=== PATIENT | female | born 1935 | race Caucasian/White ===

== ENCOUNTER 2019-09-02 21:24 | Emergency (ER) | payer MEDICARE, MEDICAID, SELFPAY ==
[2019-09-02] VITALS (11 sets, daily range): BP systolic 138–175; BP diastolic 64–96; PULSE 91–110; RESP 18–27; TEMP 38.9; O2SAT 92–95; BMI 25.0
--- NOTE | 2019-09-02 22:22 | ECG_ITS ---
Measurements Intervals [place] Rate: 99 P: 81 NC: 161 QRS: -45 QRSD: 103 T: 67 QT: 357 QTc: 458 SINUS RHYTHM INCOMPLETE RIGHT BUNDLE BRANCH BLOCK [90+ ms QRS DURATION, TERMINAL R IN V1/V2, 40+ ms S IN I/aVL/V4/V5/V6] LEFT ANTERIOR FASCICULAR BLOCK [QRS AXIS <= -45, QR IN I, RS IN II] ST DEVIATION AND MODERATE T-WAVE ABNORMALITY, CONSIDER ANTERIOR ISCHEMIA [-0.1+ mV T WAVE IN V3/V4] Compared to ECG 04/14/2019 09:24:33 Left anterior fascicular block now present T-wave abnormality now present Possible ischemia now present Electronically Signed On 09-03-2019 20:01:40 CDT by Suzy Brumfield M.D. [id number]
--- NOTE | 2019-09-02 22:39 | ED_ITS ---
HPI - Female Genitourinary General: Chief complaint: Urogenital-Female Stated complaint: fever Time Seen by Provider: 09/02/19 22:23 History of Present Illness: HPI Narrative: Patient complains of bladder infection x2 days urinary frequency burning fever at this evening MD elicited complaint: UTI Pertinent past history: recurrent UTIs Onset (ago): day(s) Consistency: progressively worsening Vaginal discharge: none Exacerbating factors: none Associated symptoms: Reports fevers/chills; Deny abdominal pain, headache(s) or nausea Sexual activity: No Patient : No Review of Systems Const: Denies: fever, chills or body aches Eyes: Denies: change in vision or blurry vision ENMT: Denies: throat pain or nasal congestion Card: Denies: chest pain or shortness of breath on exertion Resp: Denies: shortness of breath, productive cough or non-productive cough GI: Denies: abdominal pain, nausea or vomiting : Reports: urinary frequency and urinary urgency Musc: Denies: extremity pain Skin/Breast: Denies: rash Neuro: Denies: headache Psych: Denies: anxiety or depression Titi/Lymph: Denies: easy bruising PFSH ED PFSH: Social History Smoking and tobacco status: never smoked History of recent travel: No Physical Exam Const: COMMON NORMALS: no apparent distress, average body habitus and oriented x3 HENMT: COMMON NORMALS: normocephalic HEAD & SCALP: normal to inspection and normocephalic FACE & SINUS: normal facial exam Eye: COMMON NORMALS: conjunctivae normal GENERAL EYE: normal appearance of both eyes CONJUNCTIVA: Yes conjunctivae normal Neck/C-Spine: COMMON NORMALS: no JVD Chest: COMMONS NORMALS: inspection of chest normal Resp: COMMON NORMALS: normal respiratory effort and clear to auscultation bilaterally AUSCULTATION: clear to auscultation bilaterally Cardio: COMMON NORMALS: no JVD and regular rhythm RATE: tachycardic RHYTHM: regular rhythm GI: COMMON NORMALS: normal to inspection, nondistended, normoactive bowel sounds Extremity: COMMON NORMALS: normal to inspection and full ROM Neuro: COMMON NORMALS: oriented x3 Course Vital Signs: Vital signs: Vital Signs Temperature 102.1 F H 09/02/19 21:31 Pulse Rate 90 05/10/20 00:25 Respiratory Rate 28 H 09/03/19 00:30 Blood Pressure 141/66 09/03/19 00:35 Pulse Oximetry 95 09/03/19 00:25 MDM - Female MDM Narrative: Medical decision making narrative: Went over the labs and patient diagnosis with Dr. Andrez Díaz he agrees with care plan Lab Data: Labs: Lab Results 09/02/19 09/02/19 09/02/19 Range/Units 22:08 22:08 23:34 WBC 11.2 H (4.0-10.0) 10^3/ uL RBC 4.52 (4.1-5.3) 10^6/u L Hgb 12.7 (11.5-15.3) g/dL Hct 40.0 (37.0-47.0) % MCV 88.5 (81-99) fL MCH 28.1 (28.0-34.0) pg MCHC 31.8 (30.0-36.0) g/dL RDW 14.8 (12.1-15.1) % Plt Count 182 (130-400) 10^3/c mm MPV 12.6 H (7.4-10.4) fL Neut % (Auto) 81.1 % Lymph % (Auto) 8.8 % [place] % (Auto) 8.9 % Eos % (Auto) 0.4 % Baso % (Auto) 0.4 % Neut # (Auto) 9.1 H (1.8-7.7) 10^3/u L Lymph # (Auto) 1.0 (0.8-4.8) 10^3/u L [place] # (Auto) 1.0 H (0.2-0.9) 10^3/u L Eos # (Auto) 0.0 (0.0-0.8) 10^3/u L Baso # (Auto) 0.0 (0.0-0.1) 10^3/u L Nucleated RBC % (a uto) 0 % Nucleated RBCs # 0.0 /100WBC Sodium 135 L (136-145) mmol/L Potassium 3.0 L (3.5-5.1) mmol/L Chloride 92 L (98-107) mmol/L Carbon Dioxide 26 (22-29) mmol/L Anion Gap 20.0 H (5-19) BUN 16 (8-23) mg/dL Creatinine 0.9 (0.5-0.9) mg/dL Glucose 108 (65-115) mg/dL Calculated Osmolal ity 277 L (285-295) mOsm/k g Calcium 9.4 (8.5-10.5) mg/dL Total Bilirubin 1.1 (0.15-1.2) mg/dL AST 13 (0-32) U/L ALT 9 (0-33) U/L Alkaline Phosphata se 38 (35-105) IU/L Total Protein 6.8 (6.6-8.7) g/dL Albumin 4.3 (3.5-5.2) g/dL Globulin 2.5 (1.3-4.6) g/dL Urine Color [place] (Yellow) Urine Appearance Cloudy (CLEAR) Urine pH 5 (5-7) Ur Specific [place]it y 1.005 (1.005-1.030) Urine Protein 3+ H (Negative) Urine Glucose (UA) Norm (Normal) Urine Ketones 2+ H (Negative) Urine Blood 3+ H (Negative) Urine Nitrate Not tested A (Negative) Urine Bilirubin Not tested (NEGATIVE) Prot Sulfosalicyli c Acd Positive (Negative) Urine Urobilinogen Not tested A (Negative) mg/dL Ur Leukocyte [place] 2+ H (Negative) Urine RBC 5-10 H (0-2) /hpf Urine WBC Too numerous to c nt H (0-5) /hpf Ur Squamous Epith Cells 0-4 H (0-5) Urine Bacteria 2+ H (NONE) EKG Data: EKG 1: EKG Data: 09/02/19 EKG interpretation time: 22:40 Interpretation: Sinus rhythm ventricular rate 99 bpm incomplete right bundle branch block left anterior fascicular block GA intervals 161 ms QRS durations 103 ms Discharge Plan Discharge Patient Disposition: Home, Self-Care Clinical Impression: Hypokalemia, Acute dehydration Urinary tract infection Qualifiers: Urinary tract infection type: acute cystitis Hematuria presence: with hematuria Qualified Code(s): N30.01 - Acute cystitis with hematuria Condition: Stable Prescriptions: New Macrobid 100 mg capsule 100 mg PO BID 7 Days Qty: 14 RF: 0 potassium chloride 10 mEq tablet extended release 10 meq PO DAILY Qty: 30 RF: 0 No Action carbidopa-levodopa [Sinemet] 25-100 mg tablet 1 tab PO TID RF: 0 metoprolol succinate 25 mg tablet extended release 24 hr 25 mg PO BID RF: 0 losartan 50 mg tablet 50 mg PO BID RF: 0 lorazepam 0.5 mg tablet 0.5 mg PO QID PRN (Reason: Sleep) RF: 0 atorvastatin 20 mg tablet 20 mg PO DAILY RF: 0 hydrochlorothiazide 12.5 mg Tablet 12.5 mg PO EVERY OTHER DAY RF: 0 biotin 800 mcg Tablet 500 mcg PO DAILY RF: 0 Aspir-81 81 mg Tablet,Delayed Release (Dr/Ec) 81 mg PO DAILY RF: 0 iron 325 mg (65 mg iron) Tablet 325 mg PO DAILY RF: 0 Discharge Orders: Discharge Order (Routine); Ordered 09/03/19 Ordered By: Bakari Pardo Referrals: Adri Chaudhary NP [Primary Care Provider] - Discharge Diet: Advance as tolerated Discharge Activity: Resume usual activity Patient Instructions: Dehydration (ED), Urinary Tract Infection in Women (ED), Hypokalemia (ED) Activity Restrictions/Additional Instructions: Follow-up with medical provider as directed. Take medications as prescribed. Return to the ER or your medical provider if condition worsens. Please read and understand discharge instructions. If any questions ask please. Follow-up with your primary care this coming week repeat your urine sample and potassium blood level drink plenty of fluids if fever does not go away or worsening symptoms return here with your primary care provider Coding Level of Care Code ED Educational Therapy Teacher for Ute Fwd Exam Comprehensive
[2019-09-02] MEDS: sodium chloride 0.9% 1,000 ML 999 ML IV (23:08)
[2019-09-02 23:28] LABS: Basophils % 0.4 %; Eosinophils % 0.4 %; Hemoglobin 12.7 g/dL (11.5-15.3); Lymphocytes % 8.8 %; Mean Corpuscular HGB Conc 31.8 g/dL (30.0-36.0); Mean Corpuscular Hemoglobin 28.1 pg (28.0-34.0); Mean Corpuscular Volume 88.5 fL (81-99); Mean Platelet Volume 12.6 fL (7.4-10.4); Monocytes % 8.9 %; Neutrophils # 9.1 10^3/uL (1.8-7.7); Neutrophils % 81.1 %; Nucleated Red Blood Cells % 0 %; Platelet Count 182 10^3/cmm (130-400); Positive C 1; Red Blood Count 4.52 10^6/uL (4.1-5.3); Red Cell Distribution Width 14.8 % (12.1-15.1); White Blood Count 11.2 10^3/uL (4.0-10.0)
[2019-09-02 23:32] LABS: Alanine Aminotransferase 9 U/L (0-33); Albumin Level 4.3 g/dL (3.5-5.2); Alkaline Phosphatase 38 IU/L (35-105); Aspartate Amino Transferase 13 U/L (0-32); Blood Urea Nitrogen 16 mg/dL (8-23); Calcium 9.4 mg/dL (8.5-10.5); Carbon Dioxide 26 mmol/L (22-29); Chloride 92 mmol/L (98-107); Creatinine Clr Calc Pharmacy 46.7251; Globulin 2.5 g/dL (1.3-4.6); Glucose 108 mg/dL (65-115); Osmolality Calculated 277 mOsm/kg (285-295); Sodium 135 mmol/L (136-145); Total Bilirubin 1.1 mg/dL (0.15-1.2); Total Protein 6.8 g/dL (6.6-8.7)
[2019-09-02 23:45] LABS: Slide Review Slide Review Perform
[2019-09-02] MEDS: acetaminophen 500 mg Tablet 1000 MG PO (23:48)
[2019-09-02] MEDS: cefTRIAXone 1,000 MG in sodium chloride 0.9% (plus) 50 ML 100 MG IV (23:49)
[2019-09-03] VITALS (13 sets, daily range): BP systolic 110–149; BP diastolic 58–66; PULSE 85–96; RESP 16–28; O2SAT 93–96
[2019-09-03 00:24] LABS: Protein Urine 3+ (Negative); Specific Gravity, Urine 1.005 (1.005-1.030); Urine Appearance Cloudy (CLEAR); Urine Color Orange (Yellow); pH Urine 5 (5-7)
[2019-09-03 00:25] LABS: Bilirubin Urine Not Tested (NEGATIVE); Blood Urine 3+ (Negative); Glucose Urine UA Norm (Normal); Ketones Urine 2+ (Negative); Leukocyte Esterase Urine 2+ (Negative); Nitrate Urine Not Tested (Negative); Sulfosalicylic Acid Urine Positive (Negative); Urobilinogen Urine Not Tested mg/dL (Negative)
[2019-09-03 00:28] LABS: Add Urine Microscopic? YES; WBC Urine TOO NUMEROUS TO CNT /hpf (0-5)
[2019-09-03 00:29] LABS: Add Urine Culture? Yes; Bacteria Urine 2+; Squamous Epithelial Cell Urine 0-4 (0-5)
== END 2019-09-03 01:10 | disposition home or self-care (01) ==
PROVIDERS: Emergency Medicine; Emergency Provider Nurse Practitioner Family; PCP Nurse Practitioner Family
DX: N30.01 Acute cystitis with hematuria (principal); E87.6 Hypokalemia; E86.0 Dehydration; Z79.82 Long term (current) use of aspirin
CPT/HCPCS: 12345; 80053; 81001; 85025; 87040; 87077; 87086; 87186; 93005; 96365; 99284; J0696; J7030

== ENCOUNTER → 2019-10-30 11:20 | Outpatient (BNVA) | payer MEDICARE, MEDICAID, SELFPAY | PROVIDERS: PCP Nurse Practitioner Family; Referring Provider Nurse Practitioner Family; Visit Provider Nurse Practitioner Family | DX: N39.0 Urinary tract infection, site not specified (principal); N39.41 Urge incontinence | CPT/HCPCS: 80053; 81001 ==

== ENCOUNTER → 2019-11-01 12:07 | Outpatient (BNVA) | payer MEDICARE, MEDICAID, SELFPAY | PROVIDERS: PCP Nurse Practitioner Family; Visit Provider Specialist | DX: G20 Parkinson's disease (principal); F41.9 Anxiety disorder, unspecified | CPT/HCPCS: 99214 ==

== ENCOUNTER → 2020-02-20 10:36 | Outpatient (BNVA) | payer MEDICARE, MEDICAID, SELFPAY | PROVIDERS: PCP Nurse Practitioner Family; Visit Provider Nurse Practitioner Family | DX: N39.0 Urinary tract infection, site not specified (principal) | CPT/HCPCS: 81003 ==

== ENCOUNTER → 2020-05-20 14:13 | Outpatient (BNVA) | payer MEDICARE, MEDICAID, SELFPAY | PROVIDERS: PCP Nurse Practitioner Family; Visit Provider Specialist | DX: G20 Parkinson's disease (principal) | CPT/HCPCS: 99214 ==

== ENCOUNTER → 2020-05-22 13:49 | Outpatient (BNVA) | payer MEDICARE, MEDICAID, SELFPAY | PROVIDERS: PCP Nurse Practitioner Family; Visit Provider Urology | DX: N39.0 Urinary tract infection, site not specified (principal) | CPT/HCPCS: 81003 ==

== ENCOUNTER 2020-06-26 13:02 | Outpatient (RCR) | payer MEDICARE, MEDICAID, SELFPAY | END 2020-07-24 23:59 | disposition home or self-care (01) | LOC: SPT 13:02 | PROVIDERS: PCP Nurse Practitioner Family; Visit Provider Specialist | DX: G20 Parkinson's disease (principal) | CPT/HCPCS: 97110; 97112; 97162; 97530 ==

== ENCOUNTER 2020-07-25 06:00 | Outpatient (RCR) | payer MEDICARE, MEDICAID, SELFPAY | END 2020-08-01 23:00 | disposition home or self-care (01) | LOC: SPT 06:00 | PROVIDERS: PCP Nurse Practitioner Family; Visit Provider Specialist | DX: G20 Parkinson's disease (principal) | CPT/HCPCS: 97110; 97112; 97530 ==

== ENCOUNTER → 2020-10-25 11:22 | Outpatient (BNVA) | payer MEDICARE, MEDICAID, SELFPAY | PROVIDERS: PCP Nurse Practitioner Family; Visit Provider Urology | DX: N39.0 Urinary tract infection, site not specified (principal) | CPT/HCPCS: 81003; 87086 ==

== ENCOUNTER → 2020-11-20 11:10 | Outpatient (BNVA) | payer MEDICARE, MEDICAID, SELFPAY | PROVIDERS: PCP Nurse Practitioner Family; Visit Provider Specialist | DX: G20 Parkinson's disease (principal); F41.9 Anxiety disorder, unspecified | CPT/HCPCS: 81003; 99213; 99214 ==

== ENCOUNTER → 2021-05-05 14:59 | Outpatient (BNVA) | payer MEDICARE, MEDICAID, SELFPAY | PROVIDERS: PCP Nurse Practitioner Family; Visit Provider Specialist | DX: G20 Parkinson's disease (principal); R06.02 Shortness of breath; F41.9 Anxiety disorder, unspecified; Z71.85 Encounter for immunization safety counseling | CPT/HCPCS: 99214 ==

== ENCOUNTER 2021-06-01 15:53 | Emergency (ER) | payer MEDICARE, MEDICAID, SELFPAY ==
[2021-06-01] VITALS (9 sets, daily range): BP systolic 91–171; BP diastolic 55–108; PULSE 75–96; RESP 10–20; TEMP 36.7; O2SAT 96–98; BMI 24.1
--- NOTE | 2021-06-01 16:33 | W.ED.WEAKNES ---
HPI - Weakness General: Chief complaint: Weakness Stated complaint: weakness, shaking Time Seen by Provider: 06/01/21 16:32 History of Present Illness: Ms. Flaherty is an 85-year-old lady with history of Parkinson's disease and recurrent UTI presenting to the emergency department for generalized weakness and near syncope with increased shakiness. Symptom onset was gradual approximately 3 days ago. She does have a recent history of Covid about 2 weeks ago and feels that this may be related to that though she did have some improvement in Covid symptoms. She endorses positional lightheadedness and near syncope. Overall the course of symptoms has been worsening. Intensity is moderate. Denies any other known specific exacerbating relieving factors. Onset (ago): day(s) Duration: constant and progressively worsening Severity: moderate Exacerbating factors: other Context: recent illness Review of Systems General: Reports: 10 or more systems reviewed and unremarkable except in HPI and below PFSH ED PFSH: Medical History Anemia Back pain Central deafness GERD (gastroesophageal reflux disease) Parkinson's Disease Recurrent UTI Surgical History History of cataract surgery History of knee replacement Hx of LASIK Family History Sister COPD (chronic obstructive pulmonary disease) Mother CHF (congestive heart failure) Social History Alcohol intake: never Adopted: No Caregiver/support person: No Lives independently: Yes Marital status: / Current occupational status: retired History of recent travel: No Physical Exam Const: COMMON NORMALS: alert GENERAL APPEARANCE: cooperative, well developed and frail appearing HENMT: COMMON NORMALS: normocephalic and atraumatic HEAD & SCALP: normocephalic and atraumatic OTHER: Mildly dry mucous membranes Eye: COMMON NORMALS: conjunctivae normal CONJUNCTIVA: Yes conjunctivae normal SCLERA: sclerae normal Neck/C-Spine: COMMON NORMALS: supple GENERAL: Yes trachea midline Resp: COMMON NORMALS: normal respiratory effort and clear to auscultation bilaterally EFFORT & INSPECTION: Yes able to speak in complete sentences AUSCULTATION: clear to auscultation bilaterally Cardio: COMMON NORMALS: regular rate and regular rhythm RATE: regular rate RHYTHM: regular rhythm GI: COMMON NORMALS: Soft to palpation PALPATION: Yes Soft to palpation and No Tenderness to palpation present (GI) PERCUSSION: normal to percussion Extremity: GENERAL: Yes normal exam except as noted and No edema Neuro: COMMON NORMALS: moves all extremities SENSORIUM/ORIENTATION: Yes alert and No Orientation impaired OTHER: Generalized tremor without focal neurologic deficits Psych: COMMON NORMALS: mental status grossly normal and Normal thought process present THOUGHT PROCESS: Normal thought process present Course ED course: - Patient was seen and evaluated by me at bedside - Patient placed on cardiac monitors, IV access obtained - Initial evaluation notable for exam as above, no focal neurologic deficits -IV fluids ordered - Labs notable for no leukocytosis, mild hypokalemia with replacement ordered. Urinalysis with evidence of urinary tract infection, antibiotic ordered - Imaging notable for negative chest x-ray - Upon serial reexamination after treatment the patient was mildly improved - Based on patient history, evaluation, labs, and imaging as interpreted the most likely cause of the patient's condition is mild dehydration and UTI likely exacerbating underlying medical conditions including autonomic symptoms secondary to Parkinson's disease - The results of ED evaluation were discussed with the patient including prescriptions and/or symptomatic cares (if applicable) including appropriate and responsible use, followup plan, and return precautions. The patient verbalized understanding and felt safe for discharge. - Patient discharged in satisfactory condition. Note: Click bubbles or prepopulated handy in note writing are used for assistance with data collection and billing and are inherently more limited than narrative and other text portions of this note. Please use narrative for additional clinical history and defer to narrative/free test for any case of contradictory information. If information appears in only free text or click bubble it should be considered present or absent as reported. Please contact note database report writer for clarifications of clinical information or contradictory information. MDM is a brief summary, contradictory or erroneous seeming information should be clarified and full note should be reviewed. Vital Signs: Vital signs: Vital Signs Temperature 98.0 F 06/01/21 18:21 Pulse Rate 93 06/01/21 20:11 Respiratory Rate 20 H 06/01/21 20:11 Blood Pressure 155/97 06/01/21 20:11 Pulse Oximetry 97 06/01/21 20:11 MDM - Weakness Medical Decision Making 85 lady presenting with 3 days of worsening generalized weakness and near syncope. No focal neurologic deficits on clinical exam. Mild dehydration noted on labs and likely urinary tract infection. Patient improved with fluids and will be treated outpatient with antibiotics with close PCP follow-up and strict return precautions. Medical Records I reviewed the patient's medical records. Lab Data I reviewed the patient's lab results. : 06/01/21 16:45 06/01/21 16:45 Radiology Impressions Chest X-Ray 06/01/21 16:36 IMPRESSION: No acute findings. Laboratory Results WBC 7.3 10^3/uL (4.0-10.0) 06/01/21 16:45 RBC 4.10 10^6/uL (4.1-5.3) 06/01/21 16:45 Hgb 11.9 g/dL (11.5-15.3) 06/01/21 16:45 Hct 37.0 % (37.0-47.0) 06/01/21 16:45 MCV 90.2 fl (81-99) 06/01/21 16:45 MCH 29.0 pg (28.0-34.0) 06/01/21 16:45 MCHC 32.2 g/dL (30.0-36.0) 06/01/21 16:45 RDW 13.5 % (12.1-15.1) 06/01/21 16:45 Plt Count 245 10^3/cmm (130-400) 06/01/21 16:45 MPV 11.9 fL (7.4-10.4) H 06/01/21 16:45 Neut % (Auto) 55.1 % 06/01/21 16:45 Lymph % (Auto) 29.9 % 06/01/21 16:45 [place] % (Auto) 12.1 % 06/01/21 16:45 Eos % (Auto) 1.8 % 06/01/21 16:45 Baso % (Auto) 0.7 % 06/01/21 16:45 Neut # (Auto) 4.04 10^3/uL (1.8-7.7) 06/01/21 16:45 Lymph # (Auto) 2.2 10^3/uL (0.8-4.8) 06/01/21 16:45 [place] # (Auto) 0.9 10^3/uL (0.2-0.9) 06/01/21 16:45 Eos # (Auto) 0.1 10^3/uL (0.0-0.8) 06/01/21 16:45 Baso # (Auto) 0.1 10^3/uL (0.0-0.1) 06/01/21 16:45 Nucleated RBC % (auto) 0 % 06/01/21 16:45 Nucleated RBCs # 0.0 /100WBC 06/01/21 16:45 Sodium 139 mmol/L (136-145) 06/01/21 16:45 Potassium 3.2 mmol/L (3.5-5.1) L 06/01/21 16:45 Chloride 98 mmol/L (98-107) 06/01/21 16:45 Carbon Dioxide 28 mmol/L (22-29) 06/01/21 16:45 Anion Gap 16.2 (5-19) 06/01/21 16:45 BUN 15 mg/dL (8-23) 06/01/21 16:45 Creatinine 0.8 mg/dL (0.5-0.9) 06/01/21 16:45 GFR Calculation Not Reportable 06/01/21 16:45 Glucose 120 mg/dL (65-115) H 06/01/21 16:45 Calculated Osmolality 290 mOsm/kg (285-295) 06/01/21 16:45 Calcium 8.7 mg/dL (8.5-10.5) 06/01/21 16:45 Magnesium 2.3 mg/dL (1.7-2.3) 06/01/21 16:45 Total Bilirubin 0.4 mg/dL (0.15-1.2) 06/01/21 16:45 AST 16 U/L (0-32) 06/01/21 16:45 ALT < 5 U/L (0-33) 06/01/21 16:45 Alkaline Phosphatase 43 IU/L (35-105) 06/01/21 16:45 Troponin T Baseline 12 ng/L (0-10) H 06/01/21 16:45 Troponin T 120 Minute 11.25 ng/L (0-10) H 06/01/21 18:45 Delta Troponin T -0.75 ABS# (0-10) L 06/01/21 18:45 Total Protein 5.6 g/dL (6.6-8.7) L 06/01/21 16:45 Albumin 4.2 g/dL (3.5-5.2) 06/01/21 16:45 Globulin 1.4 g/dL (1.3-4.6) 06/01/21 16:45 TSH 1.44 uIU/mL (0.27-4.20) 06/01/21 16:45 Urine Color Yellow (Yellow) 06/01/21 16:55 Urine Appearance Hazy (CLEAR) A 06/01/21 16:55 Urine pH 7 (5-7) 06/01/21 16:55 Ur Specific [place] 1.010 (1.005-1.030) 06/01/21 16:55 Urine Protein Neg (Negative) 06/01/21 16:55 Urine Glucose (UA) Norm (Normal) 06/01/21 16:55 Urine Ketones 1+ (Negative) H 06/01/21 16:55 Urine Blood Neg (Negative) 06/01/21 16:55 Urine Nitrate Negative (Negative) 06/01/21 16:55 Urine Bilirubin Neg (Negative) 06/01/21 16:55 Urine Urobilinogen 1 mg/dL (Negative) H 06/01/21 16:55 Ur Leukocyte Esterase 2+ (Negative) H 06/01/21 16:55 Urine RBC None /hpf (0-2) 06/01/21 16:55 Urine WBC 15-25 /hpf (0-5) H 06/01/21 16:55 Ur Squamous Epith Cells 0-4 /hpf (0-5) H 06/01/21 16:55 Triple Phos Crystals 0-4 /hpf H 06/01/21 16:55 Amorphous Sediment 1+ /hpf 06/01/21 16:55 Urine Bacteria 1+ /hpf (NONE) H 06/01/21 16:55 Hyaline Casts 0-4 /lpf H 06/01/21 16:55 Coarse Granular Casts 0-4 /lpf H 06/01/21 16:55 EKG Data EKG 1: I personally reviewed and interpreted this EKG as follows: EKG interpretation date: 06/01/21 EKG interpretation time: 16:35 Interpretation: Twelve-lead EKG shows a regular rhythm at a rate of 82. FL interval 141, QRS duration 92, QTc 424. Normal axis. Interpretation: Sinus rhythm. EKG 2: I personally reviewed and interpreted this EKG as follows: EKG interpretation date: 06/01/21 EKG interpretation time: 19:00 Interpretation: Twelve-lead EKG shows a regular rhythm at a rate of 87. FL interval 175, QRS duration 112, QTc 453. Normal axis. Interpretation: Sinus rhythm. Discharge Plan Discharge Patient Disposition: Home Clinical Impression: Recurrent UTI, Weakness Condition: Stable Prescriptions: New cephalexin 500 mg capsule 500 mg PO Q6H 10 Days Qty: 40 0RF No Action carbidopa-levodopa 25-100 mg tablet See Rx Instructions .ROUTE .COMPLEX Qty: 120 5RF Rx Instructions: 1/2 TABLET IN THE MORNING, 1 & 1/2 TABLETS AT 9AM AND 1:00PM, AND 1/2 TABLET AT BEDTIME lorazepam 0.5 mg tablet 0.5 mg PO QID PRN (Reason: Sleep) 0RF Rx Instructions: 1-2 TABLETS atorvastatin 20 mg tablet 20 mg PO DAILY 0RF cholecalciferol (vitamin D3) 25 mcg (1,000 unit) capsule 25 mcg PO BID 0RF Healthy Eyes Lutein-Zeaxanthin 60 mg-13.5 mg- 15 mg-2 mg-6 mg capsule 1 cap PO DAILY 0RF methenamine hippurate 1 gram tablet 1 g PO BID Qty: 60 12RF Rx Instructions: Take 1000 mg of vitamin C with each dose of methenamine ascorbic acid (vitamin C) 500 mg tablet 1 g PO BID Qty: 120 12RF Rx Instructions: take with each dose of methenamine hydrochlorothiazide 12.5 mg Tablet See Rx Instructions .ROUTE .COMPLEX 0RF Rx Instructions: 12.5 mg orally ON MON, WEDS, FRI AND 25 MG ON , TH, SAT, SUN biotin 800 mcg Tablet 500 mcg PO DAILY 0RF aspirin [Aspir-81] 81 mg Tablet,Delayed Release (Dr/Ec) 81 mg PO DAILY 0RF potassium chloride 10 mEq tablet extended release 10 meq PO DAILY Qty: 30 0RF zinc 50 mg Tablet 50 mg PO BID 0RF ondansetron 4 mg tablet,disintegrating 4 mg PO Q8H PRN (Reason: Nausea) 0RF Discharge Orders: Discharge ED (Routine); Ordered 06/01/21 Ordered By: Deion Verdugo Discharge Diet: Usual diet Discharge Activity: Resume usual activity Patient Instructions: Urinary Tract Infection in Women (ED), Weakness (ED) Activity Restrictions/Additional Instructions: Thank you for visiting the emergency department. You were seen and evaluated for generalized symptoms. The exact cause of the symptoms is unclear however may be related to mild dehydration and urinary tract infection. Please follow-up with your primary care provider. Please return to the emergency department for worsening symptoms, fevers, shortness of breath, chest pain, or anything else that you are concerned about and feel needs emergency department evaluation. Coding Level of Care Code ED School Health Aide for Ute Shields
--- NOTE | 2021-06-01 16:36 | XRR_ITS ---
PROCEDURE INFORMATION: Exam: XR Chest Exam date and time: 06/01/2021 4:36 PM Age: 85 years old Clinical indication: Other: Weakness post covid; Patient HX: Weakness after HX covid; Additional info: Weakness, HX covid TECHNIQUE: Imaging protocol: XR of the chest. Views: 1 view. COMPARISON: CR Chest 1 [place] [id number] 04/14/2019 4:00 AM FINDINGS: Lungs: Unremarkable. No consolidation. Pleural spaces: Unremarkable. No pleural effusion. No pneumothorax. Heart/Mediastinum: Unremarkable. No cardiomegaly. Bones/joints: Unremarkable. XR/XR chest 1V portable [id number] IMPRESSION: No acute findings.
[2021-06-01] MEDS: sodium chloride 0.9% 1,000 ML 999 ML IV (17:18)
[2021-06-01 17:20] LABS: Basophils # 0.1 10^3/uL (0.0-0.1); Basophils % 0.7 %; Eosinophils # 0.1 10^3/uL (0.0-0.8); Eosinophils % 1.8 %; Hemoglobin 11.9 g/dL (11.5-15.3); Lymphocytes # 2.2 10^3/uL (0.8-4.8); Lymphocytes % 29.9 %; Mean Corpuscular HGB Conc 32.2 g/dL (30.0-36.0); Mean Corpuscular Volume 90.2 fl (81-99); Mean Platelet Volume 11.9 fL (7.4-10.4); Monocytes # 0.9 10^3/uL (0.2-0.9); Monocytes % 12.1 %; Neutrophils # 4.04 10^3/uL (1.8-7.7); Neutrophils % 55.1 %; Nucleated Red Blood Cells % 0 %; Platelet Count 245 10^3/cmm (130-400); Red Cell Distribution Width 13.5 % (12.1-15.1); White Blood Count 7.3 10^3/uL (4.0-10.0)
[2021-06-01 17:26] LABS: Add Urine Microscopic? YES; Bilirubin Urine Neg (Negative); Blood Urine Neg (Negative); Glucose Urine UA Norm (Normal); Ketones Urine 1+ (Negative); Leukocyte Esterase Urine 2+ (Negative); Nitrate Urine Negative (Negative); Protein Urine Neg (Negative); Urine Appearance Hazy (CLEAR); Urine Color Yellow (Yellow); Urobilinogen Urine 1 mg/dL (Negative); WBC Urine 15-25 /hpf (0-5); pH Urine 7 (5-7)
[2021-06-01 17:27] LABS: Add Urine Culture? Yes; Amorphous Sediment Urine 1+ /hpf; Bacteria Urine 1+ /hpf; Coarse Granular Casts Urine 0-4 /lpf; Hyaline Casts Urine 0-4 /lpf; Squamous Epithelial Cell Urine 0-4 /hpf (0-5); Triple Phosphate Crystal Urine 0-4 /hpf
[2021-06-01 17:40] LABS: Troponin(5th) Baseline 12 ng/L (0-10)
[2021-06-01 17:46] LABS: Alanine Aminotransferase < 5 U/L (0-33); Albumin Level 4.2 g/dL (3.5-5.2); Alkaline Phosphatase 43 IU/L (35-105); Aspartate Amino Transferase 16 U/L (0-32); Blood Urea Nitrogen 15 mg/dL (8-23); Calcium 8.7 mg/dL (8.5-10.5); Carbon Dioxide 28 mmol/L (22-29); Chloride 98 mmol/L (98-107); Globulin 1.4 g/dL (1.3-4.6); Glucose 120 mg/dL (65-115); Magnesium 2.3 mg/dL (1.7-2.3); Osmolality Calculated 290 mOsm/kg (285-295); Sodium 139 mmol/L (136-145); Thyroid Stimulating Hormone 1.44 uIU/mL (0.27-4.20); Total Bilirubin 0.4 mg/dL (0.15-1.2); Total Protein 5.6 g/dL (6.6-8.7)
[2021-06-01 17:48] LABS: Anion Gap 16.2 (5-19); Potassium 3.2 mmol/L (3.5-5.1)
--- NOTE | 2021-06-01 18:37 | ECG_ITS ---
[facility] Test Date: 2021-06-01 Pat Name: Latoya Flaherty Department: Room: Gender: Female Wash Crew Person: : 1935 Requested By: Deion Verdugo Order Number: [id number] Meet MD: Quyen Suresh M.D. Measurements Intervals [place] Rate: 87 P: 76 IA: 175 QRS: 65 QRSD: 112 T: 91 QT: 409 QTc: 492 Interpretive Statements SINUS RHYTHM WITH OCCASIONAL SUPRAVENTRICULAR PREMATURE COMPLEXES LOW QRS VOLTAGE IN PRECORDIAL LEADS [QRS DEFLECTION < 1.0 mV IN CHEST LEADS] INCOMPLETE RIGHT BUNDLE BRANCH BLOCK MODERATE ST DEPRESSION Compared to ECG 06/01/2021 16:11:29 Incomplete right bundle-branch block now present ST (T wave) deviation now present Myocardial infarct finding no longer present Electronically Signed On 06-02-2021 8:48:44 CHIEF OPERATIONS OFFICER by Quyen Suresh M.D. [id number]
[2021-06-01] MEDS: potassium chloride oral liq 20 mEq/15 mL UDC 40 MEQ PO (19:03)
[2021-06-01 20:27] LABS: Troponin 5 2HR 11.25 ng/L (0-10)
[2021-06-01 20:29] LABS: Troponin 5 2HR Delta -0.75 ABS# (0-10)
[2021-06-01] MEDS: cefTRIAXone 1,000 MG in sodium chloride 0.9% (plus) 50 ML 100 MG IV (20:55)
--- NOTE | 2021-06-01 22:37 | ECG_ITS ---
[facility] Test Date: 2021-06-01 Pat Name: Latoya Flaherty Department: Room: Gender: Female Photographic Specialist: : 1935 Requested By: Deion Verdugo Order Number: [id number] Meet MD: Quyen Suresh M.D. Measurements Intervals [place] Rate: 82 P: 71 [place]: 141 QRS: -6 QRSD: 92 T: 1 QT: 385 QTc: 452 Interpretive Statements SINUS RHYTHM LOW QRS VOLTAGE IN PRECORDIAL LEADS [QRS DEFLECTION < 1.0 mV IN CHEST LEADS] POSSIBLE ANTERIOR MYOCARDIAL INFARCTION , OF INDETERMINATE AGE [30 ms Q WAVE IN V3/V4, OR R < 0.2 mV IN V4] Compared to ECG 09/02/2019 22:40:13 Low QRS voltage now present Myocardial infarct finding now present Incomplete right bundle-branch block no longer present Left anterior fascicular block no longer present T-wave abnormality no longer present Possible ischemia no longer present Electronically Signed On 06-01-2021 17:02:30 WATER PURIFIER OPERATOR by Quyen Suresh M.D. [id number]
== END 2021-06-01 21:23 | disposition home or self-care (01) ==
PROVIDERS: Emergency Provider Emergency Medicine
DX: R53.1 Weakness (principal); N39.0 Urinary tract infection, site not specified; Z87.440 Personal history of urinary (tract) infections; Z79.82 Long term (current) use of aspirin; G20 Parkinson's disease
CPT/HCPCS: 36415; 71045; 80053; 81001; 83735; 84443; 84484; 85025; 87086; 93005; 96365; 99284; J0696; J7030

== ENCOUNTER → 2021-06-11 14:23 | Outpatient (BNVA) | payer MEDICARE, MEDICAID, SELFPAY | PROVIDERS: Visit Provider Nurse Practitioner Family | DX: N39.0 Urinary tract infection, site not specified (principal) | CPT/HCPCS: 81003 ==

== ENCOUNTER → 2021-07-30 14:38 | Outpatient (BNVA) | payer MEDICARE, MEDICAID, SELFPAY | PROVIDERS: Visit Provider Specialist | DX: G20 Parkinson's disease (principal) | CPT/HCPCS: 99213 ==

== ENCOUNTER → 2021-12-11 10:40 | Outpatient (BNVA) | payer MEDICARE, MEDICAID, SELFPAY | PROVIDERS: Visit Provider Urology | DX: N39.0 Urinary tract infection, site not specified (principal); R35.81 Nocturnal polyuria | CPT/HCPCS: 81003; 99213 ==

== ENCOUNTER 2022-01-29 11:03 | Emergency (ER) | payer MEDICARE, MEDICAID, SELFPAY ==
[2022-01-29 11:04] VITALS: BP 174/84; PULSE 78; RESP 16; TEMP 36.9; O2SAT 95; BMI 26.6
--- NOTE | 2022-01-29 11:46 | XRR_ITS ---
PROCEDURE INFORMATION: Exam: XR Ribs Exam date and time: 01/29/2022 12:15 PM Age: 86 years old Clinical indication: Injury or trauma; Rib area, bilateral; Blunt trauma; Injury details: History--fall Wednesday herson rib pain TECHNIQUE: Imaging protocol: Radiologic exam of the of the ribs. Views: 3 views. Bilateral ribs. COMPARISON: CR XR chest 1V portable [id number] 06/01/2021 5:48 PM FINDINGS: Bones/joints: Normal. Lungs: Small benign calcified granulomas are present in the lungs. No pneumonia. Pleural space: No pleural effusion or pneumothorax. Soft tissues: Normal. XR/XR ribs BI 3V* [id number] IMPRESSION: No acute findings.
--- NOTE | 2022-01-29 13:13 | ED_ITS ---
HPI - Extremity Problem General: Chief complaint: Extremity Injury, Upper Stated complaint: Fall, Ribs, Head and knee pains Time Seen by Provider: 01/29/22 12:00 History of Present Illness: Patient is in today for left-sided rib pain. She reports that last Wednesday she had a fall when she got up from bed to go take another medication. She reports that she just tripped and fell. She reports that she fell onto the hard floor and hurt the left side of her ribs. She reports that she has had some swelling in both knees her right knee is a little bit sore but she is walking okay on it. She reports that initially she had some pain in her right elbow but that seems to be improving. She just states that she has hurting all over. She reports that her pain has not gotten any worse but it is just not improving a lot in her rib. She denies any shortness of breath, but states that it is painful to take a big deep breath. Associated symptoms: Deny chest pain or fever(s) Review of Systems Const: Denies: fever(s) or chills Card: Denies: chest pain or palpitations Resp: Denies: dyspnea, productive cough or non-productive cough Musc: Reports: other (Left side rib pain, right side knee pain, right side elbow pain) [facility] ED PFSH: Medical History Anemia Back pain Central deafness GERD (gastroesophageal reflux disease) Parkinson's Disease Recurrent UTI Surgical History History of cataract surgery History of knee replacement Hx of LASJESSICA Family History Sister COPD (chronic obstructive pulmonary disease) Mother CHF (congestive heart failure) Social History Smoking and tobacco status: never smoked Alcohol intake: never Adopted: No Caregiver/support person: No Lives independently: Yes Marital status: / Current occupational status: retired History of recent travel: No Physical Exam Const: COMMON NORMALS: no acute distress, patient oriented x3 and alert Chest: OTHER: Tenderness to palpation left side lower ribs under breast. No obvious bony deformity or step-off appreciated. No soft tissue bruising or deformity appreciated. Resp: COMMON NORMALS: normal respiratory effort, No use of accessory muscles and clear to auscultation bilaterally AUSCULTATION: clear to auscultation bilaterally Cardio: COMMON NORMALS: regular rate, regular rhythm, S1 normal heart sound present and S2 normal heart sound present RATE: regular rate RHYTHM: regular rhythm HEART SOUNDS: S1 normal heart sound present and S2 normal heart sound present Extremity: NARRATIVE EXTREMITY EXAM: Patient has bruising to the right elbow. She has full range of motion of the elbow. No obvious bony deformity appreciated. OTHER: Patient has bruising to bilateral knees over the patella. She has surgical scars from previous bilateral knee replacements. Patient is ambulating well. Mild swelling to the right knee. Tender to palpation over the bruising however there is no obvious bony deformity appreciated. Neuro: COMMON NORMALS: patient oriented x3 SENSORIUM/ORIENTATION: Yes alert Course Vital Signs: Vital signs: Vital Signs Temperature 98.5 F 01/29/22 11:04 Pulse Rate 73 01/29/22 13:58 Respiratory Rate 18 01/29/22 13:58 Blood Pressure 197/80 01/29/22 14:44 Pulse Oximetry 97 01/29/22 13:58 Oxygen Delivery Me thod 01/29/22 13:58 MDM - Extremity (Nontraumatic) Medical Decision Making This is an 86-year-old female who cares for herself and drives herself. She had a fall last Wednesday when she tripped as she was getting out of bed. She has had persisting pain in her left side rib cage since that time. She reports that the knee and elbow have improved. She denies shortness of breath but has pain with deep inspiration. Sickle exam did not reveal any obvious bony or soft tissue deformity in the area of tenderness on the left side chest wall underneath the left breast. There is tenderness to palpation over the lower rib. X-ray shows no acute findings. We will treat patient for rib contusion, elbow contusion, knee contusion, fall. Conservative treatments at home. Blood pressure is slightly elevated and here but patient has not had anything for pain. Treat patient with Tylenol at this time. We will make sure that blood pressure is improving with pain control. Blood pressure actually went a bit higher to 201/81. Patient offers that she takes a half a tab of metoprolol up to twice a day if her blood pressure gets really high. She has not had any of her medicines today. She has this with her and took half of a 12.5 mg tablet of metoprolol. Blood pressure came down slightly after metoprolol. Patient definitely wants to go home stating that she will rest better and her house and she has blood pressure medication and a blood pressure monitor if needed. She has no associated chest pain, shortness of breath. Patient will be discharged to home with baclofen low-dose to help with muscle spasming. Discussed with the patient, at length, the risk of muscle relaxant medication especially as we age. Discussed with her the need to pay close attention when she is getting up and down if she is taking this medication. Do not drive after taking the medication. Advised her to follow-up with her primary care provider next week. Return to the ER for new or worsening symptoms. Discussed, at length, the importance of splinting and coughing and deep breathing to prevent pneumonia development. Patient verbalized understanding of all instructions. All questions answered to satisfaction. Lab Data Radiology Impressions Ribs X-Ray 01/29/22 11:46 IMPRESSION: No acute findings. Discharge Plan Discharge Patient Disposition: Home Clinical Impression: Contusion of rib on left side, Fall Contusion, knee Qualifiers: Encounter type: initial encounter Contusion of elbow Qualifiers: Encounter type: initial encounter Laterality: right Qualified Code(s): S50.01XA - Contusion of right elbow, initial encounter Condition: Stable Prescriptions: New baclofen 5 mg tablet 5 mg PO Q8H PRN (Reason: muscle spasm) Qty: 6 0RF No Action lorazepam 0.5 mg tablet 0.5 mg PO QID PRN (Reason: Sleep) Rx Instructions: 1-2 TABLETS atorvastatin 20 mg tablet 20 mg PO DAILY cholecalciferol (vitamin D3) 25 mcg (1,000 unit) capsule 25 mcg PO BID Healthy Eyes Lutein-Zeaxanthin 60 mg-13.5 mg- 15 mg-2 mg-6 mg capsule 1 cap PO DAILY cephalexin 500 mg capsule 500 mg PO QID ascorbic acid (vitamin C) 500 mg tablet 1 g PO BID Qty: 120 12RF Rx Instructions: take with each dose of methenamine methenamine hippurate 1 gram tablet See Rx Instructions .ROUTE .COMPLEX Qty: 60 6RF Dose Instruction: TAKE 1 TABLET BY MOUTH TWO TIMES A DAY . TAKE WITH 100MG VITAMIN C. WITH EACH DOSE Rx Instructions: TAKE 1 TABLET BY MOUTH TWO TIMES A DAY . TAKE WITH 100MG VITAMIN C. WITH EACH DOSE carbidopa-levodopa 25-100 mg tablet See Rx Instructions .ROUTE .COMPLEX Qty: 120 5RF Rx Instructions: 1/2 TABLET IN THE MORNING, 1 & 1/2 TABLETS AT 9AM AND 1:00PM, AND 1/2 TABLET AT BEDTIME hydrochlorothiazide 12.5 mg Tablet See Rx Instructions .ROUTE .COMPLEX Rx Instructions: 12.5 mg orally ON MON, WEDS, FRI AND 25 MG ON , , SAT, SUN biotin 800 mcg Tablet 500 mcg PO DAILY aspirin [Aspir-81] 81 mg Tablet,Delayed Release (Dr/Ec) 81 mg PO DAILY potassium chloride 10 mEq tablet extended release 10 meq PO DAILY Qty: 30 0RF zinc 50 mg Tablet 50 mg PO BID ondansetron 4 mg tablet,disintegrating 4 mg PO Q8H PRN (Reason: Nausea) Discharge Orders: Discharge ED (Routine); Ordered 01/29/22 Ordered By: Jocelyn Garcia Referrals: Viviana Torres FNP [Primary Care Provider] - Discharge Diet: Usual diet Discharge Activity: Increase activity as tolerated Patient Instructions: Baclofen (By mouth), Rib Contusion (ED) Activity Restrictions/Additional Instructions: Your x-rays did not show any evidence of fracture today. I recommend Tylenol arthritis as needed for pain. You received 1 dose in ER today. Take baclofen as needed to help with muscle spasming. This medication will make you sleepy. You should not drive after taking this medication. It can increase your risk of fall so be careful getting up and down after taking this medication. Do not take this medication with any other medications that make you sleepy. Call tomorrow to make a follow-up appointment with your primary care provider for next week for reevaluation. Return to the ER for any new or worsening symptoms. Coding Level of Care Code ED It Systems Manager for Ute Shields Exam Expanded Problem Focused
[2022-01-29 13:58] VITALS: BP 187/78; PULSE 73; RESP 18; O2SAT 97
[2022-01-29] MEDS: acetaminophen 325 mg Tablet 650 MG PO (14:05)
[2022-01-29 14:20] VITALS: BP 201/81
[2022-01-29 14:44] VITALS: BP 197/80
[2022-01-29 15:10] VITALS: BP 198/80; O2SAT 97
== END 2022-01-29 15:13 | disposition home or self-care (01) ==
PROVIDERS: Emergency Provider Nurse Practitioner Family; PCP Nurse Practitioner Family
DX: S50.01XA Contusion of right elbow, initial encounter (principal); S20.212A Contusion of left front wall of thorax, initial encounter; S80.02XA Contusion of left knee, initial encounter; S80.01XA Contusion of right knee, initial encounter; G20 Parkinson's disease; W01.0XXA Fall on same level from slipping, tripping and stumbling without subsequent striking against object, initial encounter; Z79.82 Long term (current) use of aspirin
CPT/HCPCS: 71110; 99283

== ENCOUNTER 2022-04-06 06:00 | Outpatient (RCR) | payer MEDICARE, MEDICAID, SELFPAY | END 2022-04-25 23:59 | disposition home or self-care (01) | LOC: SPT 06:00 | PROVIDERS: PCP Nurse Practitioner Family; Visit Provider Family Medicine | DX: R26.89 Other abnormalities of gait and mobility (principal); G20 Parkinson's disease | CPT/HCPCS: 97110; 97162; 97530 ==

== ENCOUNTER 2022-04-26 06:00 | Outpatient (RCR) | payer MEDICARE, MEDICAID, SELFPAY | END 2022-05-14 23:59 | disposition home or self-care (01) | LOC: SPT 06:00 | PROVIDERS: PCP Family Medicine; Visit Provider Family Medicine | DX: G20 Parkinson's disease (principal); R26.89 Other abnormalities of gait and mobility | CPT/HCPCS: 97110; 97530 ==

== ENCOUNTER → 2022-05-04 12:14 | Outpatient (BNVA) | payer MEDICARE, MEDICAID, SELFPAY | PROVIDERS: PCP Family Medicine; Visit Provider Specialist | DX: G20 Parkinson's disease (principal); R41.89 Other symptoms and signs involving cognitive functions and awareness; R26.9 Unspecified abnormalities of gait and mobility; F41.9 Anxiety disorder, unspecified | CPT/HCPCS: 96116; 99214 ==

== ENCOUNTER → 2022-09-02 14:41 | Outpatient (BNVA) | payer MEDICARE, MEDICAID, SELFPAY | PROVIDERS: PCP Family Medicine; Referring Provider Specialist; Visit Provider Specialist | DX: G20 Parkinson's disease (principal); M79.7 Fibromyalgia; M54.50 Low back pain, unspecified; F41.9 Anxiety disorder, unspecified | CPT/HCPCS: 20550; 20552; 99214 ==

== ENCOUNTER 2022-10-08 12:28 | Inpatient (IN) | payer MEDICARE, MEDICAID, SELFPAY ==
[2022-10-08] VITALS (8 sets, daily range): BP systolic 114–209; BP diastolic 64–103; PULSE 95–116; RESP 16–29; TEMP 36.8–37.5; O2SAT 90–99
--- NOTE | 2022-10-08 12:59 | XRR_ITS ---
PROCEDURE INFORMATION: Exam: XR Right Hip Exam date and time: 10/08/2022 1:15 PM Age: 87 years old Clinical indication: Injury or trauma; Other: Trauma / fall TECHNIQUE: Imaging protocol: Radiologic exam of the right hip. Views: 1 view hip with pelvis when performed. COMPARISON: CT kidney stone [id number] 04/14/2019 7:03 AM FINDINGS: Bones/joints: Subcapital fracture of the left femoral neck of the left hip is seen, with superolateral position of the femoral shaft in relation to the femoral head indicating superolateral angulation at the fracture site. Femoral head remains in good position with the acetabulum. No fracture or diastasis is seen about the pelvis and no fracture or dislocation is seen about the visualized left hip. Mild degenerative changes. Soft tissues: No focal soft tissue abnormality. XR/XR hip RT 2-3V wo/w pel* [id number] IMPRESSION: Subcapital femoral neck fracture of the right hip, as noted above.
[2022-10-08 13:03] LABS: Basophils % 0.6 %; Eosinophils # 0.2 10^3/uL (0.0-0.8); Eosinophils % 2.7 %; Lymphocytes # 2.3 10^3/uL (0.8-4.8); Lymphocytes % 34.9 %; Mean Corpuscular Hemoglobin 28.8 pg (28.0-34.0); Mean Corpuscular Volume 93.1 fl (81-99); Mean Platelet Volume 11.8 fL (7.4-10.4); Monocytes # 0.5 10^3/uL (0.2-0.9); Monocytes % 7.2 %; Neutrophils # 3.56 10^3/uL (1.8-7.7); Neutrophils % 54.3 %; Nucleated Red Blood Cells % 0 %; Platelet Count 194 10^3/cmm (130-400); Red Blood Count 4.51 10^6/uL (4.1-5.3); Red Cell Distribution Width 14.8 % (12.1-15.1); White Blood Count 6.6 10^3/uL (4.0-10.0)
--- NOTE | 2022-10-08 13:11 | ED_ITS ---
HPI - Fall General: Chief Complaint: Fall Stated Complaint: POSSIBLE HIP FRACTURE Time Seen by Provider: 10/08/22 12:35 Source: patient Mode of arrival: EMS History of Present Illness: 87-year-old female presents emergency room with complaint of right hip pain. She has a history of Parkinson's and she stumbled at home fell on her right hip was unable to bear weight or stand she has external rotation and shortening. She denies striking her head denies loss of consciousness. She was given pain medications in route and is now requiring a little bit of supplemental oxygen although is difficult to track her oxygen saturations because of her tremor. She is also found to be hypertensive. She is not on any anticoagulants. No previous fractures. MD complaint: fall Onset (ago): minute(s) Fall from: standing Place fall occurred: home Loss of consciousness: None Prolonged down time: no Context: tripped/slipped Associated symptoms-after fall: Denies abdominal pain or chest pain Review of Systems Const: Denies: fever(s), chills, body aches, change in appetite, fatigue or malaise ENMT: Denies: throat pain, ear or mastoid pain, nasal discharge or nasal congestion Card: Denies: chest pain, edema, dyspnea on exertion or orthopnea Resp: Denies: dyspnea, productive cough or non-productive cough GI: Denies: abdominal pain, nausea, vomiting, hematemesis, coffee ground emesis, diarrhea, constipation, bloating, hematochezia or melena : Denies: flank pain, difficulty voiding, dysuria, urinary frequency or urinary urgency Skin/Breast: Denies: rash or pruritus PFSH ED PFSH: Medical History Anemia Back pain Central deafness GERD (gastroesophageal reflux disease) Parkinson's Disease Recurrent UTI Surgical History History of cataract surgery History of knee replacement Hx of SHABANA Family History Sister COPD (chronic obstructive pulmonary disease) Mother CHF (congestive heart failure) Social History Smoking and tobacco status: never smoked Alcohol intake: never Substance/Drug Use: never Adopted: No Caregiver/support person: No Lives independently: Yes Marital status: / Current occupational status: retired Physical Exam Const: GENERAL APPEARANCE: cooperative and comfortable ORIENTATION/CONSCIOUSNESS: Yes awake, Yes oriented to person, Yes oriented to place and Yes oriented to time HENMT: COMMON NORMALS: normocephalic, atraumatic and hearing grossly normal bilaterally HEAD & SCALP: normocephalic and atraumatic Resp: COMMON NORMALS: normal respiratory effort, No retractions, No use of accessory muscles and clear to auscultation bilaterally AUSCULTATION: clear to auscultation bilaterally Cardio: COMMON NORMALS: regular rate, regular rhythm and No murmurs present (Cardio) RATE: regular rate RHYTHM: regular rhythm GI: COMMON NORMALS: Soft to palpation and No hepatosplenomegaly present AUSCULTATION: Yes normoactive bowel sounds PALPATION: Yes Soft to palpation, No Tenderness to palpation present (GI), No Guarding due to palpation present (GI) and Yes No hepatosplenomegaly present Extremity: COMMON NORMALS: normal to inspection, capillary refill normal, no clubbing, cyanosis or edema, no calf tenderness and no pedal edema Neuro: SENSORIUM/ORIENTATION: Yes oriented to person, Yes oriented to place and Yes oriented to time Skin: COMMON NORMALS: no rashes or lesions noted GENERAL SKIN EXAM: no rashes or lesions noted Course Vital Signs: Vital signs: Vital Signs Temperature 98.6 F 10/08/22 12:41 Pulse Rate 109 H 10/08/22 14:44 Respiratory Rate 24 H 10/08/22 14:44 Blood Pressure 161/71 10/08/22 14:44 Pulse Oximetry 93 10/08/22 14:44 Oxygen Delivery Me thod Nasal Cannula 10/08/22 12:41 MDM - Fall Medical Decision Making Right subcapital hip fracture with moderate displacement. Discussed with Dr. Vazquez and Dr. Fletcher will admit start conservative prior to consult plan plan for proceeding with surgery in the morning discussed with. Preoperative labs are done. Medical Records I reviewed the patient's medical records. Lab Data I reviewed the patient's lab results. 10/08/22 12:10 10/08/22 12:10 Radiology Impressions Hip/Pelvis X-Ray 10/08/22 12:59 IMPRESSION: Subcapital femoral neck fracture of the right hip, as noted above. Chest X-Ray 10/08/22 13:16 IMPRESSION: AP portable supine chest demonstrates mild prominence of the cardiac silhouette and without acute findings. Femur X-Ray 10/08/22 13:16 IMPRESSION: 1. Subcapital femoral neck fracture of the right hip, as noted on exam of the right hip. 2. Right knee prosthesis. 3. No other fracture seen about the right femur. Knee X-Ray 10/08/22 13:16 IMPRESSION: Right knee prosthesis without fracture or acute osseous abnormality. Laboratory Results WBC 6.6 10^3/uL (4.0-10.0) 10/08/22 12:10 RBC 4.51 10^6/uL (4.1-5.3) 10/08/22 12:10 Hgb 13.0 g/dL (11.5-15.3) 10/08/22 12:10 Hct 42.0 % (37.0-47.0) 10/08/22 12:10 MCV 93.1 fl (81-99) 10/08/22 12:10 MCH 28.8 pg (28.0-34.0) 10/08/22 12:10 MCHC 31.0 g/dL (30.0-36.0) 10/08/22 12:10 RDW 14.8 % (12.1-15.1) 10/08/22 12:10 Plt Count 194 10^3/cmm (130-400) 10/08/22 12:10 MPV 11.8 fL (7.4-10.4) H 10/08/22 12:10 Neut % (Auto) 54.3 % 10/08/22 12:10 Lymph % (Auto) 34.9 % 10/08/22 12:10 [place]mer % (Auto) 7.2 % 10/08/22 12:10 Eos % (Auto) 2.7 % 10/08/22 12:10 Baso % (Auto) 0.6 % 10/08/22 12:10 Neut # (Auto) 3.56 10^3/uL (1.8-7.7) 10/08/22 12:10 Lymph # (Auto) 2.3 10^3/uL (0.8-4.8) 10/08/22 12:10 [place]mer # (Auto) 0.5 10^3/uL (0.2-0.9) 10/08/22 12:10 Eos # (Auto) 0.2 10^3/uL (0.0-0.8) 10/08/22 12:10 Baso # (Auto) 0.0 10^3/uL (0.0-0.1) 10/08/22 12:10 Nucleated RBC % (auto) 0 % 10/08/22 12:10 Nucleated RBCs # 0.0 /100WBC 10/08/22 12:10 PT 13.70 SECONDS (12.1-14.9) 10/08/22 12:50 INR 1.02 (0.8-1.2) 10/08/22 12:50 APTT 29.7 SECONDS (23.9-36.7) 10/08/22 12:50 Sodium 138 mmol/L (136-145) 10/08/22 12:10 Potassium 4.1 mmol/L (3.5-5.1) 10/08/22 12:10 Chloride 102 mmol/L (98-107) 10/08/22 12:10 Carbon Dioxide 27 mmol/L (22-29) 10/08/22 12:10 Anion Gap 13.1 (5-19) 10/08/22 12:10 BUN 12 mg/dL (8-23) 10/08/22 12:10 Creatinine 0.6 mg/dL (0.5-0.9) 10/08/22 12:10 GFR Calculation Not Reportable 10/08/22 12:10 Glucose 95 mg/dL (65-115) 10/08/22 12:10 Calculated Osmolality 286 mOsm/kg (285-295) 10/08/22 12:10 Calcium 9.1 mg/dL (8.5-10.5) 10/08/22 12:10 Total Bilirubin 0.5 mg/dL (0.15-1.2) 10/08/22 12:10 AST 19 U/L (0-32) 10/08/22 12:10 ALT 9 U/L (0-33) 10/08/22 12:10 Alkaline Phosphatase 62 U/L (35-105) 10/08/22 12:10 Total Protein 6.4 g/dL (6.6-8.7) L 10/08/22 12:10 Albumin 4.2 g/dL (3.5-5.2) 10/08/22 12:10 Globulin 2.2 g/dL (1.3-4.6) 10/08/22 12:10 Urine Color Yellow (Yellow) 10/08/22 13:46 Urine Appearance Hazy (CLEAR) A 10/08/22 13:46 Urine pH 8 (5-7) H 10/08/22 13:46 Ur Specific [place] 1.015 (1.005-1.030) 10/08/22 13:46 Urine Protein Neg (Negative) 10/08/22 13:46 Urine Glucose (UA) Norm (Normal) 10/08/22 13:46 Urine Ketones Negative (Negative) 10/08/22 13:46 Urine Blood Neg (Negative) 10/08/22 13:46 Urine Nitrate Negative (Negative) 10/08/22 13:46 Urine Bilirubin Neg (Negative) 10/08/22 13:46 Prot Sulfosalicylic Acd Negative (Negative) 10/08/22 13:46 Urine Urobilinogen Norm mg/dL (Negative) 10/08/22 13:46 Ur Leukocyte Esterase 1+ (Negative) H 10/08/22 13:46 Urine RBC 0-4 /hpf (0-2) H 10/08/22 13:46 Urine WBC 15-25 /hpf (0-5) H 10/08/22 13:46 Ur Squamous Epith Cells 10-15 /hpf (0-5) H 10/08/22 13:46 Ur Renal Epithelial Cell 0-4 /hpf 10/08/22 13:46 Amorphous Sediment Not Reportable 10/08/22 13:46 Urine Bacteria 1+ /hpf (NONE) H 10/08/22 13:46 Urine Mucus 1+ /hpf 10/08/22 13:46 Discharge Plan Discharge Patient Disposition: Admitted As Inpatient Clinical Impression: Subcapital fracture of right hip, Parkinson's Disease Condition: Stable Prescriptions: No Action lorazepam 0.5 mg tablet 0.5 mg PO QID PRN (Reason: Sleep) Rx Instructions: 1-2 TABLETS atorvastatin 20 mg tablet 20 mg PO DAILY cholecalciferol (vitamin D3) 25 mcg (1,000 unit) capsule 25 mcg PO BID Healthy Eyes Lutein-Zeaxanthin 60 mg-13.5 mg- 15 mg-2 mg-6 mg capsule 1 cap PO DAILY cephalexin 500 mg capsule 500 mg PO QID galantamine 4 mg tablet 4 mg PO BID 90 Days Qty: 180 3RF Rx Instructions: administer with AM and PM meals triamcinolone acetonide [Kenalog] 40 mg/mL suspension 80 mg intrasynovial ONCE Qty: 2 0RF bupivacaine (PF) 0.5 % (5 mg/mL) solution 4 ml peripheral nerve block ONCE Qty: 1 0RF carbidopa-levodopa 25-100 mg tablet See Rx Instructions .ROUTE .COMPLEX Qty: 120 5RF Dose Instruction: TAKE 1/2 TABLET BY MOUTH ON WAKING, 1 & 1/2 TABLETS AT 9AM AND 1:00PM, AND 1/2 TABLET AT BEDTIME Rx Instructions: TAKE 1/2 TABLET BY MOUTH ON WAKING, 1 & 1/2 TABLETS AT 9AM AND 1:00PM, AND 1/2 TABLET AT BEDTIME ropinirole 0.5 mg tablet 0.5 mg PO TID Qty: 90 3RF benzonatate 200 mg capsule 200 mg PO BID PRN (Reason: cough) Qty: 20 0RF ascorbic acid (vitamin C) 500 mg tablet 1 g PO BID Qty: 120 12RF Rx Instructions: take with each dose of methenamine methenamine hippurate 1 gram tablet See Rx Instructions .ROUTE .COMPLEX Qty: 60 6RF Dose Instruction: TAKE 1 TABLET BY MOUTH TWO TIMES A DAY . TAKE WITH 100MG VITAMIN C. WITH EACH DOSE Rx Instructions: TAKE 1 TABLET BY MOUTH TWO TIMES A DAY . TAKE WITH 100MG VITAMIN C. WITH EACH DOSE potassium chloride 10 mEq tablet,ER particles/crystals See Rx Instructions .ROUTE .COMPLEX Qty: 90 3RF Dose Instruction: TAKE 1 TABLET BY MOUTH DAILY FOR LOW POTASSIUM LEVELS. TAKE WITH FOOD Rx Instructions: TAKE 1 TABLET BY MOUTH DAILY FOR LOW POTASSIUM LEVELS. TAKE WITH FOOD hydrochlorothiazide 12.5 mg Tablet See Rx Instructions .ROUTE .COMPLEX Rx Instructions: 12.5 mg orally ON MON, WEDS, FRI AND 25 MG ON , , SAT, SUN biotin 800 mcg Tablet 500 mcg PO DAILY aspirin [Aspir-81] 81 mg Tablet,Delayed Release (Dr/Ec) 81 mg PO DAILY zinc 50 mg Tablet 50 mg PO BID ondansetron 4 mg tablet,disintegrating 4 mg PO Q8H PRN (Reason: Nausea) baclofen 5 mg tablet 5 mg PO Q8H PRN (Reason: muscle spasm) Qty: 6 0RF Referrals: Terv Severino MD [Primary Care Provider] - Coding Level of Care Code ED Correctional Manager for [employer]te Shields
--- NOTE | 2022-10-08 13:16 | XRR_ITS ---
PROCEDURE INFORMATION: Exam: XR Right Femur Exam date and time: 10/08/2022 1:19 PM Age: 87 years old Clinical indication: Injury or trauma; Other: Trauma, fall TECHNIQUE: Imaging protocol: Radiologic exam of the right femur. Views: 2 views. COMPARISON: CR XR hip RT 2-3V wo/w pel* [id number] 10/08/2022 1:15 PM FINDINGS: Bones/joints: Subcapital femoral neck fracture of the right hip with superolateral displacement of the femoral neck and shaft in relation of the femoral head at the fracture site, as seen on exam of the right hip. No other fracture seen about the right femur. Right knee prosthesis is seen, as noted on exam of the right knee. Soft tissues: No significant focal soft tissue abnormality. Vascular calcification. XR/XR femur RT min 2V* [id number] IMPRESSION: 1. Subcapital femoral neck fracture of the right hip, as noted on exam of the right hip. 2. Right knee prosthesis. 3. No other fracture seen about the right femur.
--- NOTE | 2022-10-08 13:16 | XRR_ITS ---
PROCEDURE INFORMATION: Exam: XR Right Knee Exam date and time: 10/08/2022 1:19 PM Age: 87 years old Clinical indication: Injury or trauma; Other: Trauma, fall TECHNIQUE: Imaging protocol: Radiologic exam of the right knee. Views: 3 views. COMPARISON: CR XR knee RT 3V* [id number] 07/08/2022 4:12 PM FINDINGS: Bones/joints: Right knee prosthesis is seen, with satisfactory or anatomic alignment and position. No fracture is seen around the prosthesis. No indication of hardware failure. No significant osseous abnormality. No significant effusion. Soft tissues: No significant focal soft tissue abnormality with suggestion of some component of soft tissue swelling. XR/XR knee RT 3V* [id number] IMPRESSION: Right knee prosthesis without fracture or acute osseous abnormality.
--- NOTE | 2022-10-08 13:16 | XRR_ITS ---
PROCEDURE INFORMATION: Exam: XR Chest Exam date and time: 10/08/2022 1:25 PM Age: 87 years old Clinical indication: Injury or trauma; Additional info: Dyspnea/cough TECHNIQUE: Imaging protocol: Radiologic exam of the chest. Views: 1 view. COMPARISON: CR XR chest 1V portable [id number] 06/01/2021 5:48 PM FINDINGS: Tubes, catheters and devices: Overlying monitor leads. Lungs: Minimal benign healed granulomatous disease. No focal infiltrate or consolidation. Pleural spaces: Unremarkable. No pleural effusion. No pneumothorax. Heart/Mediastinum: Cardiac silhouette is mildly prominent. Vasculature: Mild arteriosclerosis of the thoracic aorta. Bones/joints: Mild degenerative change and no acute osseous abnormality. XR/XR chest 1V portable [id number] IMPRESSION: AP portable supine chest demonstrates mild prominence of the cardiac silhouette and without acute findings.
[2022-10-08 13:20] LABS: Alanine Aminotransferase 9 U/L (0-33); Albumin Level 4.2 g/dL (3.5-5.2); Alkaline Phosphatase 62 U/L (35-105); Anion Gap 13.1 (5-19); Aspartate Amino Transferase 19 U/L (0-32); Blood Urea Nitrogen 12 mg/dL (8-23); Calcium 9.1 mg/dL (8.5-10.5); Carbon Dioxide 27 mmol/L (22-29); Chloride 102 mmol/L (98-107); Globulin 2.2 g/dL (1.3-4.6); Glucose 95 mg/dL (65-115); Osmolality Calculated 286 mOsm/kg (285-295); Potassium 4.1 mmol/L (3.5-5.1); Sodium 138 mmol/L (136-145); Total Bilirubin 0.5 mg/dL (0.15-1.2); Total Protein 6.4 g/dL (6.6-8.7)
[2022-10-08] MEDS: hyDRALAzine 20 mg/mL INJ 1 mL IVP (13:33)
[2022-10-08 13:49] LABS: INR 1.02 (0.8-1.2)
[2022-10-08 13:50] LABS: Partial Thromboplastin Time 29.7 SECONDS (23.9-36.7)
[2022-10-08 14:09] LABS: Add Urine Microscopic? YES; Bilirubin Urine Neg (Negative); Blood Urine Neg (Negative); Glucose Urine UA Norm (Normal); Ketones Urine Negative (Negative); Leukocyte Esterase Urine 1+ (Negative); Nitrate Urine Negative (Negative); Protein Urine Neg (Negative); Specific Gravity, Urine 1.015 (1.005-1.030); Sulfosalicylic Acid Urine Negative (Negative); Urine Appearance Hazy (CLEAR); Urine Color Yellow (Yellow); Urobilinogen Urine Norm (Negative); pH Urine 8 (5-7)
[2022-10-08 14:26] LABS: RBC Urine 0-4 /hpf (0-2); WBC Urine 15-25 /hpf (0-5)
[2022-10-08 14:27] LABS: Add Urine Culture? No; Bacteria Urine 1+ /hpf; Mucus Urine 1+ /hpf; Renal Epithelial Cells Urine 0-4 /hpf
--- NOTE | 2022-10-08 14:46 | PM.CONSULT ---
Providers/Reason For Consult Consulting Physician/Specialty*: Jamie Vazquez DO/orthopedic surgery Reason for Consult*: Right displaced femoral neck fracture Requesting Physician: Dr. Fortune Attending Physician: Dr. Fletcher Primary Care Provider: Trev Severino MD History of Present Illness History of Present Illness Does Monica Flaherty is a 87 year old female presents emergency room with complaint of right hip pain.? She has a history of Parkinson's and she stumbled at home fell on her right hip was unable to bear weight or stand she has external rotation and shortening.? She denies striking her head denies loss of consciousness.? She is not on any anticoagulants.? No previous fractures. Patient at baseline is a community ambulator shuffled Parkinson's gait per family and she will use a walker at times if she is going long distances otherwise at baseline community ambulator. Denies hip pain prior. Patient denies any cardiac or pulmonary issues at this time. Denies any chest pain shortness of breath nausea vomiting fevers chills. Review of Systems General: Reports: 10 or more systems reviewed and unremarkable except in HPI and below Medications/Allergies Home Medications Medication Instructions Recorded Confirmed Last Taken Type atorvastatin 20 mg tablet 20 mg PO QPM 07/17/19 10/08/22 10/07/22 History lorazepam 0.5 mg tablet 0.5 mg PO QID PRN Sleep 07/17/19 10/08/22 10/08/22 History biotin 800 mcg tablet 500 mcg PO DAILY 09/02/19 10/08/22 10/08/22 History cholecalciferol (vitamin D3) 25 25 mcg PO BID 10/30/19 10/08/22 10/08/22 History mcg (1,000 unit) capsule vit C,L-Ya-aohgyh-lutein-zeaxan 60 1 cap PO DAILY 10/30/19 10/08/22 10/08/22 History mg-13.5 mg-15 mg-2 mg-6 mg capsule (Healthy Eyes Lutein-Zeaxanthin) ondansetron 4 mg disintegrating 4 mg PO Q8H PRN Nausea 06/01/21 10/08/22 Unknown History tablet galantamine 4 mg tablet 4 mg PO BID 90 days #180 tabs 05/04/22 10/08/22 10/08/22 Rx carbidopa 25 mg-levodopa 100 mg See Rx Instructions .Route 05/10/23 06/15/23 06/15/23 Rx tablet .COMPLEX #120 tabs ropinirole 0.5 mg tablet 0.5 mg PO TID #90 tabs 09/02/22 10/08/22 10/08/22 Rx potassium chloride 10 mEq See Rx Instructions .Route 09/08/22 10/08/22 10/08/22 Rx tablet,extended release(part/cryst) .COMPLEX #90 tabs aspirin 81 mg tablet,delayed 81 mg PO DAILY 10/08/22 10/08/22 10/08/22 History release escitalopram oxalate 10 mg tablet 10 mg PO DAILY 10/08/22 10/08/22 10/08/22 History lisinopril 2.5 mg tablet 1.25 mg PO DAILY PRN Hypertension 10/08/22 10/08/22 Unknown History omega 1-wfx-nbx-fish oil 900 1 cap PO BID 10/08/22 10/08/22 10/08/22 History mg-1,400 mg capsule,delayed release pantoprazole 20 mg tablet,delayed 20 mg PO DAILY 10/08/22 10/08/22 10/08/22 History release zinc acetate 50 mg (zinc) capsule 50 mg PO DAILY 10/08/22 10/08/22 10/08/22 History Allergies Allergy/AdvReac Type Severity Reaction Status Date / Time No Known Allergies Allergy Verified 10/08/22 16:23 PFSH Acute PFSH: Medical History Anemia Back pain Central deafness GERD (gastroesophageal reflux disease) Parkinson's Disease Recurrent UTI Surgical History History of cataract surgery History of knee replacement Hx of LASIK Family History Sister COPD (chronic obstructive pulmonary disease) Mother CHF (congestive heart failure) Social History Smoking and tobacco status: never smoked Alcohol intake: never Substance/Drug Use: never Adopted: No Caregiver/support person: No Lives independently: Yes Marital status: / Current occupational status: retired Vitals/I&O/Wt Last Vital Signs Temp 98.6 F 10/08/22 12:41 Pulse 109 H 10/08/22 14:44 Resp 24 H 10/08/22 14:44 BP 161/71 10/08/22 14:44 Pulse Ox 93 10/08/22 14:44 O2 Del Method Nasal Cannula 10/08/22 12:41 Weight last 48 hrs Weight 174 lb Physical Exam Narrative: Examination right lower extremity: Examination the right lower extremity is shortened and externally rotated patient has pain with logroll examination unable to perform Stinchfield secondary to pain. Tenderness palpation fracture site of the right hip. No tenderness to palpation of the right knee foot or ankle she has a previous incision to the right knee is well-healed no signs of infection no palpable joint effusion noted. Gross motor and sensory intact of the right lower extremity she is able to wiggle her toes plantarflex and dorsiflex ankle distal pulses palpable. Secondary survey examination: Examination of the bilateral upper extremity joints demonstrate normal range of motion with no pain as well as no tenderness to palpation gross motor and sensory is intact, denies lumbar tenderness to palpation negative pelvic compression test. No pain to the left hip left knee left foot and ankle. Gross motor and sensory intact of the left lower extremity. Const: COMMON NORMALS: no acute distress and average body habitus HENMT: COMMON NORMALS: normocephalic and atraumatic HEAD & SCALP: normocephalic and atraumatic Resp: COMMON NORMALS: normal respiratory effort and No retractions Cardio: COMMON NORMALS: Peripheral pulses 2+ throughout PERIPHERAL PULSES: Peripheral pulses 2+ throughout Urinary Catheter Management: Su: Cath Placed During This Visit: yes Urinary Catheter Date of Insertion: 10/08/22 Urinary Catheter Time of Insertion: 13:48 Data 10/08/22 12:10 10/08/22 12:10 Xray Ortho: My impression: X-rays multiple views of the right hip femur knee and pelvis were reviewed and personally interpreted by myself demonstrating a right displaced femoral neck fracture. No other apparent fracture dislocations noted. No significant arthritic changes noted. A&P Assessment and plan (1) Subcapital fracture of right hip: (2) Parkinson's Disease: Plan Nonweightbearing right lower extremity N.p.o. at midnight may have a diet today Pain control DVT prophylaxis?hold a.m. anticoagulation Ice as needed for pain and swelling PT/OT Plan for OR tomorrow for right hip hemiarthroplasty MDM: Patient is a pleasant 87-year-old female with Parkinson's that he is sustained a fall to the right hip and has a right displaced femoral neck fracture. We talked about treatment options with her as well as her family. We talked treatment options of nonoperative and operative intervention. Ultimately had what I recommend surgical intervention for right hip hemiarthroplasty for pain control as well as earlier mobilization. We talked about the risk benefits complication alternatives with surgical nonsurgical treatment options. Through shared decision making patient as well as family would like to proceed with surgical intervention of her right hip hemiarthroplasty. We talked about the risk of surgery which include not limited to make it better make worse blood clot, heart attack, stroke, on the table, infection, hip dislocation/instability, leg length discrepancies. Understanding his risk for surgery she agrees to proceed all questions have been answered at this time we will proceed with a right hip hemiarthroplasty tomorrow. Coding Level of Care Code Acute Code for [facility] Fwd Diagnoses Subcapital fracture of right hip S72.011A Parkinson's Disease G20 Time Spent (min) 45
[2022-10-08] MEDS: morphine 4 mg/mL SDV 1 mL IVP (14:56)
[2022-10-08] MEDS: D5-NS 0.45% + KCL 20 mEq 20 MEQ/1,000 ML BAG 100 MEQ IV (17:07)
[2022-10-08] MEDS: ketorolac 30 mg/mL INJ IVP (17:07)
--- NOTE | 2022-10-08 17:45 | P.HP_ITS ---
Providers/Chief Complaint Admitting Physician: Jennifer Fletcher MD Primary Care Provider: Trev Severino MD Chief Complaint: POSSIBLE HIP FRACTURE History of Present Illness Latoya Flaherty is a 87 year old female with PMH Parkinson's, recurrent UTIs presented to the ER today with mechanical fall and has been found to have hip fracture. Denies any chest pain, dyspnea, palpitations, syncope prior to the fall. ROS negative for any recent illnesses Review of Systems General: Reports: 10 or more systems reviewed and unremarkable except in HPI and below Const: Denies: fever(s), chills or body aches Eyes: Denies: change in vision, blurry vision or photophobia ENMT: Reports: hoarseness; Denies: throat pain, enlarged tonsils, odynophagia or nasal congestion Card: Denies: chest pain, palpitations, irregular heart rhythm, edema, swelling of feet/ankles, lightheadedness, pre-syncope, dyspnea on exertion or orthopnea Resp: Denies: dyspnea, productive cough, non-productive cough, wheezing, stridor, pain on inspiration, change in phlegm color, hemoptysis or chest congestion GI: Denies: abdominal pain, nausea, vomiting, hematemesis, coffee ground emesis, dysphagia, heartburn, diarrhea, constipation, GI cramping, change in stool character, hematochezia or melena : Denies: flank pain, difficulty voiding, dysuria, urinary frequency, urinary urgency, urinary hesitancy or hematuria Musc: Denies: neck pain, back pain, extremity pain, joint swelling, joint warmth or deformity Neuro: Denies: headache(s), numbness in extremities, weakness in extremities, sensory changes, difficulty walking, frequent falls, dizziness, vertigo, behavioral changes, Slurred speech present or seizure-like activity Psych: Denies: anxiety, depression, suicidal ideation or homicidal ideation Endo: Denies: polyuria, polydipsia, tired all the time, cold intolerance or hot flashes Titi/Lymph: Denies: easy bruising or easy bleeding Medications/Allergies Home Medications Medication Instructions Recorded Confirmed Last Taken Type atorvastatin 20 mg tablet 20 mg PO QPM 07/17/19 10/08/22 10/07/22 History lorazepam 0.5 mg tablet 0.5 mg PO QID PRN Sleep 03/10/08/22 10/08/22 Hist ory biotin 800 mcg tablet 500 mcg PO DAILY 09/02/19 10/08/22 10/08/22 History cholecalciferol (vitamin D3) 25 25 mcg PO BID 10/30/19 10/08/22 10/08/22 History mcg (1,000 unit) capsule vit C,X-Zz-rkrrfz-lutein-zeaxan 60 1 cap PO DAILY 10/30/19 10/08/22 10/08/22 History mg-13.5 mg-15 mg-2 mg-6 mg capsule (Healthy Eyes Lutein-Zeaxanthin) ondansetron 4 mg disintegrating 4 mg PO Q8H PRN Nausea 06/01/21 10/08/22 Unknown History tablet galantamine 4 mg tablet 4 mg PO BID 90 days #180 tabs 05/04/22 10/08/22 10/08/22 Rx carbidopa 25 mg-levodopa 100 mg See Rx Instructions .Route 09/02/22 10/08/22 10/08/22 Rx tablet .COMPLEX #120 tabs ropinirole 0.5 mg tablet 0.5 mg PO TID #90 tabs 09/02/22 10/08/22 10/08/22 Rx potassium chloride 10 mEq See Rx Instructions .Route 09/08/22 10/08/22 10/08/22 Rx tablet,extended release(part/cryst) .COMPLEX #90 tabs aspirin 81 mg tablet,delayed 81 mg PO DAILY 10/08/22 10/08/22 10/08/22 History release escitalopram oxalate 10 mg tablet 10 mg PO DAILY 10/08/22 10/08/22 10/08/22 History lisinopril 2.5 mg tablet 1.25 mg PO DAILY PRN Hypertension 10/08/22 10/08/22 Unknown History omega 9-jzv-krw-fish oil 900 1 cap PO BID 10/08/22 10/08/22 10/08/22 History mg-1,400 mg capsule,delayed release pantoprazole 20 mg tablet,delayed 20 mg PO DAILY 10/08/22 10/08/22 10/08/22 History release zinc acetate 50 mg (zinc) capsule 50 mg PO DAILY 10/08/22 10/08/22 10/08/22 History Allergies Allergy/AdvReac Type Severity Reaction Status Date / Time No Known Allergies Allergy Verified 10/08/22 16:23 PFSH Acute PFSH: Medical History Anemia Back pain Central deafness GERD (gastroesophageal reflux disease) Parkinson's Disease Recurrent UTI Surgical History History of cataract surgery History of knee replacement Hx of LASIK Family History Sister COPD (chronic obstructive pulmonary disease) Mother CHF (congestive heart failure) Social History Smoking and tobacco status: never smoked Alcohol intake: never Substance/Drug Use: never Adopted: No Caregiver/support person: No Lives independently: Yes Marital status: / Current occupational status: retired Vitals/I&O/Wt Last Vital Signs Temp 98.3 F 10/08/22 16:44 Pulse 116 H 10/08/22 16:44 Resp 19 H 10/08/22 16:44 BP 137/66 10/08/22 16:44 Pulse Ox 92 10/08/22 16:44 O2 Del Method Room Air 10/08/22 16:43 Weight last 48 hrs Weight 78.925 kg Physical Exam Narrative: General: No acute distress, AO x3 HEENT: PERRLA, pupils bilaterally equal and reactive, pallors not present Chest: Normal vesicular breath sounds, no added sounds, equal good air entry bilaterally CVS: S1-S2 regular, no murmurs, no tachycardia, no gallops, no rubs Abdomen: Soft, nontender, no organomegaly, bowel sounds present Neuro: No focal deficits, no facial deformity, AO x3, power 5/5 in all limbs Urinary Catheter Management: Su: Cath Placed During This Visit: yes Reason for Continuing Indwelling Catheter: Required Immobilization for Trauma or Surgery or Anesthesia Urinary Catheter Date of Insertion: 10/08/22 Urinary Catheter Time of Insertion: 13:48 Data 10/08/22 12:10 10/08/22 12:10 A&P Assessment and plan (1) Subcapital fracture of right hip: Ortho consult prn tramadol , opiates for pain management bed rest npo after midnight for anticipated surgery in am (2) Parkinson's Disease: continue home medications Attestations Medical Necessity Statement*: > 2 midnight admission is anticipated for hip fracture, surgery, pot op rehab Coding Level of Care Code Acute Code for [facility] Fw Diagnoses Subcapital fracture of right hip S72.011A Parkinson's Disease G20
[2022-10-08] MEDS: HYDROmorphone 1 mg/mL INJ 1 mL 0.5 MG IVP ×2 (17:59→22:34)
[2022-10-08] MEDS: carbidopa-levodopa 25-100mg Tablet PO (22:32)
[2022-10-08] MEDS: atorvastatin 40 mg Tablet 20 MG PO (23:28)
[2022-10-08] MEDS: LORazepam 0.5 mg Tablet PO (23:29)
[2022-10-09] VITALS (26 sets, daily range): BP systolic 103–185; BP diastolic 57–94; PULSE 80–100; RESP 14–85; TEMP 36.2–37; O2SAT 90–100
[2022-10-09] MEDS: acetaminophen 325 mg Tablet 650 MG PO ×2 (05:41→20:27)
[2022-10-09] MEDS: carbidopa-levodopa 25-100mg Tablet PO ×2 (05:41→20:27)
[2022-10-09] MEDS: HYDROmorphone 1 mg/mL INJ 1 mL 0.5 MG IVP ×2 (09:57→15:33)
--- NOTE | 2022-10-09 13:37 | P.ANESASSM_ITS ---
Pre-Anesthetic Assessment Height/Weight: Height 1.65 m Weight 78.925 kg Temp Pulse Resp BP Pulse Ox O2 Del Method O2 Flow Rate 98.6 F 83 16 185/94 96 Nasal Cannula 2 10/09/22 13:29 10/09/22 13:29 10/09/22 13:29 10/09/22 13:29 10/09/22 13:29 10/09/22 13:29 10/09/22 13:29 Preop Diagnosis: Right femoral neck fracture Operation Date: 10/09/22 14:55 Proposed Procedures p Hemiarthroplasty Hip(Right) - Jamie Huron, DO Was Beta Raymond taken within 24 hours: N/A Was Clonidine taken within 24 hours: N/A Last intake: Intake Last Liquid Date 10/09/22 Last Liquid Time 01:30 Last Solid Date 10/08/22 Last Solid Time 23:45 Social No alcohol and No tobacco Airway Submandibular: within normal limits Cervical ROM: within normal limits Mallampati: Class II CV/HEM Hypertension GI Gastroesophageal Reflux Disease Musc/skel Osteoarthritis/DJD Neuropsych Parkinson's Anesthetic Plan ASA status: 3 Anesthesia: Regional (specify below) (SAB) Risk of > 500 ml blood loss (7ml/kg in children): Yes, adequate IV access and fluids planned Medications/Allergies Home Medications Medication Instructions Recorded Confirmed Last Taken Type atorvastatin 20 mg tablet 20 mg PO QPM 07/17/19 10/08/22 10/07/22 History lorazepam 0.5 mg tablet 0.5 mg PO QID PRN Sleep 07/17/19 10/08/22 10/08/22 History biotin 800 mcg tablet 500 mcg PO DAILY 09/02/19 10/08/22 10/08/22 History cholecalciferol (vitamin D3) 25 25 mcg PO BID 10/30/19 10/08/22 10/08/22 History mcg (1,000 unit) capsule vit C,G-Iz-mwwxzk-lutein-zeaxan 60 1 cap PO DAILY 10/30/19 10/08/22 10/08/22 Hi story mg-13.5 mg-15 mg-2 mg-6 mg capsule (Healthy Eyes Lutein-Zeaxanthin) ondansetron 4 mg disintegrating 4 mg PO Q8H PRN Nausea 06/01/21 10/08/22 Unknown History tablet galantamine 4 mg tablet 4 mg PO BID 90 days #180 tabs 05/04/22 10/08/22 10/08/22 Rx carbidopa 25 mg-levodopa 100 mg See Rx Instructions .Route 09/02/22 10/08/22 10/08/22 Rx tablet .COMPLEX #120 tabs ropinirole 0.5 mg tablet 0.5 mg PO TID #90 tabs 09/02/22 10/08/22 10/08/22 Rx potassium chloride 10 mEq See Rx Instructions .Route 09/08/22 10/08/22 10/08/22 Rx tablet,extended release(part/cryst) .COMPLEX #90 tabs aspirin 81 mg tablet,delayed 81 mg PO DAILY 10/08/22 10/08/22 10/08/22 History release escitalopram oxalate 10 mg tablet 10 mg PO DAILY 10/08/22 10/08/22 10/08/22 History lisinopril 2.5 mg tablet 1.25 mg PO DAILY PRN Hypertension 10/08/22 10/08/22 Unknown History omega 0-uyr-erw-fish oil 900 1 cap PO BID 10/08/22 10/08/22 10/08/22 History mg-1,400 mg capsule,delayed release pantoprazole 20 mg tablet,delayed 20 mg PO DAILY 10/08/22 10/08/22 10/08/22 His tory release zinc acetate 50 mg (zinc) capsule 50 mg PO DAILY 10/08/22 10/08/22 10/08/22 His tory Allergies Allergy/AdvReac Type Severity Reaction Status Date / Time No Known Allergies Allergy Verified 10/08/22 16:23 Current Medications Generic Name Dose Route Start Last Admin Trade Name Meggan PRN Reason Stop Dose Admin Acetaminophen 650 mg 10/08/22 21:00 10/09/22 12:14 Acetaminophen 325 Mg Tablet PO Not Given Q8H CHRIS Aspirin 81 mg 10/09/22 09:00 10/09/22 08:23 Aspirin 81 Mg Ec Tablet PO Not Given DAILY CHRIS Atorvastatin Calcium 20 mg 10/08/22 18:00 10/08/22 23:28 Atorvastatin 40 Mg Tablet PO 20 mg QPM CHRIS Administration Carbidopa/Levodopa 0 each 10/08/22 21:00 10/09/22 12:15 Carbidopa-Levodopa 25-100mg Tablet PO Not Given 0600,0900,1300,2100 CHRIS Escitalopram Oxalate 10 mg 10/09/22 09:00 10/09/22 08:23 Escitalopram 10 Mg Tablet PO Not Given DAILY [facility] Hydromorphone HCl 0.5 mg 10/08/22 17:33 10/09/22 09:57 Hydromorphone 1 Mg/Ml Inj 1 Ml IVP 0.5 mg Q3H PRN Administration BREAKTHROUGH PAIN Lorazepam 0.5 mg 10/08/22 17:43 10/08/22 23:29 Lorazepam 0.5 Mg Tablet PO 0.5 mg QID PRN Administration Sleep Pantoprazole Sodium 40 mg 10/09/22 09:00 10/09/22 08:[address] 40 Mg Tablet PO Not Given DAILY [facility] Ropinirole HCl 0.5 mg 10/08/22 21:00 10/09/22 08:23 Ropinirole 0.25 Mg Tablet PO Not Given TID [facility] PFSH Anesthesia Medical History Anemia Back pain Central deafness GERD (gastroesophageal reflux disease) Parkinson's Disease Recurrent UTI Surgical History History of cataract surgery History of knee replacement Hx of LASIK Family History Sister COPD (chronic obstructive pulmonary disease) Mother CHF (congestive heart failure) Social History Smoking and tobacco status: never smoked Alcohol intake: never Substance/Drug Use: never Adopted: No Caregiver/support person: No Lives independently: Yes Marital status: / Current occupational status: retired Data Anesthesia 10/08/22 12:10 10/08/22 12:10 Short CBC 10/08/22 Range/Units 12:10 WBC 6.6 (4.0-10.0) 10^3/uL Hgb 13.0 (11.5-15.3) g/dL Hct 42.0 (37.0-47.0) % MCV 93.1 (81-99) fl Plt Count 194 (130-400) 10^3/cmm Neut % (Auto) 54.3 % Neut # (Auto) 3.56 (1.8-7.7) 10^3/uL BMP 10/08/22 12:10 Sodium 138 Potassium 4.1 Chloride 102 Carbon Dioxide 27 BUN 12 Creatinine 0.6 Glucose 95 Calcium 9.1 Liver Function 10/08/22 Range/Units 12:10 Total Bilirubin 0.5 (0.15-1.2) mg/dL AST 19 (0-32) U/L ALT 9 (0-33) U/L Alkaline Phosphatase 62 (35-105) U/L Albumin 4.2 (3.5-5.2) g/dL Urine 10/08/22 Range/Units 13:46 Urine Color Yellow (Yellow) Urine Appearance Hazy A (CLEAR) Urine pH 8 H (5-7) Ur Specific Velarde 1.015 (1.005-1.030) Urine Protein Neg (Negative) Urine Glucose (UA) Norm (Normal) Urine Ketones Negative (Negative) Urine Nitrate Negative (Negative) Urine Bilirubin Neg (Negative) Ur Leukocyte Esterase 1+ H (Negative) Urine RBC 0-4 H (0-2) /hpf Urine WBC 15-25 H (0-5) /hpf Ur Renal Epithelial Cell 0-4 /hpf Blood Bank 10/08/22 18:32 Blood Type O Positive Rho(D) Type Positive Antibody Screen Negative Coags 10/08/22 12:50 PT 13.70 INR 1.02 APTT 29.7 Cardiac Studies: No Data to Display
[2022-10-09] MEDS: sodium chloride 0.9% 1,000 ML 30 ML IV (13:40)
--- NOTE | 2022-10-09 13:55 | PC.NURSE ---
Boyer- patient has a boyer caath [address] but is leaking urine. blue pad was soaked. Attempted to assess boyer but patient very uncomfortable. Nurse Toni and myself cleaned her up prior to going to OPS. - Plan to ask Dr. Vazquez and OR nurse to change while patient asleep.
[2022-10-09] MEDS: ondansetron 2 mg/ML SDV 2 mL 4 MG IVP (15:05)
[2022-10-09] MEDS: acetaminophen 1,000 MG/100 ML PIGGYBACK 400 MG IV (15:09)
--- NOTE | 2022-10-09 15:24 | W.PM.OPSUD ---
Surgery/Procedure H&P Update DATE OF PROCEDURE: October 09, 2022 DATE H&P PERFORMED: 10/08/22 CHANGES TO PREVIOUS DOCUMENTATION: None. No changes in HPI since initial consult visit on 10/08/2022. Patient's been medically optimized and cleared to proceed with surgery per the primary team. She has a right displaced femoral neck fracture she has history of Parkinson's we talked about her treatment options at this point time through shared decision making agreed to proceed with a right hip hemiarthroplasty. Patient understands and agrees with current plan. All questions answered. She understands the risk benefits complication alternatives with surgery and elects to proceed. PREOP DIAGNOSIS: Right femoral neck fracture PRIMARY INDICATION FOR PROCEDURE: Right displaced femoral neck fracture PLANNED PROCEDURE: Operation Date: 10/09/22 14:55 Proposed Procedures p Hemiarthroplasty Hip(Right) - Jamie Vazquez DO
[2022-10-09] MEDS: ceFAZolin 2,000 MG in sodium chloride 0.9% (plus) 50 ML 100 MG IV (15:36)
[2022-10-09] MEDS: tranexamic acid 1,000 mg/10mL SDV 1000 MG IV (16:47)
[2022-10-09] MEDS: lidocaine-epi 1% 20 mL INJ INJECTION (16:47)
[2022-10-09] MEDS: vancomycin 1,000 MG SDV 1000 MG XX (17:37)
--- NOTE | 2022-10-09 18:24 | XRR_ITS ---
PROCEDURE INFORMATION: Exam: XR Right Hip Exam date and time: 10/09/2022 5:35 PM Age: 87 years old Clinical indication: Condition or disease; Other: Post op; Additional info: Post op left neil, do in pacu TECHNIQUE: Imaging protocol: Radiologic exam of the right hip. Views: 2 or 3 views hip with pelvis when performed. COMPARISON: CT kidney stone [id number] 04/14/2019 7:03 AM FINDINGS: Bones/joints: The right femoral head and neck have been resected. A right hip bipolar prosthesis has been placed. The bones and hardware are intact and in anatomic alignment. Operative gas in the soft tissues about the right hip. Soft tissues: Right lateral skin toña. Other findings: Three views. XR/XR hip RT 2-3V wo/w pel* [id number] IMPRESSION: Right hip arthroplasty.
--- NOTE | 2022-10-09 18:27 | PM.OP2 ---
Brief Operative Note Date of procedure: 10/09/22 Pre-op diagnosis: Right displaced femoral neck fracture Post-op diagnosis: same Procedure Done: Right hip hemiarthroplasty, cemented Surgeon: Jamie Vazquez Estimated blood loss (mL): 175 Complications: None Post-op Plan: Patient taken to PACU in stable condition recovering well spinal anesthesia wearing off. She will return to the floor postoperatively. Posterior hip precautions. Weightbearing as tolerated to the right lower extremity. Pain control. PT/OT. DVT prophylaxis. Postoperative antibiotics, postoperative TXA. Internal medicine on board as primary. Orthopedics will continue to follow on the floor postoperatively. Condition: stable Disposition: floor Coding Level of Care Code Acute Code for g Fwd
--- NOTE | 2022-10-09 18:28 | PM.PACU ---
PACU note Narrative: Patient seen evaluated in PACU. Patient is recovering well. Spinal anesthesia wearing off she is able to wiggle her toes as well as plantarflex and dorsiflex her ankle she is having returning of sensation however unable to have full sensory examination secondary to spinal. Distal pulses are palpable toes are warm well-perfused brisk cap refill less than 2 seconds dressings on in place clean dry and intact abduction pillow on in place Exam: awake Disposition: back to floor
--- NOTE | 2022-10-09 18:29 | P.OP_ITS ---
Operative Report Date of procedure: October 09, 2022 Pre-op diagnosis: Preop Diagnosis Right femoral neck fracture Procedure: Post-op diagnosis: Same Procedure done: Right hip hemiarthroplasty, cemented Implants: Kula Accolade C 132 degree femoral stem size 4 Bipolar head 45 mm Femoral head +4 mm offset 8mm distal cement spacer Surgeon: Jamie Vazquez DO Estimated blood loss: 175 mL IV fluids: 900 mL Urine output: See anesthesia record Complications: None Findings: See operative report Condition: stable Disposition: floor Brief History: Patient was seen in the emergency department and subsequently admitted after ground-level fall.? Patient sustained a right displaced femoral neck fracture.? Patient was subsequently admitted by the hospitalist team for medical management and preoperative clearance and optimization and the orthopedic surgery team was consulted for evaluation and treatment recommendations.? At that point time discussed with patient? treatment options.? We talked about nonoperative versus operative intervention talked about the risk benefits complication alternatives to surgical nonsurgical treatment options.? Risks of surgery were discussed and she understands and agrees to proceed with procedure.? At this point time would recommend a right hip hemiarthroplasty.? This will offer patient pain control as well as early weightbearing.? Patient was medically optimized and cleared by the primary team she was then taken to the OR.? Patient understands risk benefits complication alternatives with surgical nonsurgical treatment options. At this point time elects to proceed with right hip hemiarthroplasty. All questions answered. Patient understands agrees with current plan.? All questions answered. Procedure: Patient seen evaluated the preoperative holding area.? Consent was reviewed and signed with patient.? Pt was seen evaluated by the anesthesia department.? Once cleared for surgery patient patient was taken back to the operative suite.? Patient was then transported onto the OR table.? pt underwent anesthesia per the anesthesia department.? Once appropriately anesthetized patient was then positioned in lateral decubitus position with the right hip up.? Patient was placed on a pegboard appropriately secured to the bed all bony prominences well- padded.? Next the right lower extremity was then prepped and draped in sterile orthopedic fashion.? Final timeout performed.? Patient received appropriate preoperative antibiotics. A standard posterior incision was then made over the lateral aspect of the hip.? Sharp scalpel incision was made through skin and subcutaneous tissue I then utilized a Rodas elevator to mobilize over the fascia.? The fascia was then split longitudinally with electrocautery.? Next a bursectomy was then performed.? I then placed Hohmann underneath the abductors.? The hip was placed under tension with internal rotation.? I then utilizing electrocautery performed a full- thickness release of the short external rotators and capsule in 1 full thick sleeve for lateral repair.? This was then taken down to the lesser trochanter.? Immediately on capsulotomy hematoma was noticed and displaced femoral neck fracture appreciated.? I then placed a Hohmann above and below the neck.? I then utilized an oscillating saw to freshen the cut this was roughly half of a fingerbreadth above the lesser as patient did fracture slightly lower on the neck.? Once this was performed this access was removed with rongeur.? I then utilized a corkscrew to remove the head.? This was then subsequently sized and measured to be a 45 mm head size.? I then thoroughly irrigated the acetabulum.? A Hohmann was placed anteriorly and thorough inspection of the acetabulum no significant arthritic changes were noted.? I then utilized a rongeur and Bovie to remove the pulmonary.? Once this was performed I irrigated the socket and then turned my attention towards the femoral preparation.? I utilized Bovie and rongeur to remove the soft tissue off of the saddle.? Once this was done a box osteotome followed by a canal finder and a lateralizing rattail rasp was used to appropriately lateralized in the canal.? Next I then subsequently broached to a size 4 Accolade C. Kula femoral stem which had appropriate fixation.? I was able to trial with this and this appeared to be appropriate length with ability to add slight offset if needed once cemented.? Once this was done I then removed the size 4 femoral stem and then subsequently proceeded with standard cementation technique.? Cement was mixed on the back table the final implant was opened and appropriately measurement on mice distal cement plug to accommodate the cement mantle and femoral stem.? This was set and impacted in place to appropriate depth.? Next I utilized the cement brush thoroughly irrigated the canal and then dry the canal tampon.? Once cement was appropriately mixed and ready for cementation informed anesthesia and they optimize patient's oxygenation cement was then impacted using cement gun and then was subsequently pressurized.? The femoral stem size 4 was then impacted in place with appropriate anteversion and held into place and all excess cement was removed and allowed to cure once cured I then trialed a standard size head which at that point there was still a little bit of shuck slightly short leg length.? As a result I then trialed a +4 mm which had excellent leg lengths as well as appropriate shuck, and excellent stability in all planes of motion with no maverick dence of instability.? At this point this was determined to being my final femoral head size.? This was subsequently dislocated the trial head was then removed the final implant of bipolar head 45 mm with a +4 mm offset was then opened.? The trunnion was then cleaned and this was impacted in place with excellent fixation.? I then reduced the hip this had excellent stability and appropriate leg lengths.? The wound bed was then thoroughly irrigated.? I then utilizing #5 Ethibond suture performed my repair of the capsule and short external rotators through bone tunnels. ? Wound bed was then thoroughly irrigated,1 gram vanco powder placed in wound bed. once again the IT band was closed with strata fix suture and the deep subcutaneous and subcutaneous layers were closed with oh strata fix and 2 oh strata fix.? Skin was then closed reapproximated with toña.? Silverlon dressing applied.? Patient placed in abduction pillow posterior hip precautions.? pt was awakened from anesthesia and taken to PACU in stable condition Disposition: Patient taken to PACU in stable condition will receive appropriate discharge directions as well as pain medication DVT prophylaxis postoperatively.? Patient patient will return to the floor postoperatively.? Patient will be weightbearing as tolerated to the right lower extremity.? Posterior hip precautions.? DVT prophylaxis, pain medication, postoperative antibiotics and TXA.? Patient will work with PT/OT and discharge services for discharge planning.? Patient understands agrees with current plan.? All questions answered.?? patient will? see me in the office in 2 weeks.
[2022-10-09] MEDS: oxyCODONE 5 mg IR Tab/Cap PO (20:29)
[2022-10-09] MEDS: chlorhexidine gluconate 0.12% UDC 15 mL 30 ML MUCOUS MEM (20:32)
[2022-10-09] MEDS: ropinirole 0.25 mg Tablet 0.5 MG PO (20:32)
--- NOTE | 2022-10-09 23:07 | P.PN_ITS ---
Subjective Subjective: seen post operatively in PACU today. tolerated surgery. c/o post op pain. EBL 175 cc. Medications: Reviewed: Yes Vitals/I&O/Wt Last Vital Signs Temp 97.1 F L 10/09/22 19:00 Pulse 82 10/09/22 20:10 Resp 18 10/09/22 20:29 BP 109/67 10/09/22 20:10 Pulse Ox 96 10/09/22 20:29 O2 Del Method Nasal Cannula 10/09/22 20:10 O2 Flow Rate 3 10/09/22 20:10 10/09/22 10/09/22 10/10/22 14:59 22:59 06:59 Intake Total 1950 / 1950 Output Total 425 / 425 Balance 1525 / 1525 Weight last 48 hrs Weight 78.925 kg Physical Exam Narrative: General: No acute distress, AO x3 HEENT: PERRLA, pupils bilaterally equal and reactive, pallors not present Chest: Normal vesicular breath sounds, no added sounds, equal good air entry bi laterally CVS: S1-S2 regular, no murmurs, no tachycardia, no gallops, no rubs Abdomen: Soft, nontender, no organomegaly, bowel sounds present Neuro: No focal deficits, no facial deformity, AO x3, power 5/5 in all limbs Urinary Catheter Management: Su: Cath Placed During This Visit: yes, but has since been removed by the nurse Reason for Continuing Indwelling Catheter: Acute Urinary Retention or Obstr uction Urinary Catheter Date of Insertion: 10/09/22 Urinary Catheter Time of Insertion: 16:55 Date Urinary Catheter Removed: 10/09/22 Time Urinary Catheter Discontinued: 16:50 Data 10/08/22 12:10 10/08/22 12:10 A&P Assessment and plan (1) Subcapital fracture of right hip: s/p surgical fixation. POD 0 prn tramadol , opiates for pain management PT/OT assessment (2) Parkinson's Disease: continue home medications Plan +UA, pending urine cx. currently empirically covered with sean op cefazolin Attestations Medical Necessity Statement*: post op care, therapy assessment Coding Level of Care Code Acute Code for Chg Fwd Diagnoses Subcapital fracture of right hip S72.011A Parkinson's Disease G20
[2022-10-10] VITALS (9 sets, daily range): BP systolic 96–132; BP diastolic 60–70; PULSE 74–88; RESP 17–18; TEMP 36.6–37.2; O2SAT 93–98
[2022-10-10] MEDS: ceFAZolin 2,000 MG in sodium chloride 0.9% (plus) 50 ML 100 MG IV ×3 (00:21→16:40)
[2022-10-10] MEDS: HYDROmorphone 1 mg/mL INJ 1 mL 0.5 MG IVP ×2 (00:32→16:41)
[2022-10-10 05:45] LABS: Basophils % 0.4 %; Eosinophils # 0.3 10^3/uL (0.0-0.8); Eosinophils % 2.6 %; Hematocrit 35.2 % (37.0-47.0); Hemoglobin 10.9 g/dL (11.5-15.3); Lymphocytes # 1.2 10^3/uL (0.8-4.8); Lymphocytes % 11.6 %; Mean Corpuscular Hemoglobin 29.3 pg (28.0-34.0); Mean Corpuscular Volume 94.6 fl (81-99); Mean Platelet Volume 11.4 fL (7.4-10.4); Monocytes # 0.8 10^3/uL (0.2-0.9); Monocytes % 7.7 %; Neutrophils # 7.72 10^3/uL (1.8-7.7); Neutrophils % 77.1 %; Nucleated Red Blood Cells % 0 %; Platelet Count 175 10^3/cmm (130-400); Red Blood Count 3.72 10^6/uL (4.1-5.3); Red Cell Distribution Width 15.4 % (12.1-15.1)
[2022-10-10] MEDS: enoxaparin 30 mg/0.3 mL Syringe SUBCUT (05:48)
[2022-10-10] MEDS: carbidopa-levodopa 25-100mg Tablet PO ×4 (05:48→20:25)
[2022-10-10] MEDS: acetaminophen 325 mg Tablet 650 MG PO ×3 (05:48→20:25)
[2022-10-10] MEDS: LORazepam 0.5 mg Tablet PO ×2 (05:54→20:25)
[2022-10-10 06:13] LABS: Alanine Aminotransferase 16 U/L (0-33); Albumin Level 3.3 g/dL (3.5-5.2); Alkaline Phosphatase 44 U/L (35-105); Anion Gap 13.4 (5-19); Aspartate Amino Transferase 24 U/L (0-32); Blood Urea Nitrogen 21 mg/dL (8-23); Calcium 8.5 mg/dL (8.5-10.5); Carbon Dioxide 28 mmol/L (22-29); Chloride 101 mmol/L (98-107); Glucose 109 mg/dL (65-115); Osmolality Calculated 290 mOsm/kg (285-295); Potassium 4.4 mmol/L (3.5-5.1); Sodium 138 mmol/L (136-145); Total Bilirubin 0.7 mg/dL (0.15-1.2); Total Protein 5.3 g/dL (6.6-8.7)
--- NOTE | 2022-10-10 06:29 | PC.NURSE ---
MUÑIZ CATHETER REMOVED AT [address] BEGUM ORDERS. PT TOLERATED WELL.
--- NOTE | 2022-10-10 09:00 | PM.PN ---
Subjective Subjective: POD 1 from right hip hemiarthroplasty c/o post operative pain and poor appetite. She is concerned she is getting low dose lisinopril. States that at home her BP fluctuates widely between systolic 70-200 and she only takes medication if systolic BP > 200. Medications: Reviewed: Yes Vitals/I&O/Wt Last Vital Signs Temp 97.8 F 10/10/22 20:00 Pulse 85 10/10/22 20:00 Resp 17 10/10/22 20:00 BP 96/62 10/10/22 20:00 Pulse Ox 93 10/10/22 20:00 O2 Del Method Nasal Cannula 10/10/22 07:19 O2 Flow Rate 3 10/10/22 08:00 10/10/22 10/10/22 10/10/22 06:59 14:59 22:59 Intake Total 400 / 2350 450 / 450 580 / 1030 Balance 400 / 1925 450 / 450 580 / 1030 Physical Exam Narrative: General: No acute distress, AO x3 HEENT: PERRLA, pupils bilaterally equal and reactive, pallors not present Chest: Normal vesicular breath sounds, no added sounds, equal good air entry bilaterally CVS: S1-S2 regular, no murmurs, no tachycardia, no gallops, no rubs Abdomen: Soft, nontender, no organomegaly, bowel sounds present Neuro: No focal deficits, no facial deformity, AO x3, power 5/5 in all limbs Urinary Catheter Management: Su: Cath Placed During This Visit: yes, but has since been removed by the nurse Reason for Continuing Indwelling Catheter: Acute Urinary Retention or Obstruction Urinary Catheter Date of Insertion: 10/09/22 Urinary Catheter Time of Insertion: 16:55 Date Urinary Catheter Removed: 10/09/22 Time Urinary Catheter Discontinued: 16:50 Data 10/10/22 04:43 10/10/22 04:43 A&P Assessment and plan (1) Subcapital fracture of right hip: s/p rught hip hemiarthroplasty POD #1 prn tramadol , opiates for pain management PT/OT assessment encourage ambulation (2) Parkinson's Disease: continue home medications Plan +UA, pending urine cx. currently empirically covered with ceftriaxone 1 g iv daily Attestations Medical Necessity Statement*: Therapy assessments, pain control, disposition planning Coding Level of Care Code Acute Code for Chg Fwd Diagnoses Subcapital fracture of right hip S72.011A Parkinson's Disease G20
--- NOTE | 2022-10-10 09:12 | PM.PN ---
Subjective Subjective: Patient seen evaluated this morning. She is recovering well and pain is controlled postoperatively. Hemoglobin 10.9. Postop day 1 right hip Sanjay. Posterior hip precautions. We will work with therapy today. Vitals/I&O/Wt Last Vital Signs Temp 98 F 10/10/22 07:48 Pulse 85 10/10/22 07:48 Resp 17 10/10/22 07:48 BP 99/62 10/10/22 07:48 Pulse Ox 95 10/10/22 07:48 O2 Del Method Nasal Cannula 10/10/22 07:19 O2 Flow Rate 3 10/10/22 08:00 10/09/22 10/10/22 10/10/22 22:59 06:59 14:59 Intake Total 1950 / 1950 400 / 2350 50 / 50 Output Total 425 / 425 Balance 1525 / 1525 400 / 1925 50 / 50 Weight last 48 hrs Weight 174 lb Physical Exam Narrative: Dressings of the right hip are clean dry and intact compartments are soft and compressible. No signs of saturation of dressings. Normal postoperative swelling and tenderness to palpation of the right hip she is able to tolerate a logroll examination hip abduction pillow is on in place she is able to wiggle toes plantarflex and dorsiflex ankle distal pulses are palpable toes are warm well perfused patient endorses sensations intact to light touch distally. Urinary Catheter Management: Su: Cath Placed During This Visit: yes, but has since been removed by the nurse Reason for Continuing Indwelling Catheter: Acute Urinary Retention or Obstruction Urinary Catheter Date of Insertion: 10/09/22 Urinary Catheter Time of Insertion: 16:55 Date Urinary Catheter Removed: 10/09/22 Time Urinary Catheter Discontinued: 16:50 Data 10/10/22 04:43 10/10/22 04:43 Xray Ortho: My impression: PACU x-rays of the right hip demonstrate a stable right hip hemiarthroplasty with appropriate cement mantle in good length and alignment A&P Assessment and plan (1) Subcapital fracture of right hip: Plan Pain control Weight-bear as tolerated right lower extremity Posterior hip precautions DVT prophylaxis (Lovenox) Complete postoperative antibiotics Internal medicine on board as primary A.m. labs as well as postoperative x-rays reviewed Ortho will continue to monitor Dressings clean dry and intact change as needed We will follow-up in the orthopedic office in 2 weeks Ortho will continue to follow and likely sign off tomorrow if patient continues to progress postoperatively. Attestations Medical Necessity Statement*: Ongoing care right hip hemiarthroplasty Coding Level of Care Code Acute Code for Chg Fwd Diagnoses Subcapital fracture of right hip S72.011A Time Spent (min) 20
[2022-10-10] MEDS: multivitamin therapeutic Tablet 1 TAB PO (09:44)
[2022-10-10] MEDS: chlorhexidine gluconate 0.12% UDC 15 mL 30 ML MUCOUS MEM ×4 (09:44→20:22)
[2022-10-10] MEDS: escitalopram 10 mg Tablet PO (09:44)
[2022-10-10] MEDS: iron polysaccharide complex 150 mg Capsule PO ×2 (09:44→18:10)
[2022-10-10] MEDS: ropinirole 0.25 mg Tablet 0.5 MG PO ×2 (09:44→16:40)
[2022-10-10] MEDS: sennosides-docusate Tablet 2 TAB PO ×2 (09:44→18:10)
[2022-10-10] MEDS: pantoprazole DR 40 mg Tablet PO (09:45)
[2022-10-10] MEDS: aspirin 81 mg EC Tablet PO (09:45)
[2022-10-10] MEDS: calcium carb-vit d 600mg/400unit 1 Tablet 1 EACH PO ×2 (09:45→18:10)
[2022-10-10] MEDS: ketorolac 30 mg/mL INJ 15 MG IVP ×2 (10:32→19:55)
[2022-10-10] MEDS: atorvastatin 40 mg Tablet 20 MG PO (18:10)
[2022-10-10] MEDS: cefTRIAXone 1,000 MG in sodium chloride 0.9% (plus) 50 ML 100 MG IV (20:19)
[2022-10-11] VITALS (12 sets, daily range): BP systolic 94–118; BP diastolic 57–71; PULSE 68–86; RESP 16–17; TEMP 36.4–37.1; O2SAT 91–98
[2022-10-11 04:30] LABS: Basophils % 0.4 %; Eosinophils # 0.4 10^3/uL (0.0-0.8); Eosinophils % 4.7 %; Hematocrit 30.4 % (37.0-47.0); Hemoglobin 9.4 g/dL (11.5-15.3); Lymphocytes # 1.8 10^3/uL (0.8-4.8); Lymphocytes % 19.2 %; Mean Corpuscular HGB Conc 30.9 g/dL (30.0-36.0); Mean Corpuscular Hemoglobin 28.7 pg (28.0-34.0); Mean Platelet Volume 11.4 fL (7.4-10.4); Monocytes % 10.6 %; Neutrophils # 5.99 10^3/uL (1.8-7.7); Neutrophils % 64.6 %; Nucleated Red Blood Cells % 0 %; Platelet Count 163 10^3/cmm (130-400); Red Blood Count 3.27 10^6/uL (4.1-5.3); Red Cell Distribution Width 15.2 % (12.1-15.1); White Blood Count 9.3 10^3/uL (4.0-10.0)
[2022-10-11 04:55] LABS: Anion Gap 13.3 (5-19); Blood Urea Nitrogen 30 mg/dL (8-23); Calcium 8.2 mg/dL (8.5-10.5); Carbon Dioxide 26 mmol/L (22-29); Chloride 99 mmol/L (98-107); Glucose 107 mg/dL (65-115); Osmolality Calculated 285 mOsm/kg (285-295); Potassium 4.3 mmol/L (3.5-5.1); Sodium 134 mmol/L (136-145)
[2022-10-11] MEDS: ketorolac 30 mg/mL INJ 15 MG IVP ×2 (05:48→19:52)
[2022-10-11] MEDS: oxyCODONE 5 mg IR Tab/Cap PO ×3 (05:58→19:33)
[2022-10-11] MEDS: carbidopa-levodopa 25-100mg Tablet PO ×4 (05:58→20:19)
[2022-10-11] MEDS: enoxaparin 30 mg/0.3 mL Syringe SUBCUT (05:58)
[2022-10-11] MEDS: acetaminophen 325 mg Tablet 650 MG PO ×3 (05:58→20:19)
[2022-10-11] MEDS: LORazepam 0.5 mg Tablet PO ×2 (06:01→19:35)
[2022-10-11] MEDS: escitalopram 10 mg Tablet PO (08:16)
[2022-10-11] MEDS: multivitamin therapeutic Tablet 1 TAB PO (08:16)
[2022-10-11] MEDS: sennosides-docusate Tablet 2 TAB PO ×2 (08:16→17:40)
[2022-10-11] MEDS: iron polysaccharide complex 150 mg Capsule PO ×2 (08:16→17:41)
[2022-10-11] MEDS: pantoprazole DR 40 mg Tablet PO (08:17)
[2022-10-11] MEDS: aspirin 81 mg EC Tablet PO (08:17)
[2022-10-11] MEDS: ropinirole 0.25 mg Tablet 0.5 MG PO ×2 (08:17→14:47)
[2022-10-11] MEDS: calcium carb-vit d 600mg/400unit 1 Tablet 1 EACH PO ×2 (08:17→17:40)
[2022-10-11] MEDS: chlorhexidine gluconate 0.12% UDC 15 mL 30 ML MUCOUS MEM ×4 (08:18→20:20)
--- NOTE | 2022-10-11 11:43 | P.PN_ITS ---
Subjective Subjective: Patient seen and examined this morning she is recovering well pain is controlled she is eating. She has been up and worked with therapy. Case management on board for discharge planning. Patient states she has some pain to her left foot over the dorsal aspect. States has been hurting with some therapy. Vitals/I&O/Wt Last Vital Signs Temp 98.4 F 10/11/22 07:35 Pulse 80 10/11/22 08:00 Resp 16 10/11/22 10:15 BP 94/60 10/11/22 07:35 Pulse Ox 94 10/11/22 08:00 O2 Del Method Nasal Cannula 10/11/22 08:00 O2 Flow Rate 2 10/11/22 08:00 10/10/22 10/11/22 10/11/22 22:59 06:59 14:59 Intake Total 700 / 1150 120 / 1270 120 / 120 Balance 700 / 1150 120 / 1270 120 / 120 Physical Exam Narrative: Dressings of the right hip are clean dry and intact compartments are soft and compressible. No signs of saturation of dressings. Normal postoperative swe lling and tenderness to palpation of the right hip she is able to tolerate a logroll examination hip abduction pillow is on in place she is able to wiggle toes plantarflex and dorsiflex ankle distal pulses are palpable toes are warm well perfused patient endorses sensations intact to light touch distally. Patient has some tenderness to palpation over the dorsal aspect of the left foot. She is able to wiggle toes plantarflex dorsiflex ankle sensations intact light touch distally Urinary Catheter Management: Su: Cath Placed During This Visit: yes, but has since been removed by the nurse Reason for Continuing Indwelling Catheter: Acute Urinary Retention or Obstruction Urinary Catheter Date of Insertion: 10/09/22 Urinary Catheter Time of Insertion: 16:55 Date Urinary Catheter Removed: 10/09/22 Time Urinary Catheter Discontinued: 16:50 Data 10/12/22 04:05 10/12/22 04:05 Other Labs: 10/11/2022 AM labs hemoglobin 9.4 Micro: Microbiology 10/10/22 02:00 Urine Culture - Preliminary Urine Catheterized A&P Assessment and plan (1) Subcapital fracture of right hip: Plan Pain control Weight-bear as tolerated right lower extremity Posterior hip precautions DVT prophylaxis (Lovenox) Internal medicine on board as primary A.m. labs as well as postoperative x-rays reviewed Ortho will continue to monitor Dressings clean dry and intact change as needed Obtain left foot x-rays We will follow-up in the orthopedic office in 2 weeks We will obtain left foot x-rays today and review if these are negative patient is stable for discharge from orthopedic standpoint no further intervention required at this time. Patient will follow-up in the orthopedic office in 2 weeks There is any questions pertaining to patient's care feel free to contact myself. Patient understands and agrees with current plan. All questions answered. Orthopedic discharge instructions as well as prescriptions are in chart. Attestations Medical Necessity Statement*: Ongoing care postoperative right hip fracture Coding Level of Care Code Acute Code for [facility] Fwd Diagnoses Subcapital fracture of right hip S72.011A Time Spent (min) 35
--- NOTE | 2022-10-11 12:38 | PC.SOCIAL ---
Pg 2 IMM Explained to pt Pg 2 IMM. No questions voiced. Provided pt a copy. Initialed, dated, & timed a copy & placed in chart.
[2022-10-11] MEDS: atorvastatin 40 mg Tablet 20 MG PO (17:40)
[2022-10-11] MEDS: cefTRIAXone 1,000 MG in sodium chloride 0.9% (plus) 50 ML 100 MG IV (19:37)
--- NOTE | 2022-10-11 20:48 | PM.PN ---
Subjective Subjective: Patient reports pain is well controlled. Denies fevers, chills, nausea or emesis. Medications: Reviewed: Yes Vitals/I&O/Wt Last Vital Signs Temp 98.7 F 10/11/22 19:45 Pulse 78 10/11/22 19:45 Resp 17 10/11/22 19:45 BP 118/71 10/11/22 19:45 Pulse Ox 97 10/11/22 19:45 O2 Del Method Room Air 10/11/22 19:45 O2 Flow Rate 2 10/11/22 08:00 10/11/22 10/11/22 10/11/22 06:59 14:59 22:59 Intake Total 120 / 1270 540 / 540 118 / 658 Balance 120 / 1270 540 / 540 118 / 658 Physical Exam Narrative: General: Patient is awake and alert. Head: Normocephalic. Atraumatic. EOM intact. Neck: No JVD. Cardiovascular: No gallops. No murmurs. Lungs: Clear to auscultation, no use of accessory muscles, no crackles or wheezes. Skin: No jaundice. No rashes. Abdomen: Soft. Not distended. Normal bowel sounds. Extremities: No cyanosis or clubbing. Musculoskeletal: Normal muscular development. Neurological: No myoclonus. Moves all 4 extremities. Urinary Catheter Management: Su: Cath Placed During This Visit: yes, but has since been removed by the nurse Reason for Continuing Indwelling Catheter: Acute Urinary Retention or Obstruction Urinary Catheter Date of Insertion: 10/09/22 Urinary Catheter Time of Insertion: 16:55 Date Urinary Catheter Removed: 10/09/22 Time Urinary Catheter Discontinued: 16:50 Data 10/11/22 04:00 10/11/22 04:00 Micro: Microbiology 10/10/22 02:00 Urine Culture - Preliminary Urine Catheterized A&P Assessment and plan (1) Subcapital fracture of right hip: s/p rught hip hemiarthroplasty POD #2 prn tramadol , opiates for pain management PT/OT assessment encourage ambulation (2) Parkinson's Disease: Continue Sinemet (3) Recurrent UTI: Follow up urine culture Continue Rocephin Plan DVT ppx: Lovenox Code: Full Attestations Medical Necessity Statement*: Patient requires ongoing hospitalized care for IV abx, therapy and supportive care. Coding Level of Care Code Acute Code for Chg Fwd Diagnoses Subcapital fracture of right hip S72.011A Parkinson's Disease G20 Recurrent UTI N39.0
[2022-10-12] VITALS (10 sets, daily range): BP systolic 104–134; BP diastolic 59–76; PULSE 70–85; RESP 16–18; TEMP 36.6–37.2; O2SAT 94–98
[2022-10-12] MEDS: TRAMadol 50 mg Tablet PO (03:02)
[2022-10-12 05:01] LABS: Basophils % 0.4 %; Eosinophils # 0.5 10^3/uL (0.0-0.8); Eosinophils % 6.6 %; Hematocrit 28.3 % (37.0-47.0); Hemoglobin 8.7 g/dL (11.5-15.3); Lymphocytes % 26.3 %; Mean Corpuscular HGB Conc 30.7 g/dL (30.0-36.0); Mean Corpuscular Hemoglobin 28.6 pg (28.0-34.0); Mean Corpuscular Volume 93.1 fl (81-99); Mean Platelet Volume 11.8 fL (7.4-10.4); Monocytes # 0.9 10^3/uL (0.2-0.9); Monocytes % 12.3 %; Neutrophils # 4.12 10^3/uL (1.8-7.7); Neutrophils % 53.7 %; Nucleated Red Blood Cells % 0 %; Platelet Count 175 10^3/cmm (130-400); Red Blood Count 3.04 10^6/uL (4.1-5.3); Red Cell Distribution Width 15.1 % (12.1-15.1); White Blood Count 7.7 10^3/uL (4.0-10.0)
[2022-10-12] MEDS: acetaminophen 325 mg Tablet 650 MG PO ×3 (05:15→20:55)
[2022-10-12] MEDS: carbidopa-levodopa 25-100mg Tablet PO ×4 (05:16→20:56)
[2022-10-12] MEDS: LORazepam 0.5 mg Tablet PO (05:16)
[2022-10-12] MEDS: oxyCODONE 5 mg IR Tab/Cap PO (05:16)
[2022-10-12] MEDS: ketorolac 30 mg/mL INJ 15 MG IVP (05:17)
[2022-10-12 05:23] LABS: Anion Gap 10.3 (5-19); Blood Urea Nitrogen 23 mg/dL (8-23); Calcium 8.4 mg/dL (8.5-10.5); Carbon Dioxide 28 mmol/L (22-29); Chloride 99 mmol/L (98-107); Glucose 87 mg/dL (65-115); Osmolality Calculated 279 mOsm/kg (285-295); Potassium 4.3 mmol/L (3.5-5.1); Sodium 133 mmol/L (136-145)
[2022-10-12] MEDS: enoxaparin 30 mg/0.3 mL Syringe SUBCUT (05:55)
--- NOTE | 2022-10-12 07:12 | XR_ITS ---
WS: [id number] EXAMINATION: XR foot LT min 3V* [id number] REASON FOR EXAM: doral left foot pain COMPARISON: None available. ORDER DATE: 10/12/2022 7:12 AM TECHNIQUE: 3 views of the left foot were obtained. X-RAY FINDINGS: There are no fractures or dislocations. No focal abnormal soft tissue swelling. Generalized osteoarth ritic changes consistent with the patient's age with minor inner phalangeal lung metatarsal phalangea l joint space narrowing as well as some tarsal degenerative changes. Changes are expected for the pre sence of osteoarthritis and consistent with the patient's age. Minor calcaneal spurring. XR/XR foot LT min 3V* [id number] IMPRESSION: No fractures or dislocations of the left foot.
[2022-10-12] MEDS: ropinirole 0.25 mg Tablet 0.5 MG PO ×3 (08:42→20:56)
[2022-10-12] MEDS: chlorhexidine gluconate 0.12% UDC 15 mL 30 ML MUCOUS MEM ×4 (08:42→20:58)
[2022-10-12] MEDS: escitalopram 10 mg Tablet PO (08:43)
[2022-10-12] MEDS: pantoprazole DR 40 mg Tablet PO (08:43)
[2022-10-12] MEDS: aspirin 81 mg EC Tablet PO (08:43)
[2022-10-12] MEDS: calcium carb-vit d 600mg/400unit 1 Tablet 1 EACH PO ×2 (08:43→17:08)
[2022-10-12] MEDS: iron polysaccharide complex 150 mg Capsule PO ×2 (08:43→17:08)
[2022-10-12] MEDS: sennosides-docusate Tablet 2 TAB PO ×2 (08:43→17:08)
[2022-10-12] MEDS: multivitamin therapeutic Tablet 1 TAB PO (08:43)
[2022-10-12] MEDS: atorvastatin 40 mg Tablet 20 MG PO (17:08)
[2022-10-12] MEDS: cefTRIAXone 1,000 MG in sodium chloride 0.9% (plus) 50 ML 100 MG IV (18:49)
--- NOTE | 2022-10-12 18:50 | P.PN_ITS ---
Subjective Subjective: Patient was seen and examined this morning currently doing better. Medications: Reviewed: Yes Medication Review Details: Generic Name Dose Route Start Last Admin Trade Name Freq PRN Reason Stop Dose Admin Acetaminophen 650 mg 10/08/22 21:00 10/12/22 13:14 Acetaminophen 32 5 Mg Tablet PO 650 mg Q8H CHRIS Administration Aspirin 81 mg 10/09/22 09:00 10/12/22 08:43 Aspirin 81 Mg Ec Tablet PO 81 mg DAILY CHRIS Administration Atorvastatin Calci um 20 mg 10/08/22 18:00 10/12/22 17:08 Atorvastatin 40 Mg Tablet PO 20 mg QPM CHRIS Administration Calcium Carbonate 1 each 10/10/22 09:00 10/12/22 17:08 Calcium Carb-Vit D 600mg/400unit 1 Tablet PO 1 each BID CHRIS Administration Carbidopa/Levodopa 0 each 10/08/22 21:00 10/12/22 13:13 Carbidopa-Levodo pa 25-100mg Tablet PO 1.5 each 0600,0900,1300,21 00 CHRIS Administration Chlorhexidine Gluc melody 30 ml 10/09/22 21:00 10/12/22 17:08 Chlorhexidine Gl uconate 0.12% Udc 15 Ml MUCOUS MEM 30 ml QID CHRIS Administration Enoxaparin Sodium 30 mg 10/10/22 06:30 10/12/22 05:55 Enoxaparin 30 Mg /0.3 Ml Syringe SUBCUT 30 mg Q24H CHRIS Administration Escitalopram Oxala te 10 mg 10/09/22 09:00 10/12/22 08:43 Escitalopram 10 Mg Tablet PO 10 mg DAILY CHRIS Administration Ceftriaxone Sodium 1,000 mg/ 50 mls @ 100 mls/ hr 10/10/22 19:15 10/11/22 21:16 Sodium Chloride IV Infused Q24H CHRIS Infusion Protocol Ketorolac Trometha mine 15 mg 10/09/22 19:39 10/12/22 05:17 Ketorolac 30 Mg/ Ml Inj IVP 15 mg Q6H PRN Administration MODERATE TO SEVER E PAIN Lorazepam 0.5 mg 10/08/22 17:43 10/12/22 05:16 Lorazepam 0.5 Mg Tablet PO 0.5 mg QID PRN Administration Sleep Multivitamins Ther apeutic 1 tab 10/10/22 09:00 10/12/22 08:43 Multivitamin The rapeutic Tablet PO 1 tab DAILY [facility] Administration Mupirocin 1 applic 10/10/22 09:00 10/12/22 17:11 Mupirocin Oint 2 2 Gm NASAL 10/15/22 08:59 Not Given BID [facility] Non-Formulary Medi cation 4 mg 10/08/22 18:00 10/12/22 17:11 Galantamine PO Not Given BID [facility] Ondansetron HCl 4 mg 10/08/22 17:33 10/09/22 15:05 Ondansetron 2 Mg /Ml Sdv 2 Ml IVP 4 mg Q6H PRN Administration NAUSEA AND VOMITI NG Pantoprazole Sodiu m 40 mg 10/09/22 09:00 10/12/22 08:[address] 40 Mg Tablet PO 40 mg DAILY [facility] Administration Polysaccharide Iro n Complex 150 mg 10/10/22 08:00 10/12/22 17:08 Iron Polysacchar johny Complex 150 Mg Capsule PO 150 mg BIDWM [facility] Administration Ropinirole HCl 0.5 mg 10/08/22 21:00 10/12/22 15:26 Ropinirole 0.25 Mg Tablet PO 0.5 mg TID [facility] Administration Senna/Docusate Sod ium 2 tab 10/10/22 09:00 10/12/22 17:08 Sennosides-Docus ate Tablet PO 2 tab BID [facility] Administration Tramadol HCl 50 mg 10/10/22 19:07 10/12/22 03:02 Tramadol 50 Mg T ablet PO 50 mg Q8H PRN Administration MODERATE PAIN Vitals/I&O/Wt Last Vital Signs Temp 98.3 F 10/12/22 15:12 Pulse 78 10/12/22 15:12 Resp 16 10/12/22 15:12 BP 106/59 10/12/22 15:12 Pulse Ox 96 10/12/22 15:12 O2 Del Method Nasal Cannula 10/12/22 10:44 O2 Flow Rate 2 10/12/22 10:44 10/12/22 10/12/22 10/12/22 06:59 14:59 22:59 Intake Total 720 / 720 240 / 960 Balance 720 / 720 240 / 960 Physical Exam Resp: COMMON NORMALS: clear to auscultation bilaterally AUSCULTATION: clear to auscultation bilaterally Cardio: COMMON NORMALS: regular rate, regular rhythm, S1 normal heart sound present, S2 normal heart sound present, No gallops present (Cardio), No murmurs present (Cardio), No rub (Cardio) and Peripheral pulses 2+ throughout RATE: regular rate RHYTHM: regular rhythm HEART SOUNDS: S1 normal heart sound present and S2 normal heart sound present PERIPHERAL PULSES: Peripheral pulses 2+ throughout GI: COMMON NORMALS: Normal to inspection, nondistended, normoactive bowel sounds present, Soft to palpation, non-tender, No hepatosplenomegaly present and no masses AUSCULTATION: Yes normoactive bowel sounds PALPATION: Yes Soft to palpation and Yes No hepatosplenomegaly present RECTAL EXAM: deferred Extremity: COMMON NORMALS: no clubbing, cyanosis or edema and no pedal edema Urinary Catheter Management: Su: Cath Placed During This Visit: yes, but has since been removed by the nurse Reason for Continuing Indwelling Catheter: Acute Urinary Retention or Obstruction Urinary Catheter Date of Insertion: 10/09/22 Urinary Catheter Time of Insertion: 16:55 Date Urinary Catheter Removed: 10/09/22 Time Urinary Catheter Discontinued: 16:50 Data 10/12/22 04:05 10/12/22 04:05 Micro: Microbiology 10/10/22 02:00 Urine Culture - Final Urine Catheterized A&P Assessment and plan (1) Subcapital fracture of right hip: s/p rught hip hemiarthroplasty POD #1 prn tramadol , opiates for pain management PT/OT assessment encourage ambulation (2) Parkinson's Disease: continue home medications Plan +UA, pending urine cx. currently empirically covered with ceftriaxone 1 g iv daily Attestations Medical Necessity Statement*: Currently awaiting placement Coding Level of Care Code Acute Code for Chg Fwd Diagnoses Subcapital fracture of right hip S72.011A Parkinson's Disease G20
[2022-10-13] MEDS: TRAMadol 50 mg Tablet PO (02:28)
[2022-10-13 03:32] VITALS: BP 153/74; PULSE 78; RESP 17; TEMP 36.9; O2SAT 97
[2022-10-13] MEDS: carbidopa-levodopa 25-100mg Tablet PO ×3 (05:22→14:03)
[2022-10-13] MEDS: enoxaparin 30 mg/0.3 mL Syringe SUBCUT (05:29)
[2022-10-13] MEDS: acetaminophen 325 mg Tablet 650 MG PO ×2 (05:30→14:04)
[2022-10-13 07:48] VITALS: BP 151/83; PULSE 71; RESP 17; TEMP 36.6; O2SAT 96
[2022-10-13 08:00] VITALS: PULSE 78; O2SAT 98
[2022-10-13] MEDS: calcium carb-vit d 600mg/400unit 1 Tablet 1 EACH PO (08:31)
[2022-10-13] MEDS: sennosides-docusate Tablet 2 TAB PO (08:31)
[2022-10-13] MEDS: chlorhexidine gluconate 0.12% UDC 15 mL 30 ML MUCOUS MEM (08:31)
[2022-10-13] MEDS: aspirin 81 mg EC Tablet PO (08:31)
[2022-10-13] MEDS: pantoprazole DR 40 mg Tablet PO (08:32)
[2022-10-13] MEDS: ropinirole 0.25 mg Tablet 0.5 MG PO (08:32)
[2022-10-13] MEDS: multivitamin therapeutic Tablet 1 TAB PO (08:32)
[2022-10-13] MEDS: iron polysaccharide complex 150 mg Capsule PO (08:33)
[2022-10-13] MEDS: escitalopram 10 mg Tablet PO (08:34)
--- NOTE | 2022-10-13 11:00 | PC.SOCIAL ---
IMM Updated Updated pt on IMM. No questions voiced. Provided pt a copy. Initialed, dated, & timed copy in chart.
[2022-10-13 11:49] LABS: SARS Covid-2 Antigen negative (Negative)
[2022-10-13 12:00] VITALS: BP 136/70; PULSE 72; RESP 16; TEMP 36.6; O2SAT 98
--- NOTE | 2022-10-13 14:04 | P.DS_ITS ---
Discharge Providers Date of Admission: 10/08/22 14:26 Date of Discharge: October 13, 2022 Attending Provider at Admission: Jennifer Fletcher MD Attending Provider at Discharge: Jus Jorge MD Primary Care Provider: Trev Severino MD Diagnoses at Discharge Discharge Diagnosis (1) Subcapital fracture of right hip: Status: Acute (2) Parkinson's Disease: Status: Acute Reason for Visit Reason for Visit: POSSIBLE HIP FRACTURE Hospital Course Hospital Course 87 year old female with PMH Parkinson's, recurrent UTIs presented to the ER with mechanical fall and has been found to have hip fracture s/p right hip hemiarthroplasty, orthopedic was on board, during the hospital stay she was also managed for UTI she was empirically kept on ceftriaxone. She responded well to above medical and surgical management, was discharged in stable condition to halfway. Physical Exam Resp: COMMON NORMALS: clear to auscultation bilaterally AUSCULTATION: clear to auscultation bilaterally Cardio: COMMON NORMALS: regular rate, regular rhythm, S1 normal heart sound present, S2 normal heart sound present, No gallops present (Cardio), No murmurs present (Cardio), No rub (Cardio) and Peripheral pulses 2+ throughout RATE: regular rate RHYTHM: regular rhythm HEART SOUNDS: S1 normal heart sound present and S2 normal heart sound present PERIPHERAL PULSES: Peripheral pulses 2+ throughout GI: COMMON NORMALS: Normal to inspection, nondistended, normoactive bowel soun ds present, Soft to palpation, non-tender, No hepatosplenomegaly present and no masses AUSCULTATION: Yes normoactive bowel sounds PALPATION: Yes Soft to palpation and Yes No hepatosplenomegaly present RECTAL EXAM: deferred Extremity: COMMON NORMALS: no clubbing, cyanosis or edema and no pedal edema Urinary Catheter Management: Su: Cath Placed During This Visit: yes, but has since been removed by the nurse Reason for Continuing Indwelling Catheter: Acute Urinary Retention or Obstruction Urinary Catheter Date of Insertion: 10/09/22 Urinary Catheter Time of Insertion: 16:55 Date Urinary Catheter Removed: 10/09/22 Time Urinary Catheter Discontinued: 16:50 Discharge Data Studies Completed and Pending Completed Studies During Hospitalization Category Date Time Status XR chest 1V portable [id number] Stat Exams 10/08/22 13:16 Completed XR femur RT min 2V* [id number] Stat Exams 10/08/22 13:16 Completed XR foot LT min 3V* [id number] Routine Exams 10/12/22 07:12 Completed XR hip LT 2-3V wo/w pel* [id number] Routine Exams 10/09/22 18:24 Completed XR hip RT 2-3V wo/w pel* [id number] Stat Exams 10/08/22 12:59 Completed XR knee RT 3V* [id number] Stat Exams 10/08/22 13:16 Completed Radiology Impressions Chest X-Ray 10/08/22 13:16 IMPRESSION: AP portable supine chest demonstrates mild prominence of the cardiac silhouette and without acute findings. Femur X-Ray 10/08/22 13:16 IMPRESSION: 1. Subcapital femoral neck fracture of the right hip, as noted on exam of the right hip. 2. Right knee prosthesis. 3. No other fracture seen about the right femur. Knee X-Ray 10/08/22 13:16 IMPRESSION: Right knee prosthesis without fracture or acute osseous abnormality. Hip/Pelvis X-Ray 10/09/22 18:24 IMPRESSION: Right hip arthroplasty. Foot X-Ray 10/12/22 07:12 IMPRESSION: No fractures or dislocations of the left foot. Laboratory Results WBC 7.7 10^3/uL (4.0-10.0) 10/12/22 04:05 RBC 3.04 10^6/uL (4.1-5.3) L 10/12/22 04:05 Hgb 8.7 g/dL (11.5-15.3) L 10/12/22 04:05 Hct 28.3 % (37.0-47.0) L 10/12/22 04:05 MCV 93.1 fl (81-99) 10/12/22 04:05 MCH 28.6 pg (28.0-34.0) 10/12/22 04:05 MCHC 30.7 g/dL (30.0-36.0) 10/12/22 04:05 RDW 15.1 % (12.1-15.1) 10/12/22 04:05 Plt Count 175 10^3/cmm (130-400) 10/12/22 04:05 MPV 11.8 fL (7.4-10.4) H 10/12/22 04:05 Neut % (Auto) 53.7 % 10/12/22 04:05 Lymph % (Auto) 26.3 % 10/12/22 04:05 Curry % (Auto) 12.3 % 10/12/22 04:05 Eos % (Auto) 6.6 % 10/12/22 04:05 Baso % (Auto) 0.4 % 10/12/22 04:05 Neut # (Auto) 4.12 10^3/uL (1.8-7.7) 10/12/22 04:05 Lymph # (Auto) 2.0 10^3/uL (0.8-4.8) 10/12/22 04:05 Curry # (Auto) 0.9 10^3/uL (0.2-0.9) 10/12/22 04:05 Eos # (Auto) 0.5 10^3/uL (0.0-0.8) 10/12/22 04:05 Baso # (Auto) 0.0 10^3/uL (0.0-0.1) 10/12/22 04:05 Nucleated RBC % (auto) 0 % 10/12/22 04:05 Nucleated RBCs # 0.0 /100WBC 10/12/22 04:05 PT 13.70 SECONDS (12.1-14.9) 10/08/22 12:50 INR 1.02 (0.8-1.2) 10/08/22 12:50 APTT 29.7 SECONDS (23.9-36.7) 10/08/22 12:50 Sodium 133 mmol/L (136-145) L 10/12/22 04:05 Potassium 4.3 mmol/L (3.5-5.1) 10/12/22 04:05 Chloride 99 mmol/L (98-107) 10/12/22 04:05 Carbon Dioxide 28 mmol/L (22-29) 10/12/22 04:05 Anion Gap 10.3 (5-19) 10/12/22 04:05 BUN 23 mg/dL (8-23) 10/12/22 04:05 Creatinine 0.7 mg/dL (0.5-0.9) 10/12/22 04:05 GFR Calculation Not Reportable 10/12/22 04:05 Glucose 87 mg/dL (65-115) 10/12/22 04:05 Calculated Osmolality 279 mOsm/kg (285-295) L 10/12/22 04:05 Calcium 8.4 mg/dL (8.5-10.5) L 10/12/22 04:05 Total Bilirubin 0.7 mg/dL (0.15-1.2) 10/10/22 04:43 AST 24 U/L (0-32) 10/10/22 04:43 ALT 16 U/L (0-33) 10/10/22 04:43 Alkaline Phosphatase 44 U/L (35-105) 10/10/22 04:43 Total Protein 5.3 g/dL (6.6-8.7) L 10/10/22 04:43 Albumin 3.3 g/dL (3.5-5.2) L 10/10/22 04:43 Globulin 2.0 g/dL (1.3-4.6) 10/10/22 04:43 Urine Color Yellow (Yellow) 10/08/22 13:46 Urine Appearance Hazy (CLEAR) A 10/08/22 13:46 Urine pH 8 (5-7) H 10/08/22 13:46 Ur Specific [place] 1.015 (1.005-1.030) 10/08/22 13:46 Urine Protein Neg (Negative) 10/08/22 13:46 Urine Glucose (UA) Norm (Normal) 10/08/22 13:46 Urine Ketones Negative (Negative) 10/08/22 13:46 Urine Blood Neg (Negative) 10/08/22 13:46 Urine Nitrate Negative (Negative) 10/08/22 13:46 Urine Bilirubin Neg (Negative) 10/08/22 13:46 Prot Sulfosalicylic Acd Negative (Negative) 10/08/22 13:46 Urine Urobilinogen Norm mg/dL (Negative) 10/08/22 13:46 Ur Leukocyte Esterase 1+ (Negative) H 10/08/22 13:46 Urine RBC 0-4 /hpf (0-2) H 10/08/22 13:46 Urine WBC 15-25 /hpf (0-5) H 10/08/22 13:46 Ur Squamous Epith Cells 10-15 /hpf (0-5) H 10/08/22 13:46 Ur Renal Epithelial Cell 0-4 /hpf 10/08/22 13:46 Amorphous Sediment Not Reportable 10/08/22 13:46 Urine Bacteria 1+ /hpf (NONE) H 10/08/22 13:46 Urine Mucus 1+ /hpf 10/08/22 13:46 SARS-CoV-2 Ag (Rapid) negative (Negative) 10/13/22 10:55 Blood Type O Positive 10/08/22 18:32 Rho(D) Type Positive 10/08/22 18:32 Antibody Screen Negative 10/08/22 18:32 Vitals Last Vital Signs Temp 97.8 F 10/13/22 12:00 Pulse 72 10/13/22 12:00 Resp 16 10/13/22 12:00 BP 136/70 10/13/22 12:00 Pulse Ox 98 10/13/22 12:00 O2 Del Method Nasal Cannula 10/13/22 12:00 O2 Flow Rate 2 10/13/22 08:00 Discharge Plan Discharge Patient Disposition: Xfer SNF Condition: Stable Prescriptions: New Lovenox 30 mg/0.3 mL syringe 30 mg SUBCUT DAILY 35 Days Qty: 10.5 0RF calcium carbonate-vitamin D3 600 mg-10 mcg (400 unit) Tablet 1 tab PO BID 30 Days Qty: 60 0RF ondansetron 4 mg tablet,disintegrating 4 mg PO DAILY 5 Days Qty: 5 0RF oxycodone 5 mg tablet 5 mg PO Q6H PRN (Reason: pain) 7 Days Qty: 28 0RF Continued lorazepam 0.5 mg tablet 0.5 mg PO QID PRN (Reason: Sleep) Rx Instructions: 1-2 TABLETS atorvastatin 20 mg tablet 20 mg PO QPM cholecalciferol (vitamin D3) 25 mcg (1,000 unit) capsule 25 mcg PO BID Healthy [facility] Lutein-Zeaxanthin 60 mg-13.5 mg- 15 mg-2 mg-6 mg capsule 1 cap PO DAILY galantamine 4 mg tablet 4 mg PO BID 90 Days Qty: 180 3RF Rx Instructions: administer with AM and PM meals carbidopa-levodopa 25-100 mg tablet See Rx Instructions .ROUTE .COMPLEX Qty: 120 5RF Dose Instruction: TAKE 1/2 TABLET BY MOUTH ON WAKING, 1 & 1/2 TABLETS AT 9AM AND 1:00PM, AND 1/2 TABLET AT BEDTIME Rx Instructions: TAKE 1/2 TABLET BY MOUTH ON WAKING, 1 & 1/2 TABLETS AT 9AM AND 1:00PM, AND 1/2 TABLET AT BEDTIME ropinirole 0.5 mg tablet 0.5 mg PO TID Qty: 90 3RF potassium chloride 10 mEq tablet,ER particles/crystals See Rx Instructions .ROUTE .COMPLEX Qty: 90 3RF Dose Instruction: TAKE 1 TABLET BY MOUTH DAILY FOR LOW POTASSIUM LEVELS. TAKE WITH FOOD Rx Instructions: TAKE 1 TABLET BY MOUTH DAILY FOR LOW POTASSIUM LEVELS. TAKE WITH FOOD biotin 800 mcg Tablet 500 mcg PO DAILY ondansetron 4 mg tablet,disintegrating 4 mg PO Q8H PRN (Reason: Nausea) zinc acetate 50 mg (zinc) Capsule 50 mg PO DAILY aspirin 81 mg Tablet,Delayed Release (Dr/Ec) 81 mg PO DAILY pantoprazole 20 mg tablet,delayed release (DR/EC) 20 mg PO DAILY lisinopril 2.5 mg tablet 1.25 mg PO DAILY PRN (Reason: Hypertension) escitalopram oxalate 10 mg tablet 10 mg PO DAILY omega [id number]-hlc-fish oil 900-1,400 mg Capsule,Delayed Release(Dr/Ec) 1 cap PO BID Discharge Orders: Discharge Order (Routine); Ordered 10/13/22 Ordered By: Jus Jorge Referrals: [facility] [Outside] Trev Severino MD [Primary Care Provider] - Jamie Vazquez DO [Physician] - 10/23/22 10:45 am Discharge Diet: Advance as tolerated Discharge Activity: Increase activity as tolerated, Use walker/crutches as instructed and As per PT/OT instructions Patient Instructions: Opioid Safety Activity Restrictions/Additional Instructions: Orthopedic discharge instructions: Patient may weight-bear as tolerated right lower extremity\ Posterior hip precautions (avoid hip flexion past 90 degrees as well as internal rotation, avoid crossing legs past midline) Utilize walker as needed for safety Keep incisions clean dry and intact May leave Silverlon bandage dressing on in place for 7 days postoperatively at that time may remove rinse incision with warm soapy water pat dry and redress with a new dry dressing. He may change the Silverlon bandage sooner if more than 50% of bandage is saturated Ice as needed for pain and swelling Take pain medication as prescribed Take antinausea medication as needed Supplement with Citracal vitamin D for bone health and healing Take Lovenox (blood thinner) as prescribed for 35 days postoperatively to prevent blood clots Follow-up in the orthopedic office in 2 weeks Contact the office for any questions or concerns Discharge Attestations Time Spent in Discharge Care*: less than 30 min Quality Metrics Clinical Quality Measures [ No reported AMI, CVA or VTE this stay] Coding Level of Care Code Acute Code for Chg Fwd Diagnoses Subcapital fracture of right hip S72.011A Parkinson's Disease G20
== END 2022-10-13 14:29 | disposition skilled nursing facility (03) | DRG 522 ==
LOC: ER 14:58 → MEDSURG 15:07
PROVIDERS: Student in an Organized Health Care Education/Training Program; Admitting Provider Student in an Organized Health Care Education/Training Program; Emergency Provider Family Medicine; PCP Family Medicine; Visit Provider Internal Medicine
PROC: 0SRR0J9 Replacement of Right Hip Joint, Femoral Surface with Synthetic Substitute, Cemented, Open Approach (ICD-10-PCS; CPT 27125; principal; 2022-10-09 14:55)
DX: S72.011A Unspecified intracapsular fracture of right femur, initial encounter for closed fracture (principal); N39.0 Urinary tract infection, site not specified; W01.0XXA Fall on same level from slipping, tripping and stumbling without subsequent striking against object, initial encounter; Q66.72 Congenital pes cavus, left foot; M19.072 Primary osteoarthritis, left ankle and foot; G20 Parkinson's disease; Z87.440 Personal history of urinary (tract) infections; Z96.651 Presence of right artificial knee joint; Z79.82 Long term (current) use of aspirin; H90.5 Unspecified sensorineural hearing loss; K21.9 Gastro-esophageal reflux disease without esophagitis
CPT/HCPCS: 36415; 51702; 71045; 73502; 73552; 73562; 73630; 80048; 80053; 81001; 85025; 85610; 85730; 86850; 86900; 87086; 87426; 96372; 96374; 97110; 97116; 97161; 97167; 97530; 97535; 99285; C1713; C1776; J0131; J0360; J0690; J0696; J1170; J1650; J1885; J2270; J2405; J2704; J3370; J7030

== ENCOUNTER → 2022-10-23 10:39 | Outpatient (BNVA) | payer MEDICARE, MEDICAID, SELFPAY | PROVIDERS: PCP Family Medicine; Visit Provider Student in an Organized Health Care Education/Training Program | DX: Z96.641 Presence of right artificial hip joint (principal); Z48.89 Encounter for other specified surgical aftercare | CPT/HCPCS: 73502; 99024 ==

== ENCOUNTER → 2022-11-25 14:03 | Outpatient (BNVA) | payer MEDICARE, MEDICAID, SELFPAY | PROVIDERS: PCP Family Medicine; Visit Provider Nurse Practitioner Family | DX: Z48.89 Encounter for other specified surgical aftercare (principal); R60.9 Edema, unspecified; Z96.641 Presence of right artificial hip joint; R60.0 Localized edema; R50.9 Fever, unspecified | CPT/HCPCS: 36415; 73502; 80053; 83605; 85651; 86141; 99214 ==

== ENCOUNTER → 2022-11-25 14:14 | Outpatient (BNVA) | payer MEDICARE, MEDICAID, SELFPAY | PROVIDERS: PCP Family Medicine; Visit Provider Nurse Practitioner Family | DX: Z96.641 Presence of right artificial hip joint; R60.0 Localized edema; R50.9 Fever, unspecified | CPT/HCPCS: 73502 ==

== ENCOUNTER 2022-11-27 10:26 | Outpatient (CLI) | payer MEDICARE, MEDICAID, SELFPAY ==
--- NOTE | 2022-11-27 10:30 | USCV_ITS ---
Latoya Flaherty Age: 87 Gender: F : 1935 Exam Date: 11/27/2022 10:43 Ordering Phys: Hossein Alexis APN Technologist: CT Exam [place] [facility] [place] Indication: swelling pain, hip sx 7 weeks ago PROCEDURES: Venous duplex imaging was performed in only the right lower extremity. On the right side, the common femoral, superficial femoral, profunda femoral, popliteal, posterior tibial, greater saphenous veins and the peroneal trunk were identified and interrogated in the standard fashion. FINDINGS: Normal 2-D Doppler and augmentation and compressibility throughout the lower extremity venous structures. Additional imaging through the proximal calf veins also reveals no thrombus. Limited evaluation of the greater saphenous vein is patent with no thrombus. CONCLUSIONS No DVT right lower extremity. Dr. Meagan Hu DO (Electronically Signed) Final Date: 27 November 2022 13:31 S
== END 2022-11-27 10:27 | disposition home or self-care (01) ==
PROVIDERS: PCP Family Medicine; Visit Provider Nurse Practitioner Family
DX: R60.0 Localized edema (principal); Z96.641 Presence of right artificial hip joint
CPT/HCPCS: 93971

== ENCOUNTER → 2022-12-10 14:17 | Outpatient (BNVA) | payer MEDICARE, MEDICAID, SELFPAY | PROVIDERS: PCP Family Medicine; Visit Provider Student in an Organized Health Care Education/Training Program | DX: Z96.641 Presence of right artificial hip joint (principal) | CPT/HCPCS: 73502; 99024 ==

== ENCOUNTER 2023-01-07 14:01 | Observation (INO) | payer MEDICARE, MEDICAID, SELFPAY ==
[2023-01-07 14:03] VITALS: BP 119/70; PULSE 60; RESP 15; O2SAT 95
--- NOTE | 2023-01-07 14:11 | CT_ITS ---
WS: [id number] CT THORACIC SPINE HISTORY: fall TECHNIQUE: Contiguous 2.0 mm axial images are reviewed to thoracic spine. Images are reformatted in s agittal and coronal planes. All CT scans at [facility] use at least one of these dose optimiz ation techniques: automated exposure control; mA and/or kV adjustment per patient size (includes targ eted exams where dose is matched to clinical indication); or iterative reconstruction. DLP: 1690.84 mGy.cm COMPARISON: None available. Mild increase in thoracic kyphosis and scoliosis. There is diffuse osteopenia. Disc spaces are diffus mike narrowed. No loss of vertebral height. No fractures. Transverse processes are intact. The visuali zed ribs are normal. No central or foraminal stenosis. Extensive calcification throughout the thoracic aorta. Marked enlargement of the heart. IMPRESSION: 1. No thoracic spine fracture. 2. Osteopenia. 3. Mild scoliosis and degenerative disc disease. 4. Marked cardiomegaly.
--- NOTE | 2023-01-07 14:11 | CT_ITS ---
WS: [id number] CT LUMBAR SPINE, noncontrast. HISTORY: fall TECHNIQUE: Contiguous 2.0 mm axial imaging are performed. Sagittal and coronal reformats are submitte d and reviewed. All CT scans at [facility] use at least one of these dose optimization techni ques: automated exposure control; mA and/or kV adjustment per patient size (includes targeted exams w here dose is matched to clinical indication); or iterative reconstruction. IV contrast: None DLP: 1690.84 mGy.cm COMPARISON: None available. Mild LEFT curvature lumbar spine with asymmetric disc space narrowing. No acute lumbar spine fracture . L4 and L5 anterolisthesis by 4.5 mm. Disc spaces are narrowed. Vacuum disc phenomenon at most level s in the lumbar spine. L1-2: Diffuse annular disc bulging. L2-3: Mild diffuse annular disc bulging. Shallow RIGHT foraminal disc protrusion. No high-grade steno sis. L3-4: Mild asymmetric disc bulging with a broad-based RIGHT foraminal disc protrusion. Mild encroachm ent upon the ventral thecal sac. Mild central, bilateral subarticular recess and bilateral foraminal stenosis. L4-5: Marked asymmetric disc bulging greatest to the RIGHT. Disc encroaches upon the ventral thecal s ac. Severe bilateral facet joint arthritis. Moderate central, bilateral subarticular recess and moder ate bilateral foraminal stenosis. L5-S1: Diffuse annular disc bulging encroaching upon the ventral thecal sac. Severe bilateral facet j oint arthritis. Osteophytes encroach into the subarticular recesses. Moderate to severe LEFT and mode rate RIGHT foraminal stenosis. Mild bilateral subarticular recess stenosis. Heavy calcification within the abdominal aorta. Fecal retention in the rectum and sigmoid. IMPRESSION: 1. No acute lumbar spine fracture. 2. Degenerative LEFT curvature lumbar spine with asymmetric disc space narrowing. 3. Grade 1 anterolisthesis of L4 and L5. 4. L3-4: Mild central, bilateral subarticular recess and foraminal stenosis. 5. L4-5: Moderate central, bilateral subarticular recess and foraminal stenosis. Severe bilateral fac et joint arthritis. 6. L5-S1: Moderate to severe LEFT and moderate RIGHT foraminal stenosis.
--- NOTE | 2023-01-07 14:14 | CT_ITS ---
WS: [id number] CT RIGHT HIP, NONCONTRAST HISTORY: fall Technique: All CT scans at [facility] use at least one of these dose optimization techniques: automated exposure control; mA and/or kV adjustment per patient size (includes targeted exams where dose is matched to clinical indication); or iterative reconstruction. DLP: 1690.84 mGy COMPARISON: Radiograph 12/10/2022. Patient is status post RIGHT hip arthroplasty. The arthroplasty appears appropriate in position. No a cute fracture is identified involving the RIGHT hip. There is no dislocation of the prosthesis. Mickie l symphysis pubis. No soft tissue mass or hematoma. Atherosclerotic calcification in the femoral artery. Marked fecal impaction at the rectum. IMPRESSION: 1. Status post RIGHT hip arthroplasty. 2. No acute hip fracture.
[2023-01-07 14:25] VITALS: BP 169/83; PULSE 76; RESP 18; O2SAT 98
--- NOTE | 2023-01-07 14:27 | ED_ITS ---
HPI - Fall General: Chief Complaint: Fall Stated Complaint: FALL Time Seen by Provider: 01/07/23 14:03 Source: patient and EMS Mode of arrival: EMS Limitations: no limitations History of Present Illness: 87-year-old female who had a hip replacement 2 months ago she states that 2 days ago she had tripped and fall in her home. She states that she fell onto hardwood landed on right side hit her right hip and lower back she been having right hip pain and low back pain since then. States she has been able to ambulate has had increasing pain with ambulation a hard time ambulating at today she denies hitting her head denies neck pain. Associated symptoms-after fall: Denies abdominal pain, chest pain, headache(s) or neck pain Review of Systems Const: Denies: fever(s), chills or body aches ENMT: Denies: throat pain or dental pain Card: Denies: chest pain Resp: Denies: dyspnea GI: Denies: abdominal pain, nausea, vomiting or diarrhea Musc: Reports: back pain and extremity pain; Denies: neck pain Skin/Breast: Denies: rash Neuro: Denies: headache(s) PFSH ED PFSH: Medical History Anemia Back pain Central deafness GERD (gastroesophageal reflux disease) Parkinson's Disease Recurrent UTI Subcapital fracture of right hip Surgical History History of cataract surgery History of knee replacement Hx of LASIK Family History Sister COPD (chronic obstructive pulmonary disease) Mother CHF (congestive heart failure) Social History Smoking and tobacco status: never smoked Alcohol intake: never Substance/Drug Use: never Adopted: No Caregiver/support person: No Lives independently: Yes Marital status: / Current occupational status: retired Physical Exam Const: COMMON NORMALS: patient oriented x3 HENMT: COMMON NORMALS: normocephalic and atraumatic HEAD & SCALP: normocephalic and atraumatic Eye: COMMON NORMALS: Equal, round and reactive pupils present and EOMs intact bilaterally PUPIL: Yes Equal, round and reactive pupils present Neck/C-Spine: COMMON NORMALS: full ROM and supple Chest: COMMONS NORMALS: normal inspection of the chest and normal palpation of entire chest wall Resp: COMMON NORMALS: normal respiratory effort, No retractions, No use of accessory muscles and clear to auscultation bilaterally AUSCULTATION: clear to auscultation bilaterally Cardio: COMMON NORMALS: regular rate, regular rhythm and No murmurs present (Cardio) RATE: regular rate RHYTHM: regular rhythm GI: COMMON NORMALS: Normal to inspection, nondistended, normoactive bowel sounds present, Soft to palpation, non-tender and no masses PALPATION: Yes Soft to palpation Back/Pelvis: OTHER: Tenderness to lumbar spine along with thoracic spine Extremity: COMMON NORMALS: normal to inspection and full ROM NARRATIVE EXTREMITY EXAM: Slight tenderness right hip with some pain on range of motion distal pulses intact no shortening of her leg Neuro: COMMON NORMALS: patient oriented x3, moves all extremities and no focal motor deficits Psych: COMMON NORMALS: mental status grossly normal, Normal thought process present and cooperative THOUGHT PROCESS: Normal thought process present Skin: COMMON NORMALS: no rashes or lesions noted and no wounds GENERAL SKIN EXAM: no rashes or lesions noted Course Vital Signs: Vital signs: Vital Signs Pulse Rate 66 01/07/23 15:10 Respiratory Rate 18 01/07/23 15:10 Blood Pressure 169/83 01/07/23 15:10 Pulse Oximetry 96 01/07/23 15:10 Oxygen Delivery Me thod Room Air 01/07/23 15:10 MDM - Fall Medical Decision Making Patient presents here with right hip pain from a fall she states she has had increasing falls since her hip replacement 6 weeks ago her son is here who is her primary caregiver and states that she is not able ambulate he is not able to take care of her she states she cannot stand she cannot get up and around her house. After speaking to family decision was made that patient needs admission due to her frequent falls not able to ambulate and they are not able to take care of her spoke to hospitalist who will admit. Medical Records I reviewed the patient's medical records. Discharge Plan Discharge Patient Disposition: Admitted As Inpatient Clinical Impression: Contusion of hip, right, Frequent falls, Weakness Condition: Stable Prescriptions: New hydrocodone-acetaminophen 5-325 mg tablet 1 tab PO Q6H PRN (Reason: pain) Qty: 14 0RF No Action atorvastatin 20 mg tablet 20 mg PO QPM cholecalciferol (vitamin D3) 25 mcg (1,000 unit) capsule 25 mcg PO BID Healthy Eyes Lutein-Zeaxanthin 60 mg-13.5 mg- 15 mg-2 mg-6 mg capsule 1 cap PO DAILY galantamine 4 mg tablet 4 mg PO BID 90 Days Qty: 180 3RF Rx Instructions: administer with AM and PM meals carbidopa-levodopa 25-100 mg tablet See Rx Instructions .ROUTE .COMPLEX Qty: 120 5RF Dose Instruction: TAKE 1/2 TABLET BY MOUTH ON WAKING, 1 & 1/2 TABLETS AT 9AM AND 1:00PM, AND 1/2 TABLET AT BEDTIME Rx Instructions: TAKE 1/2 TABLET BY MOUTH ON WAKING, 1 & 1/2 TABLETS AT 9AM AND 1:00PM, AND 1/2 TABLET AT BEDTIME ropinirole 0.5 mg tablet 0.5 mg PO TID Qty: 90 3RF potassium chloride 10 mEq tablet,ER particles/crystals See Rx Instructions .ROUTE .COMPLEX Qty: 90 3RF Dose Instruction: TAKE 1 TABLET BY MOUTH DAILY FOR LOW POTASSIUM LEVELS. TAKE WITH FOOD Rx Instructions: TAKE 1 TABLET BY MOUTH DAILY FOR LOW POTASSIUM LEVELS. TAKE WITH FOOD biotin 800 mcg Tablet 800 mcg PO DAILY ondansetron 4 mg tablet,disintegrating 4 mg PO Q8H PRN (Reason: Nausea) aspirin 81 mg Tablet,Delayed Release (Dr/Ec) 81 mg PO DAILY lisinopril 2.5 mg tablet 1.25 mg PO DAILY PRN (Reason: Hypertension) omega 5-tnj-waj-fish oil 900-1,400 mg Capsule,Delayed Release(Dr/Ec) 1 cap PO BID lorazepam 1 mg tablet 1 mg PO QID Referrals: Trev Severino MD [Primary Care Provider] - Discharge Diet: Advance as tolerated Discharge Activity: Resume usual activity Patient Instructions: Contusion in Adults (ED), Fall Prevention (ED) Coding Level of Care Code ED 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
[2023-01-07 15:10] VITALS: BP 169/83; PULSE 66; RESP 18; O2SAT 96
--- NOTE | 2023-01-07 15:15 | XR_ITS ---
WS: [id number] Exam: XR elbow LT min 3V* [id number] Date/Time of Exam: 01/07/2023 3:17 PM Reason For Exam: fall No fracture or dislocation noted. Mild to moderate degenerative joint changes. No joint effusion. Unr emarkable soft tissues. IMPRESSION: 1. Degenerative changes. No acute fracture.
--- NOTE | 2023-01-07 15:15 | XR_ITS ---
WS: [id number] Exam: XR shoulder LT min 2V* [id number] Date/Time of Exam: 01/07/2023 3:17 PM Reason For Exam: fall No acute fracture or dislocation. Degenerative change at the glenohumeral joint and AC joint. Soft ti ssue calcification along the humeral head that might indicate calcific tendinitis or bursitis. IMPRESSION: 1. No acute fracture. Additional nonurgent findings as above.
--- NOTE | 2023-01-07 16:45 | PC.NURSE ---
New chucks placed under patient at this time. Soaked nightgown was removed and placed in a patient belonging bag. We were going to place the patient's necklace in a plastic container, but her son took the necklace and placed it in his shirt pocket. Pericare was performed. During change 2 quarter size bruises were noted on the left buttock area. Patient stated that she had fell previously. No further needs voiced. Prior to leaving the room, the son asked to speak with the physician. Charge nurse was notified and she told Dr. Moody.
[2023-01-07 17:02] VITALS: BP 169/83; PULSE 59; RESP 18; O2SAT 95
--- NOTE | 2023-01-07 17:10 | P.HP_ITS ---
Providers/Chief Complaint Primary Care Provider: Trev Severino MD Chief Complaint: FALL History of Present Illness Latoya Flaherty is a 87 year old female who recently had hip fracture status post fall spent 5 days at rehab and then she was discharged home, patient stating that she has fallen 3 times in the last 4 days, she does not attribute her falls to her Parkinson's gait instability stating that she just has no strength in her legs and she keeps falling. She lives upstairs and has multiple stairs, son lives downstairs. In the ER patient was not able to walk on her own She is denying chest pain, syncope, fever, UTI related symptoms, loco scan did not show new fracture Review of Systems Const: Denies: fever(s) Eyes: Denies: change in vision ENMT: Denies: throat pain Card: Denies: chest pain Resp: Denies: dyspnea GI: Denies: abdominal pain : Denies: dribbling Musc: Denies: neck pain Skin/Breast: Denies: skin pain Psych: Reports: anxiety; Denies: sleeping less Endo: Denies: polyuria Medications/Allergies Home Medications Medication Instructions Recorded Confirmed Last Taken Type atorvastatin 20 mg tablet 20 mg PO QPM 07/17/19 01/07/23 01/06/23 History biotin 800 mcg tablet 800 mcg PO DAILY 09/02/19 01/07/23 01/07/23 History cholecalciferol (vitamin D3) 25 25 mcg PO BID 10/30/19 01/07/23 01/07/23 History mcg (1,000 unit) capsule vit C,A-Gq-cqvrys-lutein-zeaxan 60 1 cap PO DAILY 10/30/19 01/07/23 01/07/23 History mg-13.5 mg-15 mg-2 mg-6 mg capsule (Healthy Eyes Lutein-Zeaxanthin) ondansetron 4 mg disintegrating 4 mg PO Q8H PRN Nausea 06/01/21 01/07/23 Unknown History tablet galantamine 4 mg tablet 4 mg PO BID 90 days #180 tabs 05/04/22 01/07/23 01/07/23 Rx carbidopa 25 mg-levodopa 100 mg See Rx Instructions .Route 09/02/22 01/07/23 01/07/23 Rx tablet .COMPLEX #120 tabs ropinirole 0.5 mg tablet 0.5 mg PO TID #90 tabs 09/02/22 01/07/23 01/07/23 Rx potassium chloride 10 mEq See Rx Instructions .Route 09/08/22 01/07/23 01/07/23 Rx tablet,extended release(part/cryst) .COMPLEX #90 tabs aspirin 81 mg tablet,delayed 81 mg PO DAILY 10/08/22 01/07/23 01/07/23 History release lisinopril 2.5 mg tablet 1.25 mg PO DAILY PRN Hypertension 10/08/22 01/07/23 Unknown History omega 4-kur-opb-fish oil 900 1 cap PO BID 10/08/22 01/07/23 01/07/23 History mg-1,400 mg capsule,delayed release hydrocodone 5 mg-acetaminophen 325 1 tab PO Q6H PRN pain #14 tabs 01/07/23 Unknown Rx mg tablet lorazepam 1 mg tablet 1 mg PO QID 01/07/23 01/07/23 01/07/23 History Allergies Allergy/AdvReac Type Severity Reaction Status Date / Time No Known Allergies Allergy Verified 12/10/22 14:18 PFSH Acute PFSH: Medical History Anemia Back pain Central deafness GERD (gastroesophageal reflux disease) Parkinson's Disease Recurrent UTI Subcapital fracture of right hip Surgical History History of cataract surgery History of knee replacement Hx of LASIK Family History Sister COPD (chronic obstructive pulmonary disease) Mother CHF (congestive heart failure) Social History Smoking and tobacco status: never smoked Alcohol intake: never Substance/Drug Use: never Adopted: No Caregiver/support person: No Lives independently: Yes Marital status: / Current occupational status: retired Vitals/I&O/Wt Last Vital Signs Pulse 59 L 01/07/23 17:02 Resp 18 01/07/23 17:02 BP 169/83 01/07/23 17:02 Pulse Ox 95 01/07/23 17:02 O2 Del Method Room Air 01/07/23 17:02 Weight last 48 hrs Weight 78.925 kg Physical Exam Narrative: Patient is awake and alert Clinically dehydrated Patient is awake and alert Clinically dehydrated Hemodynamically stable Abdomen soft S1, S2 Lower extremity edema Pleasant cooperative No new focal deficit GCS 15 S1, S2 Currently on room air Appropriate mood and affect Pain comfortable in her bed Data 01/07/23 17:08 01/07/23 17:08 A&P Assessment and plan (1) Contusion of hip, right: (2) Frequent falls: (3) Weakness: (4) Leg edema: (5) Status post right hip replacement: (6) Fibromyositis: Plan Recurrent falls Recent hip surgery History of Parkinson's We will request PT evaluation and request rn case management to see if patient would qualify for inpatient rehab At this point she is not endorsing any discomfort or pain Loco scan did not show any new fracture She does have nonpitting edema of legs She is not able to use a walker to go home, Full code UA is pending I will start her on cardiac diet Request D-dimer Check B12 and TSH PT evaluation in the morning Social dynamics: She lives with her son, son lives downstairs she has to take couple stairs to go up in the room which has been difficult since recent hip surgery Attestations Medical Necessity Statement*: Anticipating less than 2 midnights Diagnoses Contusion of hip, right S70.01XA Frequent falls R29.6 Weakness R53.1 Leg edema R60.0 Status post right hip replacement Z96.641 Fibromyositis M79.7
[2023-01-07 17:35] LABS: Basophils # 0.1 10^3/uL (0.0-0.1); Basophils % 0.8 %; Eosinophils # 0.2 10^3/uL (0.0-0.8); Eosinophils % 3.3 %; Hematocrit 39.1 % (36-47); Lymphocytes # 1.9 10^3/uL (0.8-4.8); Mean Corpuscular HGB Conc 31.2 g/dL (30-55); Mean Corpuscular Hemoglobin 27.5 pg (27-33); Mean Corpuscular Volume 88.1 fl (85-98); Mean Platelet Volume 10.5 fL (7.4-10.4); Monocytes # 0.5 10^3/uL (0.2-0.9); Monocytes % 7.7 %; Neutrophils # 3.71 10^3/uL (1.8-7.7); Neutrophils % 57.9 %; Nucleated Red Blood Cells % 0 %; Platelet Count 218 10^3/cmm (157-399); Red Blood Count 4.44 10^6/uL (3.85-5.65); Red Cell Distribution Width 13.9 % (12.1-15.1)
[2023-01-07 18:01] LABS: Alanine Aminotransferase < 5 U/L (0-33); Albumin Level 4.1 g/dL (3.5-5.2); Alkaline Phosphatase 62 U/L (35-105); Aspartate Amino Transferase 8 U/L (0-32); Blood Urea Nitrogen 15 mg/dL (8-23); Calcium 9.2 mg/dL (8.5-10.5); Carbon Dioxide 31 mmol/L (22-29); Chloride 99 mmol/L (98-107); Globulin 2.5 g/dL (1.3-4.6); Glucose 100 mg/dL (65-115); Osmolality Calculated 287 mOsm/kg (285-295); Sodium 138 mmol/L (136-145); Total Bilirubin 0.5 mg/dL (0.15-1.2); Total Protein 6.6 g/dL (6.6-8.7)
[2023-01-07 19:44] LABS: D Dimer 1.39 ug/mLFEU (0-0.59)
[2023-01-07 19:59] LABS: Estmated Average Glucose 108; Hemoglobin A1C 5.4 % (4.0-6.0)
[2023-01-07 20:31] VITALS: BP 170/82; PULSE 69; RESP 17; TEMP 36.4; O2SAT 96
[2023-01-07] MEDS: ropinirole 0.25 mg Tablet 0.5 MG PO (21:01)
[2023-01-07] MEDS: carbidopa-levodopa 25-100mg Tablet 0.5 EACH PO (21:02)
[2023-01-07] MEDS: heparin 5,000 unit/mL INJ 1 mL 5000 UNIT SUBCUT (21:02)
[2023-01-07] MEDS: sennosides-docusate Tablet 2 TAB PO (21:02)
[2023-01-07 21:27] LABS: Thyroid Stimulating Hormone 2.97 uIU/mL (0.27-4.20)
[2023-01-08] VITALS (11 sets, daily range): BP systolic 109–183; BP diastolic 61–83; PULSE 58–69; RESP 13–18; TEMP 36.4–37; O2SAT 91–95
[2023-01-08 00:46] LABS: Vitamin B12 1282 pg/mL (232-1245)
[2023-01-08] MEDS: lisinopril 5 mg Tablet PO (05:05)
[2023-01-08] MEDS: morphine IR 15 mg Tablet PO ×2 (05:05→19:21)
[2023-01-08] MEDS: carbidopa-levodopa 25-100mg Tablet 0.5 EACH PO ×2 (05:06→20:36)
[2023-01-08 05:38] LABS: Basophils # 0.1 10^3/uL (0.0-0.1); Basophils % 0.8 %; Eosinophils # 0.3 10^3/uL (0.0-0.8); Eosinophils % 4.2 %; Lymphocytes # 1.9 10^3/uL (0.8-4.8); Lymphocytes % 29.8 %; Mean Corpuscular Hemoglobin 27.4 pg (27-33); Mean Corpuscular Volume 88.2 fl (85-98); Mean Platelet Volume 10.6 fL (7.4-10.4); Monocytes # 0.5 10^3/uL (0.2-0.9); Monocytes % 8.2 %; Neutrophils # 3.55 10^3/uL (1.8-7.7); Neutrophils % 56.8 %; Nucleated Red Blood Cells % 0 %; Platelet Count 201 10^3/cmm (157-399); Red Blood Count 4.42 10^6/uL (3.85-5.65); Red Cell Distribution Width 13.9 % (12.1-15.1); White Blood Count 6.24 10^3/uL (3.29-11.43)
[2023-01-08 05:55] LABS: Anion Gap 10.8 (5-19); Blood Urea Nitrogen 16 mg/dL (8-23); Calcium 9.3 mg/dL (8.5-10.5); Carbon Dioxide 30 mmol/L (22-29); Chloride 101 mmol/L (98-107); Glucose 96 mg/dL (65-115); Osmolality Calculated 287 mOsm/kg (285-295); Potassium 3.8 mmol/L (3.5-5.1); Sodium 138 mmol/L (136-145)
--- NOTE | 2023-01-08 08:12 | CT_ITS ---
WS: [id number] CT CHEST ANGIOGRAPHY WITH REFORMATS HISTORY: falls TECHNIQUE: Contiguous axial images are obtained through the chest during arterial injection of intrav enous contrast. Images are reconstructed to evaluate the pulmonary arteries. MIP imaging also reviewe d. All CT scans at [facility] use at least one of these dose optimization techniques: automat ed exposure control; mA and/or kV adjustment per patient size (includes targeted exams where dose is matched to clinical indication); or iterative reconstruction. CONTRAST: Omnipaque 350; 100 mL IV. DLP: 410.83 mGy.cm COMPARISON: None available. Adequate opacification of the pulmonary arteries. Pulmonary artery is mildly dilated. No filling defe cts are noted through the segmental branches. There is mild RIGHT heart strain. Interventricular sept um is mildly flattened. Moderate cardiomegaly. No significant effusion. Moderate atherosclerosis aort a. No aneurysm. Motion artifact obscuring detail of the upper lung handy. There is no dense consolidation and no mas s. Bronchiectasis medial RIGHT upper lobe. There are a few scattered granulomata. Suspect mild inters titial fluid. Mild dependent changes at the LEFT lung base. No adenopathy. Suprarenal aortic calcification. Nonenhancing 1.2 cm cyst upper pole RIGHT kidney. Visualized gallbla dder is negative. No adrenal mass. Stomach is distended with food products. Transverse colon mildly d istended with fecal material. Mild increase in thoracic kyphosis. IMPRESSION: 1. No pulmonary embolism. 2. Mild pulmonary hypertension. There is very slight RIGHT heart strain but no pulmonary emboli. 3. Moderate cardiomegaly. 4. Moderate atherosclerosis aorta. 5. RIGHT renal cyst. 6. No pneumonia.
--- NOTE | 2023-01-08 08:12 | USCV_ITS ---
Latoya Flaherty Age: 87 Gender: F : 1935 Exam Date: 01/08/2023 10:26 Ordering Phys: Stacie Finney MD Technologist: Gomez Smith Exam Location: [facility] [place]_ Indication: falls PROCEDURES: Venous duplex imaging was performed in bilateral lower extremities. The following venous structures were evaluated: common femoral vein, profunda vein, proximal portion of the greater saphenous vein, superficial femoral vein, and the popliteal vein. In addition, the posterior tibial and peroneal trunk were evaluated. Serial compression, augmentation maneuvers, and spectral Doppler flow evaluation were performed. FINDINGS: Normal 2-D Doppler and augmentation and compressibility throughout the lower extremity venous structures. Additional imaging through the proximal calf veins also reveals no thrombus. Limited evaluation of the greater saphenous vein is patent with no thrombus. CONCLUSIONS No DVT bilateral lower extremities. Dr. Meagan Hu DO (Electronically Signed) Final Date: 08 January 2023 13:03 S
[2023-01-08] MEDS: aspirin 81 mg EC Tablet PO (08:47)
[2023-01-08] MEDS: carbidopa-levodopa 25-100mg Tablet 1.5 EACH PO ×2 (08:47→13:37)
[2023-01-08] MEDS: heparin 5,000 unit/mL INJ 1 mL 5000 UNIT SUBCUT ×2 (08:48→20:36)
[2023-01-08] MEDS: ropinirole 0.25 mg Tablet 0.5 MG PO ×3 (08:48→20:36)
--- NOTE | 2023-01-08 10:28 | PC.CHAP ---
Pastoral Care Encounter/Spiritual Assessment Type of Contact [] Declined stone polisher hand visit [] Patient/Family/Request visit [] Outpatient visit [] Follow-up visit [] Physician referral [] Code/Alert [] Routine visit [] Staff referral [] Actively dying [] Patient sleeping [] Family support [] [] Out of room [] Palliative care [] [x Pastoral Care Encounter/Spiritual Assessment Type of Contact [] Declined stone polisher hand visit [] Patient/Family/Request visit [] Outpatient visit [] Follow-up visit [] Physician referral [] Code/Alert [] Routine visit [] Staff referral [] Actively dying [] Patient sleeping [] Family support [] [] Out of room [] Palliative care [] [] Receiving care in room [] Pre-surgical visit [] Trauma [] Long length of stay [] ICU visit [] Other: Relational/Emotional Strength [] Patient feels connected with others/family/visitors/staff [] Distress [] Loneliness/isolation [] Abandonment Spirituality of Patient [] Person of Mabel [] Attends Synagogue of their Mabel [] Believes in Prayer [] Reads Bible or Roman Catholic materials [] There are Spiritual issues to be addressed [place] Interventions [] Prayer [] Active listening [] Non-anxious presence [] Spiritual/emotional support [] Crisis/trauma care [] Spiritual counseling [] Bereavement support [] Provided bereavement packet [] Provided Bible/devotional materials [] Provided toy/stuffed animal, coloring book to patient or family member [] Provided Communion [] Anointing/[place] [] Salvation [] Completed spiritual assessment [] Other: Impact on Illness or Injury [] Angry [] Fearful [] Anxious [] Often cries [] Exhaustion [] Unable to work [] Unable to attend pentecostalism [] Unable to walk/stand [] Unable to read [] Unable to drive [] Unable to eat/drink [] Unable to sleep [] Unable to be with family [] Patient intubated [] Other: Summary Time spent with patient ] Receiving care in room [] Pre-surgical visit [] Trauma [] Long length of stay [] ICU visit [] Other: Relational/Emotional Strength [] Patient feels connected with others/family/visitors/staff [] Distress [] Loneliness/isolation [] Abandonment Spirituality of Patient [] Person of Mabel [] Attends Synagogue of their Mabel [] Believes in Prayer [] Reads Bible or Roman Catholic materials [] There are Spiritual issues to be addressed [place] Interventions [] Prayer [] Active listening [] Non-anxious presence [] Spiritual/emotional support [] Crisis/trauma care [] Spiritual counseling [] Bereavement support [] Provided bereavement packet [] Provided Bible/devotional materials [] Provided toy/stuffed animal, coloring book to patient or family member [] Provided Communion [] Anointing/[place] [] Salvation [] Completed spiritual assessment [] Other: Impact on Illness or Injury [] Angry [] Fearful [] Anxious [] Often cries [] Exhaustion [] Unable to work [] Unable to attend pentecostalism [] Unable to walk/stand [] Unable to read [] Unable to drive [] Unable to eat/drink [] Unable to sleep [] Unable to be with family [] Patient intubated [] Other: Summary Time spent with patient
--- NOTE | 2023-01-08 11:02 | P.PN_ITS ---
Subjective Subjective: Requested CTA chest rule out PE and venous Doppler for high D-dimer Overnight events Patient pleasant and cooperative Lower extremity swelling intact Vitamin B12 high TSH normal Vitals/I&O/Wt Last Vital Signs Temp 97.6 F 01/08/23 08:09 Pulse 68 01/08/23 09:44 Resp 16 01/08/23 09:44 BP 136/76 01/08/23 08:09 Pulse Ox 94 01/08/23 09:44 O2 Del Method Room Air 01/08/23 09:44 01/07/23 01/08/23 01/08/23 22:59 06:59 14:59 Intake Total 720 / 720 Balance 720 / 720 Weight last 48 hrs Weight 78.925 kg Physical Exam Narrative: General cooperative Low extremity swelling present Awake and alert GCS 15 Nonfocal neuro exam No active tremors S1, S2 Heart rate in 60s Doing well on room Data 01/08/23 05:30 01/08/23 05:30 A&P Assessment and plan (1) Contusion of hip, right: (2) Frequent falls: (3) Weakness: (4) D-dimer, elevated: Plan Generalized weakness and fatigue Normal TSH and B12 is high No focal neuro exam PT evaluation is pending Touch base with keycase assembler Requested CTA chest and venous Doppler to rule out DVT/PE for high D-dimer No active chest pain Doing well on room air Hemodynamically stable Full code Recent hip surgery, status post right hip arthroplasty Hypokalemia: Give 1 dose of KCl 40 mEq p.o. Attestations Medical Necessity Statement*: Continue medical management Diagnoses Contusion of hip, right S70.01XA Frequent falls R29.6 Weakness R53.1 D-dimer, elevated R79.89
[2023-01-08] MEDS: iohexol 350 mg/mL 500 mL Btl (per mL) IV (13:30)
[2023-01-09] VITALS (10 sets, daily range): BP systolic 102–134; BP diastolic 61–72; PULSE 61–78; RESP 14–18; TEMP 36.5–37.1; O2SAT 90–94
[2023-01-09] MEDS: carbidopa-levodopa 25-100mg Tablet 0.5 EACH PO ×2 (06:24→20:15)
[2023-01-09] MEDS: ropinirole 0.25 mg Tablet 0.5 MG PO ×3 (08:55→20:16)
[2023-01-09] MEDS: carbidopa-levodopa 25-100mg Tablet 1.5 EACH PO ×2 (08:56→13:54)
[2023-01-09] MEDS: morphine IR 15 mg Tablet PO ×2 (08:57→15:32)
[2023-01-09] MEDS: aspirin 81 mg EC Tablet PO (08:57)
[2023-01-09] MEDS: heparin 5,000 unit/mL INJ 1 mL 5000 UNIT SUBCUT ×2 (08:57→20:17)
--- NOTE | 2023-01-09 12:34 | P.PN_ITS ---
Subjective Subjective: Awaiting placement No signs of PE or DVT PT notes reviewed Vitals/I&O/Wt Last Vital Signs Temp 98.3 F 01/09/23 11:30 Pulse 66 01/09/23 11:30 Resp 17 01/09/23 11:30 BP 109/65 01/09/23 11:30 Pulse Ox 90 01/09/23 11:30 O2 Del Method Room Air 01/09/23 11:30 01/08/23 01/09/23 01/09/23 22:59 06:59 14:59 Intake Total 480 / 1680 480 / 480 Balance 480 / 1680 480 / 480 Weight last 48 hrs Weight 78.925 kg Physical Exam Narrative: She is awake and alert Watching television GCS 15 Lower extremity nonpitting edema, ankle swelling noted General cooperative S1, S2 Currently on room No active resting tremors Data 01/08/23 05:30 01/08/23 05:30 A&P Assessment and plan (1) D-dimer, elevated: (2) Contusion of hip, right: (3) Frequent falls: (4) Weakness: Plan Generalized weakness, fatigue With underlying Parkinson disease and frequent falls Recent right hip arthroplasty As per PT recommendations patient will need rehab Referrals have been sent For elevated D-dimer we did not find any signs of thromboembolic phenomenon Not sure if this is related to fat embolism 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
[2023-01-09] MEDS: FUROsemide 20 mg Tablet PO (13:43)
[2023-01-09] MEDS: potassium chloride ER 20 mEq Tablet 40 MEQ PO (13:44)
[2023-01-10] VITALS (8 sets, daily range): BP systolic 114–149; BP diastolic 63–80; PULSE 69–79; RESP 16–18; TEMP 36.3–37.4; O2SAT 90–95
[2023-01-10] MEDS: carbidopa-levodopa 25-100mg Tablet 0.5 EACH PO ×2 (05:15→20:45)
[2023-01-10] MEDS: aspirin 81 mg EC Tablet PO (09:30)
[2023-01-10] MEDS: sennosides-docusate Tablet 2 TAB PO ×2 (09:30→17:51)
[2023-01-10] MEDS: ropinirole 0.25 mg Tablet 0.5 MG PO ×3 (09:31→20:45)
[2023-01-10] MEDS: carbidopa-levodopa 25-100mg Tablet 1.5 EACH PO ×2 (09:31→14:33)
[2023-01-10] MEDS: heparin 5,000 unit/mL INJ 1 mL 5000 UNIT SUBCUT ×2 (09:31→20:44)
--- NOTE | 2023-01-10 16:12 | PM.PN ---
Subjective Subjective: Still having some hip pain and right flank pain. Has been able to eat and drink well. States no problems with stooling or voiding. Vitals/I&O/Wt Last Vital Signs Temp 98.2 F 01/10/23 11:08 Pulse 73 01/10/23 11:08 Resp 18 01/10/23 11:08 BP 134/74 01/10/23 11:08 Pulse Ox 92 01/10/23 11:08 O2 Del Method Room Air 01/10/23 11:08 01/10/23 01/10/23 01/10/23 06:59 14:59 22:59 Intake Total 960 / 960 Balance 960 / 960 Physical Exam Narrative: General: Cooperative patient in no apparent distress. Well developed. HEENT: Normocephalic, Atraumatic. External ears normal. Nasal passages patent without drainage. MMM. Heart: RRR. Resp: LCTA. No respiratory distress, no use of accessory muscles. Abd: Soft, Non-distended. Mild right abd pain over the lower ribs. Extremities: No edema. Skin: No rash or lesions on exposed areas. Data 01/08/23 05:30 01/08/23 05:30 A&P Assessment and plan (1) D-dimer, elevated: (2) Contusion of hip, right: (3) Frequent falls: (4) Weakness: Plan 87-year-old female admitted for recurrent falls, hip pain and generalized weakness. Continue close inpatient monitoring. Continue physical therapy for strengthening, gait, transfer training. For elevated D-dimer we did not find any signs of thromboembolic phenomenon Currently awaiting placement for SNF to continue rehab. Referral has been sent to [facility]. Will recheck am labs. Code Status: Full IVF: None DVT PPx: Heparin GI PPx: None ABx: None Diet: Cardiac Discharge plan: SNF when able. Attestations Medical Necessity Statement*: Continue inpatient monitoring for physical therapy and placement to [facility]. Coding Level of Care Code Acute Code for Chg Fwd Straight Forward/Low MDM includes number and complexity of problems actively addressed during encounter, amount and/or complexity of data reviewed/ordered and described risk of complication, morbidity or mortality of management as documented Diagnoses D-dimer, elevated R79.89 Contusion of hip, right S70.01XA Frequent falls R29.6 Weakness R53.1
[2023-01-10] MEDS: morphine IR 15 mg Tablet PO (17:51)
[2023-01-11] VITALS (9 sets, daily range): BP systolic 110–173; BP diastolic 66–83; PULSE 55–84; RESP 14–18; TEMP 36.5–36.9; O2SAT 91–99
[2023-01-11] MEDS: carbidopa-levodopa 25-100mg Tablet 0.5 EACH PO ×2 (06:35→20:27)
[2023-01-11] MEDS: morphine IR 15 mg Tablet PO (06:35)
--- NOTE | 2023-01-11 07:36 | PC.SOCIAL ---
IMM Update pg 2 of IMM not indicated @ this time as patient is currently in observation status.
[2023-01-11] MEDS: sennosides-docusate Tablet 2 TAB PO ×2 (09:45→17:59)
[2023-01-11] MEDS: heparin 5,000 unit/mL INJ 1 mL 5000 UNIT SUBCUT ×2 (09:45→20:28)
[2023-01-11] MEDS: carbidopa-levodopa 25-100mg Tablet 1.5 EACH PO ×2 (09:45→12:42)
[2023-01-11] MEDS: aspirin 81 mg EC Tablet PO (09:45)
[2023-01-11] MEDS: ropinirole 0.25 mg Tablet 0.5 MG PO ×3 (09:45→20:27)
--- NOTE | 2023-01-11 10:41 | P.PN_ITS ---
Subjective Subjective: No signs of PE or DVT Awaiting prior authorization approval Complaining of restless legs and discomfort in her legs No active signs of gout Vitals/I&O/Wt Last Vital Signs Temp 98.4 F 01/11/23 07:25 Pulse 69 01/11/23 08:17 Resp 16 01/11/23 08:17 BP 173/78 01/11/23 07:25 Pulse Ox 95 01/11/23 08:17 O2 Del Method Room Air 01/11/23 08:17 01/10/23 01/11/23 01/11/23 22:59 06:59 14:59 Intake Total 480 / 1440 120 / 1560 240 / 240 Balance 480 / 1440 120 / 1560 240 / 240 Physical Exam Narrative: Patient was on her phone when I entered the room Awake and alert Pleasant and cooperative Resting tremors present GCS 15 Euvolemic No signs of gout on her feet Swelling slightly better left ankle No new focal deficit S1, S2 currently on room air Data 01/08/23 05:30 01/08/23 05:30 A&P Assessment and plan (1) D-dimer, elevated: (2) Contusion of hip, right: (3) Frequent falls: (4) Weakness: (5) Restless leg: (6) Fibromyositis: (7) Low back pain: Plan Patient is awaiting prior authorization to go to rehab I will continue her carbidopa levodopa for Parkinson's I do believe she has restless legs as well continue Requip she gets 3 times a day For DVT prophylaxis she is on heparin Hypertension: Increase the dose of lisinopril Frequent falls Recent right hip arthroplasty Full Attestations Medical Necessity Statement*: Continue medical management Coding Level of Care Code 90888 Straight Forward/Low MDM includes number and complexity of problems actively addressed during encounter, amount and/or complexity of data reviewed/ordered and described risk of complication, morbidity or mortality of management as d ocumented Diagnoses D-dimer, elevated R79.89 Contusion of hip, right S70.01XA Frequent falls R29.6 Weakness R53.1 Restless leg G25.81 Fibromyositis M79.7 Low back pain M54.50
[2023-01-11] MEDS: lisinopril 5 mg Tablet PO (12:42)
[2023-01-12] VITALS (7 sets, daily range): BP systolic 121–194; BP diastolic 64–86; PULSE 70–79; RESP 14–17; TEMP 36.7–37.2; O2SAT 94–96
[2023-01-12] MEDS: carbidopa-levodopa 25-100mg Tablet 1.5 EACH PO ×2 (08:04→12:47)
[2023-01-12] MEDS: ropinirole 0.25 mg Tablet 0.5 MG PO ×2 (08:04→14:17)
[2023-01-12] MEDS: sennosides-docusate Tablet 2 TAB PO ×2 (08:05→17:37)
[2023-01-12] MEDS: heparin 5,000 unit/mL INJ 1 mL 5000 UNIT SUBCUT (08:08)
[2023-01-12] MEDS: lisinopril 5 mg Tablet PO (08:08)
[2023-01-12] MEDS: aspirin 81 mg EC Tablet PO (08:08)
--- NOTE | 2023-01-12 11:21 | P.PN_ITS ---
Subjective Subjective: No overnight events Patient is still concerned about her ankle swelling We will give 1 dose of Lasix Awaiting prior authorization approval Vitals/I&O/Wt Last Vital Signs Temp 98.1 F 01/12/23 08:00 Pulse 75 01/12/23 08:00 Resp 17 01/12/23 08:00 BP 194/81 01/12/23 08:00 Pulse Ox 94 01/12/23 08:00 O2 Del Method Room Air 01/12/23 08:00 01/11/23 01/12/23 01/12/23 22:59 06:59 14:59 Intake Total 720 / 1440 150 / 1590 120 / 120 Balance 720 / 1440 150 / 1590 120 / 120 Physical Exam Narrative: GCS 15 Resting tremors without significant aggravation Pleasant and cooperative S1, S2 variable Abdomen soft Nonfocal neuro exam Data 01/08/23 05:30 01/08/23 05:30 A&P Assessment and plan (1) Restless leg: (2) D-dimer, elevated: (3) Contusion of hip, right: (4) Frequent falls: (5) Weakness: Plan Continue Parkinson's meds with ropinirole We will give 1 dose of Lasix for ankle swelling No sign of DVT or PE Awaiting preauthorization for rehab Resting tremors without significant worsening Patient doing well on room air Regular diet Patient has had recurrent falls despite getting her hip intervention, she will be considered high risk for another fracture would recommend rehab for now, PT notes appreciated Attestations 2 Medical Necessity Statement*: Discharge once gets approval Diagnoses Restless leg G25.81 D-dimer, elevated R79.89 Contusion of hip, right S70.01XA Frequent falls R29.6 Weakness R53.1
[2023-01-12] MEDS: FUROsemide 20 mg Tablet PO (11:40)
--- NOTE | 2023-01-12 18:57 | PC.NURSE ---
Patients son brought in Galantamine but patient refuses to take. Patient has been confused this evening. Refusing to get up on bed. Insist on sitting at foot of bed and trying to get up. Patient keeps hollaring for son Ramy who is not here. Insist she is going home. Patient is upset she has a room mate.
[2023-01-12] MEDS: carbidopa-levodopa 25-100mg Tablet 0.5 EACH PO (20:29)
[2023-01-13] VITALS: BP 158/77; PULSE 72; RESP 16; TEMP 37.1; O2SAT 93
[2023-01-13 04:00] VITALS: BP 146/61; PULSE 64; RESP 14; TEMP 36.9; O2SAT 94
[2023-01-13] MEDS: carbidopa-levodopa 25-100mg Tablet 0.5 EACH PO (06:36)
[2023-01-13 08:19] VITALS: BP 113/70; PULSE 83; RESP 17; TEMP 36.9; O2SAT 95
[2023-01-13] MEDS: lisinopril 5 mg Tablet PO (08:33)
[2023-01-13] MEDS: NON-FORMULARY MEDICATION (Galantamine 4 mg tablet) 4 EACH PO (08:33)
[2023-01-13] MEDS: ropinirole 0.25 mg Tablet 0.5 MG PO (08:34)
[2023-01-13] MEDS: aspirin 81 mg EC Tablet PO (08:34)
[2023-01-13] MEDS: sennosides-docusate Tablet 2 TAB PO (08:34)
[2023-01-13] MEDS: heparin 5,000 unit/mL INJ 1 mL 5000 UNIT SUBCUT (08:35)
[2023-01-13] MEDS: carbidopa-levodopa 25-100mg Tablet 1.5 EACH PO (08:36)
[2023-01-13 09:25] LABS: SARS Covid-2 Antigen negative (Negative)
--- NOTE | 2023-01-13 09:58 | PM.DCS ---
Discharge Providers Date of Admission: 01/07/23 16:54 Date of Discharge: January 13, 2023 Attending Provider at Admission: Stacie Finney MD Attending Provider at Discharge: Stacie Finney MD Primary Care Provider: Trev Severino MD Diagnoses at Discharge Discharge Diagnosis (1) Restless leg: Status: Acute (2) D-dimer, elevated: Status: Acute (3) Contusion of hip, right: Status: Acute (4) Frequent falls: Status: Acute (5) Weakness: Status: Acute Reason for Visit Reason for Visit: FALL Hospital Course Hospital Course 87-year-old female who was admitted for management evaluation recurrent falls, she did not do well at home despite her rehab sessions at the facility, patient lives upstairs, she has multiple stairs at home, and she carries history of Parkinson's and risk of recurrent falls especially with recent hip fracture with intervention, she is being discharged with stable hemodynamics to [facility], during hospitalization we ruled out PE and DVT, she remained hemodynamically stable, she does have ankle swelling for which she gets as needed Lasix. Physical Exam Narrative: Awake and alert Mild resting tremors GCS 15 Ankle swelling improving Abdomen soft Lower extremity nonpitting edema Discharge Data Studies Completed and Pending Completed Studies During Hospitalization Category Date Time Status CT hip RT wo con* [id number] Stat Cat Scan 01/07/23 14:[address] lumbar spine wo con* [id number] Stat Cat Scan 01/07/23 14:[address] thoracic spin wo con* [id number] Stat Cat Scan 01/07/23 14:11 Completed CTA PE [CT angio chest PE protcl [id number]] Routine Cat Scan 01/08/23 08:12 Completed XR elbow LT min 3V* [id number] Stat Exams 01/07/23 15:15 Completed XR shoulder LT min 2V* [id number] Stat Exams 01/07/23 15:15 [place] [id number] Routine Ultrasound 01/08/23 08:12 Completed Pending at discharge Category Date Time Status Urinalysis Stat Lab 01/07/23 16:50 Uncollected Laboratory Results WBC 6.24 10^3/uL (3.29-11.43) 01/08/23 05:30 RBC 4.42 10^6/uL (3.85-5.65) 01/08/23 05:30 Hgb 12.10 g/dL (11.27-16.99) 01/08/23 05:30 Hct 39.0 % (36-47) 01/08/23 05:30 MCV 88.2 fl (85-98) 01/08/23 05:30 MCH 27.4 pg (27-33) 01/08/23 05:30 MCHC 31.0 g/dL (30-55) 01/08/23 05:30 RDW 13.9 % (12.1-15.1) 01/08/23 05:30 Plt Count 201 10^3/cmm (157-399) 01/08/23 05:30 MPV 10.6 fL (7.4-10.4) H 01/08/23 05:30 Neut % (Auto) 56.8 % 01/08/23 05:30 Lymph % (Auto) 29.8 % 01/08/23 05:30 [place] % (Auto) 8.2 % 01/08/23 05:30 Eos % (Auto) 4.2 % 01/08/23 05:30 Baso % (Auto) 0.8 % 01/08/23 05:30 Neut # (Auto) 3.55 10^3/uL (1.8-7.7) 01/08/23 05:30 Lymph # (Auto) 1.9 10^3/uL (0.8-4.8) 01/08/23 05:30 [place] # (Auto) 0.5 10^3/uL (0.2-0.9) 01/08/23 05:30 Eos # (Auto) 0.3 10^3/uL (0.0-0.8) 01/08/23 05:30 Baso # (Auto) 0.1 10^3/uL (0.0-0.1) 01/08/23 05:30 Nucleated RBC % (auto) 0 % 01/08/23 05:30 Nucleated RBCs # 0.0 /100WBC 01/08/23 05:30 D-Dimer 1.39 ug/mLFEU (0-0.59) H 01/07/23 17:08 Sodium 138 mmol/L (136-145) 01/08/23 05:30 Potassium 3.8 mmol/L (3.5-5.1) 01/08/23 05:30 Chloride 101 mmol/L (98-107) 01/08/23 05:30 Carbon Dioxide 30 mmol/L (22-29) H 01/08/23 05:30 Anion Gap 10.8 (5-19) 01/08/23 05:30 BUN 16 mg/dL (8-23) 01/08/23 05:30 Creatinine 0.8 mg/dL (0.5-0.9) 01/08/23 05:30 GFR Calculation Not Reportable 01/08/23 05:30 Glucose 96 mg/dL (65-115) 01/08/23 05:30 Estimat Average Glucose 108 01/07/23 17:08 Hemoglobin A1c 5.4 % (4.0-6.0) 01/07/23 17:08 Calculated Osmolality 287 mOsm/kg (285-295) 01/08/23 05:30 Calcium 9.3 mg/dL (8.5-10.5) 01/08/23 05:30 Magnesium 2.0 mg/dL (1.7-2.3) 01/08/23 05:30 Total Bilirubin 0.5 mg/dL (0.15-1.2) 01/07/23 17:08 AST 8 U/L (0-32) 01/07/23 17:08 ALT < 5 U/L (0-33) 01/07/23 17:08 Alkaline Phosphatase 62 U/L (35-105) 01/07/23 17:08 Total Protein 6.6 g/dL (6.6-8.7) 01/07/23 17:08 Albumin 4.1 g/dL (3.5-5.2) 01/07/23 17:08 Globulin 2.5 g/dL (1.3-4.6) 01/07/23 17:08 Vitamin B12 1282 pg/mL (232-1245) H 01/07/23 17:08 TSH 2.97 uIU/mL (0.27-4.20) 01/07/23 17:08 SARS-CoV-2 Ag (Rapid) negative (Negative) 01/13/23 08:52 Vitals Last Vital Signs Temp 98.4 F 01/13/23 08:19 Pulse 83 01/13/23 08:19 Resp 17 01/13/23 08:19 BP 113/70 01/13/23 08:19 Pulse Ox 95 01/13/23 08:19 O2 Del Method Room Air 01/13/23 08:19 Discharge Plan Discharge Patient Disposition: Xfer SNF Condition: Stable Prescriptions: New lactulose 10 gram/15 mL (15 mL) solution 10 g PO DAILY PRN (Reason: constipation) Qty: 600 0RF Lasix 20 mg tablet 20 mg PO DAILY PRN (Reason: ankle oedema) Qty: 10 0RF Continued atorvastatin 20 mg tablet 20 mg PO QPM cholecalciferol (vitamin D3) 25 mcg (1,000 unit) capsule 25 mcg PO BID Healthy Eyes Lutein-Zeaxanthin 60 mg-13.5 mg- 15 mg-2 mg-6 mg capsule 1 cap PO DAILY galantamine 4 mg tablet 4 mg PO BID 90 Days Qty: 180 3RF Rx Instructions: administer with AM and PM meals carbidopa-levodopa 25-100 mg tablet See Rx Instructions .ROUTE .COMPLEX Qty: 120 5RF Dose Instruction: TAKE 1/2 TABLET BY MOUTH ON WAKING, 1 & 1/2 TABLETS AT 9AM AND 1:00PM, AND 1/2 TABLET AT BEDTIME Rx Instructions: TAKE 1/2 TABLET BY MOUTH ON WAKING, 1 & 1/2 TABLETS AT 9AM AND 1:00PM, AND 1/2 TABLET AT BEDTIME ropinirole 0.5 mg tablet 0.5 mg PO TID Qty: 90 3RF biotin 800 mcg Tablet 800 mcg PO DAILY ondansetron 4 mg tablet,disintegrating 4 mg PO Q8H PRN (Reason: Nausea) aspirin 81 mg Tablet,Delayed Release (Dr/Ec) 81 mg PO DAILY omega 7-eva-taa-fish oil 900-1,400 mg Capsule,Delayed Release(Dr/Ec) 1 cap PO BID Changed potassium chloride 10 mEq tablet,ER particles/crystals See Rx Instructions .ROUTE .COMPLEX PRN (Reason: with lasix only) Qty: 90 3RF Dose Instruction: TAKE 1 TABLET BY MOUTH DAILY FOR LOW POTASSIUM LEVELS. TAKE WITH FOOD Rx Instructions: TAKE 1 TABLET BY MOUTH DAILY FOR LOW POTASSIUM LEVELS. TAKE WITH FOOD PRN; lisinopril 2.5 mg tablet 2.5 mg PO DAILY PRN (Reason: Hypertension) Qty: 30 0RF Discontinued lorazepam 1 mg tablet 1 mg PO QID Discharge Orders: Discharge Order (Routine); Ordered 01/13/23 Ordered By: Stacie Finney Referrals: [facility] [Outside] Trev Severino MD [Primary Care Provider] - Discharge Diet: Advance as tolerated Discharge Activity: Resume usual activity Patient Instructions: Contusion in Adults (ED), Fall Prevention (ED), Opioid Safety Discharge Attestations Time Spent in Discharge Care*: greater than 30 min Quality Metrics Clinical Quality Measures [ No reported AMI, CVA or VTE this stay] Coding Level of Care Code Acute Code for Chg Fwd Diagnoses Restless leg G25.81 D-dimer, elevated R79.89 Contusion of hip, right S70.01XA Frequent falls R29.6 Weakness R53.1
[2023-01-13] MEDS: lactulose oral liq 20 gm/30 mL UDC PO (10:09)
[2023-01-13 11:26] VITALS: BP 106/56; PULSE 87; RESP 17; TEMP 36.9; O2SAT 93
[2023-01-13] MEDS: ondansetron 2 mg/ML SDV 2 mL 4 MG IVP (11:26)
--- NOTE | 2023-01-13 12:24 | PC.NURSE ---
Report called to Asia LIMA at [facility]
--- NOTE | 2023-01-13 12:33 | PC.NURSE ---
attempted to reach bobby to let him know that patient is being transported to [facility] shortly. NO answer and unable to leave voicemail at this time.
[2023-01-13 13:00] VITALS: BP 106/56; PULSE 87; RESP 17; TEMP 36.9; O2SAT 93
--- NOTE | 2023-01-13 13:41 | PC.NURSE ---
[facility] transport arrives at 1300 to waste picker patient for transport to [facility]. All belongings with patient incuding home med Galamantine. Attempted to reach son to let him know that patient was being transported. No answer.
== END 2023-01-13 13:00 | disposition skilled nursing facility (03) ==
LOC: ER 17:04 → MEDSURG 01-08 03:57
PROVIDERS: Admitting Provider Internal Medicine; Emergency Provider Emergency Medicine; PCP Family Medicine; Visit Provider Internal Medicine
DX: G25.81 Restless legs syndrome (principal); R79.89 Other specified abnormal findings of blood chemistry; S70.01XA Contusion of right hip, initial encounter; W19.XXXA Unspecified fall, initial encounter; R29.6 Repeated falls; R53.1 Weakness; Z91.81 History of falling; M79.7 Fibromyalgia; M54.50 Low back pain, unspecified; I27.20 Pulmonary hypertension, unspecified; I51.7 Cardiomegaly; N28.1 Cyst of kidney, acquired; G20 Parkinson's disease; M25.472 Effusion, left ankle; I70.0 Atherosclerosis of aorta
CPT/HCPCS: 36415; 71275; 72128; 72131; 73030; 73080; 73700; 80048; 80053; 82607; 83036; 83735; 84443; 85025; 85378; 87426; 93970; 94664; 96372; 97110; 97116; 97161; 97530; 99285; G0378; J1644; J2405; Q9967

== ENCOUNTER 2023-02-07 02:33 | Emergency (ER) | payer MEDICARE, MEDICAID, SELFPAY ==
[2023-02-07 02:33] VITALS: BP 157/84; PULSE 76; RESP 18; TEMP 36.8; O2SAT 95
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
--- NOTE | 2023-02-07 02:46 | ED_ITS ---
HPI - Neck Pain/Injury General: Chief Complaint: Neck Pain/Injury Stated Complaint: Neck/ Shoulder pain Time Seen by Provider: 02/07/23 02:38 Source: patient and EMS Mode of arrival: EMS Limitations: no limitations History of Present Illness: Patient is an 87-year-old female states that she has had left-sided neck and shoulder pain for the last 3 days. States pain is sharp in nature much worse when she tries to turn her head to the left. States she had a fall 3 months ago had imaging at that time but states that her pain had improved until last 3 days. She denies any new injuries she does have pain with range of motion of her left arm as well. Associated symptoms: Denies headache(s) or nausea Review of Systems Const: Denies: fever(s) or chills ENMT: Denies: throat pain or dental pain Card: Denies: chest pain Resp: Denies: dyspnea GI: Denies: abdominal pain, nausea, vomiting or diarrhea Musc: Reports: extremity pain; Denies: neck pain or back pain Skin/Breast: Denies: rash Neuro: Denies: headache(s) PFSH ED PFSH: Medical History Anemia Back pain Central deafness Contusion of hip, right D-dimer, elevated Fibromyositis Frequent falls GERD (gastroesophageal reflux disease) Leg edema Low back pain Parkinson's Disease Recurrent UTI Restless leg Subcapital fracture of right hip Weakness Surgical History History of cataract surgery History of knee replacement Hx of LASIK Status post right hip replacement Family History Sister COPD (chronic obstructive pulmonary disease) Mother CHF (congestive heart failure) Social History Smoking and tobacco/nicotine status: never used tobacco/nicotine Alcohol intake: never Substance/Drug Use: never Adopted: No Caregiver/support person: No Lives independently: Yes Marital status: / Current occupational status: retired Physical Exam Const: COMMON NORMALS: no acute distress, patient oriented x3 and healthy appearing HENMT: COMMON NORMALS: normocephalic and atraumatic HEAD & SCALP: normocephalic and atraumatic Neck/C-Spine: OTHER: Tenderness over left trapezius muscle no midline neck tenderness she does have pain with range of motion of her left arm distal pulses sensation intact. Chest: COMMONS NORMALS: normal inspection of the chest Resp: COMMON NORMALS: normal respiratory effort Cardio: COMMON NORMALS: regular rate, regular rhythm and No murmurs present (Cardio) RATE: regular rate RHYTHM: regular rhythm GI: COMMON NORMALS: Normal to inspection, nondistended, normoactive bowel sounds present, Soft to palpation, non-tender and no masses PALPATION: Yes Soft to palpation Extremity: COMMON NORMALS: normal to inspection and full ROM Neuro: COMMON NORMALS: patient oriented x3, moves all extremities and no focal motor deficits Psych: COMMON NORMALS: mental status grossly normal Skin: COMMON NORMALS: no rashes or lesions noted and no wounds GENERAL SKIN EXAM: no rashes or lesions noted Course Vital Signs: Vital signs: Vital Signs Temperature 98.2 F 02/07/23 02:33 Pulse Rate 76 02/07/23 02:33 Respiratory Rate 18 02/07/23 02:33 Blood Pressure 157/84 02/07/23 02:33 Pulse Oximetry 95 02/07/23 02:33 Oxygen Delivery Me thod Room Air 02/07/23 02:33 MDM - Neck Pain/Injury Medical Decision Making Patient presents here with left neck pain is likely muscular in nature she is tender over trapezius no midline tenderness x-ray of her shoulder is negative she is stable for discharge Medical Records I reviewed the patient's medical records. XR interpretation done by ED provider, pending radiology final review ED provider radiology interpretation(s): No acute abnormality Discharge Plan Discharge Patient Disposition: Home Clinical Impression: Strain of neck muscle Condition: Stable Prescriptions: New methocarbamol 750 mg tablet 750 mg PO Q6H PRN (Reason: spasms) Qty: 20 0RF Naprosyn 500 mg tablet 500 mg PO BID PRN (Reason: pain) Qty: 20 0RF No Action atorvastatin 20 mg tablet 20 mg PO QPM cholecalciferol (vitamin D3) 25 mcg (1,000 unit) capsule 25 mcg PO BID Healthy Eyes Lutein-Zeaxanthin 60 mg-13.5 mg- 15 mg-2 mg-6 mg capsule 1 cap PO DAILY galantamine 4 mg tablet 4 mg PO BID 90 Days Qty: 180 3RF Rx Instructions: administer with AM and PM meals carbidopa-levodopa 25-100 mg tablet See Rx Instructions .ROUTE .COMPLEX Qty: 120 5RF Dose Instruction: TAKE 1/2 TABLET BY MOUTH ON WAKING, 1 & 1/2 TABLETS AT 9AM AND 1:00PM, AND 1/2 TABLET AT BEDTIME Rx Instructions: TAKE 1/2 TABLET BY MOUTH ON WAKING, 1 & 1/2 TABLETS AT 9AM AND 1:00PM, AND 1/2 TABLET AT BEDTIME ropinirole 0.5 mg tablet 0.5 mg PO TID Qty: 90 3RF biotin 800 mcg Tablet 800 mcg PO DAILY ondansetron 4 mg tablet,disintegrating 4 mg PO Q8H PRN (Reason: Nausea) aspirin 81 mg Tablet,Delayed Release (Dr/Ec) 81 mg PO DAILY omega 7-hir-kof-fish oil 900-1,400 mg Capsule,Delayed Release(Dr/Ec) 1 cap PO BID lactulose 10 gram/15 mL (15 mL) solution 10 g PO DAILY PRN (Reason: constipation) Qty: 600 0RF Lasix 20 mg tablet 20 mg PO DAILY PRN (Reason: ankle oedema) Qty: 10 0RF potassium chloride 10 mEq tablet,ER particles/crystals See Rx Instructions .ROUTE .COMPLEX PRN (Reason: with lasix only) Qty: 90 3RF Dose Instruction: TAKE 1 TABLET BY MOUTH DAILY FOR LOW POTASSIUM LEVELS. TAKE WITH FOOD Rx Instructions: TAKE 1 TABLET BY MOUTH DAILY FOR LOW POTASSIUM LEVELS. 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
[2023-02-07] MEDS: HYDROcodone-acetaminophen 5-325 mg Tablet 1 TAB PO (02:53)
== END 2023-02-07 06:01 | disposition home or self-care (01) ==
PROVIDERS: Emergency Provider Emergency Medicine; PCP Family Medicine
DX: S16.1XXA Strain of muscle, fascia and tendon at neck level, initial encounter (principal); Z79.82 Long term (current) use of aspirin; G20.A1 Parkinson's disease without dyskinesia, without mention of fluctuations; X58.XXXA Exposure to other specified factors, initial encounter
CPT/HCPCS: 73030; 99283

== ENCOUNTER 2023-03-04 13:16 | Emergency (ER) | payer MEDICARE, MEDICAID, SELFPAY ==
[2023-03-04 13:23] VITALS: BP 135/77; PULSE 64; RESP 16; TEMP 36.5; O2SAT 96; BMI 34.1
--- NOTE | 2023-03-04 13:28 | W.ED.EXTPRO ---
HPI - Extremity Problem General: Chief complaint: Extremity Problem,Nontraumatic Stated complaint: shoulders/arm pain Time Seen by Provider: 03/04/23 13:28 History of Present Illness: 87-year-old female comes in today for complaints of neck pain radiating down both arms and upper extremity weakness that has been persistent for longer than 3 months. Patient also complaints of hip discomfort on the right side in the area of her recent hip replacement due to fracture, and tenderness to the posterior thigh of her right lower extremity with clot sensation on palpation. Patient appears nontoxic. Patient reports no new complaints from her last visit in the middle of January. Family, male son, is concerned about patient's progressive weakness and difficulty with ADLs. Patient does have Parkinson's disease. Patient appears nontoxic. Patient appears in mild to moderate pain. Associated symptoms: Deny chest pain or fever(s) Review of Systems General: Reports: 10 or more systems reviewed and unremarkable except in HPI and below Const: Denies: fever(s) Card: Denies: chest pain Resp: Denies: dyspnea GI: Denies: nausea, vomiting, diarrhea or constipation : Denies: difficulty voiding Musc: Reports: neck pain, extremity pain (right hip and thigh) and extremity swelling (reports right leg) Neuro: Reports: weakness in extremities [facility] PFSH: Medical History Anemia Back pain Central deafness Contusion of hip, right D-dimer, elevated Fibromyositis Frequent falls GERD (gastroesophageal reflux disease) Leg edema Low back pain Parkinson's Disease Recurrent UTI Restless leg Subcapital fracture of right hip Weakness Surgical History History of cataract surgery History of knee replacement Hx of LASIK Status post right hip replacement Family History Sister COPD (chronic obstructive pulmonary disease) Mother CHF (congestive heart failure) Social History Smoking and tobacco/nicotine status: never used tobacco/nicotine Alcohol intake: never Substance/Drug Use: never Adopted: No Caregiver/support person: No Lives independently: Yes Marital status: / Current occupational status: retired Physical Exam Const: COMMON NORMALS: alert HENMT: COMMON NORMALS: normocephalic HEAD & SCALP: normocephalic MOUTH: Normal oral and palatal mucosa present Neck/C-Spine: COMMON NORMALS: full ROM CERVICAL SPINE: Yes Cervical spine tenderness and Yes Paracervical muscle tenderness Resp: COMMON NORMALS: normal respiratory effort and clear to auscultation bilaterally AUSCULTATION: clear to auscultation bilaterally Cardio: COMMON NORMALS: regular rate and regular rhythm RATE: regular rate RHYTHM: regular rhythm GI: COMMON NORMALS: non-tender Back/Pelvis: COMMON NORMALS: thoracic and lumbar spine normal to inspection Extremity: NARRATIVE EXTREMITY EXAM: Multiple varicose veins in bilateral lower extremities. No significant redness or swelling. Neuro: SENSORIUM/ORIENTATION: Yes alert Skin: COMMON NORMALS: turgor normal GENERAL SKIN EXAM: turgor normal Course Vital Signs: Vital signs: Vital Signs Temperature 97.7 F 03/04/23 13:23 Pulse Rate 64 03/04/23 13:23 Respiratory Rate 16 03/04/23 13:23 Blood Pressure 135/77 03/04/23 13:23 Pulse Oximetry 96 03/04/23 13:23 Oxygen Delivery Me thod Room Air 03/04/23 13:23 MDM - Extremity (Nontraumatic) Medical Decision Making 87-year-old female comes in today with complaints of progressive weakness, neck discomfort with numbness in bilateral hands, right hip discomfort, and palpable clot in the right thigh. On exam patient has no significant swelling to the lower extremities. Patient does have bilateral severe varicose veins. Pulses are intact. Patient has a very shuffling gait. Patient has generalized weakness and balance issues. Patient does have Parkinson's disease. Neck has some muscle tension with some cervical spine tenderness. Patient is weightbearing to the right hip. Differential diagnosis includes not limited to pelvis fracture, DVT right lower extremity, cervical radiculopathy, progression of Parkinson's disease, osteoarthritis. Ultrasound lower extremity noted no DVT. CT of the cervical spine noted significant cervical degeneration of the disc with some foraminal encroachment through multiple levels. X-ray of the hip and pelvis noted no bony abnormality. Patient needs to continue with physical therapy. Case management was requested to have patient follow-up with orthopedics for further evaluation and treatment. Recommended a trial of celecoxib and tramadol to help with pain along with the use of hfow-fjo-uwakstd acetaminophen. Patient and family reported understanding and agreed to plan. All radiology interpretation(s) finalized by discharge Discharge Plan Discharge Patient Disposition: Home Clinical Impression: Varicose veins of bilateral lower extremities with pain, DDD (degenerative disc disease), cervical Shoulder pain, left Qualifiers: Chronicity: unspecified Qualified Code(s): M25.512 - Pain in left shoulder Parkinson disease Qualifiers: Dyskinesia presence: unspecified whether dyskinesia Fluctuating manifestations: unspecified whether manifestations fluctuate Qualified Code(s): G20.A1 - Parkinson's disease without dyskinesia, without mention of fluctuations Constipation Qualifiers: Constipation type: unspecified constipation type Qualified Code(s): K59.00 - Constipation, unspecified Condition: Stable Prescriptions: New celecoxib 200 mg capsule 200 mg PO BID Qty: 30 0RF Rx Instructions: do not take with ibuprofen or naproxen tramadol 50 mg tablet 50 mg PO Q8H PRN (Reason: pain) Qty: 20 0RF Discontinued methocarbamol 750 mg tablet 750 mg PO Q6H PRN (Reason: spasms) Qty: 20 0RF naproxen [Naprosyn] 500 mg tablet 500 mg PO BID PRN (Reason: pain) Qty: 20 0RF hydrocodone-acetaminophen 5-325 mg tablet 1 tab PO Q6H PRN (Reason: pain) Qty: 14 0RF No Action atorvastatin 20 mg tablet 20 mg PO QPM cholecalciferol (vitamin D3) 25 mcg (1,000 unit) capsule 25 mcg PO BID Healthy Eyes Lutein-Zeaxanthin 60 mg-13.5 mg- 15 mg-2 mg-6 mg capsule 1 cap PO DAILY galantamine 4 mg tablet 4 mg PO BID 90 Days Qty: 180 3RF Rx Instructions: administer with AM and PM meals carbidopa-levodopa 25-100 mg tablet See Rx Instructions .ROUTE .COMPLEX Qty: 120 5RF Dose Instruction: TAKE 1/2 TABLET BY MOUTH ON WAKING, 1 & 1/2 TABLETS AT 9AM AND 1:00PM, AND 1/2 TABLET AT BEDTIME Rx Instructions: TAKE 1/2 TABLET BY MOUTH ON WAKING, 1 & 1/2 TABLETS AT 9AM AND 1:00PM, AND 1/2 TABLET AT BEDTIME ropinirole 0.5 mg tablet 0.5 mg PO TID Qty: 90 3RF biotin 800 mcg Tablet 800 mcg PO DAILY ondansetron 4 mg tablet,disintegrating 4 mg PO Q8H PRN (Reason: Nausea) aspirin 81 mg Tablet,Delayed Release (Dr/Ec) 81 mg PO DAILY omega 1-fsj-krx-fish oil 900-1,400 mg Capsule,Delayed Release(Dr/Ec) 1 cap PO BID lactulose 10 gram/15 mL (15 mL) solution 10 g PO DAILY PRN (Reason: constipation) Qty: 600 0RF potassium chloride 10 mEq tablet,ER particles/crystals See Rx Instructions .ROUTE .COMPLEX PRN (Reason: with lasix only) Qty: 90 3RF Dose Instruction: TAKE 1 TABLET BY MOUTH DAILY FOR LOW POTASSIUM LEVELS. TAKE WITH FOOD Rx Instructions: TAKE 1 TABLET BY MOUTH DAILY FOR LOW POTASSIUM LEVELS. TAKE WITH FOOD PRN; lisinopril 2.5 mg tablet 2.5 mg PO DAILY PRN (Reason: Hypertension) Qty: 30 0RF nitrofurantoin monohyd/m-cryst 100 mg capsule 100 mg PO BID Eliquis 2.5 mg tablet 2.5 mg PO BID furosemide [Lasix] 20 mg tablet 20 mg PO DAILY PRN (Reason: ankle edema) Discharge Orders: Discharge ED (Routine); Ordered 03/04/23 Ordered By: Abram Mobley Referrals: Trev Severino MD [Primary Care Provider] - Patient Instructions: Opioid Safety, Pain Management Activity Restrictions/Additional Instructions: Activity as tolerated. Use a walker when up. Continue with physical therapy. Case management will contact you regarding follow-up with human resources benefits specialist for further evaluation of shoulder. Do not take methocarbamol, or naproxen with the prescriptions you have been prescribed. Use tramadol as needed for severe pain. Take celecoxib 200 mg twice a day for pain and inflammation. Use jfdr-egq-[id number] acetaminophen for further pain control. Use ice or heat for further pain control. Take lactulose as directed daily to help with constipation. Make sure you are drinking plenty of water to help with constipation. Follow-up with primary care for further instructions and evaluation. Discussed with primary care other options available to help with increasing activity and managing your activities of daily living. Coding Level of Care Code ED Sales Enablement Consultant for Ute Shields
--- NOTE | 2023-03-04 13:38 | CT_ITS ---
WS: [id number] CT CERVICAL SPINE HISTORY: radiculopathy bilateral TECHNIQUE: Contiguous 2.0 mm axial imaging performed through the entire cervical spine. Sagittal and coronal reformats also performed. [facility] use at least one of these dose o ptimization techniques: automated exposure control; mA and/or kV adjustment per patient size (include s targeted exams where dose is matched to clinical indication); or iterative reconstruction. DLP: 213.22 mGy.cm COMPARISON: None available. Patient head is tilted to the RIGHT. Curvature and straightening of the normal cervical lordosis. Sev ere disc space narrowing with osteophytosis at C4, C5, C6 and C7. No fractures. Fusion across the LEF T C3-4 facet joint. Remaining facet joints are narrowed. The lateral masses of C1 and C2 are aligned. C2-C3: Normal. C3-C4: Bilateral facet joint arthritis, LEFT greater than RIGHT. C4-C5: Moderate osteophytic ridging encroaching upon the ventral thecal sac and the foramina. C5-C6: Diffuse osteophytic ridging encroaching upon the thecal sac and foramina. Mild central with mo derate bilateral foraminal stenosis, RIGHT greater than LEFT. Moderate facet arthritis. C6-C7: Osteophytic ridging with facet joint arthritis. Mild central and RIGHT foraminal stenosis. C7-T1: No stenosis. Calcification in the carotid arteries. IMPRESSION: 1. Advanced degenerative scoliosis and curvature cervical spine. 2. No cervical spine fracture. 3. Facet joint arthritis with central and foraminal narrowing from C3-4 through C6-7 most significant at C5-6.
--- NOTE | 2023-03-04 13:38 | XR_ITS ---
WS: [id number] Right hip, 2 views, AP pelvis, 03/04/2023 Clinical Data: hx of fracture Comparison: Pelvis and right hip, 12/10/2022 Findings: The right hip arthroplasty remains in the same position. No periprosthetic fractures or loosening is seen. The left hip shows no change. The SI joints and pubic symphysis are not remarkable. There is a large amount of fecal material throughout the colon. There is a levoscoliosis of the lumbar spine. Impression: 1. Stable right hip arthroplasty. 2. Negative for acute fracture.
--- NOTE | 2023-03-04 13:38 | USCV_ITS ---
Latoya Flaherty Age: 87 Gender: F : 1935 Exam Date: 03/04/2023 13:59 Ordering Phys: Abram Mobley Technologist: MILANA Exam Location: [facility] – [place] Indication: Leg Pain. H/o superficial thrombus HISTORY: Lower extremity pain. PROCEDURES: Venous duplex imaging was performed in only the right lower extremity. The following venous structures were evaluated: common femoral vein, profunda vein, proximal portion of the greater saphenous vein, superficial femoral vein, and the popliteal vein. In addition, the posterior tibial and peroneal trunk were evaluated. Serial compression, augmentation maneuvers, and spectral Doppler flow evaluation were performed. FINDINGS: Normal 2-D Doppler and augmentation and compressibility throughout the lower extremity venous structures. Additional imaging through the proximal calf veins also reveals no thrombus. Limited evaluation of the greater saphenous vein is patent with no thrombus. CONCLUSIONS No DVT right lower extremity. Dr. Meagan Hu DO (Electronically Signed) Final Date: 04 March 2023 14:49 S
[2023-03-04] MEDS: HYDROcodone-acetaminophen 5-325 mg Tablet 1 TAB PO (13:49)
--- NOTE | 2023-03-04 14:43 | PC.PHAR ---
PT USES [facility] [place] [phone]. NEW PREFERRED PHARMACY IS [facility]. 03/04/23
--- NOTE | 2023-03-04 14:47 | PC.PHAR ---
Addendum entered by Rachana Rojo 03/04/23 15:08: NO RESPONSE FROM ERIN CADENA (NURSE) PT STATES ALL HER MEDS ARE CORRECT IN OUR SYSTEM. MED LIST UPDATED AND WILL CONTINUE TO REACH OUT. Original Note: [facility] SENDING LIST SOON POSSIBLE
[2023-03-04] MEDS: dexamethasone 10 mg/mL INJ IM (15:32)
[2023-03-04] MEDS: ketorolac 30 mg/mL INJ 15 MG IM (15:32)
--- NOTE | 2023-03-04 15:55 | PC.NURSE ---
Nurse assumed care at 1500.
--- NOTE | 2023-03-04 16:08 | DCPLANNER ---
Message was sent to ortho on 03/04/23 at 1608. Clinic to contact patient
== END 2023-03-04 16:29 | disposition home or self-care (01) ==
PROVIDERS: Emergency Provider Nurse Practitioner Family; PCP Family Medicine
DX: M25.512 Pain in left shoulder (principal); M50.30 Other cervical disc degeneration, unspecified cervical region; I83.813 Varicose veins of bilateral lower extremities with pain; G20.A1 Parkinson's disease without dyskinesia, without mention of fluctuations; K59.00 Constipation, unspecified; Z79.01 Long term (current) use of anticoagulants; Z79.82 Long term (current) use of aspirin
CPT/HCPCS: 72125; 73502; 93971; 96372; 99284; J1100; J1885

== ENCOUNTER 2023-03-13 16:33 | Inpatient (IN) | payer MEDICARE, MEDICAID, SELFPAY ==
[2023-03-13] VITALS (10 sets, daily range): BP systolic 83–133; BP diastolic 36–72; PULSE 76–90; RESP 16–17; TEMP 36.7–37; O2SAT 92–97; BMI 30.7
--- NOTE | 2023-03-13 16:38 | ECG_ITS ---
[facility] Test Date: 2023-03-13 Pat Name: Latoya Flaherty Department: Room: Gender: Female Head Machine Feeder: : 1935 Requested By: Rodger Bunn Order Number: [id number] Meet MD: uSzy Brumfield M.D. Measurements Intervals [place] Rate: 91 P: 65 [place]: 132 QRS: -28 QRSD: 96 T: 33 QT: 385 QTc: 474 Interpretive Statements SINUS RHYTHM BORDERLINE LEFT AXIS DEVIATION [QRS AXIS < -20] LOW QRS VOLTAGE IN PRECORDIAL LEADS [QRS DEFLECTION < 1.0 mV IN CHEST LEADS] INCOMPLETE RIGHT BUNDLE BRANCH BLOCK [90+ ms QRS DURATION, TERMINAL R IN V1/V2, 40+ ms S IN I/aVL/V4/V5/V6] Compared to ECG 06/01/2021 18:52:58 ST (T wave) deviation no longer present Electronically Signed On 03-14-2023 21:53:56 SOUND ENGINEER AUDIO CONTROL by Suzy Brumfield M.D. [id number]
--- NOTE | 2023-03-13 16:38 | XRR_ITS ---
PROCEDURE INFORMATION: Exam: XR Chest Exam date and time: 03/13/2023 5:23 PM Age: 87 years old Clinical indication: Patient HX: AMS; Cough; Dyspnea; Additional info: Dyspnea/cough TECHNIQUE: Imaging protocol: Radiologic exam of the chest. Views: 1 view. COMPARISON: CT angio chest PE protcl [id number] 01/08/2023 1:20 PM FINDINGS: Lungs: Peribronchial cuffing. No focal consolidation. Pleural spaces: No pleural effusion. No pneumothorax. Heart/Mediastinum: No cardiomegaly. Bones/joints: No acute findings. XR/XR chest 1V portable [id number] IMPRESSION: Peribronchial cuffing which can be seen with small airways disease/bronchitis. No focal consolidation.
--- NOTE | 2023-03-13 16:38 | CTR_ITS ---
PROCEDURE INFORMATION: Exam: CT Head Without Contrast Exam date and time: 03/13/2023 5:40 PM Age: 87 years old Clinical indication: Altered mental status/memory loss; Additional info: AMS TECHNIQUE: Imaging protocol: Computed tomography of the head without contrast. Radiation optimization: All CT scans at this facility use at least one of these dose optimization techniques: automated exposure control; mA and/or kV adjustment per patient size (includes targeted exams where dose is matched to clinical indication); or iterative reconstruction. REPORTING DATA: Count of CT and Cardiac NM exams in prior 12 months: This patient has received 5 known CTs and 0 known cardiac nuclear medicine studies in the 12 months prior to the current study. COMPARISON: CT cervical spin wo con* [id number] 03/04/2023 2:49 PM RADIATION DOSE METRICS: Total DLP (mGy-cm): 1080.38 FINDINGS: Brain: No hemorrhage. Chronic white matter and senescent changes. Cerebral ventricles: No ventriculomegaly. Paranasal sinuses: Visualized sinuses are grossly clear. Mastoid air cells: No mastoid effusion. Bones/joints: No acute findings. Soft tissues: No acute findings. CT/CT head wo con* [id number] IMPRESSION: No acute intracranial abnormality. Chronic white matter and senescent changes.
[2023-03-13 16:53] LABS: Basophils # 0.1 10^3/uL (0.0-0.1); Basophils % 0.4 %; Eosinophils % 0.1 %; Hematocrit 44.8 % (36-47); Lymphocytes # 1.4 10^3/uL (0.8-4.8); Lymphocytes % 7.3 %; Mean Corpuscular HGB Conc 30.8 g/dL (30-55); Mean Corpuscular Hemoglobin 26.9 pg (27-33); Mean Corpuscular Volume 87.3 fl (85-98); Mean Platelet Volume 12.2 fL (7.4-10.4); Monocytes # 0.2 10^3/uL (0.2-0.9); Monocytes % 1.1 %; Neutrophils # 17.66 10^3/uL (1.8-7.7); Neutrophils % 90.7 %; Nucleated Red Blood Cells % 0 %; Platelet Count 297 10^3/cmm (157-399); Red Blood Count 5.13 10^6/uL (3.85-5.65); Red Cell Distribution Width 16.8 % (12.1-15.1); White Blood Count 19.47 10^3/uL (3.29-11.43)
[2023-03-13 17:05] LABS: Troponin(5th) Baseline 23 ng/L (0-10)
--- NOTE | 2023-03-13 17:06 | ED_ITS ---
Documented by User: Rodger Fortune DO 03/22/23 11:14 HPI - Syncope General: Chief Complaint: Syncope Stated Complaint: SYNCOPE Time Seen by Provider: 03/13/23 16:37 Source: patient Mode of arrival: ambulatory Limitations: physical limitation History of Present Illness: 87-year-old female who presents emergency room with complaint of near syncopal episode. She been constipated recently took some laxatives and had a large bowel movement after which she felt like she was going to pass out. She denies hematochezia or melena. After this episode she continues to feel faint on arrival here she is moderately hypotensive. MD complaint: felt faint and almost passed out Onset (ago): minute(s) Associated symptoms: Reports abdominal pain; Deny chest pain, fever(s), headache(s), lightheadedness, nausea, short of breath, vertigo or weakness Treatments prior to arrival: none Review of Systems Const: Reports: fatigue and malaise; Denies: fever(s) or chills Card: Denies: chest pain or lightheadedness Resp: Denies: dyspnea GI: Reports: abdominal pain and constipation; Denies: nausea, vomiting or diarrhea : Denies: flank pain, dysuria, urinary frequency or urinary urgency Musc: Denies: neck pain or back pain Skin/Breast: Denies: rash Neuro: Denies: headache(s) or vertigo PFSH ED PFSH: Medical History (Updated 03/18/23 @ 00:00 by IRIS Ching) Anemia Central deafness Fibromyositis GERD (gastroesophageal reflux disease) Parkinson's Disease Restless leg Subcapital fracture of right hip Surgical History History of cataract surgery History of knee replacement Hx of LASIK Status post right hip replacement Family History Sister COPD (chronic obstructive pulmonary disease) Mother CHF (congestive heart failure) Social History Smoking and tobacco/nicotine status: never used tobacco/nicotine Alcohol intake: never Substance/Drug Use: never Adopted: No Caregiver/support person: No Lives independently: Yes Marital status: / Current occupational status: retired Physical Exam 2 Const: COMMON NORMALS: no acute distress GENERAL APPEARANCE: cooperative and comfortable ORIENTATION/CONSCIOUSNESS: Yes awake, Yes oriented to person, Yes oriented to place and Yes oriented to time HENMT: COMMON NORMALS: normocephalic, atraumatic and hearing grossly normal bilaterally HEAD & SCALP: normocephalic and atraumatic Resp: COMMON NORMALS: normal respiratory effort, No retractions, No use of accessory muscles and clear to auscultation bilaterally AUSCULTATION: clear to auscultation bilaterally Cardio: COMMON NORMALS: regular rate, regular rhythm and No murmurs present (Cardio) RATE: regular rate RHYTHM: regular rhythm GI: COMMON NORMALS: Soft to palpation and No hepatosplenomegaly present AUSCULTATION: Yes normoactive bowel sounds PALPATION: Yes Soft to palpation, No Tenderness to palpation present (GI), No Guarding due to palpation present (GI) and Yes No hepatosplenomegaly present Extremity: COMMON NORMALS: normal to inspection, capillary refill normal, no clubbing, cyanosis or edema, no calf tenderness and no pedal edema Neuro: SENSORIUM/ORIENTATION: Yes oriented to person, Yes oriented to place and Yes oriented to time Skin: COMMON NORMALS: no rashes or lesions noted GENERAL SKIN EXAM: no rashes or lesions noted Course Vital Signs: Vital signs: Vital Signs Temperature 97.6 F 03/17/23 14:12 Pulse Rate 82 03/17/23 14:12 Respiratory Rate 16 03/17/23 14:12 Blood Pressure 157/83 03/17/23 08:00 Pulse Oximetry 94 03/17/23 14:12 Oxygen Delivery Me thod Room Air 03/17/23 12:00 Oxygen Flow Rate 3 03/14/23 13:30 MDM - Syncope Medical Decision Making Care signed out to Dr. Díaz at change of shift. See final notes for diagnosis and disposition. 87-year-old female originally seen by Dr. Chisholm. I took over at shift change. This lady had a syncopal episode at home. She came in hypotensive. Blood pressure somewhat improved after fluid bolus here, but she is still quite weak, mildly confused, family is concerned about her. CT shows colitis and distal colorectal fecal retention. She is placed on IV antibiotics. Continued IV fluid maintenance. Her white blood cell count is 19. Lactic acid is pending. Consulted with hospitalist. He will see the patient for admission. Lab Data 03/17/23 05:55 03/17/23 05:55 Radiology Impressions Chest X-Ray 03/13/23 16:38 IMPRESSION: Peribronchial cuffing which can be seen with small airways disease/bronchitis. No focal consolidation. Head CT 03/13/23 16:38 IMPRESSION: No acute intracranial abnormality. Chronic white matter and senescent changes. Abdomen/Pelvis CT 03/13/23 17:38 IMPRESSION: Findings of colitis and distal colorectal fecal retention. Venous Duplex 03/14/23 06:00 IMPRESSION: No evidence of deep vein thrombosis. Laboratory Results WBC 19.47 10^3/uL (3.29-11.43) H 03/13/23 16: RBC 5.13 10^6/uL (3.85-5.65) 03/13/23 16: Hgb 13.80 g/dL (11.27-16.99) 03/13/23 16: Hct 44.8 % (36-47) 03/13/23 16: MCV 87.3 fl (85-98) 03/13/23 16: MCH 26.9 pg (27-33) L 03/13/23 16: MCHC 30.8 g/dL (30-55) 03/13/23 16: RDW 16.8 % (12.1-15.1) H 03/13/23 16:23 Plt Count 297 10^3/cmm (157-399) 03/13/23 16: MPV 12.2 fL (7.4-10.4) H 03/13/23 16:23 Neut % (Auto) 90.7 % 03/13/23 16:23 Lymph % (Auto) 7.3 % 03/13/23 16:23 Sterling % (Auto) 1.1 % 03/13/23 16: Eos % (Auto) 0.1 % 03/13/23 16: Baso % (Auto) 0.4 % 03/13/23 16: Neut # (Auto) 17.66 10^3/uL (1.8-7.7) H 03/13/23 16: Lymph # (Auto) 1.4 10^3/uL (0.8-4.8) 03/13/23 16:23 Sterling # (Auto) 0.2 10^3/uL (0.2-0.9) 03/13/23 16:23 Eos # (Auto) 0.0 10^3/uL (0.0-0.8) 03/13/23 16:23 Baso # (Auto) 0.1 10^3/uL (0.0-0.1) 03/13/23 16:23 Nucleated RBC % (auto) 0 % 03/13/23 16: Nucleated RBCs # 0.0 /100WBC 03/13/23 16:23 PT 15.30 SECONDS (12.1-14.9) H 03/13/23 16: INR 1.17 (0.8-1.2) 03/13/23 16:23 Sodium 141 mmol/L (136-145) 03/13/23 16:23 Potassium 4.0 mmol/L (3.5-5.1) 03/13/23 16: Chloride 97 mmol/L (98-107) L 03/13/23 16:23 Carbon Dioxide 27 mmol/L (22-29) 03/13/23 16:23 Anion Gap 21.0 (5-19) H 03/13/23 16:23 BUN 31 mg/dL (8-23) H 03/13/23 16:23 Creatinine 1.3 mg/dL (0.5-0.9) H 03/13/23 16:23 GFR Calculation Not Reportable 03/13/23 16: Glucose 176 mg/dL (65-115) H 03/13/23 16:23 Calculated Osmolality 303 mOsm/kg (285-295) H 03/13/23 16:23 Calcium 10.1 mg/dL (8.5-10.5) 03/13/23 16:23 Iron 31 ug/dL (37-145) L 03/13/23 19:13 TIBC 227 mcg/dl 03/13/23 19:13 % Saturation 13.6 % (20-50) L 03/13/23 19:13 Unsat Iron Binding 196 ug/dL (112-347) 03/13/23 19:13 Total Bilirubin 0.8 mg/dL (0.15-1.2) 03/13/23 16:23 AST 28 U/L (0-32) 03/13/23 16:23 ALT 6 U/L (0-33) 03/13/23 16:23 Alkaline Phosphatase 73 U/L (35-105) 03/13/23 16:23 Troponin T Baseline 23 ng/L (0-10) H 03/13/23 16:23 Troponin T 120 Minute 25.39 ng/L (0-10) H 03/13/23 18:13 Delta Troponin T 2.39 ABS# (0-10) 03/13/23 18:13 Total Protein 6.7 g/dL (6.6-8.7) 03/13/23 16:23 Albumin 4.2 g/dL (3.5-5.2) 03/13/23 16:23 Globulin 2.5 g/dL (1.3-4.6) 03/13/23 16:23 Vitamin B12 > 2000 pg/mL (232-1245) H 03/13/23 19:13 Procalcitonin 1.47 ng/mL (0-0.5) H 03/13/23 18:13 TSH 5.75 uIU/mL (0.27-4.20) H 03/13/23 19:13 Discharge Plan Discharge Patient Disposition: Admitted As Inpatient Admit Provider: Porfirio Fuentes Clinical Impression: Colitis Condition: Stable Discharge Diet: As Directed Discharge Activity: Increase activity as tolerated Coding Level of Care Code ED Branch Associate Teller for Chg Fwd Documented by User: Andrez Díaz DO 03/14/23 20:51 HPI - Syncope General: Chief Complaint: Syncope Stated Complaint: SYNCOPE Time Seen by Provider: 03/13/23 16:37 PFSH ED PFSH: Medical History (Updated 03/18/23 @ 00:00 by IRIS Ching) Anemia Central deafness Fibromyositis GERD (gastroesophageal reflux disease) Parkinson's Disease Restless leg Subcapital fracture of right hip Surgical History History of cataract surgery History of knee replacement Hx of LASIK Status post right hip replacement Family History Sister COPD (chronic obstructive pulmonary disease) Mother CHF (congestive heart failure) Social History Smoking and tobacco/nicotine status: never used tobacco/nicotine Alcohol intake: never Substance/Drug Use: never Adopted: No Caregiver/support person: No Lives independently: Yes Marital status: / Current occupational status: retired Course Vital Signs: Vital signs: Vital Signs Temperature 97.6 F 03/17/23 14:12 Pulse Rate 82 03/17/23 14:12 Respiratory Rate 16 03/17/23 14:12 Blood Pressure 157/83 03/17/23 08:00 Pulse Oximetry 94 03/17/23 14:12 Oxygen Delivery Me thod Room Air 03/17/23 12:00 Oxygen Flow Rate 3 03/14/23 13:30 MDM - Syncope Medical Decision Making 87-year-old female originally seen by Dr. Chisholm. I took over at shift change. This lady had a syncopal episode at home. She came in hypotensive. Blood pressure somewhat improved after fluid bolus here, but she is still quite weak, mildly confused, family is concerned about her. CT shows colitis and distal colorectal fecal retention. She is placed on IV antibiotics. Continued IV fluid maintenance. Her white blood cell count is 19. Lactic acid is pending. Consulted with hospitalist. He will see the patient for admission. Lab Data 03/17/23 05:55 03/17/23 05:55 Radiology Impressions Chest X-Ray 03/13/23 16:38 IMPRESSION: Peribronchial cuffing which can be seen with small airways disease/bronchitis. No focal consolidation. Head CT 03/13/23 16:38 IMPRESSION: No acute intracranial abnormality. Chronic white matter and senescent changes. Abdomen/Pelvis CT 03/13/23 17:38 IMPRESSION: Findings of colitis and distal colorectal fecal retention. Venous Duplex 03/14/23 06:00 IMPRESSION: No evidence of deep vein thrombosis. Laboratory Results WBC 19.47 10^3/uL (3.29-11.43) H 03/13/23 16:23 RBC 5.13 10^6/uL (3.85-5.65) 03/13/23 16: Hgb 13.80 g/dL (11.27-16.99) 03/13/23 16: Hct 44.8 % (36-47) 03/13/23 16: MCV 87.3 fl (85-98) 03/13/23 16: MCH 26.9 pg (27-33) L 03/13/23 16: MCHC 30.8 g/dL (30-55) 03/13/23 16: RDW 16.8 % (12.1-15.1) H 03/13/23 16: Plt Count 297 10^3/cmm (157-399) 03/13/23 16: MPV 12.2 fL (7.4-10.4) H 03/13/23 16:23 Neut % (Auto) 90.7 % 03/13/23 16: Lymph % (Auto) 7.3 % 03/13/23 16: Sterling % (Auto) 1.1 % 03/13/23 16: Eos % (Auto) 0.1 % 03/13/23 16: Baso % (Auto) 0.4 % 03/13/23 16: Neut # (Auto) 17.66 10^3/uL (1.8-7.7) H 03/13/23 16: Lymph # (Auto) 1.4 10^3/uL (0.8-4.8) 03/13/23 16: Sterling # (Auto) 0.2 10^3/uL (0.2-0.9) 03/13/23 16: Eos # (Auto) 0.0 10^3/uL (0.0-0.8) 03/13/23 16: Baso # (Auto) 0.1 10^3/uL (0.0-0.1) 03/13/23 16: Nucleated RBC % (auto) 0 % 03/13/23 16: Nucleated RBCs # 0.0 /100WBC 03/13/23 16: PT 15.30 SECONDS (12.1-14.9) H 03/13/23 16: INR 1.17 (0.8-1.2) 03/13/23 16:23 Sodium 141 mmol/L (136-145) 03/13/23 16:23 Potassium 4.0 mmol/L (3.5-5.1) 03/13/23 16:23 Chloride 97 mmol/L (98-107) L 03/13/23 16:23 Carbon Dioxide 27 mmol/L (22-29) 03/13/23 16:23 Anion Gap 21.0 (5-19) H 03/13/23 16:23 BUN 31 mg/dL (8-23) H 03/13/23 16:23 Creatinine 1.3 mg/dL (0.5-0.9) H 03/13/23 16:23 GFR Calculation Not Reportable 03/13/23 16: Glucose 176 mg/dL (65-115) H 03/13/23 16: Calculated Osmolality 303 mOsm/kg (285-295) H 03/13/23 16: Calcium 10.1 mg/dL (8.5-10.5) 03/13/23 16: Iron 31 ug/dL (37-145) L 03/13/23 19:13 TIBC 227 mcg/dl 03/13/23 19:13 % Saturation 13.6 % (20-50) L 03/13/23 19:13 Unsat Iron Binding 196 ug/dL (112-347) 03/13/23 19:13 Total Bilirubin 0.8 mg/dL (0.15-1.2) 03/13/23 16:23 AST 28 U/L (0-32) 03/13/23 16:23 ALT 6 U/L (0-33) 03/13/23 16:23 Alkaline Phosphatase 73 U/L (35-105) 03/13/23 16:23 Troponin T Baseline 23 ng/L (0-10) H 03/13/23 16:23 Troponin T 120 Minute 25.39 ng/L (0-10) H 03/13/23 18:13 Delta Troponin T 2.39 ABS# (0-10) 03/13/23 18:13 Total Protein 6.7 g/dL (6.6-8.7) 03/13/23 16:23 Albumin 4.2 g/dL (3.5-5.2) 11/18/23 16:23 Globulin 2.5 g/dL (1.3-4.6) 03/13/23 16:23 Vitamin B12 > 2000 pg/mL (232-1245) H 03/13/23 19:13 Procalcitonin 1.47 ng/mL (0-0.5) H 03/13/23 18:13 TSH 5.75 uIU/mL (0.27-4.20) H 03/13/23 19:13 All radiology interpretation(s) finalized by discharge Discharge Plan Discharge Patient Disposition: Admitted As Inpatient Admit Provider: Porfirio Fuentes Clinical Impression: Colitis Condition: Stable Discharge Diet: As Directed Discharge Activity: Increase activity as tolerated Coding Level of Care Code ED Branch Associate Teller for Ute Shields
[2023-03-13 17:10] LABS: Alanine Aminotransferase 6 U/L (0-33); Albumin Level 4.2 g/dL (3.5-5.2); Alkaline Phosphatase 73 U/L (35-105); Blood Urea Nitrogen 31 mg/dL (8-23); Calcium 10.1 mg/dL (8.5-10.5); Carbon Dioxide 27 mmol/L (22-29); Chloride 97 mmol/L (98-107); Globulin 2.5 g/dL (1.3-4.6); Glucose 176 mg/dL (65-115); Osmolality Calculated 303 mOsm/kg (285-295); Sodium 141 mmol/L (136-145); Total Bilirubin 0.8 mg/dL (0.15-1.2); Total Protein 6.7 g/dL (6.6-8.7)
[2023-03-13 17:11] LABS: Aspartate Amino Transferase 28 U/L (0-32)
[2023-03-13] MEDS: sodium chloride 0.9% 500 ML IV (17:21)
--- NOTE | 2023-03-13 17:38 | CTR_ITS ---
PROCEDURE INFORMATION: Exam: CT Abdomen And Pelvis Without Contrast Exam date and time: 03/13/2023 5:43 PM Age: 87 years old Clinical indication: Abdominal pain; Generalized; Prior surgery; Surgery date: 6+ months; Surgery type: Senthil; Patient HX: Diffuse abd pain TECHNIQUE: Imaging protocol: Computed tomography of the abdomen and pelvis without contrast. Radiation optimization: All CT scans at this facility use at least one of these dose optimization techniques: automated exposure control; mA and/or kV adjustment per patient size (includes targeted exams where dose is matched to clinical indication); or iterative reconstruction. REPORTING DATA: Count of CT and Cardiac NM exams in prior 12 months: This patient has received 5 known CTs and 0 known cardiac nuclear medicine studies in the 12 months prior to the current study. COMPARISON: CT kidney stone [id number] 04/14/2019 7:03 AM RADIATION DOSE METRICS: Total DLP (mGy-cm): 702.53 FINDINGS: Liver: No acute findings. Gallbladder and bile ducts: No calcified stones. No ductal dilation. Pancreas: No ductal dilation. Spleen: No splenomegaly. Adrenal glands: No mass. Kidneys and ureters: No hydronephrosis. Stomach and bowel: Wall thickening and pericolonic stranding around the sigmoid colon with fecal retention distally. Appendix: No evidence of appendicitis. Intraperitoneal space: No free air. No significant fluid collection. Vasculature: Extensive calcifications without aneurysm. Lymph nodes: No enlarged lymph nodes. Urinary bladder: No acute findings. Reproductive: Unremarkable as visualized. Bones/joints: Degenerative and postsurgical changes without acute findings. Soft tissues: Unremarkable. CT/CT abdomen pelvis wo con [id number] IMPRESSION: Findings of colitis and distal colorectal fecal retention.
[2023-03-13] MEDS: sodium chloride 0.9% 500 ML 999 ML IV (18:03)
[2023-03-13 18:37] LABS: Troponin 5 2HR 25.39 ng/L (0-10)
[2023-03-13 18:46] LABS: Troponin 5 2HR Delta 2.39 ABS# (0-10)
--- NOTE | 2023-03-13 18:48 | ECG_ITS ---
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 Measurements Intervals [place] Rate: 80 P: 72 CA: 176 QRS: -34 QRSD: 97 T: 58 QT: 396 QTc: 459 Interpretive Statements SINUS RHYTHM LEFT AXIS DEVIATION [QRS AXIS < -30] LOW QRS VOLTAGE IN PRECORDIAL LEADS [QRS DEFLECTION < 1.0 mV IN CHEST LEADS] PATTERN CONSISTENT WITH PULMONARY DISEASE Compared to ECG 03/13/2023 16:38:48 Incomplete right bundle-branch block no longer present Electronically Signed On 03-14-2023 22:15:52 SUMMER ASSOCIATE by Suzy Brumfield M.D. [id number]
[2023-03-13 19:46] LABS: INR 1.17 (0.8-1.2)
[2023-03-13] MEDS: piperacillin-tazobactam 3.375 GM in sodium chloride 0.9% (plus) 50 ML IV (19:50)
[2023-03-13] MEDS: sodium chloride 0.9% 1,000 ML 999 ML IV (19:50)
[2023-03-13 20:01] LABS: Procalcitonin 1.47 ng/mL (0-0.5)
[2023-03-13 20:11] LABS: Lactic Sepsis W/Reflex 2.4 mmol/L (0.5-2.2)
[2023-03-13 20:22] LABS: Add Urine Microscopic? YES; Bilirubin Urine Neg (Negative); Blood Urine 2+ (Negative); Glucose Urine UA Norm (Normal); Ketones Urine 1+ (Negative); Leukocyte Esterase Urine Negative (Negative); Nitrate Urine Negative (Negative); Protein Urine 1+ (Negative); RBC Urine 0-4 /hpf (0-2); Specific Gravity, Urine 1.005 (1.005-1.030); Squamous Epithelial Cell Urine 0-4 /hpf (0-5); Sulfosalicylic Acid Urine Negative (Negative); Urine Appearance Clear (CLEAR); Urine Color Amber (Yellow); Urobilinogen Urine 1 mg/dL (Negative); WBC Urine RARE /hpf (0-5); pH Urine 8 (5-7)
[2023-03-13 20:23] LABS: Add Urine Culture? No; Amorphous Sediment Urine 2+ /hpf; Bacteria Urine TRACE /hpf
[2023-03-13 20:50] LABS: Iron 31 ug/dL (37-145); Percent Saturation 13.6 % (20-50); Thyroid Stimulating Hormone 5.75 uIU/mL (0.27-4.20); Total Iron Binding Capacity 227 mcg/dl; Unsaturated Iron Binding 196 ug/dL (112-347)
[2023-03-13 20:52] LABS: Vitamin B12 > 2000 pg/mL (232-1245)
--- NOTE | 2023-03-13 21:05 | P.HP_ITS ---
Providers/Chief Complaint Admitting Physician: Porfirio Fuentes MD Primary Care Provider: Trev Severino MD Chief Complaint: SYNCOPE History of Present Illness Latoya Flaherty is a 87 year old female with past medical history of parkinsonism, anemia, recent hip fracture post-ORIF when she was transferred to SNF. As per the patient she was recently discharged from SNF and was at her baseline health till today morning. She lives currently at home with her son. She has been experiencing constipation for last few days for which she took laxative today morning after which she had multiple bowel movement and she felt weak and she passed out while trying to have a bowel movement. Symptoms when she was constipated were also associated with nausea and 2 episodes of vomiting. Denies any abdominal pain. Denies any nausea right now. Passing out was not associated with any aura, bowel or bladder accidents, seizure-like activity. Denies any further changes in her medications recently. Review of Systems General: Reports: 10 or more systems reviewed and unremarkable except in HPI and below Const: Denies: fever(s), chills, body aches, change in appetite, change in weight, malaise, night sweats, diaphoresis, change in sleep pattern, daytime sleepiness or snoring Eyes: Denies: change in vision, blurry vision, photophobia, eye discomfort or eye discharge ENMT: Denies: throat pain, enlarged tonsils, hoarseness, mouth pain, oral sores, dry mouth, tinnitus, nasal congestion or post nasal drip Card: Denies: chest pain, palpitations, irregular heart rhythm, edema, s welling of feet/ankles, lightheadedness, syncope, pre-syncope, dyspnea on exertion, orthopnea, leg pain with exertion or acrocyanosis Resp: Denies: dyspnea, productive cough, non-productive cough, wheezing, stridor, pain on inspiration, change in phlegm color, hemoptysis or chest congestion GI: Denies: abdominal pain, nausea, vomiting, hematemesis, coffee ground emesis, dysphagia, heartburn, diarrhea, constipation, bloating, GI cramping, change in bowel habits, pain on defecation, hematochezia or melena : Denies: flank pain, dysuria, urinary frequency, urinary urgency, urinary hesitancy, nocturia or hematuria Musc: Denies: neck pain, back pain, extremity pain, joint pain, joint swelling, joint redness, joint stiffness or limited range of motion Neuro: Denies: headache(s), numbness in extremities, weakness in extremities, sensory changes, lack of coordination, difficulty walking, frequent falls, dizziness, vertigo, confusion, Slurred speech present, difficulty communicating thoughts or seizure-like activity Psych: Denies: anxiety, depression, mood swings, panic attacks, hopelessness or irritability Endo: Denies: polyuria, polydipsia, tired all the time, cold intolerance, excessive sweating, flushing or heat intolerance Titi/Lymph: Denies: easy bruising or easy bleeding All/Imm: Denies: tongue swelling, facial swelling or acute wheezing Medications/Allergies Home Medications Medication Instructions Recorded Confirmed Last Taken Type atorvastatin 20 mg tablet 20 mg PO QPM 07/17/19 03/04/23 03/03/23 History biotin 800 mcg tablet 800 mcg PO DAILY 09/02/19 03/04/23 03/04/23 History cholecalciferol (vitamin D3) 25 25 mcg PO BID 10/30/19 03/04/23 03/04/23 History mcg (1,000 unit) capsule vit C,F-Wd-wbrodg-lutein-zeaxan 60 1 cap PO DAILY 10/30/19 03/04/23 03/04/23 History mg-13.5 mg-15 mg-2 mg-6 mg capsule (Healthy Eyes Lutein-Zeaxanthin) ondansetron 4 mg disintegrating 4 mg PO Q8H PRN Nausea 06/01/21 03/04/23 Unknown History tablet galantamine 4 mg tablet 4 mg PO BID 90 days #180 tabs 05/04/22 03/04/23 03/04/23 Rx carbidopa 25 mg-levodopa 100 mg See Rx Instructions .Route 09/02/22 03/04/23 03/04/23 Rx tablet .COMPLEX #120 tabs ropinirole 0.5 mg tablet 0.5 mg PO TID #90 tabs 09/02/22 03/04/23 03/04/23 Rx aspirin 81 mg tablet,delayed 81 mg PO DAILY 10/08/22 03/04/23 03/04/23 History release omega 0-enx-zki-fish oil 900 1 cap PO BID 10/08/22 03/04/23 03/04/23 History mg-1,400 mg capsule,delayed release lactulose 10 gram/15 mL (15 mL) 10 g (15 mL) PO DAILY PRN 01/13/23 03/04/23 Unknown Rx oral solution constipation #600 mL lisinopril 2.5 mg tablet 2.5 mg PO DAILY PRN Hypertension 01/13/23 03/04/23 Unknown Rx #30 tabs potassium chloride 10 mEq See Rx Instructions .Route 01/13/23 03/04/23 01/07/23 Rx tablet,extended release(part/cryst) .COMPLEX PRN with lasix only #90 tabs apixaban 2.5 mg tablet (Eliquis) 2.5 mg PO BID 03/04/23 03/04/23 03/04/23 History celecoxib 200 mg capsule 200 mg PO BID #30 caps 03/04/23 Unknown Rx furosemide 20 mg tablet (Lasix) 20 mg PO DAILY PRN ankle edema 03/04/23 03/04/23 Unknown History nitrofurantoin 100 mg PO BID 03/04/23 03/04/23 03/04/23 History monohydrate/macrocrystals 100 mg capsule tramadol 50 mg tablet 50 mg PO Q8H PRN pain #20 tabs 03/04/23 Unknown Rx Allergies Allergy/AdvReac Type Severity Reaction Status Date / Time naproxen Allergy Unknown Verified 03/13/23 21:32 PFSH Acute PFSH: Medical History (Updated 03/13/23 @ 21:48 by Porfirio Fuentes MD) Anemia Central deafness Fibromyositis GERD (gastroesophageal reflux disease) Parkinson's Disease Restless leg Subcapital fracture of right hip Surgical History History of cataract surgery History of knee replacement Hx of LASIK Status post right hip replacement Family History Sister COPD (chronic obstructive pulmonary disease) Mother CHF (congestive heart failure) Social History Smoking and tobacco/nicotine status: never used tobacco/nicotine Alcohol intake: never Substance/Drug Use: never Adopted: No Caregiver/support person: No Lives independently: Yes Marital status: / Current occupational status: retired [employer] Last Vital Signs Temp 98.0 F 03/13/23 20:26 Pulse 84 03/13/23 20:26 Resp 16 03/13/23 20:26 BP 100/50 03/13/23 20:26 Pulse Ox 96 03/13/23 20:26 O2 Del Method Room Air 03/13/23 19:56 03/13/23 03/13/23 03/13/23 06:59 14:59 22:59 Intake Total 1050 / 1050 Balance 1050 / 1050 Weight last 48 hrs Weight 83.915 kg Physical Exam Narrative: General: No acute distress, AO x3, pleasant, dehydrated, chapped lips HEENT: PERRLA, pupils bilaterally equal and reactive Chest: Normal vesicular breath sounds, no added sounds, equal good air entry bilaterally CVS: S1-S2 regular, no murmurs, no tachycardia, no gallops, no rubs Abdomen: Soft, mild generalized tenderness in lower abdomen, no organomegaly, bowel sounds present Neuro: No focal deficits, no facial deformity, AO x3, power 5/5 in all limbs Data 03/13/23 16:23 03/13/23 16:23 A&P Assessment and plan (1) Colitis: As seen on CT abdomen pelvis. Cannot rule out in setting of constipation l eading to stercoral colitis. Patient does have leukocytosis. Cannot rule out C. difficile as patient was recently discharged from SNF. Check lactate. Start on IV fluids with normal saline at 75 cc/h. Start on Zosyn, check stool studies to rule out C. difficile, blood cultures. Given concerns for retained stool with constipation for now we will start on aggressive bowel regimen with senna/Colace and milk of magnesia. (2) Constipation: As above. Qualifiers: Constipation type: unspecified constipation type Qualified Code(s): K59.00 - Constipation, unspecified (3) Acute kidney injury: Most likely in setting of dehydration along with home use of Lasix and lisinopril. Medical reconciliation done for nephrotoxic drugs. Hold off on lisinopril. IV fluids as above. Strict input output charting, daily weights. Monitor BMP daily for now. Plan Continue other chronic medications. It seems patient is also on Eliquis 2.5 mg twice daily. Does not have any history of PE, DVT or A-fib. EKG shows normal sinus rhythm. High likelihood that Eliquis is started postoperatively for DVT prevention post-ORIF. For now we will continue with Eliquis while we rule out DVT with lower limb Dopplers and check D-dimer. If both negative most likely can stop Eliquis. Clear liquid diet Eliquis for now will suffice as DVT prophylaxis Protonix for PUD prophylaxis. Attestations Medical Necessity Statement*: Admission for more than 2 midnights for management of colitis and acute kidney injury Diagnoses Colitis K52.9 Constipation K59.00 Constipation type: unspecified constipation type Acute kidney injury N17.9
[2023-03-13] MEDS: sodium chloride 0.9% 1,000 ML 75 ML IV (21:12)
[2023-03-13] MEDS: pantoprazole 40 mg SDV IVP (21:16)
[2023-03-13] MEDS: acetaminophen 325 mg Tablet 650 MG PO (21:18)
[2023-03-13] MEDS: ropinirole 0.25 mg Tablet 0.5 MG PO (21:19)
--- NOTE | 2023-03-13 21:32 | PC.NURSE ---
Patient's pharmacy will need to be contacted in AM to update/verify home medications/med rec.
--- NOTE | 2023-03-13 21:37 | PC.NURSE ---
ADMIT NOTE Pt was received to floor from ED at 2029. Incont hazel large formed mixed with loose BM on arrival and was cleaned up. Tells me she took a laxative today and that she does not always know when she needs to go. Is cooperative and answering questions well. c/o pain in her shoulders. IV patent with NS infusing at 75ml/hr rate. RN completed admission assessment
[2023-03-13 21:40] LABS: Reflex Lactate Order REFLEX LACTIC ORDERD
[2023-03-13] MEDS: magnesium hydroxide 30 mL UDC PO (21:46)
[2023-03-13] MEDS: sennosides-docusate Tablet 1 TAB PO (21:46)
[2023-03-13 23:20] LABS: Lactic Acid level (Lactate) 2.3 mmol/L (0.5-2.2)
[2023-03-13 23:21] LABS: D Dimer 14.05 ug/mLFEU (0-0.59)
[2023-03-13 23:23] LABS: Troponin 5 6HR 29.24 ng/L (0-10); Troponin 5 6HR Delta 6.24 ng/L (0-12)
[2023-03-13 23:26] LABS: T3 Free 1.6 PG/ML (2.0-4.4)
[2023-03-14] VITALS (12 sets, daily range): BP systolic 90–134; BP diastolic 50–81; PULSE 60–95; RESP 12–18; TEMP 36.4–37.2; O2SAT 91–100; BMI 30.8; BMI 30.7
[2023-03-14 04:14] LABS: Basophils # 0.1 10^3/uL (0.0-0.1); Basophils % 0.5 %; Hematocrit 32.8 % (36-47); Lymphocytes # 1.4 10^3/uL (0.8-4.8); Lymphocytes % 6.6 %; Mean Corpuscular HGB Conc 30.5 g/dL (30-55); Mean Corpuscular Volume 88.6 fl (85-98); Mean Platelet Volume 12.4 fL (7.4-10.4); Monocytes # 1.3 10^3/uL (0.2-0.9); Monocytes % 6.1 %; Neutrophils # 17.82 10^3/uL (1.8-7.7); Neutrophils % 86.2 %; Nucleated Red Blood Cells % 0 %; Platelet Count 229 10^3/cmm (157-399); Red Cell Distribution Width 17.2 % (12.1-15.1); White Blood Count 20.68 10^3/uL (3.29-11.43)
[2023-03-14 04:24] LABS: Estmated Average Glucose 117; Hemoglobin A1C 5.7 % (4.0-6.0)
[2023-03-14 04:25] LABS: Alanine Aminotransferase 6 U/L (0-33); Albumin Level 2.6 g/dL (3.5-5.2); Alkaline Phosphatase 39 U/L (35-105); Anion Gap 16.9 (5-19); Aspartate Amino Transferase 17 U/L (0-32); Blood Urea Nitrogen 35 mg/dL (8-23); Calcium 8.1 mg/dL (8.5-10.5); Carbon Dioxide 24 mmol/L (22-29); Chloride 103 mmol/L (98-107); Globulin 2.2 g/dL (1.3-4.6); Glucose 127 mg/dL (65-115); Magnesium 2.4 mg/dL (1.7-2.3); Osmolality Calculated 300 mOsm/kg (285-295); Phosphorus 4.1 mg/dL (2.5-4.5); Potassium 3.9 mmol/L (3.5-5.1); Sodium 140 mmol/L (136-145); Total Protein 4.8 g/dL (6.6-8.7)
[2023-03-14 04:35] LABS: Chol HDL Ratio 1.91 mg/dL (0.0-4.40); Cholesterol 86 mg/dL (0-200); HDL Cholesterol 45 mg/dL (60-100); LDL Cholesterol Calculated 35 mg/dL (50-129); LDL HDL Ratio 0.78 RATIO (0.00-3.22); Triglycerides 32 mg/dL (0-150)
[2023-03-14 04:50] LABS: Folate Level 11.6 ng/mL (4.8-37.3)
[2023-03-14] MEDS: piperacillin-tazobactam 3.375 GM in sodium chloride 0.9% (plus) 50 ML IV ×3 (04:59→20:32)
--- NOTE | 2023-03-14 06:00 | USR_ITS ---
PROCEDURE INFORMATION: Exam: US Duplex Lower Extremity Veins, Bilateral Exam date and time: 03/14/2023 12:17 PM Age: 87 years old Clinical indication: Swelling (edema) of limb; Lower extremity, bilateral; Additional info: Possible dvt TECHNIQUE: Imaging protocol: Real-time duplex ultrasound of the bilateral extremities with 2-D [place] scale, color Doppler flow and spectral waveform analysis including responses to compression and other maneuvers (when performed) with image documentation. Complete exam focused on the lower extremity veins. COMPARISON: CT abdomen pelvis wo con [id number] 03/13/2023 5:43 PM FINDINGS: Veins: Patent without thrombus. Normal Doppler waveforms. Normal compressibility and/or augmentation response. US/CV venous duplex [facility] [id number] IMPRESSION: No evidence of deep vein thrombosis.
[2023-03-14] MEDS: carbidopa-levodopa 25-100mg Tablet 0.5 EACH PO ×2 (06:34→20:32)
[2023-03-14 07:23] LABS: Alanine Aminotransferase 6 U/L (0-33); Albumin Level 2.6 g/dL (3.5-5.2); Alkaline Phosphatase 38 U/L (35-105); Aspartate Amino Transferase 15 U/L (0-32); Blood Urea Nitrogen 39 mg/dL (8-23); Calcium 8.2 mg/dL (8.5-10.5); Carbon Dioxide 27 mmol/L (22-29); Chloride 103 mmol/L (98-107); Globulin 2.2 g/dL (1.3-4.6); Glucose 120 mg/dL (65-115); Osmolality Calculated 299 mOsm/kg (285-295); Sodium 139 mmol/L (136-145); Total Bilirubin 0.8 mg/dL (0.15-1.2); Total Protein 4.8 g/dL (6.6-8.7)
[2023-03-14] MEDS: carbidopa-levodopa 25-100mg Tablet 1.5 EACH PO ×2 (08:48→12:44)
[2023-03-14] MEDS: ropinirole 0.25 mg Tablet 0.5 MG PO ×3 (08:48→20:33)
[2023-03-14] MEDS: aspirin 81 mg EC Tablet PO (08:49)
[2023-03-14] MEDS: apixaban 5 mg Tablet 2.5 MG PO ×2 (08:49→17:41)
[2023-03-14] MEDS: sennosides-docusate Tablet 1 TAB PO ×2 (08:49→17:42)
[2023-03-14] MEDS: sodium chloride 0.9% 1,000 ML 75 ML IV (11:17)
--- NOTE | 2023-03-14 13:21 | PC.PHAR ---
pt states she has home health-pt states she doesnt know her medications pt states [facility]-medications entered are meds from what ext shows has been filled recently and what was on previously entered med list
[2023-03-14] MEDS: sodium chloride 0.9% 500 ML IV (13:59)
--- NOTE | 2023-03-14 15:38 | PM.PN ---
Subjective Subjective: patient states she feels slightly better. She still having multiple bowel movements, however thinks that the bowel movements now have some bulk. Leukocytosis up to 20. Creatinine up to 1.7. Afebrile Medications: Reviewed: Yes Vitals/I&O/Wt Last Vital Signs Temp 98.2 F 03/14/23 13:49 Pulse 74 03/14/23 13:49 Resp 18 03/14/23 13:49 BP 121/64 03/14/23 13:49 Pulse Ox 95 03/14/23 13:49 O2 Del Method Room Air 03/14/23 13:49 O2 Flow Rate 3 03/14/23 13:30 03/14/23 03/14/23 03/14/23 06:59 14:59 22:59 Intake Total 120 / 1170 1890 / 1890 1500 / 3390 Output Total Balance 119 / 1169 1890 / 1890 1500 / 3390 Weight last 48 hrs Weight 83.915 kg Weight 84.085 kg Weight 83.915 kg Weight 83.915 kg Physical Exam Narrative: General: No acute distress, AO x3 HEENT: PERRLA, pupils bilaterally equal and reactive, pallors not present Chest: Normal vesicular breath sounds, no added sounds, equal good air entry bilaterally CVS: S1-S2 regular, no murmurs, no tachycardia, no gallops, no rubs Abdomen: Soft, nontender, no organomegaly, bowel sounds present Neuro: No focal deficits, no facial deformity, AO x3, power 5/5 in all limbs Data 03/14/23 03:13 03/14/23 06:46 Micro: Microbiology 03/13/23 22:20 Stool Lactoferrin - Final Stool Occult Blood (FIT) - Final 03/13/23 22:31 Blood Culture - Preliminary Blood SPECIMEN COLLECTED 03/13/23 22:38 Blood Culture - Preliminary Blood SPECIMEN COLLECTED A&P Assessment and plan (1) Colitis: As seen on CT abdomen pelvis. Cannot rule out in setting of constipation leading to stercoral colitis. Patient does have leukocytosis. Cannot rule out C. difficile as patient was recently discharged from SNF. continue on IV fluids with normal saline at 75 cc/h. continue on Zosyn, check stool studies to rule out C. difficile, blood cultures. add po vancomycin presumptively while awaiting results due to high suspicion Given concerns for retained stool with constipation for now we will start on aggressive bowel regimen with senna/Colace and milk of magnesia. advance diet (2) Constipation: As above. Qualifiers: Constipation type: unspecified constipation type Qualified Code(s): K59.00 - Constipation, unspecified (3) Acute kidney injury: Most likely in setting of dehydration along with home use of Lasix and lisinopril. Medical reconciliation done for nephrotoxic drugs. Hold off on lisinopril. IV fluids as above. Strict input output charting, daily weights. Monitor BMP daily for now. Plan Continue other chronic medications. It seems patient is also on Eliquis 2.5 mg twice daily. Does not have any history of PE, DVT or A-fib. EKG shows normal sinus rhythm. High likelihood that Eliquis is started postoperatively for DVT prevention post-ORIF. For now we will continue with Eliquis while we rule out DVT with lower limb Dopplers and check D-dimer. If both negative most likely can stop Eliquis. Clear liquid diet Eliquis for now will suffice as DVT prophylaxis Protonix for PUD prophylaxis. Attestations Medical Necessity Statement*: continuing need for iv hydration and iv abx Coding Level of Care Code Acute Code for Chg Fwd Moderate MDM includes number and complexity of problems actively addressed during encounter, amount and/or complexity of data reviewed/ordered and described risk of complication, morbidity or mortality of management as documented Diagnoses Colitis K52.9 Constipation K59.00 Constipation type: unspecified constipation type Acute kidney injury N17.9
[2023-03-14] MEDS: vancomycin 125 mg Capsule PO ×2 (16:51→21:19)
[2023-03-14] MEDS: atorvastatin 40 mg Tablet 20 MG PO (17:41)
[2023-03-14] MEDS: pantoprazole 40 mg SDV IVP (20:15)
[2023-03-15] VITALS (9 sets, daily range): BP systolic 129–156; BP diastolic 65–82; PULSE 70–81; RESP 14–20; TEMP 36.5–36.8; O2SAT 93–97
[2023-03-15] MEDS: sodium chloride 0.9% 1,000 ML 75 ML IV ×2 (00:23→13:42)
[2023-03-15] MEDS: vancomycin 125 mg Capsule PO ×4 (03:10→21:10)
[2023-03-15] MEDS: piperacillin-tazobactam 3.375 GM in sodium chloride 0.9% (plus) 50 ML IV ×3 (04:27→20:54)
[2023-03-15] MEDS: carbidopa-levodopa 25-100mg Tablet 0.5 EACH PO ×2 (05:22→20:53)
[2023-03-15] MEDS: ropinirole 0.25 mg Tablet 0.5 MG PO ×3 (10:14→20:53)
[2023-03-15] MEDS: sennosides-docusate Tablet 1 TAB PO (10:15)
[2023-03-15] MEDS: carbidopa-levodopa 25-100mg Tablet 1.5 EACH PO ×2 (10:16→13:43)
--- NOTE | 2023-03-15 12:24 | PC.SOCIAL ---
Pg 2 IMM Explained to pt Pg 2 IMM. No questions voiced. Provided pt a copy. Initialed, dated, & timed a copy & placed in chart.
[2023-03-15 13:49] LABS: Clostridium Difficile PCR NOT DETECTED (NOT DETECTED)
--- NOTE | 2023-03-15 14:38 | P.PN_ITS ---
Subjective Subjective: Additional bloody appearing liquid BM this morning. Feels intermittent gassy discomfort around epigastrium, cramping. Vitals/I&O/Wt Last Vital Signs Temp 98.0 F 03/15/23 12:00 Pulse 74 03/15/23 12:00 Resp 20 H 03/15/23 12:00 BP 149/65 03/15/23 12:00 Pulse Ox 94 03/15/23 12:00 O2 Del Method Room Air 03/15/23 12:00 O2 Flow Rate 3 03/14/23 13:30 03/14/23 03/15/23 03/15/23 22:59 06:59 14:59 Intake Total 2030 / 3920 1152.5 / 5072.5 1625 / 1625 Output Total 500 / 500 Balance 1530 / 3420 1152.5 / 4572.5 1625 / 1625 Weight last 48 hrs Weight 83.915 kg Weight 84.085 kg Weight 83.915 kg Weight 83.915 kg Physical Exam Narrative: Sitting up in bed with PT. Const: COMMON NORMALS: patient oriented x3 and alert GENERAL APPEARANCE: cooperative ORIENTATION/CONSCIOUSNESS: Yes awake HENMT: COMMON NORMALS: oropharynx normal Neck/C-Spine: COMMON NORMALS: no JVD Resp: COMMON NORMALS: normal respiratory effort and clear to auscultation bilaterally AUSCULTATION: clear to auscultation bilaterally Cardio: COMMON NORMALS: no JVD, regular rhythm, S1 normal heart sound present, S2 normal heart sound present and No murmurs present (Cardio) RHYTHM: regular rhythm HEART SOUNDS: S1 normal heart sound present and S2 normal heart sound present GI: COMMON NORMALS: Normal to inspection, nondistended, normoactive bowel sounds present and Soft to palpation PALPATION: Yes Soft to palpation Extremity: COMMON NORMALS: no joint enlargement and no pedal edema Neuro: COMMON NORMALS: patient oriented x3 and moves all extremities SENSORIUM/ORIENTATION: Yes alert Skin: COMMON NORMALS: no rashes or lesions noted GENERAL SKIN EXAM: no rashes or lesions noted Data 03/14/23 03:13 03/14/23 06:46 Micro: Microbiology 03/13/23 22:38 Blood Culture - Preliminary Blood NEGATIVE TO DATE 03/13/23 22:31 Blood Culture - Preliminary Blood NEGATIVE TO DATE A&P Assessment and plan (1) Colitis: Additional bloody BM today. Some cramping, gassy discomfort in upper abdomen. No perforation noted on review of CT. No suspected perforation. May try some simethicone, Tylenol for symptoms. Reviewed stool studies, noted sent for ova and parasite, C. difficile. Noted positive lactoferrin and Hemoccult. For now continues on empiric oral vancomycin. Continue empiric coverage with Zosyn. Continue IV hydration. Discussed with her as she is still symptomatic, still bloody bowel movements, discharge for now is deferred. She is agreeable to continue. We will reassess on a daily basis. Discussed with case aide. Follow-up hemoglobin this afternoon and morning CBC requested due to risk of anemia. Possible stercoral colitis. With recurrent hematochezia Eliquis held. (2) Constipation: Constipation with possible stercoral colitis. Increase Senokot to 2 tablets. As above bowel regimen, empiric antibiotic. Qualifiers: Constipation type: unspecified constipation type Qualified Code(s): K59.00 - Constipation, unspecified (3) Acute kidney injury: Follow-up chemistry requested. Hold Lasix and lisinopril. IV fluids as above. Strict input output charting, daily weights. Plan Continue other chronic medications. It seems patient is also on Eliquis 2.5 mg twice daily. Does not have any history of PE, DVT or A-fib. EKG shows normal sinus rhythm. High likelihood that Eliquis is started postoperatively for DVT prevention post-ORIF. With regard hematochezia Eliquis held, lower extremity duplex negative for DVT, although on review D-dimer noted normal at 14.05. Suspect related to colitis. SCD for DVT prophylaxis. Clear liquid diet Attestations Medical Necessity Statement*: Continue admission for assessment management of colitis, hematochezia. Diagnoses Colitis K52.9 Constipation K59.00 Constipation type: unspecified constipation type Acute kidney injury N17.9
[2023-03-15 15:33] LABS: Hematocrit 29.7 % (36-47)
[2023-03-15] MEDS: sennosides-docusate Tablet 2 TAB PO (17:57)
[2023-03-15] MEDS: ondansetron 2 mg/ML SDV 2 mL 4 MG IVP (17:57)
[2023-03-15] MEDS: simethicone 40 mg/0.6 mL Bottle 30mL PO (17:57)
[2023-03-15] MEDS: atorvastatin 40 mg Tablet 20 MG PO (17:57)
[2023-03-15] MEDS: acetaminophen 325 mg Tablet 650 MG PO (17:58)
[2023-03-15] MEDS: pantoprazole 40 mg SDV IVP (20:53)
[2023-03-16] VITALS (7 sets, daily range): BP systolic 146–186; BP diastolic 70–80; PULSE 65–82; RESP 16–20; TEMP 36.7–37.4; O2SAT 94–97
[2023-03-16] MEDS: sodium chloride 0.9% 1,000 ML 75 ML IV (02:31)
[2023-03-16] MEDS: vancomycin 125 mg Capsule PO (04:23)
[2023-03-16] MEDS: piperacillin-tazobactam 3.375 GM in sodium chloride 0.9% (plus) 50 ML IV ×3 (04:23→20:26)
[2023-03-16 05:34] LABS: Basophils % 0.5 %; Eosinophils # 0.3 10^3/uL (0.0-0.8); Eosinophils % 3.5 %; Hematocrit 28.1 % (36-47); Lymphocytes # 1.3 10^3/uL (0.8-4.8); Mean Corpuscular Hemoglobin 26.8 pg (27-33); Mean Corpuscular Volume 86.5 fl (85-98); Mean Platelet Volume 11.9 fL (7.4-10.4); Monocytes # 0.4 10^3/uL (0.2-0.9); Monocytes % 4.7 %; Neutrophils # 6.36 10^3/uL (1.8-7.7); Neutrophils % 75.9 %; Nucleated Red Blood Cells % 0 %; Platelet Count 178 10^3/cmm (157-399); Red Blood Count 3.25 10^6/uL (3.85-5.65); Red Cell Distribution Width 17.1 % (12.1-15.1); White Blood Count 8.36 10^3/uL (3.29-11.43)
[2023-03-16] MEDS: carbidopa-levodopa 25-100mg Tablet 0.5 EACH PO ×2 (05:49→20:25)
[2023-03-16 06:27] LABS: Anion Gap 13.1 (5-19); Blood Urea Nitrogen 14 mg/dL (8-23); Calcium 8.2 mg/dL (8.5-10.5); Carbon Dioxide 24 mmol/L (22-29); Chloride 108 mmol/L (98-107); Creatinine Clr Calc Pharmacy 55.0011; Glucose 104 mg/dL (65-115); Osmolality Calculated 295 mOsm/kg (285-295); Potassium 3.1 mmol/L (3.5-5.1); Sodium 142 mmol/L (136-145)
[2023-03-16] MEDS: ropinirole 0.25 mg Tablet 0.5 MG PO ×3 (08:45→20:25)
[2023-03-16] MEDS: carbidopa-levodopa 25-100mg Tablet 1.5 EACH PO ×2 (08:45→14:08)
[2023-03-16] MEDS: sennosides-docusate Tablet 2 TAB PO ×2 (08:45→18:34)
[2023-03-16] MEDS: simethicone 40 mg/0.6 mL Bottle 30mL PO ×2 (08:46→14:07)
[2023-03-16] MEDS: ondansetron 2 mg/ML SDV 2 mL 4 MG IVP ×2 (08:46→18:34)
--- NOTE | 2023-03-16 09:41 | PC.CHAP ---
Pastoral Care Encounter/Spiritual Assessment Type of Contact [] Declined adjunct latin professor visit [] Patient/Family/Request visit [] Outpatient visit [] Follow-up visit [] Physician referral [] Code/Alert [] Routine visit [] Staff referral [] Actively dying [] Patient sleeping [] Family support [] [] Out of room [] Palliative care [] [x] Receiving care in room [] Pre-surgical visit [] Trauma [] Long length of stay [] ICU visit [] Other: Relational/Emotional Strength [] Patient feels connected with others/family/visitors/staff [] Distress [] Loneliness/isolation [] Abandonment Spirituality of Patient [] Person of Mabel [] Attends Moravian of their Mabel [] Believes in Prayer [] Reads Bible or Voodoo materials [] There are Spiritual issues to be addressed Sieve Maker Interventions [] Prayer [] Active listening [] Non-anxious presence [] Spiritual/emotional support [] Crisis/trauma care [] Spiritual counseling [] Bereavement support [] Provided bereavement packet [] Provided Bible/devotional materials [] Provided toy/stuffed animal, coloring book to patient or family member [] Provided Communion [] Anointing/Antonito [] Salvation [] Completed spiritual assessment [] Other: Impact on Illness or Injury [] Angry [] Fearful [] Anxious [] Often cries [] Exhaustion [] Unable to work [] Unable to attend sabianist [] Unable to walk/stand [] Unable to read [] Unable to drive [] Unable to eat/drink [] Unable to sleep [] Unable to be with family [] Patient intubated [] Other: Summary Time spent with patient
--- NOTE | 2023-03-16 14:54 | P.PN_ITS ---
Subjective Subjective: Additional bowel movement with blood this morning. Denies other change in symptoms. Vitals/I&O/Wt Last Vital Signs Temp 98.5 F 03/16/23 12:00 Pulse 65 03/16/23 12:00 Resp 20 H 03/16/23 12:00 BP 172/70 03/16/23 12:00 Pulse Ox 94 03/16/23 12:00 O2 Del Method Room Air 03/16/23 12:00 O2 Flow Rate 3 03/14/23 13:30 03/15/23 03/16/23 03/16/23 22:59 06:59 14:59 Intake Total 290 / 5 1411.25 / 3326.25 290 / 290 Balance 290 / 1915 1411.25 / 3326.25 290 / 290 Weight last 48 hrs Weight 83.915 kg Weight 83.915 kg Weight 83.915 kg Physical Exam Narrative: Sitting up in bed with PT. Const: COMMON NORMALS: patient oriented x3 and alert GENERAL APPEARANCE: cooperative ORIENTATION/CONSCIOUSNESS: Yes awake HENMT: COMMON NORMALS: oropharynx normal Neck/C-Spine: COMMON NORMALS: no JVD Resp: COMMON NORMALS: normal respiratory effort and clear to auscultation bilaterally AUSCULTATION: clear to auscultation bilaterally Cardio: COMMON NORMALS: no JVD, regular rhythm, S1 normal heart sound present, S2 normal heart sound present and No murmurs present (Cardio) RHYTHM: regular rhythm HEART SOUNDS: S1 normal heart sound present and S2 normal heart sound present GI: COMMON NORMALS: Normal to inspection, nondistended, normoactive bowel sounds present and Soft to palpation PALPATION: Yes Soft to palpation Extremity: COMMON NORMALS: no joint enlargement and no pedal edema Neuro: COMMON NORMALS: patient oriented x3 and moves all extremities SENSORIUM/ORIENTATION: Yes alert Skin: COMMON NORMALS: no rashes or lesions noted GENERAL SKIN EXAM: no rashes or lesions noted Data 03/16/23 04:46 03/16/23 04:46 A&P Assessment and plan (1) Colitis: Additional BM with blood and then this morning. They appear to be possibly becoming less frequent but still persistent. Discussed with her stool studies still pending. Reassessment hemoglobin reviewed. Recent platelets reviewed. Repeat CBC requested. C. difficile reviewed, noted negative. Stop vancomycin. She seems to be getting some relief from simethicone, continue. No perforation noted on review of CT. Stop IVF. Discussed with her as she is still symptomatic, still bloody bowel movements, discharge for now is deferred. She is agreeable to continue. We will reassess on a daily basis. Possible stercoral colitis. With recurrent hematochezia Eliquis held. Discussed with case management and rounds. (2) Constipation: Constipation with possible stercoral colitis. Continue Senokot. As above bowel regimen, empiric antibiotic. Qualifiers: Constipation type: unspecified constipation type Qualified Code(s): K59.00 - Constipation, unspecified (3) Acute kidney injury: Follow-up chemistry reviewed, DENA resolved. Hold Lasix and lisinopril. IV fluids as above. Strict input output charting, daily weights. Plan Hypokalemia: Mild hypokalemia, 3.1. Give potassium replacement. Recheck chemistry. Continue other chronic medications. It seems patient is also on Eliquis 2.5 mg twice daily. Does not have any history of PE, DVT or A-fib. EKG shows normal sinus rhythm. High likelihood that Eliquis is started postoperatively for DVT prevention post-ORIF. With regard hematochezia Eliquis held, lower extremity duplex negative for DVT, although on review D-dimer noted normal at 14.05. Suspect related to colitis. SCD for DVT prophylaxis. Mechanical soft diet Attestations Medical Necessity Statement*: Continue admission for assessment management of persistent colitis, hematoch ezia. Diagnoses Colitis K52.9 Constipation K59.00 Constipation type: unspecified constipation type Acute kidney injury N17.9
[2023-03-16] MEDS: potassium chloride oral liq 20 mEq/15 mL UDC 40 MEQ PO (18:34)
[2023-03-16] MEDS: atorvastatin 40 mg Tablet 20 MG PO (18:35)
[2023-03-16] MEDS: pantoprazole 40 mg SDV IVP (20:34)
[2023-03-17] VITALS: BP 177/83; PULSE 82; RESP 18; TEMP 37.1; O2SAT 96
[2023-03-17 03:11] VITALS: BP 182/95; PULSE 85; RESP 16; TEMP 36.8; O2SAT 95
[2023-03-17] MEDS: piperacillin-tazobactam 3.375 GM in sodium chloride 0.9% (plus) 50 ML IV (05:40)
[2023-03-17] MEDS: carbidopa-levodopa 25-100mg Tablet 0.5 EACH PO (05:41)
[2023-03-17 06:23] LABS: Basophils # 0.1 10^3/uL (0.0-0.1); Basophils % 0.6 %; Eosinophils # 0.3 10^3/uL (0.0-0.8); Eosinophils % 3.3 %; Hematocrit 32.6 % (36-47); Lymphocytes # 1.5 10^3/uL (0.8-4.8); Lymphocytes % 18.7 %; Mean Corpuscular HGB Conc 30.7 g/dL (30-55); Mean Corpuscular Hemoglobin 26.7 pg (27-33); Mean Corpuscular Volume 86.9 fl (85-98); Monocytes # 0.4 10^3/uL (0.2-0.9); Monocytes % 4.9 %; Neutrophils # 5.63 10^3/uL (1.8-7.7); Nucleated Red Blood Cells % 0 %; Platelet Count 210 10^3/cmm (157-399); Red Blood Count 3.75 10^6/uL (3.85-5.65); White Blood Count 7.82 10^3/uL (3.29-11.43)
[2023-03-17 06:43] LABS: Anion Gap 13.5 (5-19); Blood Urea Nitrogen 9 mg/dL (8-23); Calcium 8.9 mg/dL (8.5-10.5); Carbon Dioxide 26 mmol/L (22-29); Chloride 105 mmol/L (98-107); Creatinine Clr Calc Pharmacy 55.0011; Glucose 102 mg/dL (65-115); Osmolality Calculated 291 mOsm/kg (285-295); Potassium 3.5 mmol/L (3.5-5.1); Sodium 141 mmol/L (136-145)
[2023-03-17 08:00] VITALS: BP 157/83; PULSE 78; RESP 14; TEMP 36.7; O2SAT 98
[2023-03-17] MEDS: ropinirole 0.25 mg Tablet 0.5 MG PO (10:08)
[2023-03-17] MEDS: aspirin 81 mg EC Tablet PO (10:08)
[2023-03-17] MEDS: carbidopa-levodopa 25-100mg Tablet 1.5 EACH PO ×2 (10:09→13:36)
--- NOTE | 2023-03-17 11:14 | PC.CHAP ---
Pastoral Care Encounter/Spiritual Assessment Type of Contact [] Declined concrete foreman visit [] Patient/Family/Request visit [] Outpatient visit [] Follow-up visit [] Physician referral [] Code/Alert [] Routine visit [x] Staff referral [] Actively dying [] Patient sleeping [] Family support [] [] Out of room [] Palliative care [] [] Receiving care in room [] Pre-surgical visit [] Trauma [] Long length of stay [] ICU visit [] Other: Relational/Emotional Strength [x] Patient feels connected with others/family/visitors/staff [] Distress [] Loneliness/isolation [] Abandonment Spirituality of Patient [] Person of Mabel [] Attends Restorationist of their Mabel [x] Believes in Prayer [] Reads Bible or Baptism materials [] There are Spiritual issues to be addressed Roads Superintendent Interventions [x] Prayer [x] Active listening [] Non-anxious presence [] Spiritual/emotional support [] Crisis/trauma care [] Spiritual counseling [] Bereavement support [] Provided bereavement packet [] Provided Bible/devotional materials [] Provided toy/stuffed animal, coloring book to patient or family member [] Provided Communion [] Anointing/Ava [] Salvation [] Completed spiritual assessment [] Other: Impact on Illness or Injury [] Angry [] Fearful [] Anxious [] Often cries [] Exhaustion [] Unable to work [] Unable to attend episcopalian [] Unable to walk/stand [] Unable to read [] Unable to drive [] Unable to eat/drink [] Unable to sleep [] Unable to be with family [] Patient intubated [] Other: Summary Time spent with patient 15 min
[2023-03-17 12:00] VITALS: PULSE 82; RESP 16; TEMP 36.4; O2SAT 94
--- NOTE | 2023-03-17 12:05 | PC.SOCIAL ---
IMM Update Updated pt on IMM. No questions voiced. Provided pt a copy. Initialed, dated, & timed copy in chart.
--- NOTE | 2023-03-17 13:32 | PM.DCS ---
Discharge Providers Date of Admission: 03/13/23 19:31 Date of Discharge: March 17, 2023 Attending Provider at Admission: Porfirio Fuentes MD Attending Provider at Discharge: Stewart Lopez Primary Care Provider: Trev Severino MD Diagnoses at Discharge Discharge Diagnosis (1) Colitis: Status: Acute (2) Constipation: Status: Acute Qualifiers: Constipation type: unspecified constipation type Qualified Code(s): K59.00 - Constipation, unspecified (3) Acute kidney injury: Status: Acute Reason for Visit Reason for Visit: SYNCOPE Hospital Course Hospital Course Pleasant 87-year-old lady with recent history of hip fracture status post ORIF, was on anticoagulation with Eliquis recently discharged from SNF has been experiencing constipation, was admitted after having multiple bowel movements after taking a laxative, felt weak, as well as with episodes of nausea and vomiting. During hospitalization with hematochezia, loose stools, CT abdomen pelvis with findings of colitis and distal colorectal fecal retention. She was started on empiric antibiotic coverage with concern for possibility of infectious colitis with Zosyn, although with consideration of possible stercoral colitis bowel regimen was escalated as well. Stool studies were sent out, but have not been available, still pending. Eliquis was discontinued due to multiple bowel movements with hematochezia. These have gradually improved, with only minimal/intermittent small amount of hematochezia mixed in the stool. She is overall feeling better, and requested discharge home. Discussed with her that studies are not yet available and there is still possibility of infectious colitis, or other type of colitis including possible stercoral colitis. Constipation has resolved. Discussed with her to avoid constipation, continue bowel regimen. She will complete antibiotic course. Please follow-up with her for resolution of colitis. Follow-up blood count to reassess for anemia. On presentation also with acute kidney injury, she is asked to discontinue NSAID, Lasix were held in the hospital, are stopped for now as she does not appear fluid overloaded, please reassess volume status. Lisinopril was held in the hospital, as renal function has so far stabilized, lisinopril was restarted. Avoid NSAIDs. Given multiple episodes of hematochezia in the hospital Eliquis has been discontinued, please reassess whether she needs to be restarted anymore as it seems to have been only for DVT prophylaxis following hip fracture repair. Physical Exam Narrative: Sitting up in chair, having lunch. Const: COMMON NORMALS: patient oriented x3 and alert GENERAL APPEARANCE: cooperative ORIENTATION/CONSCIOUSNESS: Yes awake HENMT: COMMON NORMALS: oropharynx normal Neck/C-Spine: COMMON NORMALS: no JVD Resp: COMMON NORMALS: normal respiratory effort and clear to auscultation bilaterally AUSCULTATION: clear to auscultation bilaterally Cardio: COMMON NORMALS: no JVD, regular rhythm, S1 normal heart sound present, S2 normal heart sound present and No murmurs present (Cardio) RHYTHM: regular rhythm HEART SOUNDS: S1 normal heart sound present and S2 normal heart sound present GI: COMMON NORMALS: Normal to inspection, nondistended, normoactive bowel sounds present and Soft to palpation PALPATION: Yes Soft to palpation Extremity: COMMON NORMALS: no joint enlargement and no pedal edema Neuro: COMMON NORMALS: patient oriented x3 and moves all extremities SENSORIUM/ORIENTATION: Yes alert Skin: COMMON NORMALS: no rashes or lesions noted GENERAL SKIN EXAM: no rashes or lesions noted Discharge Data Studies Completed and Pending Completed Studies During Hospitalization Category Date Time Status CT abdomen pelvis wo con [id number] Stat Cat Scan 03/13/23 17:[address] head wo con* [id number] Stat Cat Scan 03/13/23 16:38 Completed XR chest 1V portable [id number] Stat Exams 03/13/23 16:38 [place] [id number] Routine Ultrasound 03/14/23 06:00 Completed Pending at discharge Category Date Time Status Basic Metabolic Panel AM LABS Lab 03/18/23 04:00 Ordered Blood Culture Stat Lab 03/13/23 22:31 Results Complete Blood Count w/Auto AM LABS Lab 03/18/23 04:00 Ordered OVA and Parasites, Conc and PE Routine Lab 03/13/23 22:20 Received Salmonella / Shigella / Campy Routine Lab 03/13/23 22:20 Received Urine Creatinine Routine Lab 03/14/23 04:53 Ordered Urine Eosinophils Routine Lab 03/14/23 04:53 Ordered Urine Lytes [Urine Random Lytes] Stat Lab 03/14/23 04:53 Ordered Radiology Impressions Chest X-Ray 03/13/23 16:38 IMPRESSION: Peribronchial cuffing which can be seen with small airways disease/bronchitis. No focal consolidation. Head CT 03/13/23 16:38 IMPRESSION: No acute intracranial abnormality. Chronic white matter and senescent changes. Abdomen/Pelvis CT 03/13/23 17:38 IMPRESSION: Findings of colitis and distal colorectal fecal retention. Venous Duplex 03/14/23 06:00 IMPRESSION: No evidence of deep vein thrombosis. Laboratory Results WBC 7.82 10^3/uL (3.29-11.43) 03/17/23 05:55 RBC 3.75 10^6/uL (3.85-5.65) L 03/17/23 05:55 Hgb 10.00 g/dL (11.27-16.99) L 03/17/23 05:55 Hct 32.6 % (36-47) L 03/17/23 05:55 MCV 86.9 fl (85-98) 03/17/23 05:55 MCH 26.7 pg (27-33) L 03/17/23 05:55 MCHC 30.7 g/dL (30-55) 03/17/23 05:55 RDW 17.0 % (12.1-15.1) H 03/17/23 05:55 Plt Count 210 10^3/cmm (157-399) 03/17/23 05:55 MPV 11.0 fL (7.4-10.4) H 03/17/23 05:55 Neut % (Auto) 72.0 % 03/17/23 05:55 Lymph % (Auto) 18.7 % 03/17/23 05:55 [place] % (Auto) 4.9 % 03/17/23 05:55 Eos % (Auto) 3.3 % 03/17/23 05:55 Baso % (Auto) 0.6 % 03/17/23 05:55 Neut # (Auto) 5.63 10^3/uL (1.8-7.7) 03/17/23 05:55 Lymph # (Auto) 1.5 10^3/uL (0.8-4.8) 03/17/23 05:55 [place] # (Auto) 0.4 10^3/uL (0.2-0.9) 03/17/23 05:55 Eos # (Auto) 0.3 10^3/uL (0.0-0.8) 03/17/23 05:55 Baso # (Auto) 0.1 10^3/uL (0.0-0.1) 03/17/23 05:55 Nucleated RBC % (auto) 0 % 03/17/23 05:55 Nucleated RBCs # 0.0 /100WBC 03/17/23 05:55 PT 15.30 SECONDS (12.1-14.9) H 03/13/23 16:23 INR 1.17 (0.8-1.2) 03/13/23 16:23 D-Dimer 14.05 ug/mLFEU (0-0.59) H 03/13/23 22:38 Sodium 141 mmol/L (136-145) 03/17/23 05:55 Potassium 3.5 mmol/L (3.5-5.1) 03/17/23 05:55 Chloride 105 mmol/L (98-107) 03/17/23 05:55 Carbon Dioxide 26 mmol/L (22-29) 03/17/23 05:55 Anion Gap 13.5 (5-19) 03/17/23 05:55 BUN 9 mg/dL (8-23) 03/17/23 05:55 Creatinine 0.7 mg/dL (0.5-0.9) 03/17/23 05:55 GFR Calculation Not Reportable 03/17/23 05:55 Glucose 102 mg/dL (65-115) 03/17/23 05:55 Estimat Average Glucose 117 03/14/23 03:13 Hemoglobin A1c 5.7 % (4.0-6.0) 03/14/23 03:13 Calculated Osmolality 291 mOsm/kg (285-295) 03/17/23 05:55 Lactic Acid 2.4 mmol/L (0.5-2.2) H 03/13/23 19:49 Lactic Acid (Sepsis) 2.3 mmol/L (0.5-2.2) H 03/13/23 22:38 Calcium 8.9 mg/dL (8.5-10.5) 03/17/23 05:55 Phosphorus 4.1 mg/dL (2.5-4.5) 03/14/23 03:13 Magnesium 2.4 mg/dL (1.7-2.3) H 03/14/23 03:13 Iron 31 ug/dL (37-145) L 03/13/23 19:13 TIBC 227 mcg/dl 03/13/23 19:13 % Saturation 13.6 % (20-50) L 03/13/23 19:13 Unsat Iron Binding 196 ug/dL (112-347) 03/13/23 19:13 Total Bilirubin 0.8 mg/dL (0.15-1.2) 03/14/23 06:46 AST 15 U/L (0-32) 03/14/23 06:46 ALT 6 U/L (0-33) 03/14/23 06:46 Alkaline Phosphatase 38 U/L (35-105) 03/14/23 06:46 Troponin T Baseline 23 ng/L (0-10) H 03/13/23 16:23 Troponin T 120 Minute 25.39 ng/L (0-10) H 03/13/23 18:13 Delta Troponin T 2.39 ABS# (0-10) 03/13/23 18:13 Troponin T Hi Sens 6Hr 29.24 ng/L (0-10) H 03/13/23 22:38 Troponin T Hi Sens 6Hr Delta 6.24 ng/L (0-12) 03/13/23 22:38 Total Protein 4.8 g/dL (6.6-8.7) L 03/14/23 06:46 Albumin 2.6 g/dL (3.5-5.2) L 03/14/23 06:46 Globulin 2.2 g/dL (1.3-4.6) 03/14/23 06:46 Triglycerides 32 mg/dL (0-150) 03/14/23 03:13 Cholesterol 86 mg/dL (0-200) 03/14/23 03:13 LDL Cholesterol, Calc 35 mg/dL (50-129) L 03/14/23 03:13 HDL Cholesterol 45 mg/dL (60-100) L 03/14/23 03:13 LDL/HDL Ratio 0.78 RATIO (0.00-3.22) 03/14/23 03:13 Cholesterol/HDL Ratio 1.91 mg/dL (0.0-4.40) 03/14/23 03:13 Vitamin B12 > 2000 pg/mL (232-1245) H 03/13/23 19:13 Folate 11.6 ng/mL (4.8-37.3) 03/14/23 03:13 Procalcitonin 1.47 ng/mL (0-0.5) H 03/13/23 18:13 TSH 5.75 uIU/mL (0.27-4.20) H 03/13/23 19:13 Free T4 1.40 ng/dL (0.82-1.77) 03/13/23 22:38 Free T3 1.6 PG/ML (2.0-4.4) L 03/13/23 22:38 Urine Color [place] (Yellow) 03/13/23 19:31 Urine Appearance Clear (CLEAR) 03/13/23 19:31 Urine pH 8 (5-7) H 03/13/23 19:31 Ur Specific [place] 1.005 (1.005-1.030) 03/13/23 19:31 Urine Protein 1+ (Negative) H 03/13/23 19:31 Urine Glucose (UA) Norm (Normal) 03/13/23 19:31 Urine Ketones 1+ (Negative) H 03/13/23 19:31 Urine Blood 2+ (Negative) H 03/13/23 19:31 Urine Nitrate Negative (Negative) 03/13/23 19:31 Urine Bilirubin Neg (Negative) 03/13/23 19:31 Prot Sulfosalicylic Acd Negative (Negative) 03/13/23 19:31 Urine Urobilinogen 1 mg/dL (Negative) H 03/13/23 19:31 Ur Leukocyte Esterase Negative (Negative) 03/13/23 19:31 Urine RBC 0-4 /hpf (0-2) H 03/13/23 19:31 Urine WBC Rare /hpf (0-5) 03/13/23 19:31 Ur Squamous Epith Cells 0-4 /hpf (0-5) H 03/13/23 19:31 Amorphous Sediment 2+ /hpf 03/13/23 19:31 Urine Bacteria Trace /hpf (NONE) 03/13/23 19:31 C. difficile Tox (PCR) Not detected (NOT DETECTED) 03/13/23 22:20 Vitals Last Vital Signs Temp 97.6 F 03/17/23 12:00 Pulse 82 03/17/23 12:00 Resp 16 03/17/23 12:00 BP 157/83 03/17/23 08:00 Pulse Ox 94 03/17/23 12:00 O2 Del Method Room Air 03/17/23 12:00 O2 Flow Rate 3 03/14/23 13:30 Discharge Plan Discharge Patient Disposition: Home Condition: Stable Prescriptions: New Stool Softener-Laxative 8.6-50 mg Tablet 2 tab PO BID Qty: 180 0RF Infants Simethicone 40 mg/0.6 mL Drops,Suspension 40 mg PO QID PRN (Reason: Flatulence) Qty: 30 0RF bisacodyl 5 mg Tablet,Delayed Release (Dr/Ec) 10 mg PO DAILY PRN (Reason: Constipation (see protocol)) Qty: 30 3RF Cipro 500 mg tablet 500 mg PO BID Qty: 10 0RF metronidazole 500 mg tablet 500 mg PO Q8H 5 Days Qty: 15 0RF Continued atorvastatin 20 mg tablet 20 mg PO QPM cholecalciferol (vitamin D3) 25 mcg (1,000 unit) capsule 25 mcg PO BID Healthy Eyes Lutein-Zeaxanthin 60 mg-13.5 mg- 15 mg-2 mg-6 mg capsule 1 cap PO DAILY galantamine 4 mg tablet 4 mg PO BID 90 Days Qty: 180 3RF Rx Instructions: administer with AM and PM meals carbidopa-levodopa 25-100 mg tablet See Rx Instructions .ROUTE .COMPLEX Qty: 120 5RF Dose Instruction: TAKE 1/2 TABLET BY MOUTH ON WAKING, 1 & 1/2 TABLETS AT 9AM AND 1:00PM, AND 1/2 TABLET AT BEDTIME Rx Instructions: TAKE 1/2 TABLET BY MOUTH ON WAKING, 1 & 1/2 TABLETS AT 9AM AND 1:00PM, AND 1/2 TABLET AT BEDTIME ropinirole 0.5 mg tablet 0.5 mg PO TID Qty: 90 3RF biotin 800 mcg Tablet 800 mcg PO DAILY ondansetron 4 mg tablet,disintegrating 4 mg PO Q8H PRN (Reason: Nausea) aspirin 81 mg Tablet,Delayed Release (Dr/Ec) 81 mg PO DAILY omega 3-lib-zfr-fish oil 900-1,400 mg Capsule,Delayed Release(Dr/Ec) 1 cap PO BID lactulose 10 gram/15 mL (15 mL) solution 10 g PO DAILY PRN (Reason: constipation) Qty: 600 0RF tramadol 50 mg tablet 50 mg PO Q8H PRN (Reason: pain) Qty: 20 0RF lisinopril 5 mg tablet 5 mg PO DAILY potassium chloride 10 mEq tablet,ER particles/crystals 10 meq PO DAILY Discontinued nitrofurantoin monohyd/m-cryst 100 mg capsule 100 mg PO BID Rx Instructions: for 7 days (ext shows last filled 02/26/23) Eliquis 2.5 mg tablet 2.5 mg PO BID furosemide [Lasix] 20 mg tablet 20 mg PO DAILY celecoxib 200 mg capsule 200 mg PO BID Qty: 30 0RF Rx Instructions: do not take with ibuprofen or naproxen Discharge Orders: Discharge Order (Routine); Ordered 03/17/23 Ordered By: Stewart Lopez Other Ambulatory Orders: DME: Walker (Order) Location: None Selected Ordered By: Stewart Lopez Physical Therapy Eval and Treat Outpatient (Order) Timeframe: 3 Days Facility: [facility] - Location: Physical Therapy Ordered By: Stewart Lopez Referrals: Trev Severino MD [Primary Care Provider] - 03/23/23 2:25 pm Discharge Diet: As Directed Discharge Activity: Increase activity as tolerated Patient Instructions: Ciprofloxacin (By mouth), Simethicone (By mouth), Metronidazole (By mouth), Senna (By mouth), Acute Kidney Injury (GEN), How to Choose and Use a Walker (GEN), Colitis (ED), Opioid Safety Activity Restrictions/Additional Instructions: Follow-up with your primary doctor for reassessment of colitis, follow-up regarding pending stool studies, discussed possible stercoral colitis. Continue bowel regimen. Complete antibiotic course. Return to the hospital as discussed in case of any worsening or new concerning symptoms. Avoid constipation. Discontinue celecoxib and please avoid any NSAIDs. Please follow-up with your primary doctor for reassessment of kidney function after acute kidney injury was seen on presentation to the hospital and so far resolved. Hold Eliquis for now due to blood in stool, discussed with your primary doctor if it is necessary to restart the blood thinner and when to do so. Discharge Attestations Time Spent in Discharge Care*: greater than 30 min Quality Metrics Clinical Quality Measures [ No reported AMI, CVA or VTE this stay] Coding Level of Care Code 57522 Total time (in minutes) for Discharge: 40 Diagnoses Colitis K52.9 Constipation K59.00 Constipation type: unspecified constipation type Acute kidney injury N17.9
--- NOTE | 2023-03-17 13:43 | PC.NURSE ---
pt has consumed 8 full cups of coffee. educ pt on the effects of drinking that much coffee.
[2023-03-17 14:12] VITALS: PULSE 82; RESP 16; TEMP 36.4; O2SAT 94
== END 2023-03-17 14:12 | disposition home or self-care (01) | DRG 392 ==
LOC: ER 18:52 → MEDSURG 20:48
PROVIDERS: Family Medicine; Admitting Provider Student in an Organized Health Care Education/Training Program; Emergency Provider Emergency Medicine; PCP Family Medicine; Visit Provider Internal Medicine
DX: K52.89 Other specified noninfective gastroenteritis and colitis (principal); N17.9 Acute kidney failure, unspecified; K59.00 Constipation, unspecified; E86.0 Dehydration; E87.6 Hypokalemia; K21.9 Gastro-esophageal reflux disease without esophagitis; G20.A1 Parkinson's disease without dyskinesia, without mention of fluctuations; G25.81 Restless legs syndrome; D64.9 Anemia, unspecified; H90.5 Unspecified sensorineural hearing loss; Z79.01 Long term (current) use of anticoagulants
CPT/HCPCS: 36415; 70450; 71045; 74176; 80048; 80053; 80061; 81001; 82274; 82607; 82746; 83036; 83540; 83550; 83605; 83630; 83735; 84100; 84145; 84439; 84443; 84481; 84484; 85014; 85018; 85025; 85378; 85610; 87040; 87045; 87177; 87209; 87427; 87449; 87493; 92610; 93005; 93970; 94664; 96365; 97110; 97116; 97161; 97530; 99285; C9113; J2405; J2543; J7030; J7040

== ENCOUNTER → 2023-03-23 13:35 | Outpatient (BNVA) | payer MEDICARE, MEDICAID, SELFPAY | PROVIDERS: PCP Family Medicine; Visit Provider Physician Assistant | DX: Z96.641 Presence of right artificial hip joint (principal); M75.42 Impingement syndrome of left shoulder | CPT/HCPCS: 73030; 73502; 99213 ==

== ENCOUNTER 2023-07-02 18:34 | Emergency (ER) | payer MEDICARE, MEDICAID, SELFPAY ==
[2023-07-02 18:35] VITALS: BP 185/95; PULSE 69; RESP 18; TEMP 36.8; O2SAT 98; BMI 29.7
--- NOTE | 2023-07-02 18:45 | XRR_ITS ---
PROCEDURE INFORMATION: Exam: XR Left Wrist Exam date and time: 07/02/2023 6:52 PM Age: 87 years old Clinical indication: Left; Patient HX: Lt wrist pain/swelling post foosh TECHNIQUE: Imaging protocol: Radiologic exam of the left wrist. Views: 3 or more views. COMPARISON: No relevant prior studies available. FINDINGS: Bones/joints: Angulated, dorsally displaced and impacted fracture of the distal left radial metaphysis. Severe degenerative changes at the 1st carpometacarpal joint. Bones are osteopenic. Soft tissues: Normal. XR/XR wrist LT min 3V* [id number] IMPRESSION: 1. Angulated, dorsally displaced and impacted fracture of the distal left radial metaphysis. Avulsion fracture of the left ulnar styloid. 2. Severe degenerative changes at the 1st carpometacarpal joint.
--- NOTE | 2023-07-02 18:48 | ED_ITS ---
HPI - Extremity Problem General: Chief complaint: Extremity Injury, Upper Stated complaint: left wrist pain Time Seen by Provider: 07/02/23 18:35 Source: patient Mode of arrival: ambulatory Limitations: no limitations History of Present Illness: 87-year-old female states that she fell yesterday she states she has frequent falls because she has Parkinson's states she landed on her left wrist she alena maet initially was okay but it has been bruising and having increased pain in that wrist. She denies any other injuries from her fall denies hitting her head denies any loss conscious. Associated symptoms: Deny chest pain, fever(s) or rash Review of Systems Const: Denies: fever(s), chills, body aches or change in appetite ENMT: Denies: throat pain or dental pain Card: Denies: chest pain Resp: Denies: dyspnea GI: Denies: abdominal pain, nausea, vomiting or diarrhea Musc: Reports: extremity pain; Denies: neck pain or back pain Skin/Breast: Denies: rash Neuro: Denies: headache(s) PFSH ED PFSH: Medical History Restless leg Subcapital fracture of right hip Fibromyositis Central deafness Anemia GERD (gastroesophageal reflux disease) Parkinson's Disease Surgical History Status post right hip replacement History of cataract surgery History of knee replacement Hx of LASIK Family History Sister COPD (chronic obstructive pulmonary disease) Mother Congestive heart failure (CHF) Social History Smoking and tobacco/nicotine status: never used tobacco/nicotine Alcohol intake: never Substance/Drug Use: never Adopted: No Caregiver/support person: No Lives independently: Yes Marital status: / Current occupational status: retired Physical Exam Const: COMMON NORMALS: no acute distress, patient oriented x3 and healthy appearing HENMT: COMMON NORMALS: normocephalic and atraumatic HEAD & SCALP: normocephalic and atraumatic Eye: COMMON NORMALS: conjunctivae normal CONJUNCTIVA: Yes conjunctivae normal Neck/C-Spine: COMMON NORMALS: full ROM and supple Chest: COMMONS NORMALS: normal inspection of the chest Resp: COMMON NORMALS: normal respiratory effort Extremity: NARRATIVE EXTREMITY EXAM: Tenderness and bruising to left wrist distal pulses sensation intact Neuro: COMMON NORMALS: patient oriented x3, moves all extremities and no focal motor deficits Psych: COMMON NORMALS: mental status grossly normal, Normal thought process present and cooperative THOUGHT PROCESS: Normal thought process present Skin: COMMON NORMALS: no rashes or lesions noted and no wounds GENERAL SKIN EXAM: no rashes or lesions noted Course Vital Signs: Vital signs: Vital Signs Temperature 98.3 F 07/02/23 18:35 Pulse Rate 69 07/02/23 18:35 Respiratory Rate 18 07/02/23 18:35 Blood Pressure 185/95 07/02/23 18:35 Pulse Oximetry 98 07/02/23 18:35 Oxygen Delivery Me thod Room Air 07/02/23 18:35 MDM - Extremity (Nontraumatic) Medical Decision Making Patient presents here with a left wrist fracture from a fall we will place her in a splint we will get her follow-up with orthopedics she is stable for discharge return if worsening. Medical Records I reviewed the patient's medical records. XR interpretation done by ED provider, pending radiology final review ED provider radiology interpretation(s): xr wrist L/ distal radius fx Discharge Plan Discharge Patient Disposition: Home Clinical Impression: Fracture of wrist Qualifiers: Encounter type: initial encounter Fracture type: closed Laterality: left Qualified Code(s): S62.102A - Fracture of unspecified carpal bone, left wrist, initial encounter for closed fracture Condition: Stable Prescriptions: New hydrocodone-acetaminophen 5-325 mg tablet 1 tab PO Q6H PRN (Reason: pain) Qty: 14 0RF No Action atorvastatin 20 mg tablet 20 mg PO QPM cholecalciferol (vitamin D3) 25 mcg (1,000 unit) capsule 25 mcg PO BID Healthy Eyes Lutein-Zeaxanthin 60 mg-13.5 mg- 15 mg-2 mg-6 mg capsule 1 cap PO DAILY galantamine 4 mg tablet 4 mg PO BID 90 Days Qty: 180 3RF Rx Instructions: administer with AM and PM meals ropinirole 0.5 mg tablet 0.5 mg PO TID Qty: 90 3RF hydrocodone-acetaminophen 5-325 mg tablet 1 tab PO Q6H PRN (Reason: pain) 5 Days Qty: 20 0RF carbidopa-levodopa 25-100 mg tablet See Rx Instructions .ROUTE .COMPLEX Qty: 120 5RF Dose Instruction: TAKE 1/2 TABLET BY MOUTH ON WAKING, 1 & 1/2 TABLETS AT 9AM AND 1:00PM, AND 1/2 TABLET AT BEDTIME Rx Instructions: TAKE 1/2 TABLET BY MOUTH ON WAKING, 1 & 1/2 TABLETS AT 9AM AND 1:00PM, AND 1/2 TABLET AT BEDTIME biotin 800 mcg Tablet 800 mcg PO DAILY ondansetron 4 mg tablet,disintegrating 4 mg PO Q8H PRN (Reason: Nausea) omega 3-msz-cmf-fish oil 900-1,400 mg Capsule,Delayed Release(Dr/Ec) 1 cap PO BID lactulose 10 gram/15 mL (15 mL) solution 10 g PO DAILY PRN (Reason: constipation) Qty: 600 0RF tramadol 50 mg tablet 50 mg PO Q8H PRN (Reason: pain) Qty: 20 0RF lisinopril 5 mg tablet 5 mg PO DAILY potassium chloride 10 mEq tablet,ER particles/crystals 10 meq PO DAILY Stool Softener-Laxative 8.6-50 mg Tablet 2 tab PO BID Qty: 180 0RF Infants Simethicone 40 mg/0.6 mL Drops,Suspension 40 mg PO QID PRN (Reason: Flatulence) Qty: 30 0RF bisacodyl 5 mg Tablet,Delayed Release (Dr/Ec) 10 mg PO DAILY PRN (Reason: Constipation (see protocol)) Qty: 30 3RF Cipro 500 mg tablet 500 mg PO BID Qty: 10 0RF Discharge Orders: Discharge ED (Routine); Ordered 07/02/23 Ordered By: Amarjit Moody Referrals: Donavan Qureshi DO [Physician] - 1-3 days Discharge Diet: Advance as tolerated Discharge Activity: Resume usual activity Patient Instructions: Wrist Fracture in Adults (ED), Opioid Safety Coding Level of Care Code ED Manager Of Digital for [employer] Shields
[2023-07-02 19:16] VITALS: RESP 18; O2SAT 97
[2023-07-02] MEDS: morphine 4 mg/mL SDV 1 mL IVP (19:16)
[2023-07-02] MEDS: ondansetron 2 mg/ML SDV 2 mL 4 MG IVP (19:17)
[2023-07-02] MEDS: HYDROcodone-acetaminophen 5-325 mg Tablet 2 TAB PO (20:05)
[2023-07-02 20:07] VITALS: PULSE 61; RESP 18; O2SAT 100
--- NOTE | 2023-07-02 20:11 | PC.NURSE ---
2 hydrocodone sent home with patient per verbal instruction of Dr Moody, signed off by Lisa TELLO.
[2023-07-02] MEDS: FUROsemide 10 mg/mL SDV 10mL 60 MG XX (20:13)
--- NOTE | 2023-07-02 20:34 | PC.NURSE ---
When son Ramy arrived to pickup patient who was ready for discharge, son asked that patient be given Lasix, a Su catheter, and be admitted for swollen bilateral legs. Dr Moody informed of the situation and went to speak with son. Patient was given IM lasix, legs were wrapped, and patient dc home with son, paperwork, and meds.
--- NOTE | 2023-07-05 06:58 | DCPLANNER ---
Message sent to ortho pn 07/05/23 at 0658. Clinic to contact to contact patient
== END 2023-07-02 20:35 | disposition home or self-care (01) ==
PROVIDERS: Emergency Provider Emergency Medicine; PCP Family Medicine
DX: S52.592A Other fractures of lower end of left radius, initial encounter for closed fracture (principal); G20.A1 Parkinson's disease without dyskinesia, without mention of fluctuations; W19.XXXA Unspecified fall, initial encounter
CPT/HCPCS: 73110; 96374; 96375; 99284; J1940; J2270; J2405

== ENCOUNTER 2023-07-08 15:57 | Outpatient (CLI) | payer MEDICARE, MEDICAID, SELFPAY | END 2023-07-08 15:58 | disposition home or self-care (01) | LOC: SPT 15:58 | PROVIDERS: PCP Family Medicine; Visit Provider Orthopaedic Surgery | DX: Z46.89 Encounter for fitting and adjustment of other specified devices (principal); S62.102D Fracture of unspecified carpal bone, left wrist, subsequent encounter for fracture with routine healing; S52.592D Other fractures of lower end of left radius, subsequent encounter for closed fracture with routine healing; X58.XXXD Exposure to other specified factors, subsequent encounter | CPT/HCPCS: 97760; 99203; L3982 ==

== ENCOUNTER → 2023-07-20 13:37 | Outpatient (BNVA) | payer MEDICARE, MEDICAID, SELFPAY | PROVIDERS: PCP Family Medicine; Visit Provider Orthopaedic Surgery | DX: S52.532D Colles' fracture of left radius, subsequent encounter for closed fracture with routine healing (principal); W01.0XXD Fall on same level from slipping, tripping and stumbling without subsequent striking against object, subsequent encounter | CPT/HCPCS: 73110; 99213 ==

== ENCOUNTER → 2023-08-04 13:45 | Outpatient (BNVA) | payer MEDICARE, MEDICAID, SELFPAY | PROVIDERS: PCP Family Medicine; Visit Provider Podiatrist Foot & Ankle Surgery | DX: M79.671 Pain in right foot (principal); M79.672 Pain in left foot; R60.0 Localized edema | CPT/HCPCS: 73630; 99203 ==

== ENCOUNTER 2023-08-05 06:30 | Emergency (ER) | payer MEDICARE, MEDICAID, SELFPAY ==
[2023-08-05] VITALS (8 sets, daily range): BP systolic 139–179; BP diastolic 68–76; PULSE 70–81; RESP 15–18; TEMP 37.1; O2SAT 91–98; BMI 29.7
--- NOTE | 2023-08-05 06:31 | XRR_ITS ---
PROCEDURE INFORMATION: Exam: XR Complete Acute Abdomen Series Including Chest Exam date and time: 08/05/2023 6:56 AM Age: 87 years old Clinical indication: Constipation TECHNIQUE: Imaging protocol: Radiologic exam. Complete acute abdomen series, including 2 or more views of the abdomen and a single view chest. COMPARISON: CT abdomen pelvis con [id number] 03/13/2023 5:43 PM FINDINGS: Lungs: No consolidation. Scattered calcified granulomata. Pleural spaces: Normal. No pleural effusions. No pneumothorax. Heart/Mediastinum: Cardiomegaly. Gastrointestinal tract: No air-filled dilated bowel loops or sequential air-fluid levels. No evidence of bowel thickening. Stool visualized throughout the colon to the rectum. Intraperitoneal space: Unremarkable. No free air. Vasculature: Atherosclerotic calcification. Bones/joints: Degenerative change along the spine. Mild levoconvex lumbar spine curvature. Right total hip arthroplasty. Soft tissues: Unremarkable. XR/XR acute abdomen series [id number] IMPRESSION: 1. [id number] colonic stool burden without evidence of obstruction. 2. Cardiomegaly.
[2023-08-05 06:52] LABS: Basophils # 0.1 10^3/uL (0.0-0.1); Basophils % 0.5 %; Eosinophils # 0.1 10^3/uL (0.0-0.8); Eosinophils % 0.9 %; Hematocrit 36.7 % (36-47); Lymphocytes # 2.1 10^3/uL (0.8-4.8); Mean Corpuscular HGB Conc 30.2 g/dL (30-55); Mean Corpuscular Hemoglobin 25.2 pg (27-33); Mean Corpuscular Volume 83.2 fl (85-98); Mean Platelet Volume 11.2 fL (7.4-10.4); Monocytes # 0.7 10^3/uL (0.2-0.9); Monocytes % 7.1 %; Neutrophils # 7.13 10^3/uL (1.8-7.7); Neutrophils % 70.1 %; Nucleated Red Blood Cells % 0 %; Platelet Count 232 10^3/cmm (157-399); Red Blood Count 4.41 10^6/uL (3.85-5.65); Red Cell Distribution Width 17.1 % (12.1-15.1); White Blood Count 10.17 10^3/uL (3.29-11.43)
--- NOTE | 2023-08-05 06:58 | W.ED.ABDPA2 ---
HPI - Abdominal Pain General: Chief Complaint: Abdominal Pain Stated Complaint: constipation Time Seen by Provider: 08/05/23 06:31 Source: patient Mode of arrival: EMS History of Present Illness: 87-year-old female who presents emergency room with complaint of abdominal pain. She recently had a left distal radius fracture she is in a splint they are treating conservatively she is been taking for about hydrocodone for this additionally she has Parkinson's and is on Sinemet. She is complaining of constipation. They tried several cpyo-wld-wrpubae remedies and enemas with the home health nurse with out significant relief of symptoms she called EMS today. No he Hematochezia or melena. MD elicited complaint: abdominal pain Pertinent past history: constipation Onset (ago): day(s) Pain Consistency: constant Severity: moderate Quality: cramping Exacerbating factors: nothing Relieving factors: nothing Associated Symptoms: Reports constipation, GI cramping and nausea; Denies anorexia, belching, bloating, change in bowel habits, change in stool character, chills, coffee ground emesis, diarrhea, dyspepsia, dysuria, excessive flatus, fever(s), heartburn, hematochezia, hematuria, hematemesis, fecal incontinence, loose stools, melena, poor appetite, syncope and vomiting Review of Systems Const: Denies: fever(s) or chills Card: Denies: chest pain or syncope Resp: Denies: dyspnea GI: Reports: nausea, constipation and GI cramping; Denies: abdominal pain, vomiting, hematemesis, coffee ground emesis, heartburn, diarrhea, bloating, belching, excessive flatus, fecal incontinence, change in bowel habits, change in stool character, hematochezia or melena : Denies: dysuria, urinary frequency, urinary urgency or hematuria Musc: Denies: neck pain or back pain Skin/Breast: Denies: rash PFSH ED PFSH: Medical History Restless leg Subcapital fracture of right hip Fibromyositis Central deafness Anemia GERD (gastroesophageal reflux disease) Parkinson's Disease Surgical History Status post right hip replacement History of cataract surgery History of knee replacement Hx of LASIK Family History Sister COPD (chronic obstructive pulmonary disease) Mother Congestive heart failure (CHF) Social History Smoking and tobacco/nicotine status: never used tobacco/nicotine Alcohol intake: never Substance/Drug Use: never Adopted: No Caregiver/support person: No Lives independently: Yes Marital status: / Current occupational status: retired Physical Exam Const: COMMON NORMALS: no acute distress GENERAL APPEARANCE: cooperative and comfortable ORIENTATION/CONSCIOUSNESS: Yes awake, Yes oriented to person, Yes oriented to place and Yes oriented to time HENMT: COMMON NORMALS: normocephalic, atraumatic and hearing grossly normal bilaterally HEAD & SCALP: normocephalic and atraumatic Resp: COMMON NORMALS: normal respiratory effort, No retractions, No use of accessory muscles and clear to auscultation bilaterally AUSCULTATION: clear to auscultation bilaterally Cardio: COMMON NORMALS: regular rate, regular rhythm and No murmurs present (Cardio) RATE: regular rate RHYTHM: regular rhythm GI: COMMON NORMALS: Soft to palpation and No hepatosplenomegaly present AUSCULTATION: Yes normoactive bowel sounds PALPATION: Yes Soft to palpation, No Tenderness to palpation present (GI), No Guarding due to palpation present (GI) and Yes No hepatosplenomegaly present Extremity: COMMON NORMALS: normal to inspection, capillary refill normal, no clubbing, cyanosis or edema, no calf tenderness and no pedal edema Neuro: SENSORIUM/ORIENTATION: Yes oriented to person, Yes oriented to place and Yes oriented to time Skin: COMMON NORMALS: no rashes or lesions noted GENERAL SKIN EXAM: no rashes or lesions noted Course Vital Signs: Vital signs: Vital Signs Temperature 98.7 F 08/05/23 06:42 Pulse Rate 70 08/05/23 09:21 Respiratory Rate 16 08/05/23 08:01 Blood Pressure 174/76 08/05/23 08:01 Pulse Oximetry 96 08/05/23 09:21 Oxygen Delivery Me thod Room Air 08/05/23 09:21 MDM - Abdominal Pain Medical Decision Making Symptoms relieved significantly with enema given in the emergency room. Secondary notation of a cystitis she was given a dose of Rocephin here and discharged home with cefdinir to start tomorrow. He lactulose as needed for further resolution of constipation symptoms as needed. Follow-up with primary care for long-term bowel regimen Differential Diagnosis Likely abdominal pain and constipation Medical Records I reviewed the patient's medical records. Lab Data I reviewed the patient's lab results. 08/05/23 06:46 08/05/23 07:10 Labs/Radiology: Radiology Impressions Chest/Abdomen X-ray 08/05/23 06:31 IMPRESSION: 1. Lfem-gx-ynmcggre colonic stool burden without evidence of obstruction. 2. Cardiomegaly. Laboratory Results WBC 10.17 10^3/uL (3.29-11.43) 08/05/23 06:46 RBC 4.41 10^6/uL (3.85-5.65) 08/05/23 06:46 Hgb 11.10 g/dL (11.27-16.99) L 08/05/23 06:46 Hct 36.7 % (36-47) 08/05/23 06:46 MCV 83.2 fl (85-98) L 08/05/23 06:46 MCH 25.2 pg (27-33) L 08/05/23 06:46 MCHC 30.2 g/dL (30-55) 08/05/23 06:46 RDW 17.1 % (12.1-15.1) H 08/05/23 06:46 Plt Count 232 10^3/cmm (157-399) 08/05/23 06:46 MPV 11.2 fL (7.4-10.4) H 08/05/23 06:46 Neut % (Auto) 70.1 % 08/05/23 06:46 Lymph % (Auto) 21.0 % 08/05/23 06:46 [place] % (Auto) 7.1 % 08/05/23 06:46 Eos % (Auto) 0.9 % 08/05/23 06:46 Baso % (Auto) 0.5 % 08/05/23 06:46 Neut # (Auto) 7.13 10^3/uL (1.8-7.7) 08/05/23 06:46 Lymph # (Auto) 2.1 10^3/uL (0.8-4.8) 08/05/23 06:46 [place] # (Auto) 0.7 10^3/uL (0.2-0.9) 08/05/23 06:46 Eos # (Auto) 0.1 10^3/uL (0.0-0.8) 08/05/23 06:46 Baso # (Auto) 0.1 10^3/uL (0.0-0.1) 08/05/23 06:46 Nucleated RBC % (auto) 0 % 08/05/23 06:46 Nucleated RBCs # 0.0 /100WBC 08/05/23 06:46 Sodium 143 mmol/L (136-145) 08/05/23 07:10 Potassium 3.9 mmol/L (3.5-5.1) 08/05/23 07:10 Chloride 101 mmol/L (98-107) 08/05/23 07:10 Carbon Dioxide 28 mmol/L (22-29) 08/05/23 07:10 Anion Gap 17.9 (5-19) 08/05/23 07:10 BUN 31 mg/dL (8-23) H 08/05/23 07:10 Creatinine 0.9 mg/dL (0.5-0.9) 08/05/23 07:10 GFR Calculation Not Reportable 08/05/23 07:10 Glucose 113 mg/dL (65-115) 08/05/23 07:10 Calculated Osmolality 303 mOsm/kg (285-295) H 08/05/23 07:10 Calcium 9.5 mg/dL (8.5-10.5) 08/05/23 07:10 Total Bilirubin 0.7 mg/dL (0.15-1.2) 08/05/23 07:10 AST 18 U/L (0-32) 08/05/23 07:10 ALT 7 U/L (0-33) 08/05/23 07:10 Alkaline Phosphatase 61 U/L (35-105) 08/05/23 07:10 Total Protein 6.9 g/dL (6.6-8.7) 08/05/23 07:10 Albumin 4.3 g/dL (3.5-5.2) 08/05/23 07:10 Globulin 2.6 g/dL (1.3-4.6) 08/05/23 07:10 Urine Color Yellow (Yellow) 08/05/23 07:19 Urine Appearance Cloudy (CLEAR) A 08/05/23 07:19 Urine pH 8 (5-7) H 08/05/23 07:19 Ur Specific [place] 1.005 (1.005-1.030) 08/05/23 07:19 Urine Protein Neg (Negative) 08/05/23 07:19 Urine Glucose (UA) Norm (Normal) 08/05/23 07:19 Urine Ketones Negative (Negative) 08/05/23 07:19 Urine Blood 2+ (Negative) H 08/05/23 07:19 Urine Nitrate Positive (Negative) H 08/05/23 07:19 Urine Bilirubin Neg (Negative) 08/05/23 07:19 Prot Sulfosalicylic Acd Negative (Negative) 08/05/23 07:19 Urine Urobilinogen Norm mg/dL (Negative) 08/05/23 07:19 Ur Leukocyte Esterase 2+ (Negative) H 08/05/23 07:19 Urine RBC 5-10 /hpf (0-2) H 08/05/23 07:19 Urine WBC 80-100 /hpf (0-5) H 08/05/23 07:19 Ur Squamous Epith Cells 5-10 /hpf (0-5) H 08/05/23 07:19 Triple Phos Crystals 15-25 /hpf H 08/05/23 07:19 Amorphous Sediment Not Reportable 08/05/23 07:19 Urine Bacteria 3+ /hpf (NONE) H 08/05/23 07:19 Urine Mucus 1+ /hpf 08/05/23 07:19 All radiology interpretation(s) finalized by discharge Discharge Plan Discharge Patient Disposition: Home Clinical Impression: Constipation, Cystitis Condition: Stable Prescriptions: New cefdinir 300 mg capsule 300 mg PO BID Qty: 14 0RF lactulose 20 gram/30 mL solution 20 g PO Q2H 1 Days Qty: 360 0RF Rx Instructions: until desired laxative effect No Action (DME) fast form See Rx Instructions .Route .MEDSUPPLY Qty: 1 0RF Rx Instructions: As directed hydrocodone-acetaminophen 5-325 mg tablet 1 tab PO Q6H PRN (Reason: pain) 5 Days Qty: 20 0RF carbidopa-levodopa 25-100 mg tablet See Rx Instructions .ROUTE .COMPLEX Qty: 120 5RF Dose Instruction: TAKE 1/2 TABLET BY MOUTH ON WAKING, 1 & 1/2 TABLETS AT 9AM AND 1:00PM, AND 1/2 TABLET AT BEDTIME Rx Instructions: TAKE 1/2 TABLET BY MOUTH ON WAKING, 1 & 1/2 TABLETS AT 9AM AND 1:00PM, AND 1/2 TABLET AT BEDTIME ondansetron 4 mg tablet,disintegrating 4 mg PO Q8H PRN (Reason: Nausea) sennosides-docusate sodium [Stool Softener-Laxative] 8.6-50 mg Tablet 2 tab PO BID Qty: 180 0RF bisacodyl 5 mg Tablet,Delayed Release (Dr/Ec) 10 mg PO DAILY PRN (Reason: Constipation (see protocol)) Qty: 30 3RF pantoprazole 20 mg tablet,delayed release (DR/EC) 20 mg PO DAILY oxycodone-acetaminophen 5-325 mg tablet 2 tab PO Q4H PRN (Reason: Pain) lorazepam 1 mg tablet 1 mg PO QID escitalopram oxalate 10 mg tablet 10 mg PO DAILY metoprolol tartrate 25 mg tablet 25 mg PO BID hydrochlorothiazide 12.5 mg tablet 12.5 mg PO DAILY biotin 5,000 mcg Tablet, Sublingual 10,000 mcg SUBLINGUAL DAILY hydrocodone-acetaminophen 5-325 mg tablet 2 tab PO Q4H MDD 8 PRN (Reason: Severe Pain (Scale Score 7-10)) Discharge Orders: Discharge ED (Routine); Ordered 08/05/23 Ordered By: Rodger Fortune Referrals: Trev Severino MD [Primary Care Provider] - Discharge Diet: Usual diet Discharge Activity: Increase activity as tolerated Patient Instructions: Opioid Safety, Pain Management Activity Restrictions/Additional Instructions: Thank you for choosing [facility] for your healthcare needs today. Please realize this is an emergency room and that we are providing you with a medical screening exam and this may not be complete and all inclusive of all the testing and or work up that you may need to determine your ailment or severity of your illness. It is very important that you follow up as instructed or that you return to the Emergency Department should you have concerns or if your condition changes or worsens in any way. You were seen today for constipation. You did have some relief with the enemas recommend to use lactulose every 2 hours until full results achieved. Additionally you were noted to have a mild bladder infection for which you are given an initial dose of antibiotics in the emergency room and a prescription for oral antibiotics to begin tomorrow Coding Level of Care Code ED Blow Torch Burner for Ute Shields
[2023-08-05 07:44] LABS: Alanine Aminotransferase 7 U/L (0-33); Albumin Level 4.3 g/dL (3.5-5.2); Alkaline Phosphatase 61 U/L (35-105); Anion Gap 17.9 (5-19); Aspartate Amino Transferase 18 U/L (0-32); Blood Urea Nitrogen 31 mg/dL (8-23); Calcium 9.5 mg/dL (8.5-10.5); Carbon Dioxide 28 mmol/L (22-29); Chloride 101 mmol/L (98-107); Creatinine Clr Calc Pharmacy 49.7544; Globulin 2.6 g/dL (1.3-4.6); Glucose 113 mg/dL (65-115); Osmolality Calculated 303 mOsm/kg (285-295); Potassium 3.9 mmol/L (3.5-5.1); Sodium 143 mmol/L (136-145); Total Bilirubin 0.7 mg/dL (0.15-1.2); Total Protein 6.9 g/dL (6.6-8.7)
[2023-08-05 08:04] LABS: Urine Appearance Cloudy (CLEAR); Urine Color Yellow (Yellow)
[2023-08-05 08:05] LABS: Add Urine Microscopic? YES; Bilirubin Urine Neg (Negative); Blood Urine 2+ (Negative); Glucose Urine UA Norm (Normal); Ketones Urine Negative (Negative); Leukocyte Esterase Urine 2+ (Negative); Nitrate Urine Positive (Negative); Protein Urine Neg (Negative); Specific Gravity, Urine 1.005 (1.005-1.030); Sulfosalicylic Acid Urine Negative (Negative); Urobilinogen Urine Norm (Negative); pH Urine 8 (5-7)
[2023-08-05 08:12] LABS: Add Urine Culture? Yes; Bacteria Urine 3+ /hpf; Mucus Urine 1+ /hpf; Triple Phosphate Crystal Urine 15-25 /hpf; WBC Urine 80-100 /hpf (0-5)
[2023-08-05] MEDS: cefTRIAXone 1,000 MG in sodium chloride 0.9% (plus) 50 ML 100 MG IV (08:52)
[2023-08-05] MEDS: ondansetron 2 mg/ML SDV 2 mL 4 MG IVP (08:52)
--- NOTE | 2023-08-05 09:29 | PC.PHAR ---
CURRENT MED LIST PROVIDED BY [facility] 08/05/23. [phone]
--- NOTE | 2023-08-05 09:57 | PC.NURSE ---
@[id number]: this nurse spoke with son about pt status update and discharge instructions. pt gave okay for nurse to speak with son. no further questions or concerns voiced by son at end of call.
--- NOTE | 2023-08-05 10:59 | PC.NURSE ---
this nurse and another ED nurse assisted pt to bedside commode, completed a full bed change d/t pt having urinary incontinent episode. pt weak and unwilling/unable to stand without x2 assist. pt given call light, a second blanket, and lights turned off per pt request.
--- NOTE | 2023-08-05 12:26 | PC.NURSE ---
This nurse called [facility] regarding pt transfer update, [facility] mortician supplies sales representative states she called their dispatch and expedited the transfer process, states Hari Galvan should be receiving information soon .
== END 2023-08-05 14:37 | disposition home or self-care (01) ==
PROVIDERS: Emergency Provider Family Medicine; PCP Family Medicine
DX: K59.00 Constipation, unspecified (principal); N30.90 Cystitis, unspecified without hematuria; G20.A1 Parkinson's disease without dyskinesia, without mention of fluctuations
CPT/HCPCS: 36415; 74022; 80053; 81001; 85025; 87040; 87077; 87086; 87186; 96374; 96375; 99284; J0696; J2405

== ENCOUNTER → 2023-08-10 13:19 | Outpatient (BNVA) | payer MEDICARE, MEDICAID, SELFPAY | PROVIDERS: PCP Family Medicine; Visit Provider Orthopaedic Surgery | DX: S52.532D Colles' fracture of left radius, subsequent encounter for closed fracture with routine healing (principal); X58.XXXD Exposure to other specified factors, subsequent encounter; Z46.89 Encounter for fitting and adjustment of other specified devices | CPT/HCPCS: 73110; 97760; 99213; L3908 ==

== ENCOUNTER 2023-08-10 14:50 | Outpatient (CLI) | payer MEDICARE, MEDICAID, SELFPAY | END 2023-08-10 14:51 | disposition home or self-care (01) | LOC: SPT 14:51 | PROVIDERS: PCP Family Medicine; Visit Provider Orthopaedic Surgery | DX: Z46.89 Encounter for fitting and adjustment of other specified devices (principal); S52.532D Colles' fracture of left radius, subsequent encounter for closed fracture with routine healing; X58.XXXD Exposure to other specified factors, subsequent encounter | CPT/HCPCS: 97760; L3908 ==

== ENCOUNTER → 2023-09-10 15:27 | Outpatient (BNVA) | payer MEDICARE, MEDICAID, SELFPAY | PROVIDERS: PCP Family Medicine; Visit Provider Specialist | DX: R53.81 Other malaise (principal); Z96.641 Presence of right artificial hip joint; M75.42 Impingement syndrome of left shoulder; S52.532D Colles' fracture of left radius, subsequent encounter for closed fracture with routine healing; G20.A2 Parkinson's disease without dyskinesia, with fluctuations; X58.XXXD Exposure to other specified factors, subsequent encounter | CPT/HCPCS: 99214 ==

== ENCOUNTER → 2023-09-23 13:56 | Outpatient (BNVA) | payer MEDICARE, MEDICAID, SELFPAY | PROVIDERS: PCP Family Medicine; Visit Provider Student in an Organized Health Care Education/Training Program | DX: S52.532D Colles' fracture of left radius, subsequent encounter for closed fracture with routine healing (principal); W19.XXXD Unspecified fall, subsequent encounter | CPT/HCPCS: 73110; 99213 ==

== ENCOUNTER → 2023-09-27 08:58 | Outpatient (BNVA) | payer MEDICARE, MEDICAID, SELFPAY | PROVIDERS: PCP Family Medicine; Visit Provider Nurse Practitioner Family | DX: I89.0 Lymphedema, not elsewhere classified (principal) | CPT/HCPCS: 99213 ==

== ENCOUNTER → 2023-09-28 08:33 | Outpatient (BNVA) | payer MEDICARE, MEDICAID, SELFPAY | PROVIDERS: PCP Family Medicine; Visit Provider Nurse Practitioner Family | DX: D48.5 Neoplasm of uncertain behavior of skin (principal); L73.8 Other specified follicular disorders; L82.1 Other seborrheic keratosis; L98.8 Other specified disorders of the skin and subcutaneous tissue; L57.0 Actinic keratosis | CPT/HCPCS: 11102; 17000; 99213 ==

== ENCOUNTER 2023-09-30 06:00 | Outpatient (RCR) | payer MEDICARE, MEDICAID, SELFPAY | END 2023-10-24 23:59 | disposition home or self-care (01) | LOC: SOT 06:00 | PROVIDERS: Visit Provider Student in an Organized Health Care Education/Training Program | DX: R53.81 Other malaise (principal); G20.A1 Parkinson's disease without dyskinesia, without mention of fluctuations | CPT/HCPCS: 97022; 97110; 97140; 97166; 97530; 99203 ==

== ENCOUNTER → 2023-09-30 15:05 | Outpatient (BNVA) | payer MEDICARE, MEDICAID, SELFPAY | PROVIDERS: PCP Family Medicine; Visit Provider Podiatrist Foot & Ankle Surgery | DX: M79.671 Pain in right foot (principal); M79.672 Pain in left foot; M20.31 Hallux varus (acquired), right foot; M20.32 Hallux varus (acquired), left foot; M20.5X9 Other deformities of toe(s) (acquired), unspecified foot | CPT/HCPCS: 73630 ==

== ENCOUNTER 2023-10-11 11:59 | Outpatient (RCR) | payer MEDICARE, MEDICAID, SELFPAY | END 2023-10-24 23:59 | disposition home or self-care (01) | LOC: SPT 11:59 | PROVIDERS: Visit Provider Specialist | DX: G20.A1 Parkinson's disease without dyskinesia, without mention of fluctuations (principal) | CPT/HCPCS: 97110; 97162; 97530 ==

== ENCOUNTER 2023-10-25 06:00 | Outpatient (RCR) | payer MEDICARE, MEDICAID, SELFPAY | END 2023-11-24 23:59 | disposition home or self-care (01) | LOC: SOT 06:00 | PROVIDERS: Visit Provider Student in an Organized Health Care Education/Training Program | DX: R53.81 Other malaise (principal); G20.A1 Parkinson's disease without dyskinesia, without mention of fluctuations | CPT/HCPCS: 97022; 97110; 97140 ==

== ENCOUNTER 2023-10-25 06:00 | Outpatient (RCR) | payer MEDICARE, MEDICAID, SELFPAY | END 2023-11-24 23:59 | disposition home or self-care (01) | LOC: SPT 06:00 | PROVIDERS: Visit Provider Specialist | DX: G20.A1 Parkinson's disease without dyskinesia, without mention of fluctuations (principal) | CPT/HCPCS: 97110; 97530 ==

== ENCOUNTER 2023-11-25 06:00 | Outpatient (RCR) | payer MEDICARE, MEDICAID, SELFPAY | END 2023-12-25 23:59 | disposition home or self-care (01) | LOC: SOT 06:00 | PROVIDERS: Visit Provider Student in an Organized Health Care Education/Training Program | DX: S52.502A Unspecified fracture of the lower end of left radius, initial encounter for closed fracture (principal); X58.XXXA Exposure to other specified factors, initial encounter | CPT/HCPCS: 97022; 97110; 97140 ==

== ENCOUNTER 2023-11-25 06:00 | Outpatient (RCR) | payer MEDICARE, MEDICAID, SELFPAY | END 2023-12-25 23:59 | disposition home or self-care (01) | LOC: SPT 06:00 | PROVIDERS: Visit Provider Specialist | DX: G20.A1 Parkinson's disease without dyskinesia, without mention of fluctuations (principal) | CPT/HCPCS: 97110; 97530 ==

== ENCOUNTER 2023-12-16 13:08 | Emergency (ER) | payer MEDICARE, MEDICAID, SELFPAY ==
--- NOTE | 2023-12-16 13:12 | XR_ITS ---
WS: [id number] Acute abdomen series, 12/16/2023 Clinical Data: abdominal pain, leg swelling Comparison: Acute abdomen series, 08/05/2023 Findings: In the chest there are no nodules, masses or effusions. The heart is enlarged. The pulmonar y vascularity is not increased. The aortic arch and descending thoracic aorta show mild tortuosity. Monitor leads are on the chest wall. No free air is seen beneath the diaphragms. No abnormal intra-abdominal masses or calcifications are seen. There is a large amount of fecal material throughout the colon. There is a fecal impaction. The re is a levoscoliosis of the lumbar spine. There are monitor leads on the abdominal wall. XR/XR acute abdomen series [id number] Impression: 1. Cardiomegaly and atherosclerosis. 2. Large amount of fecal material in the colon.
[2023-12-16 13:13] VITALS: BP 172/67; PULSE 94; RESP 21; TEMP 36.7; O2SAT 95; BMI 29.9
--- NOTE | 2023-12-16 13:27 | ED_ITS ---
HPI - Abdominal Pain 2 General: Chief Complaint: Abdominal Pain Stated Complaint: abd pain Time Seen by Provider: 12/16/23 13:10 History of Present Illness: 88-year-old female with a history of Par kinson's disease, GERD, hypertension and anxiety who presents emergency room by ambulance with abdominal pain and constipation. She says she is continue to have to take pain meds because of pain in her left arm after she fractured it in a fall about 3 months ago. This is caused some constipation. She has not been taking anything for constipation until today when she took an enema that she had to have a friend come over to help her administer. She also was having worsening swelling in her lower extremities she said. Some nausea but no vomiting. She points to her lower abdomen as far as the pain goes. No known fevers. Related Data Home Medications Medication Instructions Recorded Confirmed ondansetron 4 mg disintegrating 4 mg PO Q8H PRN Nausea 06/01/21 09/30/23 tablet biotin 5,000 mcg sublingual tablet 10,000 mcg sublingual DAILY 08/05/23 09/30/23 escitalopram oxalate 10 mg tablet 10 mg PO DAILY 08/05/23 09/30/23 hydrochlorothiazide 12.5 mg tablet 12.5 mg PO DAILY 08/05/23 09/30/23 hydrocodone 5 mg-acetaminophen 325 2 tab PO Q4H PRN Severe Pain 08/05/23 09/30/23 mg tablet (Scale Score 7-10) lorazepam 1 mg tablet 1 mg PO QID 08/05/23 09/30/23 metoprolol tartrate 25 mg tablet 25 mg PO BID 08/05/23 09/30/23 oxycodone-acetaminophen 5 mg-325 2 tab PO Q4H PRN Pain 08/05/23 09/30/23 mg tablet pantoprazole 20 mg tablet,delayed 20 mg PO DAILY 08/05/23 09/30/23 release Previous Rx's Medication Instructions Recorded bisacodyl 5 mg tablet,delayed 10 mg (2 x 5 mg) PO DAILY PRN 03/17/23 release Constipation (see protocol) #30 tabs sennosides 8.6 mg-docusate sodium 2 tab PO BID #180 tabs 03/17/23 50 mg tablet (Stool Softener-Laxative) fast form #1 ea 03/14/24 hydrocodone 5 mg-acetaminophen 325 1 tab PO Q6H PRN pain 5 days #20 07/08/23 mg tablet tabs cefdinir 300 mg capsule 300 mg PO BID #14 caps 08/05/23 cockup splint #1 ea 08/10/23 carbidopa 25 mg-levodopa 100 mg See Rx Instructions .Route 09/10/23 tablet .COMPLEX #180 tabs glycerin (adult) 1 supp ND DAILY PRN constipation 12/16/23 #12 ea polyethylene glycol 3350 17 17 g PO DAILY #510 grams 12/16/23 gram/dose oral powder (Miralax) Allergies Allergy/AdvReac Type Severity Reaction Status Date / Time naproxen Allergy Unknown Verified 12/16/23 13:23 Review of Systems 2 Narrative: Constitutional symptoms: Negative except as documented in HPI. Skin symptoms: Negative except as documented in HPI. Eye symptoms: Negative except as documented in HPI. ENMT symptoms: Negative except as documented in HPI. Respiratory symptoms: Negative except as documented in HPI. Cardiovascular symptoms: Negative except as documented in HPI. Gastrointestinal symptoms: Negative except as documented in HPI. Genitourinary symptoms: Negative except as documented in HPI. Musculoskeletal symptoms: Negative except as documented in HPI. Neurologic symptoms: Negative except as documented in HPI. Psychiatric symptoms: Negative except as documented in HPI. Endocrine symptoms: Negative except as documented in HPI. PFSH ED 2 PFSH: Medical History Restless leg Subcapital fracture of right hip Fibromyositis Central deafness Anemia GERD (gastroesophageal reflux disease) Parkinson's Disease Surgical History Status post right hip replacement History of cataract surgery History of knee replacement Hx of LASIK Family History Sister COPD (chronic obstructive pulmonary disease) Mother Congestive heart failure (CHF) Social History Smoking and tobacco/nicotine status: never used tobacco/nicotine Alcohol intake: never Substance/Drug Use: never Adopted: No Caregiver/support person: No Lives independently: Yes Marital status: / Current occupational status: retired Physical Exam 2 Narrative: EXAM NARRATIVE: General: Alert, no acute distress. Skin: Warm, dry. Head: Normocephalic, atraumatic. Neck: Supple, trachea midline. Eye: Extraocular movements are intact. Ears, nose, mouth and throat: mucosa moist. Cardiovascular: Regular, Normal peripheral perfusion. Respiratory: Lungs are clear to auscultation, respirations are non-labored, breath sounds are equal, Symmetrical chest wall expansion. Gastrointestinal: Soft, Nontender, Non distended Musculoskeletal: Normal ROM, no deformity. Neurological: Alert and oriented, No focal neurological deficit observed. Psychiatric: Cooperative, appropriate mood & affect. Course 2 Vital Signs: Vital signs: Vital Signs Temperature 98.0 F 12/16/23 13:13 Pulse Rate 100 12/16/23 17:24 Respiratory Rate 21 H 12/16/23 13:13 Blood Pressure 172/67 12/16/23 17:24 Pulse Oximetry 93 12/16/23 13:37 Oxygen Delivery Me thod Room Air 12/16/23 13:37 MDM - Abdominal Pain Medical Decision Making Medical decision making: Differential diagnosis including but not limited to and based on the above HPI, review of systems and physical exam: - patient with complaint of constipation: Small bowel obstruction. Gastroparesis. Constipation. Also evaluation for urinary retention, liver disease, renal failure. Orders placed to evaluate differential diagnosis based on the above differential, HPI and physical exam Acute abdominal series: chest x-ray: Stable cardiomegaly. No acute process. No obvious infiltrates. No pneumothorax. No cardiomegaly. This was reviewed and interpreted by myself the emergency room physician Abdomen x-ray: Nonspecific bowel gas pattern. No evidence of free air or obstruction. This was reviewed and interpreted by myself the emergency room physician. Large amount of stool in the colon/constipation Lab Review: Laboratory results were reviewed and interpreted by myself the emergency room physician. No leukocytosis. No anemia. No urinary tract infection. No renal failure. I reviewed the patient's medical record. Reexamination: Patient remained stable. No increased work of breathing. No altered mental status. No focal motor deficits. Patient received an enema and some mag citrate without results. No signs of obstruction so I am going to send her home with some GoLytely with instructions to take about a cup every hour while awake until she has results. Also with maintenance MiraLAX and suppositories. Assessment and plan: Constipation -Enema and mag citrate in the emergency room. Home with some GoLytely. - Discharged home - Discussed findings and plan with patient. Answered any questions. - All laboratory values were reviewed and interpreted personally by myself, the ER physician - All imaging was reviewed and interpreted personally by myself, the ER physician. - Evaluation and treatment of this problem were appropriate in the emergency setting Lab Data 12/16/23 13:38 12/16/23 13:38 Labs/Radiology: Radiology Impressions Chest/Abdomen X-ray 12/16/23 13:12 Impression: 1. Cardiomegaly and atherosclerosis. 2. Large amount of fecal material in the colon. Laboratory Results WBC 7.77 10^3/uL (3.29-11.43) 12/16/23 13:38 RBC 3.85 10^6/uL (3.85-5.65) 12/16/23 13:38 Hgb 10.90 g/dL (11.27-16.99) L 12/16/23 13:38 Hct 34.9 % (36-47) L 12/16/23 13:38 MCV 90.6 fl (85-98) 12/16/23 13:38 MCH 28.3 pg (27-33) 12/16/23 13:38 MCHC 31.2 g/dL (30-55) 12/16/23 13:38 RDW 15.0 % (12.1-15.1) 12/16/23 13:38 Plt Count 225 10^3/cmm (157-399) 12/16/23 13:38 MPV 11.2 fL (7.4-10.4) H 12/16/23 13:38 Neut % (Auto) 78.8 % 12/16/23 13:38 Lymph % (Auto) 13.5 % 12/16/23 13:38 [place] % (Auto) 6.2 % 12/16/23 13:38 Eos % (Auto) 0.8 % 12/16/23 13:38 Baso % (Auto) 0.4 % 12/16/23 13:38 Neut # (Auto) 6.13 10^3/uL (1.8-7.7) 12/16/23 13:38 Lymph # (Auto) 1.1 10^3/uL (0.8-4.8) 12/16/23 13:38 [place] # (Auto) 0.5 10^3/uL (0.2-0.9) 12/16/23 13:38 Eos # (Auto) 0.1 10^3/uL (0.0-0.8) 12/16/23 13:38 Baso # (Auto) 0.0 10^3/uL (0.0-0.1) 12/16/23 13:38 Nucleated RBC % (auto) 0 % 12/16/23 13:38 Nucleated RBCs # 0.0 /100WBC 12/16/23 13:38 Sodium 142 mmol/L (136-145) 12/16/23 13:38 Potassium 3.4 mmol/L (3.5-5.1) L 12/16/23 13:38 Chloride 102 mmol/L (98-107) 12/16/23 13:38 Carbon Dioxide 27 mmol/L (22-29) 12/16/23 13:38 Anion Gap 16.4 (5-19) 12/16/23 13:38 BUN 18 mg/dL (8-23) 12/16/23 13:38 Creatinine 0.9 mg/dL (0.5-0.9) 12/16/23 13:38 GFR Calculation Not Reportable 12/16/23 13:38 Glucose 112 mg/dL (65-115) 12/16/23 13:38 Calculated Osmolality 297 mOsm/kg (285-295) H 12/16/23 13:38 Lactic Acid 1.2 mmol/L (0.5-2.2) 12/16/23 13:41 Calcium 9.0 mg/dL (8.5-10.5) 12/16/23 13:38 Total Bilirubin 0.7 mg/dL (0.15-1.2) 12/16/23 13:38 AST 15 U/L (0-32) 12/16/23 13:38 ALT < 5 U/L (0-33) 12/16/23 13:38 Alkaline Phosphatase 47 U/L (35-105) 12/16/23 13:38 C-Reactive Protein 4.1 mg/L (0.0-4.9) 12/16/23 13:38 NT-Pro-B Natriuret Pep 1249 pg/mL (0-450) H 12/16/23 13:38 Total Protein 6.6 g/dL (6.6-8.7) 12/16/23 13:38 Albumin 4.2 g/dL (3.5-5.2) 12/16/23 13:38 Globulin 2.4 g/dL (1.3-4.6) 12/16/23 13:38 Urine Color Yellow (Yellow) 12/16/23 15:15 Urine Appearance Clear (CLEAR) 12/16/23 15:15 Urine pH 7.5 (5-7) 12/16/23 15:15 Ur Specific [place] 1.016 (1.005-1.030) 12/16/23 15:15 Urine Protein Negative (Negative) 12/16/23 15:15 Urine Glucose (UA) Negative (Normal) 12/16/23 15:15 Urine Ketones Trace (Negative) 12/16/23 15:15 Urine Blood Negative (Negative) 12/16/23 15:15 Urine Nitrate Negative (Negative) 12/16/23 15:15 Urine Bilirubin Negative (Negative) 12/16/23 15:15 Urine Urobilinogen 1.0 mg/dL (Negative) 12/16/23 15:15 Ur Leukocyte Esterase Negative (Negative) 12/16/23 15:15 Urine RBC 0-2 /hpf (0-2) 12/16/23 15:15 Urine WBC 0-5 /hpf (0-5) 12/16/23 15:15 Ur Squamous Epith Cells 21-50 /hpf (0-5) 12/16/23 15:15 Amorphous Sediment Not Reportable 12/16/23 15:15 Urine Bacteria None seen /hpf (NONE) 12/16/23 15:15 Hyaline Casts 1.65 /lpf 12/16/23 15:15 All radiology interpretation(s) finalized by discharge Discharge Plan Discharge Patient Disposition: Home Clinical Impression: Constipation Condition: Stable Prescriptions: New Miralax 17 gram/dose powder 17 g PO DAILY Qty: 510 0RF Rx Instructions: Take 1 scoop daily while taking pain medications. glycerin (adult) Suppository 1 supp ND DAILY PRN (Reason: constipation) Qty: 12 0RF No Action (DME) fast form See Rx Instructions .Route .MEDSUPPLY Qty: 1 0RF Rx Instructions: As directed hydrocodone-acetaminophen 5-325 mg tablet 1 tab PO Q6H PRN (Reason: pain) 5 Days Qty: 20 0RF (DME) cockup splint See Rx Instructions .Route .MEDSUPPLY Qty: 1 0RF Rx Instructions: As directed carbidopa-levodopa 25-100 mg tablet See Rx Instructions .ROUTE .COMPLEX Qty: 180 11RF Dose Instruction: TAKE 1/2 TABLET BY MOUTH ON WAKING, 1 & 1/2 TABLETS AT 9AM AND 1:00PM, AND 1/2 TABLET AT BEDTIME Rx Instructions: TAKE 1 TABLET BY MOUTH ON WAKING, 2 TABLETS AT 9AM AND 1:00PM, AND 1/2 TABLET AT BEDTIME ondansetron 4 mg tablet,disintegrating 4 mg PO Q8H PRN (Reason: Nausea) sennosides-docusate sodium [Stool Softener-Laxative] 8.6-50 mg Tablet 2 tab PO BID Qty: 180 0RF bisacodyl 5 mg Tablet,Delayed Release (Dr/Ec) 10 mg PO DAILY PRN (Reason: Constipation (see protocol)) Qty: 30 3RF cefdinir 300 mg capsule 300 mg PO BID Qty: 14 0RF pantoprazole 20 mg tablet,delayed release (DR/EC) 20 mg PO DAILY oxycodone-acetaminophen 5-325 mg tablet 2 tab PO Q4H PRN (Reason: Pain) lorazepam 1 mg tablet 1 mg PO QID escitalopram oxalate 10 mg tablet 10 mg PO DAILY metoprolol tartrate 25 mg tablet 25 mg PO BID hydrochlorothiazide 12.5 mg tablet 12.5 mg PO DAILY biotin 5,000 mcg Tablet, Sublingual 10,000 mcg SUBLINGUAL DAILY hydrocodone-acetaminophen 5-325 mg tablet 2 tab PO Q4H MDD 8 PRN (Reason: Severe Pain (Scale Score 7-10)) Discharge Orders: Discharge ED (Routine); Ordered 12/16/23 Ordered By: Aster Yates Discharge Diet: Advance as tolerated Discharge Activity: Increase activity as tolerated Patient Instructions: Constipation (ED) Activity Restrictions/Additional Instructions: Thank you for choosing [facility] for your healthcare needs today. Please realize this is an emergency room and that we are providing you with a medical screening exam and this may not be complete and all inclusive of all the testing and or work up that you may need to determine your ailment or severity of your illness. You have been screened and evaluated and felt safe for discharge. Health conditions do change or evolve sometimes and as such it is important that you follow up with your Primary Doctor to be re checked, 3-5 days is a general good time frame for follow up. You are always welcome to return to the ED for re assessment if your symptoms are worsening or you have new concerns Coding Level of Care Code ED Airline Stewardess for Ute Shields
[2023-12-16 13:37] VITALS: BP 172/67; PULSE 90; O2SAT 93
[2023-12-16 14:09] LABS: Basophils % 0.4 %; Eosinophils # 0.1 10^3/uL (0.0-0.8); Eosinophils % 0.8 %; Hematocrit 34.9 % (36-47); Lymphocytes # 1.1 10^3/uL (0.8-4.8); Lymphocytes % 13.5 %; Mean Corpuscular HGB Conc 31.2 g/dL (30-55); Mean Corpuscular Hemoglobin 28.3 pg (27-33); Mean Corpuscular Volume 90.6 fl (85-98); Mean Platelet Volume 11.2 fL (7.4-10.4); Monocytes # 0.5 10^3/uL (0.2-0.9); Monocytes % 6.2 %; Neutrophils # 6.13 10^3/uL (1.8-7.7); Neutrophils % 78.8 %; Nucleated Red Blood Cells % 0 %; Platelet Count 225 10^3/cmm (157-399); Red Blood Count 3.85 10^6/uL (3.85-5.65); White Blood Count 7.77 10^3/uL (3.29-11.43)
[2023-12-16 14:30] LABS: Lactic Sepsis W/Reflex 1.2 mmol/L (0.5-2.2)
[2023-12-16 14:40] LABS: Alanine Aminotransferase < 5 U/L (0-33); Albumin Level 4.2 g/dL (3.5-5.2); Alkaline Phosphatase 47 U/L (35-105); Anion Gap 16.4 (5-19); Aspartate Amino Transferase 15 U/L (0-32); Blood Urea Nitrogen 18 mg/dL (8-23); C Reactive Protein 4.1 mg/L (0.0-4.9); Carbon Dioxide 27 mmol/L (22-29); Chloride 102 mmol/L (98-107); Creatinine Clr Calc Pharmacy 47.3583; Globulin 2.4 g/dL (1.3-4.6); Glucose 112 mg/dL (65-115); NT Pro B Type Natriuretic Pept 1249 pg/mL (0-450); Osmolality Calculated 297 mOsm/kg (285-295); Potassium 3.4 mmol/L (3.5-5.1); Sodium 142 mmol/L (136-145); Total Bilirubin 0.7 mg/dL (0.15-1.2); Total Protein 6.6 g/dL (6.6-8.7)
[2023-12-16 15:25] LABS: Bilirubin Urine Negative (Negative); Blood Urine Negative (Negative); Glucose Urine UA Negative (Normal); Ketones Urine Trace (Negative); Leukocyte Esterase Urine Negative (Negative); Nitrate Urine Negative (Negative); Protein Urine Negative (Negative); Specific Gravity, Urine 1.016 (1.005-1.030); Urine Appearance Clear (CLEAR); Urine Color Yellow (Yellow); pH Urine 7.5 (5-7)
[2023-12-16 15:28] LABS: Bacteria Urine None Seen /hpf; Hyaline Casts Urine 1.65 /lpf; RBC Urine 0-2 /hpf (0-2); Squamous Epithelial Cell Urine 21-50 /hpf (0-5); WBC Urine 0-5 /hpf (0-5)
[2023-12-16] MEDS: sodium chloride 0.9% 500 ML 999 ML IV (16:01)
[2023-12-16] MEDS: mineral oil ENEMA 133 mL PR (16:14)
[2023-12-16 17:24] VITALS: BP 172/67; PULSE 100
[2023-12-16] MEDS: magnesium citrate Btl 296 mL PO (18:51)
[2023-12-16] MEDS: peg /e-lyte soln 4,000 mL Btl 4000 ML PO (18:52)
[2023-12-16] MEDS: ondansetron 2 mg/ML SDV 2 mL 4 MG IVP (18:52)
[2023-12-16 18:53] VITALS: BP 172/67; PULSE 100; RESP 21; TEMP 36.7; O2SAT 93
== END 2023-12-16 18:54 | disposition home or self-care (01) ==
PROVIDERS: Emergency Provider Emergency Medicine
DX: K59.00 Constipation, unspecified (principal); G20.A1 Parkinson's disease without dyskinesia, without mention of fluctuations; I10 Essential (primary) hypertension
CPT/HCPCS: 36415; 51798; 74022; 80053; 81001; 83605; 83880; 85025; 86140; 87040; 96361; 96374; 99284; J2405; J7040

== ENCOUNTER → 2023-12-21 13:44 | Outpatient (BNVA) | payer MEDICARE, MEDICAID, SELFPAY | PROVIDERS: PCP Family Medicine; Visit Provider Student in an Organized Health Care Education/Training Program | DX: S52.532D Colles' fracture of left radius, subsequent encounter for closed fracture with routine healing (principal); X58.XXXD Exposure to other specified factors, subsequent encounter | CPT/HCPCS: 73110 ==

== ENCOUNTER → 2024-01-27 10:30 | Outpatient (BNVA) | payer MEDICARE, MEDICAID, SELFPAY | PROVIDERS: Referring Provider Student in an Organized Health Care Education/Training Program; Visit Provider Specialist | DX: S52.532D Colles' fracture of left radius, subsequent encounter for closed fracture with routine healing (principal); G56.03 Carpal tunnel syndrome, bilateral upper limbs; X58.XXXD Exposure to other specified factors, subsequent encounter | CPT/HCPCS: 95910 ==

== ENCOUNTER → 2024-02-02 15:31 | Outpatient (BNVA) | payer MEDICARE, MEDICAID, SELFPAY | PROVIDERS: Visit Provider Specialist | DX: G56.03 Carpal tunnel syndrome, bilateral upper limbs (principal); R29.898 Other symptoms and signs involving the musculoskeletal system; R03.0 Elevated blood-pressure reading, without diagnosis of hypertension; G20.A2 Parkinson's disease without dyskinesia, with fluctuations | CPT/HCPCS: 95885; 95907; 99213 ==

== ENCOUNTER → 2024-02-03 13:06 | Outpatient (BNVA) | payer MEDICARE, MEDICAID, SELFPAY | PROVIDERS: Visit Provider Nurse Practitioner Family | DX: Z09 Encounter for follow-up examination after completed treatment for conditions other than malignant neoplasm (principal); L57.0 Actinic keratosis; L82.0 Inflamed seborrheic keratosis; L30.4 Erythema intertrigo; L73.8 Other specified follicular disorders; L98.8 Other specified disorders of the skin and subcutaneous tissue; Z85.828 Personal history of other malignant neoplasm of skin | CPT/HCPCS: 17000; 17110; 99214 ==

== ENCOUNTER → 2024-02-24 13:15 | Outpatient (BNVA) | payer MEDICARE, MEDICAID, SELFPAY | PROVIDERS: Visit Provider Student in an Organized Health Care Education/Training Program | DX: G56.02 Carpal tunnel syndrome, left upper limb (principal); S52.532D Colles' fracture of left radius, subsequent encounter for closed fracture with routine healing; X58.XXXD Exposure to other specified factors, subsequent encounter | CPT/HCPCS: 99214 ==

== ENCOUNTER 2024-03-30 11:56 | Day surgery (SDC) | payer MEDICARE, MEDICAID, SELFPAY ==
[2024-03-30 12:24] VITALS: BP 117/55; PULSE 63; RESP 18; TEMP 37.2; O2SAT 91
[2024-03-30 12:42] VITALS: BMI 29.9
[2024-03-30] MEDS: acetaminophen 1,000 MG/100 ML PIGGYBACK 400 MG IV (12:56)
[2024-03-30] MEDS: sodium chloride 0.9% 1,000 ML 30 ML IV (13:43)
--- NOTE | 2024-03-30 13:51 | W.PM.OPSFHP ---
Same Day Surgery H&P Indication for Procedure/HPI DATE OF PROCEDURE: March 30, 2024 CHIEF COMPLAINT/INDICATIONFOR SURGICAL PROCEDURE: Left carpal tunnel syndrome PREOP DIAGNOSIS: Left carpal tunnel syndrome PLANNED PROCEDURE: Operation Date: 03/30/24 13:30 Proposed Procedures p Carpal Tunnel Release(Left) - Jamie Vazquez DO Medications/Allergies* Home Medications Medication Instructions Recorded Confirmed Type biotin 5,000 mcg sublingual tablet 10,000 mcg sublingual DAILY 08/05/23 03/29/24 History escitalopram oxalate 10 mg tablet 10 mg PO DAILY 08/05/23 03/29/24 History hydrochlorothiazide 12.5 mg tablet 12.5 mg PO DAILY 08/05/23 03/29/24 History hydrocodone 5 mg-acetaminophen 325 2 tab PO Q4H PRN Severe Pain 08/05/23 03/29/24 History mg tablet (Scale Score 7-10) lorazepam 1 mg tablet 1 mg PO QID PRN Anxiety 08/05/23 03/29/24 History metoprolol tartrate 25 mg tablet 25 mg PO BID 08/05/23 03/29/24 History pantoprazole 20 mg tablet,delayed 20 mg PO DAILY 08/05/23 03/29/24 History release Allergies/Adverse Reactions Allergy/AdvReac Type Severity Reaction Status Date / Time naproxen Allergy Unknown Verified 02/24/24 13:32 Pertinent History/Comorbid Conditions* Medical History (Updated 03/13/24 @ 09:41 by Jamie Vazquez DO) Restless leg Subcapital fracture of right hip Fibromyositis Central deafness Anemia GERD (gastroesophageal reflux disease) Parkinson's Disease Surgical History (Updated 03/23/23 @ 13:56 by DEL Thompson) Status post right hip replacement History of cataract surgery History of knee replacement Hx of LASIK Family History (Updated 07/17/19 @ 15:38 by Anne Adair RN) Congestive heart failure (CHF) Mother COPD (chronic obstructive pulmonary disease) Sister Social History Smoking and tobacco/nicotine status: never used tobacco/nicotine Alcohol intake: never Substance/Drug Use: never Adopted: No Caregiver/support person: No Lives independently: Yes Marital status: / Current occupational status: retired Pertinent Exam Findings alert, oriented x 3, operative site marked and procedure specific exam findings Please refer to detailed orthopedic examination on 02/24/2024: Examination left wrist: Examination left wrist demonstrates still mild tenderness to palpation about the left wrist over the joint likely secondary to more to stiffness, no significant tenderness to palpation at fracture site. She does have a dorsal deformity appreciated as well as some mild radial deviation with some ulnar positivity. She is able to wiggle fingers decreased wrist and finger range of motion due to stiffness, sensations intact to light touch distally distal pulses palpable hand warm well-perfused, Positive median compression test at the wrist, positive Tinel's at the wrist, Thenar atrophy Recommendations Surgery/Procedure today Other Plans: Patient here today with plan to proceed to the OR for left carpal tunnel release. We talked about her treatment options detail as far as nonoperative intervention and through shared decision making she has proceed with surgical invention for left carpal tunnel release surgery. She understands and agrees with current plan. All questions answered. Once again today I expressed she does have a healed distal radius fracture but does have some dorsal angulation residual with deformity of the wrist she understands that proceeding fixing this would be a significantly longer recovery and at this point time she would like to hold off on pursuing this treatment option of a distal radius osteotomy and would prefer to just do the left carpal tunnel release surgery. She understands and agrees to current plan. Questions answered. Coding Level of Care Code Acute Code for Ute Shields
[2024-03-30] MEDS: ceFAZolin 2,000 MG in sodium chloride 0.9% (plus) 50 ML 100 MG IV (13:54)
[2024-03-30] MEDS: ROPivacaine 0.5% SDV 30 mL 150 MG INJECTION (14:37)
[2024-03-30] MEDS: lidocaine-epi 1% 20 mL INJ INJECTION (14:37)
--- NOTE | 2024-03-30 14:40 | W.PM.BPON ---
Date of Procedure: 03/30/2024 Surgeon: Jamie Vazquez DO Reservations And Ticketing Agent(s): None Procedure(s) performed: Left carpal tunnel release Findings of the procedure(s): Left carpal tunnel syndrome patient underwent procedure as planned without issues or complications. Estimated blood loss: 2 mL Specimen(s) removed: None Post-operative diagnosis: Left carpal tunnel syndrome
--- NOTE | 2024-03-30 14:43 | P.OP_ITS ---
Operative Report Date of procedure: March 30, 2024 Surgeon: Jamie Vazquez DO Procedure: Preop Diagnosis: Left Carpal Tunnel Syndrome Post-op diagnosis: Same Procedure done: 1. Left carpal tunnel release Surgeon: Jamie Vazquez DO Anesthesia: MAC (Local) Estimated blood loss: 2 mL Tourniquet time 6 minutes IV fluids: See anesthesia record Complications: None Findings: See operative report narrative Condition: stable Disposition: same day Brief History: Patient is a pleasant 88 year-old female with left carpal tunnel syndrome. Patient has been worked up in the outpatient setting findings and physical examination consistent with this. Patient nerve conduction studies consistent with carpal tunnel syndrome. We detailed out patient's risk benefits complication alternatives with surgical and nonsurgical treatment options. Through shared decision making, patient agrees to proceed with surgical intervention of the left carpal tunnel release . Patient understands and agrees with current plan. All questions answered. Patient elects to proceed with surgical intervention with carpal tunnel release. Procedure: Patient seen and evaluated in the preoperative holding area. Consent was reviewed and signed with patient. Correct extremity was marked. Patient was seen evaluated by the anesthesia department once cleared for surgery was brought back to the operative suite. Patient was kept on [facility] in supine position all bony prominences were well-padded patient properly secured to the bed. Left upper extremity was then placed onto an armboard. A nonsterile tourniquet was applied to the left upper arm. Patient underwent anesthesia per the anesthesia department. Patient's left upper extremity was then prepped and draped in standard orthopedic fashion. Final timeout performed. Patient receiv ed appropriate preoperative antibiotics. Under sterile aseptic technique patient received local anesthesia over the preplanned carpal tunnel incision site. Esmarch was used to exsanguinate the left upper extremity and tourniquet was insufflated to 250 mmHg. A standard mini open left carpal tunnel incision was made. Starting distally at Frazier's cardinal line in line with the fourth ray extending proximally distal to the wrist crease centered over the carpal tunnel. Sharp scalpel incision was made through skin and subcutaneous tissue. Self-retaining retractor was placed and the palmar fascia was identified. This was then split longitudinally and direct visualization of the transverse carpal ligament was then made. I then utilizing scalpel feathered through the transverse carpal ligament until I entered the floor of the transverse carpal tunnel ligament into the carpal tunnel. Next I switched to dissection scissors and completed my release of the transverse carpal ligament distally with care to protect the recurrent motor branch. I completely released into the palmar fat and until no entrapment was noted distally. Care was made to protect the superficial palmar arch during my distal dissection. Next, nasal speculum placed proximally for retraction of soft tissue on top of the Transverse carpal ligament. Next the contents of the carpal tunnel where protected and and subsequently utilizing dissection scissors under loupe magnification completely released the transverse carpal ligament proximally into the antebrachial fascia. Care was made to protect the palmar cutaneous branch by keeping my scissors curved ulnarly. Once completely released, I then placed my [place] and had appropriate decompression of the carpal tunnel proximally as well as distally. I then inspected the contents of the carpal tunnel which showed an hourglass shape of the median nerve showing its compression. No masses were noted. Tendons appeared healthy. Wound was then thoroughly irri gated. Tourniquet deflated. Hemostasis satisfactory with bipolar electrocautery. I then closed the incision with interrupted nylon stitches. Xeroform 4 x 4's and a bulky soft dressing was applied to the left upper extremity. Patient was then awakened from anesthesia and taken to PACU in stable condition. Patient tolerated procedure without complications. Disposition: Patient taken to PACU in stable condition recovering well. Dressing clean dry and intact. Patient will receive appropriate discharge instructions as well as pain medication postoperatively. Patient to follow-up with me in the office in 2 weeks. They understand they may be weightbearing as tolerated to the left hand. Patient should keep incision clean dry and intact. Patient understands if any questions or concerns may contact the office.
[2024-03-30 14:44] VITALS: BP 127/71; PULSE 83; RESP 16; TEMP 36.2; O2SAT 93
[2024-03-30 14:49] VITALS: BP 155/60; PULSE 82; RESP 16; O2SAT 96
[2024-03-30 14:54] VITALS: BP 153/52; PULSE 77; RESP 16; O2SAT 95
[2024-03-30 14:58] VITALS: BP 152/60; PULSE 77; RESP 16; TEMP 36.3; O2SAT 95
[2024-03-30 15:07] VITALS: BP 160/62; PULSE 86; RESP 17; TEMP 36.3; O2SAT 97
--- NOTE | 2024-03-30 15:35 | ANE.PACU2 ---
Inpatient post-anesthesia follow up: Airway intact: Yes Vital signs: Temperature 97.4 F Pulse Rate 86 Respiratory Rate 17 Blood Pressure 160/62 Pulse Oximetry 97 Oxygen Delivery Me thod Room Air Oxygen Flow Rate Fraction of Inspir ed Oxygen Hydration adequate: Yes Nausea and vomiting: No Pain level: 1 Mental status: Baseline
== END 2024-03-30 15:35 | disposition home or self-care (01) ==
PROVIDERS: PCP Family Medicine; Visit Provider Student in an Organized Health Care Education/Training Program
PROC: (CPT 64721; principal; 2024-03-30 13:30)
DX: G56.02 Carpal tunnel syndrome, left upper limb (principal); K21.9 Gastro-esophageal reflux disease without esophagitis; G20.A1 Parkinson's disease without dyskinesia, without mention of fluctuations
CPT/HCPCS: 64721; J0131; J0690; J2704; J2795; J3010; J7030

== ENCOUNTER → 2024-06-28 14:03 | Outpatient (BNVA) | payer MEDICARE, MEDICAID, SELFPAY | PROVIDERS: PCP Family Medicine; Visit Provider Student in an Organized Health Care Education/Training Program | DX: Z98.890 Other specified postprocedural states (principal); M25.332 Other instability, left wrist; M19.132 Post-traumatic osteoarthritis, left wrist; M25.832 Other specified joint disorders, left wrist | CPT/HCPCS: 99213 ==

== ENCOUNTER 2024-06-29 13:50 | Outpatient (RCR) | payer MEDICARE, MEDICAID, SELFPAY | END 2024-07-24 23:59 | disposition home or self-care (01) | LOC: SOT 13:50 | PROVIDERS: PCP Family Medicine; Visit Provider Physician Assistant | DX: G56.02 Carpal tunnel syndrome, left upper limb (principal); Z48.89 Encounter for other specified surgical aftercare | CPT/HCPCS: 97022; 97110; 97140; 97165; 97530 ==

== ENCOUNTER 2024-07-16 20:39 | Inpatient (IN) | payer MEDICARE, MEDICAID, SELFPAY ==
[2024-07-16] VITALS (9 sets, daily range): BP systolic 158–199; BP diastolic 78–99; PULSE 86–101; RESP 19–20; TEMP 36.6; O2SAT 93–98; BMI 30.6
--- NOTE | 2024-07-16 21:09 | CTR_ITS ---
PROCEDURE INFORMATION: Exam: CT Maxillofacial Without Contrast Exam date and time: 07/16/2024 10:02 PM Age: 88 years old Clinical indication: Injury or trauma; Blunt trauma (contusions or hematomas); EMS arrival for fall at home. Patient tripped falling face first into a glass picture frame then onto the floor. Hematoma to left orbit/maxilla. Focal C/O neck pain. ; Additional info: Facial injury p fall TECHNIQUE: Imaging protocol: Computed tomography of the face without contrast. Radiation optimization: All CT scans at this facility use at least one of these dose optimization techniques: automated exposure control; mA and/or kV adjustment per patient size (includes targeted exams where dose is matched to clinical indication); or iterative reconstruction. COMPARISON: CT head wo con* [id number] 07/16/2024 9:58 PM RADIATION DOSE METRICS: Total DLP (mGy-cm): 602.72 FINDINGS: Paranasal sinuses: No air-fluid levels. Orbital cavities: Orbits are normal. Globes are unremarkable. Bones: Re-demonstration of cervical spine fracture see CT C-spine. No acute facial fracture. Soft tissues: Left facial hematoma. CT/CT facial bones wo con* [id number] IMPRESSION: No acute facial fracture. Left facial and frontal scalp hematoma.
--- NOTE | 2024-07-16 21:09 | CTR_ITS ---
PROCEDURE INFORMATION: Exam: CT Cervical Spine Without Contrast Exam date and time: 07/16/2024 10:04 PM Age: 88 years old Clinical indication: Injury or trauma; Blunt trauma; EMS arrival for fall at home. Patient tripped falling face first into a glass picture frame then onto the floor. Hematoma to left orbit/maxilla. Focal C/O neck pain. ; Additional info: Head inj TECHNIQUE: Imaging protocol: Computed tomography of the cervical spine without contrast. Radiation optimization: All CT scans at this facility use at least one of these dose optimization techniques: automated exposure control; mA and/or kV adjustment per patient size (includes targeted exams where dose is matched to clinical indication); or iterative reconstruction. COMPARISON: CT cervical spin wo con* [id number] 03/04/2023 2:49 PM RADIATION DOSE METRICS: Total DLP (mGy-cm): 522.9 FINDINGS: Bones: Degenerative changes including osteophytes, disc space narrowing, endplate spurring and facet hypertrophy. Anterior and posterior arch fractures of C1 noted. There is a displaced fracture at the base of the dens. Lungs: Pneumothorax. Soft tissues: Unremarkable. CT/CT cervical spin wo con* [id number] IMPRESSION: 1. Anterior and posterior arch fractures of C1 noted. 2. There is a displaced fracture at the base of the dens.
--- NOTE | 2024-07-16 21:09 | XRR_ITS ---
PROCEDURE INFORMATION: Exam: XR Left Hand Exam date and time: 07/16/2024 8:19 PM Age: 88 years old Clinical indication: Left; Lt hand pain post fall; Multiple abrasions/lacerations TECHNIQUE: Imaging protocol: Radiologic exam of the left hand. Views: 3 or more views. COMPARISON: CR (UP EX, ) 07/02/2023 6:52 PM FINDINGS: Bones/joints: Chronic deformity noted at the distal radius. Chronic ulnar styloid fracture. Bones are demineralized. Chronic appearing deformity of the middle phalanx of the 2nd digit. Soft tissues: Normal. XR/XR hand LT min 3V* [id number] IMPRESSION: No acute fracture.
--- NOTE | 2024-07-16 21:09 | CTR_ITS ---
PROCEDURE INFORMATION: Exam: CT Head Without Contrast Exam date and time: 07/16/2024 9:58 PM Age: 88 years old Clinical indication: Injury or trauma; Blunt trauma (contusions or hematomas); EMS arrival for fall at home. Patient tripped falling face first into a glass picture frame then onto the floor. Hematoma to left orbit/maxilla. Focal C/O neck pain. ; Additional info: Head inj TECHNIQUE: Imaging protocol: Computed tomography of the head without contrast. Radiation optimization: All CT scans at this facility use at least one of these dose optimization techniques: automated exposure control; mA and/or kV adjustment per patient size (includes targeted exams where dose is matched to clinical indication); or iterative reconstruction. COMPARISON: CT head wo con* [id number] 03/13/2023 5:40 PM RADIATION DOSE METRICS: Total DLP (mGy-cm): 1129.2 FINDINGS: Brain: No hemorrhage. No edema, mass effect or midline shift. Periventricular and deep white matter hypodensities compatible with chronic microvascular ischemic changes. Cerebral ventricles: No ventriculomegaly. Paranasal sinuses: Visualized sinuses are unremarkable. No fluid levels. Mastoid air cells: No mastoid effusion. Bones: Unremarkable. No acute fracture. Soft tissues: Left frontal scalp and facial hematoma. CT/CT head wo con* [id number] IMPRESSION: Left frontal scalp and facial hematoma. Otherwise no acute intracranial abnormality.
[2024-07-16] MEDS: morphine 4 mg/mL SDV 1 mL 2 MG IVP (21:41)
[2024-07-16] MEDS: ondansetron 2 mg/ML SDV 2 mL 4 MG IVP ×2 (21:41→23:16)
--- NOTE | 2024-07-16 22:27 | W.ED.FALL ---
HPI - Fall General: Chief Complaint: Fall Stated Complaint: FALL Time Seen by Provider: 07/16/24 20:43 History of Present Illness: 88-year-old female who fell at home. She stumbled and fell through a glass pain. She has multiple abrasions, bruising to the face, pain to the face, and head. She denies neck pain at this point. She presents in a c-collar Related Data Home Medications ?Medication ?Instructions ?Recorded ?Confirmed biotin 5,000 mcg sublingual tablet 10,000 mcg sublingual DAILY 08/05/23 06/28/24 escitalopram oxalate 10 mg tablet 10 mg PO DAILY 08/05/23 06/28/24 hydrochlorothiazide 12.5 mg tablet 12.5 mg PO DAILY 08/05/23 06/28/24 hydrocodone 5 mg-acetaminophen 325 2 tab PO Q4H PRN Severe Pain 08/05/23 06/28/24 mg tablet (Scale Score 7-10) lorazepam 1 mg tablet 1 mg PO QID PRN Anxiety 08/05/23 06/28/24 metoprolol tartrate 25 mg tablet 25 mg PO BID 08/05/23 06/28/24 pantoprazole 20 mg tablet,delayed 20 mg PO DAILY 08/05/23 06/28/24 release Previous Rx's ?Medication ?Instructions ?Recorded bisacodyl 5 mg tablet,delayed 10 mg (2 x 5 mg) PO DAILY PRN 03/17/23 release Constipation (see protocol) #30 tabs sennosides 8.6 mg-docusate sodium 2 tab PO BID #180 tabs 03/17/23 50 mg tablet (Stool Softener-Laxative) fast form #1 ea 07/08/23 cockup splint #1 ea 08/10/23 polyethylene glycol 3350 17 17 g PO DAILY #510 grams 12/16/23 gram/dose oral powder (Miralax) carbidopa 25 mg-levodopa 100 mg See Rx Instructions .Route 02/03/24 tablet .COMPLEX #180 tabs Allergies Allergy/AdvReac Type Severity Reaction Status Date / Time naproxen Allergy Unknown Verified 06/28/24 14:11 [facility] PFS: Medical History Restless leg Subcapital fracture of right hip Fibromyositis Central deafness Anemia GERD (gastroesophageal reflux disease) Parkinson's Disease Surgical History Status post right hip replacement History of cataract surgery History of knee replacement Hx of LASIK Family History Sister COPD (chronic obstructive pulmonary disease) Mother Congestive heart failure (CHF) Social History Smoking and tobacco/nicotine status: never used tobacco/nicotine Alcohol intake: never Substance/Drug Use: never Adopted: No Caregiver/support person: No Lives independently: Yes Marital status: / Current occupational status: retired Procedures Laceration Laceration 1: Site: face (Forehead) Size (cm): 11 Description: linear Depth: involves muscle layer Local Anesthetic: lidocaine 1% and with epi Amount of anesthesia used (mL): 10 Pre-repair: wound explored and irrigated extensively Skin layer closed with: other ([place]) Number of sutures: 16 Technique: simple, interrupted Laceration 2: Site: scalp (Forehead) Side (If applicable): left Size (cm): 4 Description: linear Depth: simple, single layer Local Anesthetic: lidocaine 1% and with epi Amount of anesthesia used (mL): 3 Pre-repair: wound explored, irrigated extensively and deep structures intact Skin layer closed with: other (Kg) Number of sutures: 5 Laceration 3: Site: face Side (If applicable): left Size (cm): 2 Description: linear Depth: simple, single layer Local Anesthetic: lidocaine 1% and with epi Amount of anesthesia used (mL): 3 Pre-repair: wound explored, irrigated extensively and deep structures intact Skin layer closed with: other ([place]) Size (cm): 5-0 Number of sutures: 3 Technique: simple, interrupted Course Vital Signs: Vital signs: Vital Signs Temperature 97.9 F 07/16/24 20:40 Pulse Rate 81 07/17/24 01:30 Respiratory Rate 15 07/17/24 01:30 Blood Pressure 146/55 07/17/24 01:30 Pulse Oximetry 100 07/17/24 01:30 Oxygen Delivery Me thod Room Air 07/17/24 01:30 MDM - Fall Medical Decision Making Patient was examined. She has significant left periorbital swelling, infraorbital hematoma, multiple lacerations to the face, and a cervical fracture. C-collar is in place. Fractures of her posterior and anterior arches of C1, and a fracture through the base of the dens. Mild displacement. Spoke with neurosurgery at [facility]. Dr. Samano. He viewed the images sent over the cloud. Recommendations are hard c-collar, follow-up in clinic in 2 weeks for repeat x-rays. The patient had a large deep laceration to the forehead with venous bleeding, hemostasis obtained after stapling. Another laceration to the left cheek stapled, and a third laceration to the face, with 3 sutures. Her hemoglobin is 10 which is roughly stable from prior. White blood cell count is 17, likely from stress. Other laboratory parameters are not remarkable. This is a mildly frail lady, who lives at home alone. Despite no surgical indication for admission, must consider admitting for PT evaluation, OT evaluation, recovery, pain management, etc. Lab Data 07/16/24 23:06 07/16/24 23:06 Radiology Impressions Cervical Spine CT 07/16/24 21:09 IMPRESSION: 1. Anterior and posterior arch fractures of C1 noted. 2. There is a displaced fracture at the base of the dens. ADDENDUM: 07/16/242233 THIS REPORT CONTAINS FINDINGS THAT MAY BE CRITICAL TO PATIENT CARE. The findings were verbally communicated via telephone conference with MARK Bryant at 1031 pm NET PROGRAMMER on 07/16/2024. The findings were acknowledged and understood. Correction to section on ( lung apices) , should read as follows: There is NO pneumothorax at the lung apices. Face CT 07/16/24 21:09 IMPRESSION: No acute facial fracture. Left facial and frontal scalp hematoma. Hand X-Ray 07/16/24 21:09 IMPRESSION: No acute fracture. Head CT 07/16/24 21:09 IMPRESSION: Left frontal scalp and facial hematoma. Otherwise no acute intracranial abnormality. Chest X-Ray 07/16/24 23:08 IMPRESSION: Diffuse interstitial prominence with superimposed patchy ground-glass opacities in the upper lung zones and left lower lobe. Findings may represent pulmonary edema or other infiltrates. Laboratory Results WBC 17.11 10^3/uL (3.29-11.43) H 07/16/24 23:06 RBC 3.58 10^6/uL (3.85-5.65) L 07/16/24 23:06 Hgb 10.00 g/dL (11.27-16.99) L 07/16/24 23:06 Hct 32.6 % (36-47) L 07/16/24 23:06 MCV 91.1 fl (85-98) 07/16/24 23:06 MCH 27.9 pg (27-33) 07/16/24 23:06 MCHC 30.7 g/dL (30-55) 07/16/24 23:06 RDW 15.0 % (12.1-15.1) 07/16/24 23:06 Plt Count 212 10^3/cmm (157-399) 07/16/24 23:06 MPV 10.4 fL (7.4-10.4) 07/16/24 23:06 Neut % (Auto) 79.7 % 07/16/24 23:06 Lymph % (Auto) 13.4 % 07/16/24 23:06 [place] % (Auto) 5.6 % 07/16/24 23:06 Eos % (Auto) 0.5 % 07/16/24 23:06 Baso % (Auto) 0.3 % 07/16/24 23:06 Neut # (Auto) 13.63 10^3/uL (1.8-7.7) H 07/16/24 23:06 Lymph # (Auto) 2.3 10^3/uL (0.8-4.8) 07/16/24 23:06 [place] # (Auto) 1.0 10^3/uL (0.2-0.9) H 07/16/24 23:06 Eos # (Auto) 0.1 10^3/uL (0.0-0.8) 07/16/24 23:06 Baso # (Auto) 0.1 10^3/uL (0.0-0.1) 07/16/24 23:06 Nucleated RBC % (auto) 0 % 07/16/24 23:06 Nucleated RBCs # 0.0 /100WBC 07/16/24 23:06 PT 13.20 SECONDS (12.1-14.9) 07/16/24 23:06 INR 0.94 (0.8-1.2) 07/16/24 23:06 APTT 35.2 SECONDS (23.9-36.7) 07/16/24 23:06 Sodium 140 mmol/L (136-145) 07/16/24 23:06 Potassium 3.8 mmol/L (3.5-5.1) 07/16/24 23:06 Chloride 103 mmol/L (98-107) 07/16/24 23:06 Carbon Dioxide 25 mmol/L (22-29) 07/16/24 23:06 Anion Gap 15.8 (5-19) 07/16/24 23:06 BUN 34 mg/dL (8-23) H 07/16/24 23:06 Creatinine 0.9 mg/dL (0.5-0.9) 07/16/24 23:06 GFR Calculation Not Reportable 07/16/24 23:06 Glucose 147 mg/dL (65-115) H 07/16/24 23:06 Calculated Osmolality 300 mOsm/kg (285-295) H 07/16/24 23:06 Calcium 8.5 mg/dL (8.5-10.5) 07/16/24 23:06 Total Bilirubin 0.3 mg/dL (0.15-1.2) 07/16/24 23:06 AST 8 U/L (0-32) 07/16/24 23:06 ALT < 5 U/L (0-33) 07/16/24 23:06 Alkaline Phosphatase 69 U/L (35-105) 07/16/24 23:06 Total Protein 6.5 g/dL (6.6-8.7) L 07/16/24 23:06 Albumin 4.0 g/dL (3.5-5.2) 07/16/24 23:06 Globulin 2.5 g/dL (1.3-4.6) 07/16/24 23:06 Ethyl Alcohol < 10 mg/dL (0-10) 07/16/24 23:06 All radiology interpretation(s) finalized by discharge Discharge Plan Discharge Patient Disposition: Admitted As Inpatient Admit Provider: Stacie Finney Clinical Impression: Fall, Cervical spine fracture, Periorbital hematoma of left eye, Scalp hematoma Condition: Fair Coding Level of Care Code ED [employer] Assembler for g Alyson
[2024-07-16] MEDS: tranexamic acid 1,000 mg/10mL SDV 1000 MG IRRIGATION (22:55)
[2024-07-16] MEDS: lidocaine-epi 1% 20 mL INJ INJECTION (22:55)
--- NOTE | 2024-07-16 23:08 | XRR_ITS ---
PROCEDURE INFORMATION: Exam: XR Chest Exam date and time: 07/16/2024 11:19 PM Age: 88 years old Clinical indication: Injury or trauma; Blunt trauma (contusions or hematomas); EMS arrival for ground level fall. TECHNIQUE: Imaging protocol: Radiologic exam of the chest. Views: 1 view. COMPARISON: CR XR chest 1V portable [id number] 03/13/2023 5:23 PM FINDINGS: Lungs: Diffuse interstitial prominence with superimposed patchy ground-glass opacities in the upper lung zones and left lower lobe. Findings may represent pulmonary edema or other infiltrates. Pleural spaces: No pleural effusion. No pneumothorax. Heart/Mediastinum: Cardiomegaly. Bones/joints: No acute fracture. XR/XR chest 1V portable [id number] IMPRESSION: Diffuse interstitial prominence with superimposed patchy ground-glass opacities in the upper lung zones and left lower lobe. Findings may represent pulmonary edema or other infiltrates.
[2024-07-16 23:13] LABS: Basophils # 0.1 10^3/uL (0.0-0.1); Basophils % 0.3 %; Eosinophils # 0.1 10^3/uL (0.0-0.8); Eosinophils % 0.5 %; Hematocrit 32.6 % (36-47); Lymphocytes # 2.3 10^3/uL (0.8-4.8); Lymphocytes % 13.4 %; Mean Corpuscular HGB Conc 30.7 g/dL (30-55); Mean Corpuscular Hemoglobin 27.9 pg (27-33); Mean Corpuscular Volume 91.1 fl (85-98); Mean Platelet Volume 10.4 fL (7.4-10.4); Monocytes % 5.6 %; Neutrophils # 13.63 10^3/uL (1.8-7.7); Neutrophils % 79.7 %; Nucleated Red Blood Cells % 0 %; Platelet Count 212 10^3/cmm (157-399); Red Blood Count 3.58 10^6/uL (3.85-5.65); White Blood Count 17.11 10^3/uL (3.29-11.43)
[2024-07-16] MEDS: morphine 4 mg/mL SDV 1 mL IVP (23:16)
[2024-07-16 23:28] LABS: INR 0.94 (0.8-1.2)
[2024-07-16 23:30] LABS: Partial Thromboplastin Time 35.2 SECONDS (23.9-36.7)
[2024-07-16 23:33] LABS: Alanine Aminotransferase < 5 U/L (0-33); Alkaline Phosphatase 69 U/L (35-105); Anion Gap 15.8 (5-19); Aspartate Amino Transferase 8 U/L (0-32); Blood Urea Nitrogen 34 mg/dL (8-23); Calcium 8.5 mg/dL (8.5-10.5); Carbon Dioxide 25 mmol/L (22-29); Chloride 103 mmol/L (98-107); Creatinine Clr Calc Pharmacy 47.8723; Globulin 2.5 g/dL (1.3-4.6); Glucose 147 mg/dL (65-115); Osmolality Calculated 300 mOsm/kg (285-295); Potassium 3.8 mmol/L (3.5-5.1); Sodium 140 mmol/L (136-145); Total Bilirubin 0.3 mg/dL (0.15-1.2); Total Protein 6.5 g/dL (6.6-8.7)
[2024-07-16 23:38] LABS: Alcohol Level < 10 mg/dL (0-10)
[2024-07-17] VITALS (54 sets, daily range): BP systolic 109–180; BP diastolic 48–93; PULSE 64–94; RESP 13–26; TEMP 37.2; O2SAT 90–100
--- NOTE | 2024-07-17 00:20 | P.HP_ITS ---
Providers/Chief Complaint 2 Primary Care Provider: Trev Severino MD Chief Complaint: FALL History of Present Illness Latoya Flaherty is a 88 year old female with history of lower extremity edema, Parkinson's, uses a walker, lives with her son, on Eliquis 2.5 mg twice daily since her hip surgery, presented after sustaining a fall at home. Patient is stating that she was using her walker to go towards her dining room to get some blankets, there was a rug on her way, her foot got stuck and she fell over hit her head against a big tall glass picture which was right next to the door, her head shattered the glass in her face hit the door. The noise was so hard and loud that facial rods on the wall dropped on the floor. Ambulance was called. Workup in the ER revealed leukocytosis, chronic anemia, patient had multiple lacerations forehead, left thigh hematoma, periorbital edema, left cheek laceration, she got 18 toña on her scalp and forehead and couple of sutures left cheek. She has cervical spine fracture, case was presented to neurosurgeon at [facility] who recommended C-spine collar and nonsurgical intervention since patient has no acute neurological deficits as per the ER physician communication with the neurosurgeon. At the time of my evaluation patient has c-collar on, hypertensive, currently on 2 L nasal cannula, no significant wheezing of blood around her suture site, patient and daughter both were told about the conversation with neurosurgeon at [facility], both patient and daughter agreeable to get admitted at [facility] knowing that we are not a trauma center, both patient and daughter agreeable in case there are any neurological deficits she could be transported to nearby trauma center. I have requested Su catheter placement and ICU bed for the patient. Patient is not sure about her last dose of Eliquis stating that she has been taking a blood thinner since her hip surgery. She is not sure if she ever had a diagnosis of A-fib however it was listed against Eliquis medication. Currently patient is in sinus rhythm. On clinical exam she is able to move her upper extremities with some limitation against shoulder joint, she is able to wiggle her toes, when I asked her to lift her legs in the air she stating that they are just too heavy for her to do that right now Clinically patient looks hypervolemic. Chest x-ray consistent with pulm edema as well Patient did not endorse any chest pain or syncopal event Review of Systems 2 Const: Denies: fever(s) Eyes: Denies: change in vision ENMT: Denies: throat pain Card: Reports: swelling of feet/ankles Resp: Reports: dyspnea GI: Denies: nausea Musc: Reports: neck pain, back pain, extremity pain and extremity swelling Skin/Breast: Reports: rash, skin tenderness, skin swelling and new lesions Medications/Allergies Home Medications ?Medication ?Instructions ?Recorded ?Confirmed ?Last Taken ?Type bisacodyl 5 mg tablet,delayed 10 mg (2 x 5 mg) PO RONALDO Y PRN 03/17/23 06/28/24 Unknown Rx release Constipation (see protocol) #30 tabs sennosides 8.6 mg-docusate sodium 2 tab PO BID #180 ta bs 03/17/23 06/28/24 03/29/24 Rx 50 mg tablet (Stool Softener-Laxative) fast form #1 ea 07/08/23 06/28/24 Unkn own Rx biotin 5,000 mcg sublingual tablet 10,000 mcg sublingu al DAILY 08/05/23 06/28/24 03/29/24 History escitalopram oxalate 10 mg tablet 10 mg PO DAILY 08/0406/28/24 03/29/24 History hydrochlorothiazide 12.5 mg tablet 12.5 mg PO DAILY 06/28/24 03/29/24 History hydrocodone 5 mg-acetaminophen 325 2 tab PO Q4H PRN Se kathy Pain 08/05/23 06/28/24 Unknown History mg tablet (Scale Score 7-10) lorazepam 1 mg tablet 1 mg PO QID PRN Anxiety 07/2506/28/24 Unknown History metoprolol tartrate 25 mg tablet 25 mg PO BID 08/05/23 06/28/24 03/29/24 History pantoprazole 20 mg tablet,delayed 20 mg PO DAILY 08/0406/28/24 03/29/24 History release cockup splint #1 ea 08/10/23 06/28/24 Unkn own Rx polyethylene glycol 3350 17 17 g PO DAILY #510 grams 0 12/16/23 06/28/24 03/29/24 Rx gram/dose oral powder (Miralax) carbidopa 25 mg-levodopa 100 mg See Rx Instructions .R oute 02/03/24 06/28/24 03/30/24 Rx tablet .COMPLEX #180 tabs Allergies Allergy/AdvReac Type Severity Reaction Status Date / Time naproxen Allergy Unknown Verified 06/28/24 14:11 PFSH Acute 2 PFSH: Medical History Restless leg Subcapital fracture of right hip Fibromyositis Central deafness Anemia GERD (gastroesophageal reflux disease) Parkinson's Disease Surgical History Status post right hip replacement History of cataract surgery History of knee replacement Hx of LASIK Family History Sister COPD (chronic obstructive pulmonary disease) Mother Congestive heart failure (CHF) Social History Smoking and tobacco/nicotine status: never used tobacco/nicotine Alcohol intake: never Substance/Drug Use: never Adopted: No Caregiver/support person: No Lives independently: Yes Marital status: / Current occupational status: retired Vitals/I&O/Wt Last Vital Signs Temp 97.9 F 07/16/24 20:40 Pulse 89 07/17/24 00:00 Resp 23 H 07/17/24 00:00 BP 161/75 07/17/24 00:00 Pulse Ox 99 07/17/24 00:00 O2 Del Method Nasal Cannula 07/16/24 23:00 Weight last 48 hrs Weight 83.461 kg Physical Exam 2 Narrative: Patient laying supine with C-spine collar on She is able to lift her both arms against gravity however has limitation again shoulder joint I did not appreciate any vascular deficit of fingers tips She has significant hematoma perioperatively, not able to open eyes Right eye has no trauma pupil normal in appearance reactive to light Patient does not have any active stridor or respiratory distress She has couple sutures on her left cheek 15-18 sutures on her scalp and forehead area with mild oozing of blood S1, S2 sinus rhythm Abdomen soft distended Lower extremity lymphedema Able to wiggle her toes, not able to lift legs stating that they are heavy secondary to swelling Patient able to follow commands Daughter at the bedside Currently saturating 99% on 2 L nasal cannula Data 07/16/24 23:06 07/16/24 23:06 A&P Assessment and plan (1) Acute exacerbation of CHF (congestive heart failure): (2) Parkinson's Disease: Qualifiers: Dyskinesia presence: without dyskinesia Fluctuating manifestations: w ith fluctuating manifestations Qualified Code(s): G20.A2 - Parkinson's disease without dyskinesia, with fluctuations (3) Physical deconditioning: (4) Fall: (5) Cervical spine fracture: (6) Periorbital hematoma of left eye: (7) Scalp hematoma: Plan Mechanical fall Scalp hematoma Left cheek laceration Left eye periorbital hematoma Cervical spine fracture No neurological active deficit Case discussed with neurosurgeon at [facility], please see ER document, who recommended nonsurgical intervention considering her age and no active neurological deficit, patient and daughter both aware that we are not a trauma center in case there are any neurological changes then they are okay with the transfer Opioids for pain management along bowel regimen C-collar in place Patient is asking if she could talk with Dr. Vazquez in the morning who operated on her hip in the past, I told her that Dr. Vazquez would not operate on her spine if needed Admit to ICU with close monitoring on her respiratory status and neurological status Requested Su catheter placement Physical therapy Patient will need snf placement Acute CHF exacerbation: Clinical signs of fluid overload, lower extremity edema, chest x-ray consistent with pulm edema EF unknown I do not have previous echo I will give her IV diuresis after placing Su catheter No active chest pain Currently requiring 2 L of oxygen History of Parkinson's: Continue medications Patient uses a walker at home Lives with her son, daughter is visiting from [place] Goals of care discussed with the patient in front of her daughter: She is stating that she is DNR/DNI Clear liquid diet for now advance gradually Hold anticoagulating agent DVT prophylaxis: SCDs Admit to ICU PDMP PDMP Reviewed: Not Reviewed Attestations 2 Medical Necessity Statement*: More than 2 midnights anticipated Diagnoses Acute exacerbation of CHF (congestive heart failure) I50.9 Parkinson's disease without dyskinesia, with fluctuating manifestations G20.A2 Dyskinesia presence: without dyskinesia Fluctuating manifestations: with fluctuating manifestations Physical deconditioning R53.81 Fall W19.XXXA Cervical spine fracture S12.9XXA Periorbital hematoma of left eye H05.232 Scalp hematoma S00.03XA
[2024-07-17] MEDS: morphine 4 mg/mL SDV 1 mL IVP ×3 (00:29→12:36)
--- NOTE | 2024-07-17 02:27 | USCV_ITS ---
Latoya Flaherty Age: 88 Gender: F : 1935 Exam Date: 07/17/2024 08:24 Ordering Phys: Stacie Finney MD Technologist: Exam Location: [facility] Indication: chf BP: 158 / 65 HR: 78 Rhythm: Sinus Technical Quality: Very technically difficult study MEASUREMENTS (Male / Female) Normal Values 2D ECHO LV Diastolic Diameter PLAX 4.1 cm 4.2 - 5.9 / 3.9 - 5.3 cm IVS Diastolic Thickness 1.3 cm 0.6 - 1.0 / 0.6 - 0.9 cm IVS Systolic Thickness 1.9 cm LVPW Diastolic Thickness 1.3 cm 0.6 - 1.0 / 0.6 - 0.9 cm LVPW Systolic Thickness 1.8 cm LVOT Diameter 2.1 cm LV Ejection Fraction 2D Teich 67.1 % LA Diameter 3.6 cm Aorta at Sinotubular Diameter 2.4 cm M-MODE LA Ao Ratio MM 1.5 AV Cusp Separation MM 2.0 cm DOPPLER AV Peak Velocity 160.0 cm/s LVOT Peak Velocity 94.0 cm/s AV Area Cont Eq vti 2.0 cm squared AV Area Cont Eq pk 2.0 cm squared MV Area PHT 4.2 cm squared Mitral E to A Ratio 0.9 TR Peak Velocity 172.0 cm/s TR Peak Gradient 11.8 mmHg TV Peak E Velocity 146.0 cm/s PV Peak Velocity 111.0 cm/s FINDINGS Left Ventricle Technically limited echocardiogram because of poor ultrasonic windows. Left ventricle is normal size. LV systolic function is normal with EF of 60 to 65%. No regional wall motion abnormalities are seen. Right Ventricle Normal in size and function Right Atrium Not well visualized Left Atrium Not well visualized Mitral Valve Moderate mitral annular calcification. Aortic Valve Aortic valve is thickened. Tricuspid Valve Insufficient TR jet to calculate RVSP Pulmonic Valve Not well visualized Pericardium Grossly normal Aorta Normal in size IVC Not visualized CONCLUSIONS Technically limited echocardiogram because of poor ultrasonic windows. LV systolic function is normal with EF of 60-65%. Lance Zamora MD (Electronically Signed) Final Date: 17 July 2024 12:00 S
[2024-07-17] MEDS: FUROsemide 10 mg/mL SDV 2mL 20 MG IVP ×2 (03:37→08:56)
[2024-07-17] MEDS: dexamethasone 4 mg/mL INJ IVP ×4 (03:38→20:31)
[2024-07-17 04:26] LABS: Basophils % 0.4 %; Eosinophils % 0.1 %; Hematocrit 30.7 % (36-47); Lymphocytes # 1.2 10^3/uL (0.8-4.8); Lymphocytes % 11.3 %; Mean Corpuscular HGB Conc 30.9 g/dL (30-55); Mean Corpuscular Hemoglobin 28.4 pg (27-33); Mean Corpuscular Volume 91.9 fl (85-98); Mean Platelet Volume 11.1 fL (7.4-10.4); Monocytes # 0.7 10^3/uL (0.2-0.9); Monocytes % 6.7 %; Neutrophils # 8.86 10^3/uL (1.8-7.7); Nucleated Red Blood Cells % 0 %; Platelet Count 171 10^3/cmm (157-399); Red Blood Count 3.34 10^6/uL (3.85-5.65); Red Cell Distribution Width 15.2 % (12.1-15.1); White Blood Count 10.92 10^3/uL (3.29-11.43)
[2024-07-17 04:38] LABS: Anion Gap 15.6 (5-19); Blood Urea Nitrogen 33 mg/dL (8-23); Calcium 8.5 mg/dL (8.5-10.5); Carbon Dioxide 25 mmol/L (22-29); Chloride 105 mmol/L (98-107); Glucose 127 mg/dL (65-115); Magnesium 2.1 mg/dL (1.7-2.3); Osmolality Calculated 301 mOsm/kg (285-295); Potassium 4.6 mmol/L (3.5-5.1); Sodium 141 mmol/L (136-145)
[2024-07-17] MEDS: pantoprazole 40 mg SDV IVP ×2 (08:57→18:18)
[2024-07-17] MEDS: cefTRIAXone 1,000 MG in sodium chloride 0.9% (plus) 50 ML 100 MG IV (08:57)
--- NOTE | 2024-07-17 09:54 | MR_ITS ---
WS: [id number] MRI CERVICAL SPINE NONCONTRAST HISTORY: trauma, patient has a known C1 and C2 fracture. COMPARISON: CT cervical spine 07/16/2024 Technique: Multiplanar, multisequence noncontrast imaging of the cervical spine. Slight straightening of the normal cervical lordosis. Reidentified is the fracture of the base of the odontoid process. There is a small amount of edema along the fracture site. Slight impaction along the fracture with very slight posterior tilting of the odontoid tip. Narrowing of the predental space. Edema within the anterior ring of C1. Fracture in the posterior ring of C1 is less well visualized. No significant compromise of the upper cervical cord. There is a small amount of edema along the posterior odontoid tip. Increased T2 signal extends over a length of 10 mm in the cervical cord at the C4-5 level. Indistinct surfaces of the cervical cord. Prevertebral soft tissue edema noted from C2-C5. C2-C3: Mild facet arthritis. No high-grade stenosis. Small amount of edema at the facet joints. C3-C4: Normal. C4-C5: Marked osteophytic ridging with annular disc bulging. Severe central and bilateral foraminal stenosis. This is also the level of cord edema. C5-C6: Osteophytic ridging. Bilateral facet arthritis. Moderate to severe central and bilateral foraminal stenosis. C6-C7: Mild annular disc bulging with facet arthritis. Mild central and bilateral foraminal stenosis. C7-T1: Normal. MR/MR cervical spin wo con* [id number] IMPRESSION: 1. No interval change in alignment of the fracture involving the base of the o dontoid process. 2. Edema within the anterior ring of C1 at the site of the fracture. The poste rior C1 fracture is not as well visualized. 3. Focal edema in the cervical cord at C4-5. Large osteophytes at this level. This may be contusion related to the trauma. 4. Prevertebral soft tissue edema from C2-C5. 5. C4-5: Severe central and bilateral foraminal stenosis. 6. C5-6: Moderate to severe central and bilateral foraminal stenosis. 7. C6-7: Mild central and bilateral foraminal stenosis.
[2024-07-17] MEDS: LORazepam 2 mg/mL INJ 1 mL 0.5 MG IVP (12:37)
--- NOTE | 2024-07-17 13:14 | PC.SLP ---
DCS ENGINEER attempted to see patient, however, patient is currently at MRI. DCS ENGINEER will attempt to follow-up with the patient later.
--- NOTE | 2024-07-17 13:26 | P.CONIM_ITS ---
Providers/Reason For Consult 2 Consulting Physician/Specialty*: Hospitalist Reason for Consult*: C1 and C2 fracture Attending Physician: Art Soto MD Primary Care Provider: Trev Severino MD History of Present Illness History of Present Illness Latoya Flaherty is a 88 year old female that presents with C1 and C2 fractures. Patient has a history of falls she had a hip fracture she sustained in 2022 a distal radius fracture she sustained last year.Patient is stating that she was using her walker to go towards her dining room to get some blankets, there was a rug on her way, her foot got stuck and she fell over hit her head against a big tall glass picture which was right next to the door, her head shattered the glass in her face hit the door. The noise was so hard and loud that facial rods on the wall dropped on the floor. Ambulance was called. Workup in the ER revealed leukocytosis, chronic anemia, patient had multiple lacerations forehead, left thigh hematoma, periorbital edema, left cheek laceration, she got 18 toña on her scalp and forehead and couple of sutures left cheek. Patient denies any neurologic deficits weakness or tingling. Review of Systems 2 Const: Denies: fever(s) Eyes: Denies: change in vision ENMT: Denies: throat pain Card: Reports: swelling of feet/ankles Resp: Reports: dyspnea GI: Denies: nausea Musc: Reports: neck pain, back pain, extremity pain and extremity swelling Skin/Breast: Reports: rash, skin tenderness, skin swelling and new lesions Medications/Allergies Home Medications ?Medication ?Instructions ?Recorded ?Confirmed ?Last Taken ?Type bisacodyl 5 mg tablet,delayed 10 mg (2 x 5 mg) PO RONALDO Y PRN 03/17/23 06/28/24 Unknown Rx release Constipation (see protocol) #30 tabs sennosides 8.6 mg-docusate sodium 2 tab PO BID #180 ta bs 03/17/23 06/28/24 03/29/24 Rx 50 mg tablet (Stool Softener-Laxative) fast form #1 ea 07/08/23 06/28/24 Unkn own Rx biotin 5,000 mcg sublingual tablet 10,000 mcg sublingu al DAILY 08/05/23 06/28/24 03/29/24 History escitalopram oxalate 10 mg tablet 10 mg PO DAILY 08/0406/28/24 03/29/24 History hydrochlorothiazide 12.5 mg tablet 12.5 mg PO DAILY 06/28/24 03/29/24 History hydrocodone 5 mg-acetaminophen 325 2 tab PO Q4H PRN Se kathy Pain 08/05/23 06/28/24 Unknown History mg tablet (Scale Score 7-10) lorazepam 1 mg tablet 1 mg PO QID PRN Anxiety 07/2506/28/24 Unknown History metoprolol tartrate 25 mg tablet 25 mg PO BID 08/05/23 06/28/24 03/29/24 History pantoprazole 20 mg tablet,delayed 20 mg PO DAILY 08/0406/28/24 03/29/24 History release cockup splint #1 ea 08/10/23 06/28/24 Unkn own Rx polyethylene glycol 3350 17 17 g PO DAILY #510 grams 0 12/16/23 06/28/24 03/29/24 Rx gram/dose oral powder (Miralax) carbidopa 25 mg-levodopa 100 mg See Rx Instructions .R oute 02/03/24 06/28/24 03/30/24 Rx tablet .COMPLEX #180 tabs Allergies Allergy/AdvReac Type Severity Reaction Status Date / Time naproxen Allergy Unknown Verified 06/28/24 14:11 Current Medications Generic Name Dose Route Start Last Admin Trade Name Freq PRN Reason Stop Dose Admin Dexamethasone 4 mg 07/17/24 02:27 07/17/24 08:57 Dexamethasone 4 Mg/Ml Inj IVP 07/19/24 09:00 4 mg Q6H CHRIS Administration Furosemide 20 mg 07/17/24 02:27 07/17/24 08:56 Furosemide 10 Mg/Ml Sdv 2ml IVP 20 mg DAILY CHRIS Administration Ceftriaxone Sodium 1,000 mg/ 50 mls @ 100 mls/hr 07/17/24 09:00 07/17/24 09:27 Sodium Chloride IV Infused DAILY CHRIS Infusion Protocol Morphine Sulfate 4 mg 07/17/24 02:27 07/17/24 12:36 Morphine 4 Mg/Ml Sdv 1 Ml IVP 4 mg Q4H PRN Administration SEVERE PAIN (7-10) Pantoprazole Sodium 40 mg 07/17/24 09:00 07/17/24 08:57 Pantoprazole 40 Mg Sdv IVP 40 mg BID CHRIS Administration Senna/Docusate Sodium 1 tab 07/17/24 09:00 07/17/24 08:57 Sennosides-Docusate Tablet PO Not Given DAILY CHRIS PFSH Acute 2 PFSH: Medical History Restless leg Subcapital fracture of right hip Fibromyositis Central deafness Anemia GERD (gastroesophageal reflux disease) Parkinson's Disease Surgical History Status post right hip replacement History of cataract surgery History of knee replacement Hx of LASIK Family History Sister COPD (chronic obstructive pulmonary disease) Mother Congestive heart failure (CHF) Social History Smoking and tobacco/nicotine status: never used tobacco/nicotine Alcohol intake: never Substance/Drug Use: never Adopted: No Caregiver/support person: No Lives independently: Yes Marital status: / Current occupational status: retired Vitals/I&O/Wt Last Vital Signs Temp 97.9 F 07/16/24 20:40 Pulse 77 07/17/24 09:06 Resp 20 H 07/17/24 12:36 BP 146/55 07/17/24 01:30 Pulse Ox 99 07/17/24 09:06 O2 Del Method Nasal Cannula 07/17/24 09:06 O2 Flow Rate 2 07/17/24 09:06 07/16/24 07/17/24 07/17/24 22:59 06:59 14:59 Intake Total 50 / 50 Balance 50 / 50 Weight last 48 hrs Weight 211 lb Weight 211 lb 10.3 oz Weight 184 lb Physical Exam 2 Narrative: Alert and oriented x 3 Head is normocephalic significant facial swelling toña over forehead where she hit the glass. Respirations are intact No evidence of any rashes or infection 5/5 strength in bilateral upper and lowe r extremities Sensation intact in all extremities Urinary Catheter Management: Su Latex: Cath Placed During This Visit: yes Reason for Continuing Indwelling Catheter: Accurate Measurement of Urinary Output in Critically Ill Patients Urinary Catheter Date of Insertion: 07/17/24 Urinary Catheter Time of Insertion: 02:30 Data 07/17/24 03:43 07/17/24 03:43 A&P Assessment and plan (1) Cervical spine fracture: Patient has a C1 anterior arch fracture which is minimally displaced and a C2 dens fracture which is angulated approximately 15 degrees dorsally. At this point patient is 88 will will get an MRI to further evaluate but at this point will likely plan on nonoperative treatment. Will try to get her into a more comfortable [place] J type collar. Awaiting MRI results. Qualifiers: Encounter type: initial encounter Cervical vertebra fracture level: C1 Fracture type: closed Fracture morphology: unspecified fracture morphology F racture alignment: displaced Qualified Code(s): S12.000A - Unspecified displaced fracture of first cervical vertebra, initial encounter for closed fracture PDMP PDMP Reviewed: Not Reviewed Coding Level of Care Code Acute Code for [facility] Fwd Diagnoses Closed displaced fracture of first cervical vertebra, unspecified fracture morphology, initial encounter S12.000A Encounter type: initial encounter Cervical vertebra fracture level: C1 Fracture type: closed Fracture morphology: unspecified fracture morphology Fracture alignment: displaced
--- NOTE | 2024-07-17 14:02 | PM.PN ---
Subjective Subjective: Patient was seen this morning, she is alert oriented x 3, following all commands, denies any significant visual changes, denies any globus sensation in her left eye, no blurry vision, no nausea, no vomiting, does complain of neck pain, discussed with her her C1 fracture, will consult orthopedic service Vitals/I&O/Wt Last Vital Signs Temp 97.9 F 07/16/24 20:40 Pulse 77 07/17/24 09:06 Resp 20 H 07/17/24 12:36 BP 146/55 07/17/24 01:30 Pulse Ox 99 07/17/24 09:06 O2 Del Method Nasal Cannula 07/17/24 09:06 O2 Flow Rate 2 07/17/24 09:06 07/16/24 07/17/24 07/17/24 22:59 06:59 14:59 Intake Total 50 / 50 Balance 50 / 50 Weight last 48 hrs Weight 95.708 kg Weight 96 kg Weight 83.461 kg Physical Exam Const: COMMON NORMALS: no acute distress and patient oriented x3 OTHER: Significant left facial bruising, Left periorbital hematoma Eye: COMMON NORMALS: Equal, round and reactive pupils present and EOMs intact bilaterally PUPIL: Yes Equal, round and reactive pupils present OTHER: Left eye, sclera injection/erythema Multiple toña cranium appears intact Resp: COMMON NORMALS: normal respiratory effort, No retractions, No use of accessory muscles and clear to auscultation bilaterally AUSCULTATION: clear to auscultation bilaterally Cardio: COMMON NORMALS: regular rate, regular rhythm, S1 normal heart sound present and S2 normal heart sound present RATE: regular rate RHYTHM: regular rhythm HEART SOUNDS: S1 normal heart sound present and S2 normal heart sound present GI: COMMON NORMALS: Normal to inspection, nondistended, normoactive bowel sounds present and non-tender Neuro: COMMON NORMALS: patient oriented x3 and CN's II-XII intact bilaterally Psych: COMMON NORMALS: mental status grossly normal Urinary Catheter Management: Su Latex: Cath Placed During This Visit: yes Reason for Continuing Indwelling Catheter: Accurate Measurement of Urinary Output in Critically Ill Patients Urinary Catheter Date of Insertion: 07/17/24 Urinary Catheter Time of Insertion: 02:30 Data 07/17/24 03:43 07/17/24 03:43 A&P Assessment and plan (1) Acute exacerbation of CHF (congestive heart failure): (2) Parkinson's Disease: Qualifiers: Dyskinesia presence: without dyskinesia Fluctuating manifestations: with fluctuating manifestations Qualified Code(s): G20.A2 - Parkinson's disease without dyskinesia, with fluctuations (3) Physical deconditioning: (4) Fall: (5) Cervical spine fracture: Qualifiers: Cervical vertebra fracture level: C1 Encounter type: initial encounter Fracture alignment: displaced Fracture morphology: unspecified fracture morphology Fracture type: closed Qualified Code(s): S12.000A - Unspecified displaced fracture of first cervical vertebra, initial encounter for closed fracture (6) Periorbital hematoma of left eye: (7) Scalp hematoma: (8) Pneumonia: Plan Mechanical fall -PT OT Scalp hematoma -Monitor Left cheek laceration -Monitor Left eye periorbital hematoma -No visual changes Cervical spine fracture MR/MR cervical spin wo con* [id number] IMPRESSION: 1. No interval change in alignment of the fracture involving the base of the odontoid process. 2. Edema within the anterior ring of C1 at the site of the fracture. The posterior C1 fracture is not as well visualized. 3. Focal edema in the cervical cord at C4-5. Large osteophytes at this level. This may be contusion related to the trauma. 4. Prevertebral soft tissue edema from C2-C5. 5. C4-5: Severe central and bilateral foraminal stenosis. 6. C5-6: Moderate to severe central and bilateral foraminal stenosis. 7. C6-7: Mild central and bilateral foraminal stenosis. No neurological active deficit neurosurgeon at [facility], recommended nonsurgical Plan -Consult Dr. Qureshi -Morphine for pain control -C-collar in place Acute CHF exacerbation: Cardiac echo CONCLUSIONS Technically limited echocardiogram because of poor ultrasonic windows. LV systolic function is normal with EF of 60-65%. No active chest pain Currently requiring 2 L of oxygen Plan -IV Lasix -Monitor respiratory status closely History of Parkinson's: Continue medications Speech therapy eval, aspiration precautions, clear liquids for now Possible pneumonia -Chest x-ray XR/XR chest 1V portable [id number] IMPRESSION: Diffuse interstitial prominence with superimposed patchy ground-glass opacities in the upper lung zones and left lower lobe. Findings may represent pulmonary edema or other infiltrates. -Continue Rocephin Hold anticoagulating agent DVT prophylaxis: SCDs Patient is DNR/DNI PDMP PDMP Reviewed: Not Reviewed Attestations Medical Necessity Statement*: Patient requires hospitalization for cervical spine fracture, acute CHF, pneumonia Diagnoses Acute exacerbation of CHF (congestive heart failure) I50.9 Parkinson's disease without dyskinesia, with fluctuating manifestations G20.A2 Dyskinesia presence: without dyskinesia Fluctuating manifestations: with fluctuating manifestations Physical deconditioning R53.81 Fall W19.XXXA Closed displaced fracture of first cervical vertebra, unspecified fracture morphology, initial encounter S12.000A Cervical vertebra fracture level: C1 Encounter type: initial encounter Fracture alignment: displaced Fracture morphology: unspecified fracture morphology Fracture type: closed Periorbital hematoma of left eye H05.232 Scalp hematoma S00.03XA Pneumonia J18.9
[2024-07-17 14:06] LABS: Creatine Phosphokinase 80 U/L (26-192)
--- NOTE | 2024-07-17 15:00 | PC.OT ---
OT EVALUATION ORDERS RECEIVED. AWAITING DR. REVELES TO READ MRI AND DETERMINE POC. WILL HOLD TODAY.
[2024-07-17] MEDS: HYDROcodone-acetaminophen 5-325 mg Tablet PO (18:17)
[2024-07-17] MEDS: carbidopa-levodopa 25-100mg Tablet 0.5 EACH PO (20:30)
[2024-07-18] VITALS (38 sets, daily range): BP systolic 123–178; BP diastolic 48–124; PULSE 62–94; RESP 14–29; TEMP 36.7–37; O2SAT 95–99
[2024-07-18] MEDS: dexamethasone 4 mg/mL INJ IVP ×4 (03:30→19:49)
[2024-07-18 04:58] LABS: Basophils % 0.1 %; Hematocrit 32.8 % (36-47); Lymphocytes # 1.3 10^3/uL (0.8-4.8); Lymphocytes % 14.7 %; Mean Corpuscular HGB Conc 31.1 g/dL (30-55); Mean Corpuscular Hemoglobin 27.5 pg (27-33); Mean Corpuscular Volume 88.4 fl (85-98); Mean Platelet Volume 10.7 fL (7.4-10.4); Monocytes # 0.6 10^3/uL (0.2-0.9); Monocytes % 6.3 %; Neutrophils # 7.16 10^3/uL (1.8-7.7); Neutrophils % 78.5 %; Nucleated Red Blood Cells % 0 %; Platelet Count 222 10^3/cmm (157-399); Red Blood Count 3.71 10^6/uL (3.85-5.65); Red Cell Distribution Width 15.2 % (12.1-15.1); White Blood Count 9.12 10^3/uL (3.29-11.43)
[2024-07-18] MEDS: HYDROcodone-acetaminophen 5-325 mg Tablet PO ×4 (05:08→21:57)
[2024-07-18] MEDS: carbidopa-levodopa 25-100mg Tablet 1 EACH PO (05:09)
[2024-07-18 05:31] LABS: Alanine Aminotransferase 9 U/L (0-33); Albumin Level 4.4 g/dL (3.5-5.2); Alkaline Phosphatase 48 U/L (35-105); Anion Gap 13.6 (5-19); Aspartate Amino Transferase 9 U/L (0-32); Blood Urea Nitrogen 30 mg/dL (8-23); Calcium 9.2 mg/dL (8.5-10.5); Carbon Dioxide 29 mmol/L (22-29); Chloride 101 mmol/L (98-107); Creatinine Clr Calc Pharmacy 57.7601; Glucose 135 mg/dL (65-115); Magnesium 2.4 mg/dL (1.7-2.3); Osmolality Calculated 296 mOsm/kg (285-295); Potassium 4.6 mmol/L (3.5-5.1); Sodium 139 mmol/L (136-145); Total Bilirubin 0.5 mg/dL (0.15-1.2); Total Protein 6.4 g/dL (6.6-8.7)
[2024-07-18 05:32] LABS: Creatine Phosphokinase 110 U/L (26-192); NT Pro B Type Natriuretic Pept 3206 pg/mL (0-450)
--- NOTE | 2024-07-18 08:09 | PC.PHAR ---
Pt uses [facility]-[phone]-Nurse lala Flroes.
--- NOTE | 2024-07-18 08:14 | PM.PN ---
Subjective Subjective: Patient sitting upright today in chair. Doing well. Pain controlled. Vitals/I&O/Wt Last Vital Signs Temp 98.9 F 07/17/24 18:30 Pulse 86 07/18/24 05:01 Resp 19 H 07/18/24 05:01 BP 164/70 07/18/24 05:01 Pulse Ox 97 07/18/24 05:01 O2 Del Method Nasal Cannula 07/17/24 09:06 O2 Flow Rate 2 07/17/24 09:06 07/17/24 07/18/24 07/18/24 22:59 06:59 14:59 Output Total 1999 Balance -19991950 Weight last 48 hrs Weight 210 lb Weight 211 lb Weight 211 lb 10.3 oz Weight 184 lb Physical Exam Narrative: Patient sitting upright alert and oriented not complaining of any pain in her neck. Urinary Catheter Management: Su Latex: Cath Placed During This Visit: yes Reason for Continuing Indwelling Catheter: Accurate Measurement of Urinary Output in Critically Ill Patients Urinary Catheter Date of Insertion: 07/17/24 Urinary Catheter Time of Insertion: 02:30 Data 07/18/24 04:35 07/18/24 04:35 A&P Assessment and plan (1) Cervical spine fracture: Patient is status post C1-C2 fracture. At this point CT and MRI are look good. Will order a lateral upright x-ray just to confirm stability. Okay to get up with physical therapy. Qualifiers: Cervical vertebra fracture level: C1 Encounter type: initial encounter Fracture alignment: displaced Fracture morphology: unspecified fracture morphology Fracture type: closed Qualified Code(s): S12.000A - Unspecified displaced fracture of first cervical vertebra, initial encounter for closed fracture PDMP PDMP Reviewed: Not Reviewed Attestations Medical Necessity Statement*: Per primary service Coding Level of Care Code Acute Code for [facility] Fwd Diagnoses Closed displaced fracture of first cervical vertebra, unspecified fracture morphology, initial encounter S12.000A Cervical vertebra fracture level: C1 Encounter type: initial encounter Fracture alignment: displaced Fracture morphology: unspecified fracture morphology Fracture type: closed
--- NOTE | 2024-07-18 08:28 | XRR_ITS ---
PROCEDURE INFORMATION: Exam: XR Cervical Spine Exam date and time: 07/18/2024 7:49 AM Age: 88 years old Clinical indication: Injury or trauma; Fall; Sprain or strain, cervical ligaments; Additional info: View of cervical spine while patient is sitting upright. TECHNIQUE: Imaging protocol: Radiologic exam of the cervical spine. Views: 2 or 3 views. COMPARISON: MR cervical spin wo con* [id number] 07/17/2024 1:18 PM FINDINGS: Bones/joints: Disc space narrowing and spurring C4 through C7. Anatomic alignment. The pedicles are intact. Prevertebral soft tissues are normal. . No acute fracture. Normal alignment. Soft tissues: Unremarkable. XR/XR cervical spine 3V* [id number] IMPRESSION: Degenerative disc disease.
[2024-07-18] MEDS: carbidopa-levodopa 25-100mg Tablet 2 EACH PO ×2 (09:47→13:42)
[2024-07-18] MEDS: cefTRIAXone 1,000 MG in sodium chloride 0.9% (plus) 50 ML 100 MG IV (09:47)
[2024-07-18] MEDS: sennosides-docusate Tablet 1 TAB PO (09:47)
[2024-07-18] MEDS: pantoprazole 40 mg SDV IVP ×2 (09:47→17:35)
[2024-07-18] MEDS: morphine 4 mg/mL SDV 1 mL 1 MG IVP ×2 (12:06→19:49)
--- NOTE | 2024-07-18 13:04 | P.PN_ITS ---
Subjective 2 Subjective: Patient was seen this morning, she denies any visual changes, her pain is more under control, denies any focal weakness, but does feel weak all over she tells me her neck hurts her, we discussed discharge planning, discussed discharging to a longterm facility, she is hesitant about this, she has been at a alf before Vitals/I&O/Wt Last Vital Signs Temp 98.0 F 07/18/24 08:30 Pulse 84 07/18/24 12:31 Resp 21 H 07/18/24 12:31 BP 172/63 07/18/24 12:31 Pulse Ox 95 07/18/24 12:31 O2 Del Method Nasal Cannula 07/18/24 12:31 O2 Flow Rate 1 07/18/24 12:31 07/17/24 07/18/24 07/18/24 22:59 06:59 14:59 Output Total 1999 Balance -1999 / -1950 Weight last 48 hrs Weight 95.254 kg Weight 95.708 kg Weight 96 kg Weight 83.461 kg Physical Exam 2 Const: COMMON NORMALS: no acute distress and patient oriented x3 OTHER: Swelling, edema, erythema, periorbital edema Resp: COMMON NORMALS: normal respiratory effort, No retractions, No use of accessory muscles and clear to auscultation bilaterally AUSCULTATION: clear to auscultation bilaterally Cardio: COMMON NORMALS: regular rate, regular rhythm, S1 normal heart sound present and S2 normal heart sound present RATE: regular rate RHYTHM: r egular rhythm HEART SOUNDS: S1 normal heart sound present and S2 normal heart sound present GI: COMMON NORMALS: Normal to inspection, nondistended, normoactive bowel sounds present and non-tender Extremity: COMMON NORMALS: no pedal edema Neuro: COMMON NORMALS: patient oriented x3 Psych: COMMON NORMALS: mental status grossly normal Urinary Catheter Management: Su Latex: Cath Placed During This Visit: yes Reason for Continuing Indwelling Catheter: Accurate Measurement of Urinary Output in Critically Ill Patients Urinary Catheter Date of Insertion: 07/17/24 Urinary Catheter Time of Insertion: 02:30 Data 07/18/24 04:35 07/18/24 04:35 A&P Assessment and plan (1) Acute exacerbation of CHF (congestive heart failure): (2) Parkinson's Disease: Qualifiers: Dyskinesia presence: without dyskinesia Fluctuating manifestations: w ith fluctuating manifestations Qualified Code(s): G20.A2 - Parkinson's disease without dyskinesia, with fluctuations (3) Physical deconditioning: (4) Fall: (5) Cervical spine fracture: Qualifiers: Cervical vertebra fracture level: C1 Encounter type: initial encounter Fracture alignment: displaced Fracture morphology: unspecified fracture morphology Fracture type: closed Qualified Code(s): S12.000A - Unspecified displaced fracture of first cervical vertebra, initial encounter for closed fracture (6) Periorbital hematoma of left eye: (7) Scalp hematoma: (8) Pneumonia: Plan Mechanical fall -PT OT Scalp hematoma -Monitor Left cheek laceration -Monitor Left eye periorbital hematoma -No visual changes Cervical spine fracture MR/MR cervical spin wo con* [id number] IMPRESSION: 1. No interval change in alignment of the fracture involving the base of the odontoid process. 2. Edema within the anterior ring of C1 at the site of the fracture. The posterior C1 fracture is not as well visualized. 3. Focal edema in the cervical cord at C4-5. Large osteophytes at this level. This may be contusion related to the trauma. 4. Prevertebral soft tissue edema from C2-C5. 5. C4-5: Severe central and bilateral foraminal stenosis. 6. C5-6: Moderate to severe central and bilateral foraminal stenosis. 7. C6-7: Mild central and bilateral foraminal stenosis. No neurological active deficit neurosurgeon at [facility], recommended nonsurgical Plan -Consult Dr. Qureshi, -Morphine for pain control -C-collar in place -Continue Decadron Acute CHF exacerbation: Cardiac echo CONCLUSIONS Technically limited echocardiogram because of poor ultrasonic windows. LV systolic function is normal with EF of 60-65%. No active chest pain Currently requiring 2 L of oxygen Plan -IV Lasix -Monitor respiratory status closely History of Parkinson's: Continue medications Speech therapy eval, aspiration precautions, clear liquids for now Possible pneumonia -Chest x-ray XR/XR chest 1V portable [id number] IMPRESSION: Diffuse interstitial prominence with superimposed patchy ground-glass opacities in the upper lung zones and left lower lobe. Findings may represent pulmonary edema or other infiltrates. -Continue Rocephin Hold anticoagulating agent DVT prophylaxis: SCDs Patient is DNR/DNI Plan for today continue IV antibiotics, continue IV diuresis, will moved to medical floors PDMP PDMP Reviewed: Not Reviewed Attestations 2 Medical Necessity Statement*: Patient requires hospitalization for pneumonia, CHF, cervical spine fracture Diagnoses Acute exacerbation of CHF (congestive heart failure) I50.9 Parkinson's disease without dyskinesia, with fluctuating manifestations G20.A2 Dyskinesia presence: without dyskinesia Fluctuating manifestations: with fluctuating manifestations Physical deconditioning R53.81 Fall W19.XXXA Closed displaced fracture of first cervical vertebra, unspecified fracture morphology, initial encounter S12.000A Cervical vertebra fracture level: C1 Encounter type: initial encounter Fracture alignment: displaced Fracture morphology: unspecified fracture morphology Fracture type: closed Periorbital hematoma of left eye H05.232 Scalp hematoma S00.03XA Pneumonia J18.9
[2024-07-18] MEDS: FUROsemide 10 mg/mL SDV 2mL 20 MG IVP (13:44)
[2024-07-18 15:03] LABS: SARS Covid-2 Antigen Negative (Negative)
[2024-07-18] MEDS: acetaminophen 500 mg Tablet PO (16:26)
--- NOTE | 2024-07-18 17:17 | PC.NURSE ---
Report called to [facility] at [id number]
[2024-07-18] MEDS: carbidopa-levodopa 25-100mg Tablet 0.5 EACH PO (19:48)
[2024-07-18] MEDS: enoxaparin 40 mg/0.4 mL Syringe SUBCUT (19:49)
[2024-07-19] MEDS: dexamethasone 4 mg/mL INJ IVP ×2 (02:29→09:30)
[2024-07-19] MEDS: HYDROcodone-acetaminophen 5-325 mg Tablet PO (02:34)
[2024-07-19 03:58] VITALS: BP 161/90; PULSE 55; RESP 16; TEMP 36.9; O2SAT 99
[2024-07-19] MEDS: carbidopa-levodopa 25-100mg Tablet 1 EACH PO (05:28)
[2024-07-19 05:55] LABS: Basophils % 0.1 %; Hematocrit 30.1 % (36-47); Lymphocytes % 11.6 %; Mean Corpuscular HGB Conc 31.6 g/dL (30-55); Mean Corpuscular Hemoglobin 27.9 pg (27-33); Mean Corpuscular Volume 88.5 fl (85-98); Mean Platelet Volume 10.7 fL (7.4-10.4); Monocytes # 0.4 10^3/uL (0.2-0.9); Monocytes % 5.1 %; Neutrophils # 7.02 10^3/uL (1.8-7.7); Neutrophils % 82.7 %; Nucleated Red Blood Cells % 0 %; Platelet Count 218 10^3/cmm (157-399); Red Cell Distribution Width 15.2 % (12.1-15.1); White Blood Count 8.48 10^3/uL (3.29-11.43)
[2024-07-19 06:10] LABS: Alanine Aminotransferase < 5 U/L (0-33); Albumin Level 3.8 g/dL (3.5-5.2); Alkaline Phosphatase 36 U/L (35-105); Aspartate Amino Transferase 11 U/L (0-32); Blood Urea Nitrogen 31 mg/dL (8-23); Calcium 8.7 mg/dL (8.5-10.5); Carbon Dioxide 31 mmol/L (22-29); Chloride 101 mmol/L (98-107); Globulin 2.2 g/dL (1.3-4.6); Glucose 128 mg/dL (65-115); Magnesium 2.5 mg/dL (1.7-2.3); Osmolality Calculated 298 mOsm/kg (285-295); Sodium 140 mmol/L (136-145); Total Bilirubin 0.3 mg/dL (0.15-1.2)
[2024-07-19 06:17] LABS: Anion Gap 12.4 (5-19); Potassium 4.4 mmol/L (3.5-5.1)
[2024-07-19 06:27] LABS: Creatine Phosphokinase 84 U/L (26-192); NT Pro B Type Natriuretic Pept 2837 pg/mL (0-450)
[2024-07-19 07:30] VITALS: BP 170/62; PULSE 70; RESP 17; TEMP 37.2; O2SAT 96
[2024-07-19] MEDS: sennosides-docusate Tablet 1 TAB PO (09:30)
[2024-07-19] MEDS: FUROsemide 40 mg Tablet PO (09:30)
[2024-07-19] MEDS: carbidopa-levodopa 25-100mg Tablet 2 EACH PO (09:31)
[2024-07-19] MEDS: cefTRIAXone 1,000 MG in sodium chloride 0.9% (plus) 50 ML 100 MG IV (09:32)
[2024-07-19] MEDS: pantoprazole 40 mg SDV IVP (09:32)
--- NOTE | 2024-07-19 10:32 | P.DS_ITS ---
Discharge Providers Date of Admission: 07/17/24 01:13 Date of Discharge: July 19, 2024 Attending Provider at Admission: Stacie Finney MD Attending Provider at Discharge: Art Soto MD Primary Care Provider: Trev Severino MD Diagnoses at Discharge Discharge Diagnosis (1) Acute exacerbation of CHF (congestive heart failure): Status: Acute (2) Parkinson's Disease: Status: Acute Qualifiers: Dyskinesia presence: without dyskinesia Fluctuating manifestations: with fluctuating manifestations Qualified Code(s): G20.A2 - Parkinson's disease without dyskinesia, with fluctuations (3) Physical deconditioning: Status: Acute (4) Fall: Status: Acute (5) Cervical spine fracture: Status: Acute Qualifiers: Cervical vertebra fracture level: C1 Encounter type: initial encounter Fracture alignment: displaced Fracture morphology: unspecified fracture morphology Fracture type: closed Qualified Code(s): S12.000A - Unspecified displaced fracture of first cervical vertebra, initial encounter for closed fracture (6) Periorbital hematoma of left eye: Status: Acute (7) Scalp hematoma: Status: Acute (8) Pneumonia: Status: Acute Reason for Visit Reason for Visit: FALL Hospital Course Hospital Course This is a 88-year-old female with a past medical history of lower extreme edema, Parkinson's disease, recent history of hip surgery, who presents to [facility] after sustaining a fall at home, hitting her head against a big tall glass picture For her mechanical fall, received inpatient PT OT She had a scalp hematoma, left cheek laceration, left eye periorbital hematoma -She has toña in place for her laceration -She should have her toña removed after 10 days, July 27, 2024, can be removed by house physician at the correction Cervical spine fracture MR/MR cervical spin wo con* [id number] IMPRESSION: 1. No interval change in alignment of the fracture involving the base of the odontoid process. 2. Edema within the anterior ring of C1 at the site of the fracture. The posterior C1 fracture is not as well visualized. 3. Focal edema in the cervical cord at C4-5. Large osteophytes at this level. This may be contusion related to the trauma. 4. Prevertebral soft tissue edema from C2-C5. 5. C4-5: Severe central and bilateral foraminal stenosis. 6. C5-6: Moderate to severe central and bilateral foraminal stenosis. 7. C6-7: Mild central and bilateral foraminal stenosis. No neurological active deficit neurosurgeon at [facility], recommended nonsurgical -Dr. Qureshi was consulted, recommended medical management -She has a cervical collar in place, must remain in place for 12 weeks, monitor for DTI's around chin, back of the neck -Discharged on a Decadron burst -Discharged on hydrocodone to be used sparingly for pain There was concerns for CHF exacerbation, received IV diuresis, overall clinically improved Concerns for pneumonia, managed on IV antibiotics, discharged on p.o. antibiotics For left eye periorbital hematoma, she does also have left eye scleral erythema/bleeding -No visual deficits, extraocular movements intact, pupils equal reactive to light -Follow-up with Dr. Rebollar Physical Exam Const: COMMON NORMALS: no acute distress and patient oriented x3 OTHER: Currently in cervical collar Bruising, left side of her face, scalp, improving Surgical toña in place Eye: OTHER: Sclera erythema/improving, pupils equal round reactive to light Resp: COMMON NORMALS: normal respiratory effort, No retractions, No use of accessory muscles and clear to auscultation bilaterally AUSCULTATION: clear to auscultation bilaterally Cardio: COMMON NORMALS: regular rate, regular rhythm, S1 normal heart sound present and S2 normal heart sound present RATE: regular rate RHYTHM: regular rhythm HEART SOUNDS: S1 normal heart sound present and S2 normal heart sound present GI: COMMON NORMALS: Normal to inspection, nondistended, normoactive bowel sounds present, non-tender and no bruits Extremity: COMMON NORMALS: no pedal edema Neuro: COMMON NORMALS: patient oriented x3 Psych: COMMON NORMALS: mental status grossly normal Urinary Catheter Management: Su Latex: Cath Placed During This Visit: yes Reason for Continuing Indwelling Catheter: Required Immobilization for Trauma or Surgery or Anesthesia Urinary Catheter Date of Insertion: 07/17/24 Urinary Catheter Time of Insertion: 02:30 Discharge Data Studies Completed and Pending Completed Studies During Hospitalization Category Date Time Status CT cervical spin wo con* [id number] Stat Cat Scan 07/16/24 21:[address] facial bones wo con* [id number] Stat Cat Scan 07/16/24 21:[address] head wo con* [id number] Stat Cat Scan 07/16/24 21:09 Completed XR cervical spine 3V* [id number] Routine Exams 07/18/24 08:28 Completed XR chest 1V portable [id number] Stat Exams 07/16/24 23:08 Completed XR hand LT min 3V* [id number] Stat Exams 07/16/24 21:09 Completed MR cervical spin wo con* [id number] Routine MRI 07/17/24 09:54 Completed CV. echo complete* [id number] Routine Ultrasound 07/17/24 02:27 Completed Pending at discharge Category Date Time Status Complete Blood Count w/Auto AM LABS Lab 07/20/24 04:00 Ordered Comprehensive Metabolic Panel AM LABS Lab 07/20/24 04:00 Ordered Creatine Phosphokinase AM LABS Lab 07/20/24 04:00 Ordered Magnesium AM LABS Lab 07/20/24 04:00 Ordered NT Pro B Type Natriuretic Pept QAM Lab 07/20/24 06:00 Ordered Phosphorus AM LABS Lab 07/20/24 04:00 Ordered Radiology Impressions Cervical Spine CT 07/16/24 21:09 IMPRESSION: 1. Anterior and posterior arch fractures of C1 noted. 2. There is a displaced fracture at the base of the dens. ADDENDUM: 07/16/242233 THIS REPORT CONTAINS FINDINGS THAT MAY BE CRITICAL TO PATIENT CARE. The findings were verbally communicated via telephone conference with MARK Bryant at 1031 pm MANAGER INVENTORY MANAGEMENT on 07/16/2024. The findings were acknowledged and understood. Correction to section on ( lung apices) , should read as follows: There is NO pneumothorax at the lung apices. Face CT 07/16/24 21:09 IMPRESSION: No acute facial fracture. Left facial and frontal scalp hematoma. Hand X-Ray 07/16/24 21:09 IMPRESSION: No acute fracture. Head CT 07/16/24 21:09 IMPRESSION: Left frontal scalp and facial hematoma. Otherwise no acute intracranial abnormality. Chest X-Ray 07/16/24 23:08 IMPRESSION: Diffuse interstitial prominence with superimposed patchy ground-glass opacities in the upper lung zones and left lower lobe. Findings may represent pulmonary edema or other infiltrates. Cervical Spine MRI 07/17/24 09:54 IMPRESSION: 1. No interval change in alignment of the fracture involving the base of the odontoid process. 2. Edema within the anterior ring of C1 at the site of the fracture. The posterior C1 fracture is not as well visualized. 3. Focal edema in the cervical cord at C4-5. Large osteophytes at this level. This may be contusion related to the trauma. 4. Prevertebral soft tissue edema from C2-C5. 5. C4-5: Severe central and bilateral foraminal stenosis. 6. C5-6: Moderate to severe central and bilateral foraminal stenosis. 7. C6-7: Mild central and bilateral foraminal stenosis. Cervical Spine X-Ray 07/18/24 08:28 IMPRESSION: Degenerative disc disease. Laboratory Results WBC 8.48 10^3/uL (3.29-11.43) 07/19/24 05:00 RBC 3.40 10^6/uL (3.85-5.65) L 07/19/24 05:00 Hgb 9.50 g/dL (11.27-16.99) L 07/19/24 05:00 Hct 30.1 % (36-47) L 07/19/24 05:00 MCV 88.5 fl (85-98) 07/19/24 05:00 MCH 27.9 pg (27-33) 07/19/24 05:00 MCHC 31.6 g/dL (30-55) 07/19/24 05:00 RDW 15.2 % (12.1-15.1) H 07/19/24 05:00 Plt Count 218 10^3/cmm (157-399) 07/19/24 05:00 MPV 10.7 fL (7.4-10.4) H 07/19/24 05:00 Neut % (Auto) 82.7 % 07/19/24 05:00 Lymph % (Auto) 11.6 % 07/19/24 05:00 [place] % (Auto) 5.1 % 07/19/24 05:00 Eos % (Auto) 0.0 % 07/19/24 05:00 Baso % (Auto) 0.1 % 07/19/24 05:00 Neut # (Auto) 7.02 10^3/uL (1.8-7.7) 07/19/24 05:00 Lymph # (Auto) 1.0 10^3/uL (0.8-4.8) 07/19/24 05:00 [place] # (Auto) 0.4 10^3/uL (0.2-0.9) 07/19/24 05:00 Eos # (Auto) 0.0 10^3/uL (0.0-0.8) 07/19/24 05:00 Baso # (Auto) 0.0 10^3/uL (0.0-0.1) 07/19/24 05:00 Nucleated RBC % (auto) 0 % 07/19/24 05:00 Nucleated RBCs # 0.0 /100WBC 07/19/24 05:00 PT 13.20 SECONDS (12.1-14.9) 07/16/24 23:06 INR 0.94 (0.8-1.2) 07/16/24 23:06 APTT 35.2 SECONDS (23.9-36.7) 07/16/24 23:06 Sodium 140 mmol/L (136-145) 07/19/24 05:00 Potassium 4.4 mmol/L (3.5-5.1) 07/19/24 05:00 Chloride 101 mmol/L (98-107) 07/19/24 05:00 Carbon Dioxide 31 mmol/L (22-29) H 07/19/24 05:00 Anion Gap 12.4 (5-19) 07/19/24 05:00 BUN 31 mg/dL (8-23) H 07/19/24 05:00 Creatinine 0.7 mg/dL (0.5-0.9) 07/19/24 05:00 GFR Calculation Not Reportable 07/19/24 05:00 Glucose 128 mg/dL (65-115) H 07/19/24 05:00 Calculated Osmolality 298 mOsm/kg (285-295) H 07/19/24 05:00 Calcium 8.7 mg/dL (8.5-10.5) 07/19/24 05:00 Phosphorus 3.0 mg/dL (2.5-4.5) 07/19/24 05:00 Magnesium 2.5 mg/dL (1.7-2.3) H 07/19/24 05:00 Total Bilirubin 0.3 mg/dL (0.15-1.2) 07/19/24 05:00 AST 11 U/L (0-32) 07/19/24 05:00 ALT < 5 U/L (0-33) 07/19/24 05:00 Alkaline Phosphatase 36 U/L (35-105) 07/19/24 05:00 Creatine Kinase 84 U/L (26-192) 07/19/24 05:00 NT-Pro-B Natriuret Pep 2837 pg/mL (0-450) H 07/19/24 05:00 Total Protein 6.0 g/dL (6.6-8.7) L 07/19/24 05:00 Albumin 3.8 g/dL (3.5-5.2) 07/19/24 05:00 Globulin 2.2 g/dL (1.3-4.6) 07/19/24 05:00 Ethyl Alcohol < 10 mg/dL (0-10) 07/16/24 23:06 SARS-CoV-2 Ag (Rapid) Negative (Negative) 07/18/24 14:19 Vitals Last Vital Signs Temp 99.0 F 07/19/24 07:30 Pulse 70 07/19/24 07:30 Resp 17 07/19/24 07:30 BP 170/62 07/19/24 07:30 Pulse Ox 96 07/19/24 07:30 O2 Del Method Nasal Cannula 07/19/24 07:30 O2 Flow Rate 2 07/19/24 07:30 Discharge Plan Discharge Patient Disposition: Xfer SNF Condition: Fair Prescriptions: New hydrocodone-acetaminophen 5-325 mg Tablet 1 - 2 tab PO Q4H PRN (Reason: Moderate Pain) 7 Days Qty: 84 0RF Rx Instructions: *2tabs for severe pain amoxicillin-pot clavulanate 875-125 mg tablet 1 tab PO BID 5 Days Qty: 10 0RF dexamethasone 4 mg tablet 4 mg PO DAILY 5 Days Qty: 5 0RF Continued carbidopa-levodopa 25-100 mg tablet See Rx Instructions .ROUTE .COMPLEX Qty: 180 11RF Dose Instruction: TAKE 1/2 TABLET BY MOUTH ON WAKING, 1 & 1/2 TABLETS AT 9AM AND 1:00PM, AND 1/2 TABLET AT BEDTIME Rx Instructions: TAKE 1 TABLET BY MOUTH ON WAKING, 2 TABLETS AT 9AM AND 1:00PM, AND 1/2 TABLET AT BEDTIME sennosides-docusate sodium [Stool Softener-Laxative] 8.6-50 mg Tablet 2 tab PO BID Qty: 180 0RF bisacodyl 5 mg Tablet,Delayed Release (Dr/Ec) 10 mg PO DAILY PRN (Reason: Constipation (see protocol)) Qty: 30 3RF pantoprazole 20 mg tablet,delayed release (/EC) 40 mg PO DAILY lorazepam 1 mg tablet 1 mg PO QID PRN (Reason: Anxiety) escitalopram oxalate 10 mg tablet 20 mg PO DAILY metoprolol tartrate 25 mg tablet 25 mg PO BID hydrochlorothiazide 12.5 mg tablet 12.5 mg PO DAILY biotin 5,000 mcg Tablet, Sublingual 10,000 mcg SUBLINGUAL DAILY polyethylene glycol 3350 [Miralax] 17 gram/dose powder 17 g PO DAILY Qty: 510 0RF Rx Instructions: Take 1 scoop daily while taking pain medications. atorvastatin 20 mg tablet 20 mg PO BEDTIME lisinopril 5 mg tablet 5 mg PO DAILY mupirocin 2 % ointment See Rx Instructions .ROUTE .COMPLEX Rx Instructions: APPLY TO OPEN AREAS ON LEFT ARM TWICE DAILY UNTIL HEALED. furosemide 20 mg tablet 20 mg PO DAILY ondansetron 4 mg tablet,disintegrating 4 mg PO Q8H PRN (Reason: Nausea) Held Eliquis 2.5 mg tablet 1.25 mg PO BID Hold Instructions: Resume on 07/26/24. Discontinued oxycodone-acetaminophen 5-325 mg tablet 1 - 2 tab PO Q4H PRN (Reason: Pain) No Action (DME) fast form See Rx Instructions .Route .MEDSUPPLY Qty: 1 0RF Rx Instructions: As directed (DME) cockup splint See Rx Instructions .Route .MEDSUPPLY Qty: 1 0RF Rx Instructions: As directed Discharge Orders: Discharge Order (Routine); Ordered 07/19/24 Ordered By: Art Soto Referrals: [facility] [Outside] [facility] [Outside] - 07/24/24 1:00 pm Donavan Qureshi DO [Physician] - 07/20/24 8:00 am Trev Severino MD [Primary Care Provider] - Discharge Diet: Advance as tolerated Discharge Activity: As per PT/OT instructions Patient Instructions: Hydrocodone/Acetaminophen (By mouth), Amoxicillin/Clavulanate Potassium (By mouth), Opioid Safety Activity Restrictions/Additional Instructions: - Please remove toña in 10 days, July 27, 2024 -Please continue hold Eliquis for at least 2 weeks -Please follow-up with Dr. Qureshi -Please follow-up with [facility] -Please use pain medication sparingly, do not drive or operate machinery or drink while taking medication -Please keep cervical collar in place for at least 12 weeks -Please monitor for DTI around chin, in the back of the neck as these are pressure points Discharge Attestations Time Spent in Discharge Care*: greater than 30 min Quality Metrics Clinical Quality Measures [ No reported AMI, CVA or VTE this stay] Coding Level of Care Code 87639 Total time (in minutes) for Discharge: 45 Diagnoses Acute exacerbation of CHF (congestive heart failure) I50.9 Parkinson's disease without dyskinesia, with fluctuating manifestations G20.A2 Dyskinesia presence: without dyskinesia Fluctuating manifestations: with fluctuating manifestations Physical deconditioning R53.81 Fall W19.XXXA Closed displaced fracture of first cervical vertebra, unspecified fracture morphology, initial encounter S12.000A Cervical vertebra fracture level: C1 Encounter type: initial encounter Fracture alignment: displaced Fracture morphology: unspecified fracture morphology Fracture type: closed Periorbital hematoma of left eye H05.232 Scalp hematoma S00.03XA Pneumonia J18.9
--- NOTE | 2024-07-19 11:45 | PC.SOCIAL ---
IMM updated IMM dated and initialed, copy given to patient and copy placed in chart.
--- NOTE | 2024-07-19 11:46 | PM.PN ---
Subjective Subjective: Patient is sitting up in chair eating lunch. Pain is controlled. Vitals/I&O/Wt Last Vital Signs Temp 99.0 F 07/19/24 07:30 Pulse 70 07/19/24 07:30 Resp 17 07/19/24 07:30 BP 170/62 07/19/24 07:30 Pulse Ox 96 07/19/24 07:30 O2 Del Method Nasal Cannula 07/19/24 07:30 O2 Flow Rate 2 07/19/24 07:30 07/18/24 07/19/24 07/19/24 22:59 06:59 14:59 Intake Total 360 / 410 Output Total 650 / 1200 400 / 400 Balance -290 / -790 -400 / -400 Weight last 48 hrs Weight 216 lb 4 oz Weight 210 lb Physical Exam Narrative: Patient is neurovascular tact all extremities. Not complaining of any numbness is complaining of pain says her neck is sore when she tries to turn it. Told her not to turn it keep it in the collar all all time she can take it off to shower keep her head straight while she is in the shower. Urinary Catheter Management: Su Latex: Cath Placed During This Visit: yes Reason for Continuing Indwelling Catheter: Required Immobilization for Trauma or Surgery or Anesthesia Urinary Catheter Date of Insertion: 07/17/24 Urinary Catheter Time of Insertion: 02:30 Data 07/19/24 05:00 07/19/24 05:00 A&P Assessment and plan (1) Cervical spine fracture: Patient is 3 days out from her injury. Doing well going to be transferred to the senior living likely today. Will have her follow-up in the clinic in 1 week. She is remain in the collar 16/11. She can take the collar off to shower but keep her head straight while in the shower. Qualifiers: Cervical vertebra fracture level: C1 Encounter type: initial encounter Fracture alignment: displaced Fracture morphology: unspecified fracture morphology Fracture type: closed Qualified Code(s): S12.000A - Unspecified displaced fracture of first cervical vertebra, initial encounter for closed fracture PDMP PDMP Reviewed: Not Reviewed Attestations Medical Necessity Statement*: Per primary service Coding Level of Care Code Acute Code for [facility] Fwd Diagnoses Closed displaced fracture of first cervical vertebra, unspecified fracture morphology, initial encounter S12.000A Cervical vertebra fracture level: C1 Encounter type: initial encounter Fracture alignment: displaced Fracture morphology: unspecified fracture morphology Fracture type: closed
[2024-07-19 12:00] VITALS: BP 170/78; PULSE 74; RESP 15; TEMP 37; O2SAT 93
== END 2024-07-19 11:55 | disposition skilled nursing facility (03) | DRG 500 ==
LOC: ER 07-17 01:30 → ICU 07-17 01:33 → MEDSURG 07-18 17:21
PROVIDERS: Admitting Provider Internal Medicine; Emergency Provider Emergency Medicine; PCP Family Medicine; Visit Provider Family Medicine
DX: S12.030A Displaced posterior arch fracture of first cervical vertebra, initial encounter for closed fracture (principal); J18.9 Pneumonia, unspecified organism; W01.198A Fall on same level from slipping, tripping and stumbling with subsequent striking against other object, initial encounter; Z91.81 History of falling; S01.81XA Laceration without foreign body of other part of head, initial encounter; S01.01XA Laceration without foreign body of scalp, initial encounter; S01.412A Laceration without foreign body of left cheek and temporomandibular area, initial encounter; I50.9 Heart failure, unspecified; G20.A2 Parkinson's disease without dyskinesia, with fluctuations; G25.81 Restless legs syndrome; H91.90 Unspecified hearing loss, unspecified ear; D64.9 Anemia, unspecified; Z96.641 Presence of right artificial hip joint; Z96.659 Presence of unspecified artificial knee joint; Z66 Do not resuscitate; E86.1 Hypovolemia; Z79.01 Long term (current) use of anticoagulants
CPT/HCPCS: 36415; 51702; 70450; 70486; 71045; 72040; 72125; 72141; 73130; 80048; 80053; 80307; 82550; 83735; 83880; 84100; 85025; 85610; 85730; 87426; 92507; 92523; 92526; 92610; 93306; 94664; 96372; 96374; 96375; 96376; 97110; 97162; 97165; 97530; 97535; 97760; 99285; J0696; J1100; J1650; J1940; J2060; J2270; J2405; J2470; J9999; L0172

== ENCOUNTER → 2024-09-07 10:38 | Outpatient (BNVA) | payer MEDICARE, MEDICAID, SELFPAY | PROVIDERS: PCP Family Medicine; Visit Provider Orthopaedic Surgery | DX: S12.000A Unspecified displaced fracture of first cervical vertebra, initial encounter for closed fracture (principal); X58.XXXA Exposure to other specified factors, initial encounter | CPT/HCPCS: 72040; 99213 ==

== ENCOUNTER → 2024-09-20 13:05 | Outpatient (BNVA) | payer MEDICARE, MEDICAID, SELFPAY | PROVIDERS: PCP Family Medicine; Visit Provider Student in an Organized Health Care Education/Training Program | DX: M25.532 Pain in left wrist (principal) | CPT/HCPCS: 99213 ==

== ENCOUNTER 2024-10-23 06:00 | Outpatient (CLI) | payer MEDICARE, MEDICAID, SELFPAY | END 2024-10-23 06:01 | disposition home or self-care (01) | LOC: RAD 10-24 12:34 | PROVIDERS: PCP Family Medicine; Visit Provider Nurse Practitioner Family | DX: L30.4 Erythema intertrigo (principal); L98.8 Other specified disorders of the skin and subcutaneous tissue; L82.1 Other seborrheic keratosis; L72.0 Epidermal cyst; L57.8 Other skin changes due to chronic exposure to nonionizing radiation; L73.8 Other specified follicular disorders; X32.XXXA Exposure to sunlight, initial encounter; L81.4 Other melanin hyperpigmentation; Z08 Encounter for follow-up examination after completed treatment for malignant neoplasm; Z85.828 Personal history of other malignant neoplasm of skin; Z91.81 History of falling | CPT/HCPCS: 99214 ==

== ENCOUNTER 2024-10-26 09:49 | Outpatient (CLI) | payer MEDICARE, MEDICAID, SELFPAY ==
--- NOTE | 2024-10-26 09:52 | CT_ITS ---
WS: [id number] CT CERVICAL SPINE TECHNIQUE: Noncontrast CT of the cervical spine with coronal and sagittal reformatted images. CLINICAL INFORMATION: S12.000A - Unspecified displaced fracture of first cervic... COMPARISON: MRI 07/17/[address] 07/16/2024 DLP: 139.[address] scans at [facility] use at least one of these dose optimization techniques: automated exposure control; mA and/or kV adjustment per patient size (includes targeted exams where dose is matched to clinical indication); or iterative reconstruction. FINDINGS: Straightening of the normal cervical lordosis. Increased displacement of the type II dens fracture since June 2024. Distal dens is displaced approximately 11 mm relative to the body of the dens. Distal dens maintains normal articulation with the anterior C1 ring. Mild to moderate narrowing at the cran iocervical junction with slight indentation on the cervical cord. No high-grade central canal stenosis. Interval evidence of healing with some callus formation of the comminuted C1 ring fracture involving the anterior and posterior rings. Persistent fracture lines are visualized. Midline C1 ring fracture has undergone interval healing although now appears well corticated with incomplete healing although improved from June 2024. Persistent bilateral dorsal C1 ring fractures with some evidence of interval healing but persistent visualized fractures. Vascular calcification. Few small thyroid nodules. Moderate spondylitic changes cervical spine with disc osteophyte protrusions C4-C5 and C5-C6 with mild central canal stenosis. Normal occipital condyles. CT/CT cervical spin wo con* [id number] IMPRESSION: 1. Increased displacement of the type II dens fracture compared to the CT of [facility] 2024 described above with 11 mm anterior displacement of the distal fragme nt relative to the base of the dens. 2. Mild to moderate central canal stenosis at the C1-2 level with slight inden tation on the cervical cord. No high-grade central canal stenosis. 3. Partial but incomplete healing of the anterior C1 and posterior C1 ring fra ctures. 4. No other significant changes. Notified Donavan Qureshi DO at 10/26/2024 12:51 PM.
== END 2024-10-26 09:50 | disposition home or self-care (01) ==
LOC: RAD 09:49
PROVIDERS: PCP Family Medicine; Visit Provider Orthopaedic Surgery
DX: S12.090A Other displaced fracture of first cervical vertebra, initial encounter for closed fracture (principal); X58.XXXA Exposure to other specified factors, initial encounter; M48.02 Spinal stenosis, cervical region
CPT/HCPCS: 72125

== ENCOUNTER → 2024-10-31 08:00 | Outpatient (BNVA) | payer MEDICARE, MEDICAID, SELFPAY | PROVIDERS: PCP Family Medicine; Visit Provider Orthopaedic Surgery | DX: Z09 Encounter for follow-up examination after completed treatment for conditions other than malignant neoplasm (principal) | CPT/HCPCS: 99213 ==

== ENCOUNTER 2024-11-24 16:24 | Emergency (ER) | payer MEDICARE, MEDICAID, SELFPAY ==
[2024-11-24 16:28] VITALS: BP 221/101; PULSE 81; RESP 18; TEMP 36.4; O2SAT 95; BMI 30.6
--- OUTSIDE RECORDS SUMMARY | 2024-11-24 16:32 | XMS_ITS | Patient Health Record ---
Author Organization [facility] Address [address] [place] [address] Care Team Providers Care Pipeline Inspector Name Role Phone Adri Chaudhary Primary Care Provider [phone] Allergies Allergen (clinical drug ingredient) Drug/Non Drug Allergy documented on EMR Reaction Allergy Type Onset Date Status lamotrigine Lamictal nausea and vomiting Drug Allergy Active Reason For Referral No Information Medications Medication SIG (Take, Route, Frequency, Duration) Notes Start Date End Date Status Vitamin C 1000 MG Tablet 2 tablet Orally Once a day; Duration: 30 day(s) Dr. Garzon Active Methenamine Hippurate 1 GM Tablet 1 tab Orally daily with Vitamin C Dr. Garzon Active Healthy Eyes - Tablet 1 tablet Orally once daily Active LORazepam 0.5 MG Tablet 1 tablet as needed in AM, 1 in afternoon, and 2 tabs at bedtime as needed Orally Three times daily; Duration: 30 days 10/22/2021 Active CoQ10 100 MG Capsule 1 capsule with a meal Orally Once a day Active Lactulose 10 GM/15ML Solution TAKE 30 ML BY MOUTH DAILY WITH 8 OZ OF WATER Orally twice daily as needed for constipation; Duration: 30 days Active Carbidopa-Levodopa 25-100 MG Tablet take 1/2 tab on waking 1 & 1/2 tab at 9AM 1:00PM, and 1/2 tab at bedtime Orally Three times a day; Duration: 30 day(s) Dr. López; Take 1/2 tab before getting out of bed, 1 1/2 tab 2 hours later, 1 1/2 tab after noon, 1/2 tab at bedtime Active Vitamin D 50 MCG (1999 UT) Capsule 1 tablet Orally Once a day; Duration: 30 day(s) Active hydroCHLOROthiazide 25 MG Tablet 1/2 tablet in morning Orally Once a day for BP and swelling; Duration: 90 days Dose decrease Active Aspirin 81 81 MG Tablet Delayed Release 1 tablet Orally Once a day Active Metoprolol Tartrate 25 MG Tablet 1/2 tablet with food Orally Twice a day for heart rate; Duration: 90 days Active Atorvastatin Calcium 20 MG Tablet 1 tablet Orally once daily at bedtime for cholesterol; Duration: 90 days Active Ondansetron 4 MG Tablet Disintegrating 1 tablet on the tongue and allow to dissolve as needed Orally three times daily; Duration: 10 days 10/22/2021 Active Vitamin B12 1000 MCG Tablet Extended Release 2 & 1/2 tab Orally Once a day Active Lisinopril 2.5 MG Tablet 1 tablet Orally Once a day for BP; Duration: 90 days Active Zinc Active Potassium Chloride Janee ER 10 MEQ Tablet Extended Release 1 tablet with food Orally Once a day for low potassium levels; Duration: 90 days Active Immunizations Vaccine Route Administration Date Status Comme nts COVID-19 Vaccine (Moderna) Dose #1 Unknown 09/30/2020 A dministered COVID-19 Vaccine (Moderna) Dose #2 Unknown 10/21/2020 A dministered Social History Tobacco Use: Social History Observation Description Date Details (start date - stop date) Never Smoker NA - NA Social History Drugs/Alcohol: Social Info Question Answer Notes Alcohol Screen (Audit-C) Did you have a drink containing alcohol in the past year? No Points 0 Interpretation Negative Drugs Have you used drugs other than those for medical reasons in the past 12 months? No Tobacco Use: Social Info Question Answer Notes xTobacco Use/Smoking Are you a nonsmoker Additional Details Category Social Info Options Details Drugs/Alcohol: Do you smoke marijuana? Malissa loera gumyodit with 1/2 daily Problems Problem Type SNOMED Code ICD Code Onset Dates Problem Status W/U Status Risk Notes Problem Hypercalcemia (89053834) Hypercalcemia (E83.52) Active confirmed Problem Slow transit constipation (57101141) Slow transit constipation (K59.01) Active confirmed Problem Essential hypertension (67720767) Essential hypertension (I10) Active confirmed Problem Anxiety (37464766) Anxiety (F41.9) Active confirmed Problem Urge incontinence of urine (36824591) Urge incontinence of urine (N39.41) Active confirmed Problem Parkinsons disease (46918405) Parkinsons disease (G20) Active confirmed Problem Hyperlipidemia (86467744) Hyperlipidemia (E78.5) Active confirmed Problem Constipation (63661459) Constipation (564.0) 02/28/20 Active confirmed [id number] 911- Problem Anxiety depression (907581430) Anxiety with 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) 10/26/19 Active confirmed [id number] 911- Problem Essential hypertension (37451390) Essential hypertension (401.1) 10/20/19 Active confirmed [id number] 911- Problem Benign essential hypertension (3860755) Essential hypertension, benign (401.1) 10/26/19 Problem resolved confirmed [id number] 911- Problem Dysuria (81439302) Dysuria (788.1) 11/05/19 Problem resolved confirmed [id number] 911- Problem Rash (142347551) Rash (782.1) 11/05/19 Problem resolved confirmed [id number] 911- Problem Dizziness (811535506) Dizziness (780.4) 12/29/19 Problem resolved confirmed [id number] 911- Problem Shortness of breath (117552727) Shortness of breath (786.09) 01/26/20 Problem resolved confirmed [id number] 911- Problem Postmenopausal osteoporosis (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) Postmenopausal osteoporosis (733.01) 10/26/19 Problem resolved confirmed [id number] 911- Problem Benign paroxysmal positional vertigo (496297175) BPPV (386.11) 01/10/20 Problem resolved confirmed [id number] 911- Problem Abnormal laboratory test findings without diagnosis (796.4) 02/02/20 Problem resolved confirmed [id number] 911- Problem Insect bite (187233883) Insect bite (919.4) 10/26/19 Problem resolved confirmed [id number] 911- Problem Low back pain (122618439) Lower back pain (724.2) 12/29/19 Problem resolved confirmed [id number] 911- Problem Cataract (366167269) Cataract, unsepcified (366.9) 01/26/20 Problem resolved confirmed [id number] 911- Plan Of Treatment No Information Insurance Providers Payer Name Payer Address Payer Phone Subscriber Number Group Number Insured Name Patient Relationship to Insured Coverage Start Date Coverage End Date [facility] [address] [address] [place] [address] [id number] Latoya Flaherty Self - patient is the insured [place] Medicaid [address] [place] [address] [id number] Latoya Wells Self - patient is the insured Medical (General) History Medical History History ICD Code Anxiety with depression Hypertension Hypercholesterolemia GERD Chronic constipation Parkinsons disease Hx of cataracts; removed bilateral eyes Recurrent UTI's PREVENTIVE HEALTH MAINTENANCE Colonoscopy- Refused 10/19/2018 Endoscopy- Has never been done Exercise stress test- Has never been don e Echocardiogram- Has never been done Bone density- 2014; Refused further 02/27 Mammogram- Refused further 10/19/2018 Pap- Was last done 36 years ago Sleep study- Has never been done Eye exam- 12/05/2019; normal Influenza vaccine- Refused 02/28/20 Hep C screening- Has never been done Pneumococcal vaccine- Refused 10/19/2018, 02/28/20 Tetanus vaccine- 2013 Microalbumin, urine- 11/07/2018 Refuses all vaccines 08/25/21 Surgical History Surgery Date(Month/Year) Cataract removal; bilaterally Joint replacement; bilateral knees Hospitalization History Reason Date(Month/Year) Childbirth UTI; Sepsis Knee replacement
--- OUTSIDE RECORDS SUMMARY | 2024-11-24 16:32 | XMS_ITS | Encounter Summary ---
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 <<<<<<<< TRIAGE NOTE >>>>>>>> Triage Note: Injection Molding Operator Bella Lopez added this note on Aug 11 2015 1:32PM: Patient has been having chest pain since 1100. Right at pacemaker site. Dyspnea and Blood pressure 192/95.Ambulance dispatched. <<<<<<<< TRIAGE/OUTCOME >>>>>>>> Guideline Title: Chest Pain Recommended Disposition: Activate EMS 911 Original Inclination: Call Provider/See in 24 Intended Action: Seek care in ER Physician Contacted: No Chest discomfort associated with shortness of breath, sweating, odd heartbeats or different heart rate, nausea, vomiting, lightheadedness, or fainting lasting 5 or more minutes now or within the last hour ? YES documented in this encounter Plan of Treatment Not on file documented as of this encounter Visit Diagnoses Not on filedocumented in this encounter
--- OUTSIDE RECORDS SUMMARY | 2024-11-24 16:32 | XMS_ITS ---
Author Organization [facility] are Care Team Providers Care Retail Financial Analyst Name Role Phone Christiano Serrano Unavailable Zac Mccracken Unavailable Unavailable Dom Weller Unavailable Unavailable Telma Serrano Unavailable Unavailable Travis Spencer Unavailable Unavailable Allergies and adverse reactions Code CodeSystem Substance Reaction Severity StartDate Concern Status 7258 RXNORM Naproxen Unknown 07/19/2024 active Care Team Name Role Address Phone Organization Dates Zac Carbajal PCP [address] [place], [address], [place] (Office): [facility] 07/19/2024 - 11/24/2024 Christiano Serrano [address] [place], [address], [place] (Office): : [facility] 07/19/2024 - 11/24/2024 Dom Weller [address] [place], [address], [place] (Office): : [facility] 07/19/2024 - 11/24/2024 Telma Serrano [address] [place], [address], [place] (Office): : [facility] 07/19/2024 - 11/24/2024 Travis Spencer [address] [place], [address], [facility] (Office): [facility] 07/19/2024 - 11/24/2024 Imaging Narrative Note Date Imaging Narrative No te 10/25/2024 LEFT TOE(S), 2 VIEWS (DORSOPLANTAR, LAT):.See NoteFindings: 3 view left toe. No prior study for comparison. There is no acute fracture or dislocation. Mineralization is decreased with degenerative changes. No radiopaque foreign body. No convincing plain film evidence osteomyelitis..IMPRESSION:No acute fracture or dislocation...Electronically Signed By: Dr. Tra Nino 10/25/2024 See Attachment Goals Section Goals Description Status Target Date All goals will be reviewed a nd updated as needed with completion of the assessment process of the ALLEN unless otherwise stated in the individualized goal Active 01/14/2025 Resident Intake of Nutrients Will Meet Metabolic Needs Active 01/14/2025 Resident Will Achieve Fluid Balance Active 01/14/2025 Resident Will Be Free of Fear and/or Anxiety Act fernie 01/14/2025 Resident Will Be Free of Pain / Discomfort Activ e 01/14/2025 Resident Will Be Free of Signs / Symptoms of Dep ression Active 01/14/2025 Resident Will Maintain Airway Patency Active 01/14/2025 Resident Will Maintain an Optimum Activity Level Active 01/14/2025 Resident Will Perform Physic al Activity within Prescribed Mobility Restrictions Active 01/14/2025 Resident Will Show No Signs / Symptoms of Bleedi ng Active 01/14/2025 Resident Will Use Adaptive T echniques to Safely Transfer and Ambulate Active 01/14/2025 Resident will not have adver se effects r/t usage of medications with Black Box Warnings. Active 01/14/2025 Resident's Skin Will Remain Intact Active 01/14/2025 The resident will be free of falls through the r eview date. Active 01/14/2025 The resident will remain chel e of further s/sx, discomfort or complications related to Parkinson's disease through review date. Active 01/14/2025 Functional Status Code Name Recorded Time Value Entered By Ambulation 11/24/2024 Independent kgillespie Ambulation 11/24/2024 Independent kgillespie Ambulation 11/24/2024 Independent kgillespie Ambulation 11/24/2024 Independent kgillespie Bathing 11/20/2024 Total Dependence - Dressing 11/24/2024 Extensive Assistance kgilles pie Feeding or Eating 11/24/2024 Independent kgillespie Toileting 11/24/2024 Limited Assistance kgillespi e Transferring 11/24/2024 Limited Assistance kgillespi e Immunizations Immunization Status Vaccine Details Vaccine Code CodeSystem Date Notes TB 2 Step Mantoux Skin Test completed tuberculin skin test; unspecified formulation lotNumber: [id number] expiry: 08/23/2025 Mfg: PAR Given 0.1 ml Right Forearm intradermally Step 1 of Multi-step with next step required 98 CVX created date: 07/20/2024 consent date: 07/19/2024 administer ed date: 07/20/2024 Educated by on 07/20/2024 Medications Section Medication Name Status Code CodeSystem Dose Route Frequency Admin Type Sig Text Start Date End Date Sennosides-Do cusate Sodium Oral Tablet 8.6-50 MG active 715234 RXNORM 1 tablet Oral two times a day Routine Give 1 tablet by mouth two times a day for consti pation 2024 - Atorvastatin Calcium Oral Tablet 20 MG active 585085 RXNORM 1 tablet Oral at bedtime Routine Give 1 tablet by mouth at bedtim e 2024 - Ondansetron Oral Tablet Disintegratin g 4 MG active 042391 RXNORM 1 tablet Oral as needed PRN Give 1 tablet by mouth every 8 hours as needed for Nausea and Vomiti ng 2024 - Naloxone HCl Nasal Liquid 4 MG/0.1ML active 793518 9 RXNORM 4 mg in nostril as needed PRN 4 mg in nostri l every 2 minute s as needed for narcot ic overdo se altern ate nostri ls each dose 2024 - Carbidopa-Lev odopa Oral Tablet 25-100 MG active 19730728 RXNORM 1 tablet Oral one time a day Routine Give 1 tablet by mouth one time a day for Griselda son's Diseas e AND Give 2 tablet by mouth two times a day for Griselda son's Diseas e AND Give 0.5 tablet by mouth at bedtim e for Griselda son's Diseas e 2024 - 19730728 RXNORM 2 tablet Oral two times a day Routine Give 1 tablet by mouth one time a day for Griselda son's Diseas e AND Give 2 tablet by mouth two times a day for [place] son's Diseas e AND Give 0.5 tablet by mouth at bedtim e for Griselda son's Diseas e 2024 - 19730728 RXNORM 0.5 tablet Oral at bedtime Routine Give 1 tablet by mouth one time a day for Griselda son's Diseas e AND Give 2 tablet by mouth two times a day for Griselda son's Diseas e AND Give 0.5 tablet by mouth at bedtim e for Griselda son's Diseas e 2024 - Lisinopril Oral Tablet 5 MG active 585437 RXNORM 1 tablet Oral one time a day Routine Give 1 tablet by mouth one time a day 2024 - Bisacodyl EC Oral Tablet Delayed Release 5 MG active 1 tablet Oral as needed PRN Give 1 tablet by mouth every 24 hours as needed for consti pation 2024 - Milk of Magnesia Suspension 400 MG/5ML active 743434 RXNORM 30 ml Oral as needed PRN Give 30 ml by mouth every 24 hours as needed for consti pation 2024 - Gas-X Extra Strength Oral Tablet Chewable active 1 tablet Oral as needed PRN Give 1 tablet by mouth every 4 hours as needed for gas and bloati ng 2024 - Acetaminophen Oral Tablet 500 MG active RXNORM 1 tablet Oral as needed PRN Give 1 tablet by mouth every 6 hours as needed for Pain 2024 - Biotin Oral Tablet 73208 MCG active 1 tablet Oral one time a day Routine Give 1 tablet by mouth one time a day for supple ment 2024 - Escitalopram Oxalate Oral Tablet 20 MG active 970374 RXNORM 1 tablet Oral one time a day Routine Give 1 tablet by mouth one time a day for depres frank 2024 - MiraLax Powder 17 GM/SCOOP active 799883 RXNORM 17 gram Oral one time a day Routine Give 17 gram by mouth one time a day for when taking pain medica tion dissol ve in 4-8oz of liquid 2024 - Pantoprazole Sodium Oral Tablet Delayed Release 40 MG active 539560 RXNORM 1 tablet Oral one time a day Routine Give 1 tablet by mouth one time a day for GERD 2024 - Eliquis Oral Tablet 2.5 MG active 370693 1 RXNORM 1 tablet Oral two times a day Routine Give 1 tablet by mouth two times a day for DVT prophy laxis 2024 - LORazepam Oral Tablet 1 MG active 226966 RXNORM 1 tablet Oral as needed PRN Give 1 tablet by mouth every 6 hours as needed for anxiet y for 6 Months 03/01 Furosemide Oral Tablet 40 MG active 522334 RXNORM 1 tablet Oral one time a day Routine Give 1 tablet by mouth one time a day for BLE edema and pain 2024 - Potassium Chloride ER Oral Tablet Extended Release 20 MEQ active 938618 RXNORM 1 tablet Oral one time a day Routine Give 1 tablet by mouth one time a day for electr olyte replac ement 2024 - HYDROcodone-A cetaminophen Oral Tablet 5-325 MG active 664351 RXNORM 1 tablet Oral as needed PRN Give 1 tablet by mouth every 4 hours as needed for Pain - Modera te AND Give 2 tablet by mouth every 4 hours as needed for Pain - Severe 2024 - 351054 RXNORM 2 tablet Oral as needed PRN Give 1 tablet by mouth every 4 hours as needed for Pain - Modera te AND Give 2 tablet by mouth every 4 hours as needed for Pain - Severe 2024 - Biofreeze Cool The Pain External Gel 4 % complete d 055924 3 RXNORM n/a n/a Topical as needed PRN Apply to Right should er topica lly every 8 hours as needed for sore joints or muscle s for 7 Days 11/20 Mental Status Section Date Assessment Total Score Description 10/17/2024 BIMS 15 cognitively int act CAM 0 No delirium ind icated PHQ-9 00 07/25/2024 BIMS 13 cognitively int act CAM 0 No delirium ind icated PHQ-9 00 Problems Problem # Description Date of onset Resolved Date Code CodeSystem Concern Status 1 MUSCLE WEAKNESS (GENERALIZED) 11/23/[address] active 2 UNSTEADINESS ON FEET 11/23/[address] active 3 HYPERLIPIDEMIA, UNSPECIFIED 08/30/[address] active 4 ACUTE PULMONARY EDEMA 07/20/[address] active 5 ANXIETY DISORDER, UNSPECIFIED 07/20/[address] active 6 CENTRAL AUDITORY PROCESSING DISORDER 07/20/[address] active 7 CONSTIPATION, UNSPECIFIED 07/20/[address] active 8 CONTUSION OF SCALP, SUBSEQUENT ENCOUNTER 07/20/[address] active 9 DEPRESSION, UNSPECIFIED 07/20/[address] active 10 FRACTURE OF NECK, UNSPECIFIED, SUBSEQUENT ENCOUNTER 07/20/[address] active 11 HEART FAILURE, UNSPECIFIED 07/20/[address] active 12 HEMORRHAGE OF LEFT ORBIT 07/20/[address] active 13 HYPERTENSIVE HEART DISEASE WITHOUT HEART FAILURE 07/20/[address] active 14 OTHER MALAISE 07/20/[address] active 15 OTHER PNEUMONIA, UNSPECIFIED ORGANISM 07/20/19 25 08/09/[address] completed 16 PARKINSON'S DISEASE WITHOUT DYSKINESIA, WITH FLUCTUATIONS 07/20/[address] active 17 PRESENCE OF UNSPECIFIED ORTHOPEDIC JOINT IMPLANT 07/20/[address] active 18 UNSPECIFIED DISPLACED FRACTURE OF FIRST CERVICAL VERTEBRA, SUBSEQUENT ENCOUNTER FOR FRACTURE WITH ROUTINE HEALING 07/20/[address] active 19 UNSPECIFIED FALL, SUBSEQUENT ENCOUNTER 07/20/[address] active 20 ANEMIA, UNSPECIFIED 10/13/[address] active 21 GASTRO-ESOPHAGEAL REFLUX DISEASE WITHOUT ESOPHAGITIS 10/13/[address] active 22 PARKINSON'S DISEASE 10/13/19 23 06/07/[address] completed 23 UNSPECIFIED INTRACAPSULAR FRACTURE OF RIGHT FEMUR, SUBSEQUENT ENCOUNTER FOR CLOSED FRACTURE WITH ROUTINE HEALING 10/13/19 23 07/16/[address] completed Reason for Referral No Reasons for Referral Entered Diagnostic Results Result Code Code System Date Test Result Interpretation Reference Range Status Notes 34913-4 LOINC 10/25 TOE(S), 2 VIEWS (DORSOP LANTAR, LAT) / Report PDF Completed Result for: LATOYA CERDA ( 1935, F) 84821-6 LOINC 10/25 TOE(S), 2 VIEWS (DORSOP LANTAR, LAT) Final LEFT TOE(S), 2 VIEWS (DORSOPLANTAR, LAT):.See NoteFindings: 3 view left toe. No prior study for comparison. There is no acute fracture or dislocation. Mineralization is decreased with degenerative changes. No radiopaque foreign body. No convincing plain film evidence osteomyelitis.. IMPRESSION:No acute fracture or dislocation...E lectronically Signed By: Dr. Tra Nino CPT 10/25 Report PDF Final See Attachment Test Code Code System Name Date 10/25/2024 Social History Social History Observation Description Start Date End Date Code Code System Current Smoking Status Tobacco smoking consumption unknown 736364981 SNOMED CT Sex Assigned At Female 1935 86559-6 [facility] Gender Identity Vital Signs Code Code System Vitals Name Values and Units Timing Information 23072-1 [facility] Pain Level Value=0.0 11/24/2024 9279-1 [facility] Respiratory Rate Value=16.0 Units=/m in 11/21/2024 8462-4 [facility] Blood Pressure-Diastolic Value=60 Un its=mmHg 11/21/2024 8480-6 [facility] Blood Pressure-Systolic Bgcil=891 Un its=mmHg 11/21/2024 8310-5 [facility] Body Temperature Value=98.0 Units= F 11/21/2024 8867-4 [facility] Heart rate Value=63.0 Units=/min 36718-4 [facility] O2 % BldC Oximetry Value=95.0 Units= % 11/21/2024 85815-0 [facility] Weight Tfizc=114.0 Units=Lbs 8302-2 [facility] Height Value=65.0 Units=Inches 07/19/2024
--- OUTSIDE RECORDS SUMMARY | 2024-11-24 16:32 | XMS_ITS | Encounter Summary ---
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
--- OUTSIDE RECORDS SUMMARY | 2024-11-24 16:32 | XMS_ITS | Clinical Summary ---
Author Organization [facility] Address [address] [address] Phone Care Team Providers Care Occupational Therapy Director Name Role Phone Unavailable Primary Care Provider Unavailabl e Allergies No known active allergies Medications metoprolol succinate ER 24 hour (TOPROL-XL) 50 mg tablet Take 50 mg by mouth daily. 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
[2024-11-24 17:26] VITALS: BP 207/97
[2024-11-24] MEDS: HYDROcodone-acetaminophen 5-325 mg Tablet 1 TAB PO (17:26)
[2024-11-24 17:33] LABS: Hematocrit 35.7 % (36-47); Hemoglobin 10.70 g/dL (11.27-16.99); Mean Corpuscular HGB Conc 30.0 g/dL (30-55); Mean Corpuscular Hemoglobin 26.8 pg (27-33); Mean Corpuscular Volume 89.3 fl (85-98); Nucleated Red Blood Cells % 0 %; Platelet Count 200 10^3/cmm (157-399); Red Blood Count 4.00 10^6/uL (3.85-5.65); White Blood Count 5.16 10^3/uL (3.29-11.43)
[2024-11-24 17:43] LABS: Alanine Aminotransferase < 5 U/L (0-33); Albumin Level 4.3 g/dL (3.5-5.2); Alkaline Phosphatase 58 U/L (35-105); Anion Gap 18.8 (5-19); Aspartate Amino Transferase 15 U/L (0-32); Blood Urea Nitrogen 13 mg/dL (8-23); Calcium 9.3 mg/dL (8.5-10.5); Carbon Dioxide 26 mmol/L (22-29); Chloride 100 mmol/L (98-107); Creatinine Clr Calc Pharmacy 52.8590; Globulin 2.4 g/dL (1.3-4.6); Glucose 106 mg/dL (65-115); Osmolality Calculated 293 mOsm/kg (285-295); Potassium 3.8 mmol/L (3.5-5.1); Sodium 141 mmol/L (136-145); Total Protein 6.7 g/dL (6.6-8.7)
[2024-11-24 18:00] VITALS: BP 186/88; PULSE 60; RESP 16; O2SAT 92
--- NOTE | 2024-11-24 18:21 | CTR_ITS ---
PROCEDURE INFORMATION: Exam: CT Cervical Spine Without Contrast Exam date and time: 11/24/2024 6:37 PM Age: 89 years old Clinical indication: C/O neck pain. History of type 2 dens fracture from a fall in June of 2024. ; Additional info: Follow-up of neck pain/fracture TECHNIQUE: Imaging protocol: Computed tomography of the cervical spine without contrast. Radiation optimization: All CT scans at this facility use at least one of these dose optimization techniques: automated exposure control; mA and/or kV adjustment per patient size (includes targeted exams where dose is matched to clinical indication); or iterative reconstruction. COMPARISON: CT cervical spin wo con* [id number] 10/26/2024 10:15 AM RADIATION DOSE METRICS: Total DLP (mGy-cm): 255.91 FINDINGS: Bones: Redemonstrated chronic C2 dens fracture. Compared to the prior study from 10/26/2024, there is decreased degree of anterior displacement of the dens relative to the C2 vertebral body. There is now 7 mm anterior displacement (series 8, image 25), previously 11 mm on 10/26/2024. Degree of spinal canal stenosis of the C1-C2 level has decreased, now mild, previously moderate. There are otherwise stable multilevel degenerative changes with varying degrees of indentation of the thecal sac and neural foraminal stenoses. Chronic healing fracture of the C1 anterior arch and posterior arches. Lungs: Lung apices are unremarkable. Thyroid: Stable thyroid nodules measuring up to 1.0 cm on the left. Soft tissues: Soft tissues are unremarkable as visualized. CT/CT cervical spin wo con* [id number] IMPRESSION: 1. Redemonstrated chronic C2 dens fracture. Compared to the prior study from 10/26/2024, there is decreased degree of anterior displacement of the dens, now 7 mm, previously 11 mm on 10/26/2024. 2. Degree of spinal canal stenosis of the C1-C2 level has decreased, now mild, previously moderate. 3. Chronic healing fracture of the C1 anterior arch and posterior arches.
--- NOTE | 2024-11-24 18:31 | ECG_ITS ---
Readmill Test Date: 2024-11-24 Pat Name: Latoya Flaherty Department: Room: Gender: Female Consular Officer: : 1935 Requested By: Haroon Wilson Order Number: [id number] Meet MD: ACE HANNAH Measurements Intervals Merom Rate: 62 P: 50 RI: 173 QRS: -19 QRSD: 97 T: 25 QT: 446 QTc: 456 Interpretive Statements SINUS RHYTHM LOW QRS VOLTAGE IN PRECORDIAL LEADS [QRS DEFLECTION < 1.0 mV IN CHEST LEADS] INCOMPLETE RIGHT BUNDLE BRANCH BLOCK [90+ ms QRS DURATION, TERMINAL R IN V1/V2, 40+ ms S IN I/aVL/V4/V5/V6] POSSIBLE ANTERIOR MYOCARDIAL INFARCTION , PROBABLY OLD [30 ms Q WAVE IN V3/V4, OR R < 0.2 mV IN V4] Compared to ECG 03/13/2023 18:48:20 Incomplete right bundle-branch block now present Myocardial infarct finding now present Left-axis deviation no longer present Electronically Signed On 11-27-2024 13:59:29 CDT by ACE HANNAH [email or web address]
--- NOTE | 2024-11-24 18:47 | PC.NURSE ---
spoke with Gaby RN at [facility] she states that pt is not allowed to return at this time. Pt asked for and was granted a d/c. Gaby also stated that there was an issue with pts payment status.
[2024-11-24 18:58] VITALS: BP 151/79; PULSE 62; RESP 16; O2SAT 94
[2024-11-24 20:00] VITALS: BP 157/71; PULSE 62; RESP 14; O2SAT 94
--- NOTE | 2024-11-24 20:04 | W.ED.GENADLT ---
HPI - General Adult General: Chief complaint: General Medical Stated complaint: weakness Time Seen by Provider: 11/24/24 16:34 History of Present Illness: Patient is an 89-year-old female who presents via EMS from outside her daughter's apartment. Patient reports that she was kicked out of [facility] today after requesting to leave. She states that she signed discharge papers and left voluntarily. After discharge, she attempted to return to her son's house (which she previously co-owned but signed over to him approximately 2 years ago), but her son would not allow her to stay. She then called friends who transported her to her daughter's apartment, but she was unable to climb the stairs to enter. She was found sitting in a folding chair outside the apartment. Patient reports a history of neck fracture in two places approximately 4 months ago, which has been healing. She complains of ongoing neck pain and states she has not received her pain medications today except for two pain pills real early this morning around 6 AM. She also reports having Parkinson's disease and elevated blood pressure. Patient's daughter contacted Adult Protective Services who advised that the patient needed to be evaluated in the ER before they could assist with resources. Related Data Home Medications ?Medication ?Instructions ?Recorded ?Confirmed biotin 5,000 mcg sublingual tablet 10,000 mcg sublingual DAILY 08/05/23 10/31/24 escitalopram oxalate 10 mg tablet 20 mg PO DAILY 08/05/23 10/31/24 hydrochlorothiazide 12.5 mg tablet 12.5 mg PO DAILY 08/05/23 10/31/24 lorazepam 1 mg tablet 1 mg PO QID PRN Anxiety 08/05/23 10/31/24 metoprolol tartrate 25 mg tablet 25 mg PO BID 08/05/23 10/31/24 pantoprazole 20 mg tablet,delayed 40 mg PO DAILY 08/05/23 10/31/24 release atorvastatin 20 mg tablet 20 mg PO BEDTIME 07/17/24 10/31/24 apixaban 2.5 mg tablet (Eliquis) 1.25 mg PO BID 07/18/24 10/31/24 Held on 07/19/24. Instructions: Resume on 07/26/24. furosemide 20 mg tablet 20 mg PO DAILY 07/18/24 10/31/24 lisinopril 5 mg tablet 5 mg PO DAILY 07/18/24 10/31/24 mupirocin 2 % topical ointment See Rx Instructions .Route .COMPLEX 07/18/24 10/31/24 ondansetron 4 mg disintegrating 4 mg PO Q8H PRN Nausea 07/18/24 10/31/24 tablet hydrocodone 5 mg-acetaminophen 325 1 tab PO Q4H PRN 09/07/24 10/31/24 mg tablet Previous Rx's ?Medication ?Instructions ?Recorded bisacodyl 5 mg tablet,delayed 10 mg (2 x 5 mg) PO DAILY PRN 03/17/23 release Constipation (see protocol) #30 tabs sennosides 8.6 mg-docusate sodium 2 tab PO BID #180 tabs 03/17/23 50 mg tablet (Stool Softener-Laxative) fast form #1 ea 07/08/23 cockup splint #1 ea 08/10/23 polyethylene glycol 3350 17 17 g PO DAILY #510 grams 12/16/23 gram/dose oral powder (Miralax) carbidopa 25 mg-levodopa 100 mg See Rx Instructions .Route 02/03/24 tablet .COMPLEX #180 tabs naloxone 4 mg/actuation nasal 4 mg intranasal Q2M PRN opioid 07/19/24 spray (Rextovy) overdose #2 ea soft cervical collar #1 ea 10/31/24 Allergies Allergy/AdvReac Type Severity Reaction Status Date / Time naproxen Allergy Unknown Verified 11/24/24 16:34 [facility] ED PFS: Medical History (Updated 11/24/24 @ 20:07 by Haroon Wilson MD) Restless leg Subcapital fracture of right hip Fibromyositis Central deafness Anemia GERD (gastroesophageal reflux disease) Parkinson's Disease Surgical History Status post right hip replacement History of cataract surgery History of knee replacement Hx of LASIK Family History Sister COPD (chronic obstructive pulmonary disease) Mother Congestive heart failure (CHF) Social History Smoking and tobacco/nicotine status: never used tobacco/nicotine Alcohol intake: never Substance/Drug Use: never Adopted: No Caregiver/support person: No Lives independently: Yes Marital status: / Current occupational status: retired Physical Exam Narrative: EXAM NARRATIVE: General: Alert, oriented, in no acute distress, appears appropriate for stated age. HEENT: Head normocephalic and atraumatic. Mucous membranes dry. Tongue dry. Neck: Limited examination due to history of cervical fracture. No acute distress noted. Soft c collar in place Respiratory: No increased work of breathing. No wheezing. Cardiac: Regular rate and rhythm, 2+ pulses in all extremities. Abdomen: Soft, non-distended, non-tender, no rebound or guarding. Extremities: Trace lower extremity edema noted bilaterally. Neuro: Cranial nerves grossly intact, no focal motor or sensory deficits noted. Baseline Parkinson's symptoms present. Course Vital Signs: Vital signs: Vital Signs Temperature 97.5 F L 11/24/24 16:28 Pulse Rate 60 11/24/24 22:00 Respiratory Rate 16 11/24/24 22:00 Blood Pressure 129/94 11/24/24 22:00 Pulse Oximetry 93 11/24/24 22:00 Oxygen Delivery Me thod Room Air 11/24/24 22:00 MDM - General Adult Medical Decision Making ROS: Constitutional: Denies fever, chills. HEENT: Dry mouth noted. Cardiovascular: No chest pain. Hypertension noted. Respiratory: No shortness of breath. Gastrointestinal: No abdominal pain. Musculoskeletal: Chronic neck pain, reports popping sensation with movement. Mild lower extremity edema. Neurological: History of Parkinson's disease, no new neurological symptoms. Psychiatric: Expresses frustration with alf stay, stating she was bored after four months laying on my back looking at four ware. MEDICATIONS AND ALLERGIES: Medications: - Eliquis (apixaban) 2.5 mg twice daily - Atorvastatin (dose unknown) - for cholesterol - Carbidopa-levodopa (dose unknown) - for Parkinson's disease - Pain medication (unspecified) - Blood pressure medication (unspecified) Allergies: None reported PAST HISTORICAL DATA: PMH: - Parkinson's disease - Hypertension - Hyperlipidemia - C2 dens fracture (4 months ago) - C1 anterior and posterior arch fractures - Possible atrial fibrillation (patient uncertain) PSH: None specifically mentioned Social History: - Previously lived in a home she co-owned with her son - Signed ownership of home to son approximately 2 years ago - Has been in alf ([place]) for past 4 months - Has a daughter who lives in an apartment - Reports having pets ( puppies ) at previous residence VITAL SIGNS: Initial BP: 220/100 After treatment BP: 136/62 INITIAL IMPRESSION AND PLAN: Given the history and presentation, the primary working diagnosis is social disposition issue in an elderly patient with multiple medical comorbidities including chronic cervical spine fracture and Parkinson's disease. Additional considerations include uncontrolled hypertension, medication non-compliance, and possible elder neglect/abandonment. Based on this initial impression I will order: 1. CT cervical spine to assess healing of known fractures 2. CBC and CMP to assess overall health status 3. Clonidine for blood pressure control 4. Social work consult for disposition planning 5. Consider hospitalist consult for possible admission TEST INTERPRETATIONS: CT cervical spine: Redemonstration of chronic C2 dens fracture. Compared to prior study from 10/26/2024, there is decreased degree of anterior displacement of the dens, now 7 mm (previously 11 mm). Degree of spinal canal stenosis at C1-C2 has decreased and is now mild compared to previous moderate stenosis. Chronic healing fracture of C1 anterior and posterior arches noted. CBC: Unremarkable, within normal limits. CMP: Unremarkable, within normal limits. CONSIDERED BUT NOT PERFORMED: Hospital admission CONSIDERED but NOT DONE due to no acute medical indication for admission as determined by hospitalist and benefits administrator international project manager. Patient has no acute medical issues requiring inpatient care at this time. FINAL IMPRESSION: Based on all the above, my clinical impression is most compatible with: 1. Social disposition issue in elderly patient 2. Healing cervical spine fractures (C1 and C2) - improving per imaging 3. Hypertension, now controlled with medication 4. Parkinson's disease The clinical picture is not currently suggestive of acute cervical spine instability, stroke, or other acute neurological emergency. Although other conditions were also considered, they were deemed unlikely based on the clinical information available. CLINICAL DISPOSITION: The patient's current condition is stable in my estimation and the most appropriate and indicated disposition at this time is discharge with family and social science teacher support. The patient is safe for discharge as she has no acute medical issues requiring hospitalization. Her cervical spine fractures are healing appropriately with improved alignment compared to previous imaging. Her hypertension has been controlled with medication administration. Her labs are within normal limits. She requires social support and assistance with placement, but these are not medical issues requiring hospital admission. Adult Protective Services has already been contacted and can assist with appropriate placement. RISK STRATIFICATION AND CLINICAL DECISION RULES APPLIED: No formal clinical decision rules were applied in this case. Clinical judgment was used to determine that the patient did not have an acute medical condition requiring hospitalization. CASE SUMMARY: 89-year-old female with history of Parkinson's disease and cervical spine fractures who presented after voluntarily leaving alf and being unable to secure housing with family members. Patient initially presented with elevated blood pressure (220/100) which was successfully treated with clonidine (improved to 136/62). CT cervical spine showed improving alignment of chronic C2 dens fracture with decreased anterior displacement and reduced spinal canal stenosis compared to previous imaging from one month prior. Laboratory studies were unremarkable. Patient was observed in the ED for approximately 3.5 hours with no deterioration in status. Hospitalist was consulted regarding possible admission but declined as there was no acute medical indication for hospitalization. supervisor remelt and benefits administrator international project manager concurred with this assessment. Patient was advised to work with family and Adult Protective Services to secure appropriate housing and care. Daughter was present intermittently during ED stay and is aware of disposition plan. Lab Data I reviewed the patient's lab results. 11/24/24 17:19 11/24/24 17:19 Radiology Impressions Cervical Spine CT 11/24/24 18:21 IMPRESSION: 1. Redemonstrated chronic C2 dens fracture. Compared to the prior study from 10/26/2024, there is decreased degree of anterior displacement of the dens, now 7 mm, previously 11 mm on 10/26/2024. 2. Degree of spinal canal stenosis of the C1-C2 level has decreased, now mild, previously moderate. 3. Chronic healing fracture of the C1 anterior arch and posterior arches. Laboratory Results WBC 5.16 10^3/uL (3.29-11.43) 11/24/24 17:19 RBC 4.00 10^6/uL (3.85-5.65) 11/24/24 17:19 Hgb 10.70 g/dL (11.27-16.99) L 11/24/24 17:19 Hct 35.7 % (36-47) L 11/24/24 17:19 MCV 89.3 fl (85-98) 11/24/24 17:19 MCH 26.8 pg (27-33) L 11/24/24 17:19 MCHC 30.0 g/dL (30-55) 11/24/24 17:19 RDW 14.3 % (12.1-15.1) 11/24/24 17:19 Plt Count 200 10^3/cmm (157-399) 11/24/24 17:19 MPV 11.1 fL (7.4-10.4) H 11/24/24 17:19 Neut % (Auto) 54.1 % 11/24/24 17:19 Lymph % (Auto) 33.3 % 11/24/24 17:19 [place] % (Auto) 9.1 % 11/24/24 17:19 Eos % (Auto) 2.7 % 11/24/24 17:19 Baso % (Auto) 0.6 % 11/24/24 17:19 Neut # (Auto) 2.79 10^3/uL (1.8-7.7) 11/24/24 17:19 Lymph # (Auto) 1.7 10^3/uL (0.8-4.8) 11/24/24 17:19 [place] # (Auto) 0.5 10^3/uL (0.2-0.9) 11/24/24 17:19 Eos # (Auto) 0.1 10^3/uL (0.0-0.8) 11/24/24 17:19 Baso # (Auto) 0.0 10^3/uL (0.0-0.1) 11/24/24 17:19 Nucleated RBC % (auto) 0 % 11/24/24 17:19 Nucleated RBCs # 0.0 /100WBC 11/24/24 17:19 Sodium 141 mmol/L (136-145) 11/24/24 17:19 Potassium 3.8 mmol/L (3.5-5.1) 11/24/24 17:19 Chloride 100 mmol/L (98-107) 11/24/24 17:19 Carbon Dioxide 26 mmol/L (22-29) 11/24/24 17:19 Anion Gap 18.8 (5-19) 11/24/24 17:19 BUN 13 mg/dL (8-23) 11/24/24 17:19 Creatinine 0.8 mg/dL (0.5-0.9) 11/24/24 17:19 GFR Calculation Not Reportable 11/24/24 17:19 Glucose 106 mg/dL (65-115) 11/24/24 17:19 Calculated Osmolality 293 mOsm/kg (285-295) 11/24/24 17:19 Calcium 9.3 mg/dL (8.5-10.5) 11/24/24 17:19 Total Bilirubin 0.5 mg/dL (0.15-1.2) 11/24/24 17:19 AST 15 U/L (0-32) 11/24/24 17:19 ALT < 5 U/L (0-33) 11/24/24 17:19 Alkaline Phosphatase 58 U/L (35-105) 11/24/24 17:19 Total Protein 6.7 g/dL (6.6-8.7) 11/24/24 17:19 Albumin 4.3 g/dL (3.5-5.2) 11/24/24 17:19 Globulin 2.4 g/dL (1.3-4.6) 11/24/24 17:19 All radiology interpretation(s) finalized by discharge Discharge Plan Discharge Patient Disposition: Home Clinical Impression: Hypertension, Homelessness Parkinson's Disease Qualifiers: Dyskinesia presence: without dyskinesia Fluctuating manifestations: with fluctuating manifestations Qualified Code(s): G20.A2 - Parkinson's disease without dyskinesia, with fluctuations Condition: Stable Prescriptions: No Action hydrocodone-acetaminophen 5-325 mg tablet 1 tab PO Q4H PRN (DME) fast form See Rx Instructions .Route .MEDSUPPLY Qty: 1 0RF Rx Instructions: As directed (DME) cockup splint See Rx Instructions .Route .MEDSUPPLY Qty: 1 0RF Rx Instructions: As directed (DME) soft cervical collar See Rx Instructions .Route .MEDSUPPLY Qty: 1 0RF Rx Instructions: As directed carbidopa-levodopa 25-100 mg tablet See Rx Instructions .ROUTE .COMPLEX Qty: 180 11RF Dose Instruction: TAKE 1/2 TABLET BY MOUTH ON WAKING, 1 & 1/2 TABLETS AT 9AM AND 1:00PM, AND 1/2 TABLET AT BEDTIME Rx Instructions: TAKE 1 TABLET BY MOUTH ON WAKING, 2 TABLETS AT 9AM AND 1:00PM, AND 1/2 TABLET AT BEDTIME sennosides-docusate sodium [Stool Softener-Laxative] 8.6-50 mg Tablet 2 tab PO BID Qty: 180 0RF bisacodyl 5 mg Tablet,Delayed Release (Dr/Ec) 10 mg PO DAILY PRN (Reason: Constipation (see protocol)) Qty: 30 3RF pantoprazole 20 mg tablet,delayed release (DR/EC) 40 mg PO DAILY lorazepam 1 mg tablet 1 mg PO QID PRN (Reason: Anxiety) escitalopram oxalate 10 mg tablet 20 mg PO DAILY metoprolol tartrate 25 mg tablet 25 mg PO BID hydrochlorothiazide 12.5 mg tablet 12.5 mg PO DAILY biotin 5,000 mcg Tablet, Sublingual 10,000 mcg SUBLINGUAL DAILY polyethylene glycol 3350 [Miralax] 17 gram/dose powder 17 g PO DAILY Qty: 510 0RF Rx Instructions: Take 1 scoop daily while taking pain medications. atorvastatin 20 mg tablet 20 mg PO BEDTIME lisinopril 5 mg tablet 5 mg PO DAILY mupirocin 2 % ointment See Rx Instructions .ROUTE .COMPLEX Rx Instructions: APPLY TO OPEN AREAS ON LEFT ARM TWICE DAILY UNTIL HEALED. furosemide 20 mg tablet 20 mg PO DAILY ondansetron 4 mg tablet,disintegrating 4 mg PO Q8H PRN (Reason: Nausea) Eliquis 2.5 mg tablet 1.25 mg PO BID naloxone [Rextovy] 4 mg/actuation spray,non-aerosol 4 mg intranasal Q2M PRN (Reason: opioid overdose) Qty: 2 0RF Rx Instructions: spray 1 dose into ONE nostril; alternate nostrils w each dose until help arrives Discharge Orders: Discharge ED (Routine); Ordered 11/24/24 Ordered By: Haroon Wilson Referrals: Trev Severino MD [Primary Care Provider, Family Practice] Patient Instructions: Opioid Safety, Pain Management, Patient Portal & Lisa Instructions Activity Restrictions/Additional Instructions: Diagnosis: Social disposition issue, healing cervical spine fractures, hypertension, Parkinson's disease Instructions: 1. Continue all your regular medications including: - Blood pressure medications - Parkinson's medications (carbidopa-levodopa) - Blood thinner (Eliquis/apixaban) - Cholesterol medication (atorvastatin) - Pain medications as prescribed 2. Work with your daughter and Adult Protective Services to secure appropriate housing and care 3. Follow up with your primary care physician within 1 week 4. 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
--- NOTE | 2024-11-24 21:05 | PC.NURSE ---
this nurse and Pamela MARQUEZ received verbal permission from pt to speak to pts daughter, Rigoberto.
--- NOTE | 2024-11-24 21:27 | PC.NURSE ---
this nurse and ELISHA Wesley spoke to pts daughter, Rigoberto, about pts situation. daughter was understanding of the situation and asked for some time to make a couple of phone calls.
[2024-11-24 22:00] VITALS: BP 129/94; PULSE 60; RESP 16; O2SAT 93
--- NOTE | 2024-11-24 23:07 | PC.NURSE ---
pt requested to wait in the waiting room instead of her room. pt educated that she could be out there for a few days and we were still working on trying to find her somewhere to go. pt stated she didn't care and would just wait in the waiting room. pt helped to wheelchair and taken to the er waiting room.
== END 2024-11-24 23:05 | disposition home or self-care (01) ==
PROVIDERS: Emergency Provider Student in an Organized Health Care Education/Training Program; PCP Family Medicine
DX: I10 Essential (primary) hypertension (principal); Z59.00 Homelessness unspecified; G20.A2 Parkinson's disease without dyskinesia, with fluctuations; Z79.01 Long term (current) use of anticoagulants
CPT/HCPCS: 36415; 72125; 80053; 85025; 93005; 99284; J9999

== ENCOUNTER 2024-11-25 16:24 | Emergency (ER) | payer MEDICARE, MEDICAID, SELFPAY ==
[2024-11-25 16:28] VITALS: BP 151/54; PULSE 76; RESP 14; TEMP 36.7; O2SAT 96; BMI 30.6
--- OUTSIDE RECORDS SUMMARY | 2024-11-25 16:33 | XMS_ITS | Encounter Summary ---
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 <<<<<<<< TRIAGE NOTE >>>>>>>> Triage Note: Drawer Waxer Bella Lopez added this note on Aug [...]
--- OUTSIDE RECORDS SUMMARY | 2024-11-25 16:33 | XMS_ITS | Patient Health Record ---
Author Organization [facility] Address [address] [place] [address] Care Team Providers Care Land Development Project Manager Name Role Phone Adri Chaudhary Primary Care Provider Allergies Allergen (clinical drug ingredient) Drug/Non Drug [...] Status W/U Status Risk Notes Problem Hypercalcemia (26892079) Hypercalcemia (E83.52) Active confirmed Problem Slow transit constipation (46370081) Slow transit constipation (K59.01) Active confirmed Problem Essential hypertension (54360428) Essential hypertension (I10) Active confirmed Problem Anxiety (62660838) Anxiety (F41.9) Active confirmed Problem Urge incontinence of urine (17724775) Urge incontinence of urine (N39.41) Active confirmed Problem Parkinsons disease (54762196) Parkinsons disease (G20) Active confirmed Problem Hyperlipidemia (46413264) Hyperlipidemia (E78.5) Active confirmed Problem Constipation (77846687) Constipation (564.0) 02/28/20 Active confirmed [id number] 911- Problem Anxiety depression (157457713) Anxiety with 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) 10/26/19 Active confirmed [id number] 911- Problem Essential hypertension (06971037) Essential hypertension (401.1) 10/20/19 Active confirmed [id number] 911- Problem Benign essential hypertension (5458300) Essential hypertension, benign (401.1) 10/26/19 Problem resolved confirmed [id number] 911- Problem Dysuria (75939695) Dysuria (788.1) 11/05/19 Problem resolved confirmed [id number] 911- Problem Rash (177364208) Rash (782.1) 11/05/19 Problem resolved confirmed [id number] 911- Problem Dizziness (218511539) Dizziness (780.4) 12/29/19 Problem resolved confirmed [id number] 911- Problem Shortness of breath (357154511) Shortness of breath (786.09) 01/26/20 Problem resolved confirmed [id number] 911- Problem Postmenopausal osteoporosis (390192691) Postmenopausal osteoporosis (733.01) 10/26/19 Problem resolved confirmed [id number] 911- Problem Benign paroxysmal positional vertigo (065073467) BPPV (386.11) 01/10/20 Problem resolved confirmed [id number] 911- Problem Abnormal laboratory test findings without diagnosis (796.4) 02/02/20 Problem resolved confirmed [id number] 911- Problem Insect bite (559181806) Insect bite (919.4) 10/26/19 Problem resolved confirmed [id number] 911- Problem Low back pain (111689921) Lower back pain (724.2) 12/29/19 Problem resolved confirmed [id number] 911- Problem Cataract (641599849) Cataract, unsepcified (366.9) 01/26/20 Problem resolved confirmed [id number] 911- Plan Of Treatment No Information Insurance Providers Payer Name Payer Address Payer Phone Subscriber Number Group Number Insured Name Patient Relationship to Insured Coverage Start Date Coverage End Date [facility] [address] [address] [place] [address] [id number] Latoya Flaherty Self - patient is the insured [place] Medicaid [address] [place] [address] [id number] Latoya Wells Self - patient is the [...]
--- OUTSIDE RECORDS SUMMARY | 2024-11-25 16:33 | XMS_ITS | Clinical Summary ---
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
--- OUTSIDE RECORDS SUMMARY | 2024-11-25 16:33 | XMS_ITS | Encounter Summary ---
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
[2024-11-25 16:48] LABS: Glucose Urine UA Negative (Normal); Nitrate Urine Negative (Negative); Specific Gravity, Urine 1.019 (1.005-1.030)
[2024-11-25 16:53] LABS: Add Urine Microscopic? YES
--- NOTE | 2024-11-25 17:19 | W.ED.FEMALGU ---
HPI - Female Genitourinary General: Chief complaint: Urogenital-Female Stated complaint: urinary Time Seen by Provider: 11/25/24 16:27 Source: patient Mode of arrival: ambulatory Limitations: no limitations History of Present Illness: Patient is an 89-year-old female who presents the emergency department complaining of dysuria and incontinence. Patient was seen here in the emergency department last night, had a full workup. There was issues with her being homeless, as reported yesterday she was kicked out of [place] and none of her family would come and pick her up. She also refused to be picked up by a few of her family members because she did not want to move out of [place]. She has been homeless she reports, and reportedly her daughter had contacted Adult Protective Services who had requested she go to the ER for resource assistance. Patient was ultimately discharged, and she has been in the waiting room since. She has had recurrent episodes of urinary incontinence for which she has required change while in the waiting room. She has no other new symptoms to report, and states that she was waiting on someone to come pick her up in the waiting room. No fever, back pain, nausea or vomiting, or any other symptoms. She reports to me a history of cervical fracture and is wearing a padded soft collar. MD elicited complaint: dysuria Onset (ago): day(s) Associated symptoms: Deny abdominal pain, headache(s) or nausea Related Data Home Medications ?Medication ?Instructions ?Recorded ?Confirmed biotin 5,000 mcg sublingual tablet 10,000 mcg sublingual DAILY 08/05/23 10/31/24 escitalopram oxalate 10 mg tablet 20 mg PO DAILY 08/05/23 10/31/24 hydrochlorothiazide 12.5 mg tablet 12.5 mg PO DAILY 08/05/23 10/31/24 lorazepam 1 mg tablet 1 mg PO QID PRN Anxiety 08/05/23 10/31/24 metoprolol tartrate 25 mg tablet 25 mg PO BID 08/05/23 10/31/24 pantoprazole 20 mg tablet,delayed 40 mg PO DAILY 08/05/23 10/31/24 release atorvastatin 20 mg tablet 20 mg PO BEDTIME 07/17/24 10/31/24 apixaban 2.5 mg tablet (Eliquis) 1.25 mg PO BID 07/18/24 10/31/24 Held on 07/19/24. Instructions: Resume on 07/26/24. furosemide 20 mg tablet 20 mg PO DAILY 07/18/24 10/31/24 lisinopril 5 mg tablet 5 mg PO DAILY 07/18/24 10/31/24 mupirocin 2 % topical ointment See Rx Instructions .Route .COMPLEX 07/18/24 10/31/24 ondansetron 4 mg disintegrating 4 mg PO Q8H PRN Nausea 07/18/24 10/31/24 tablet hydrocodone 5 mg-acetaminophen 325 1 tab PO Q4H PRN 09/07/24 10/31/24 mg tablet Previous Rx's ?Medication ?Instructions ?Recorded bisacodyl 5 mg tablet,delayed 10 mg (2 x 5 mg) PO DAILY PRN 03/17/23 release Constipation (see protocol) #30 tabs sennosides 8.6 mg-docusate sodium 2 tab PO BID #180 tabs 03/17/23 50 mg tablet (Stool Softener-Laxative) fast form #1 ea 07/08/23 cockup splint #1 ea 08/10/23 polyethylene glycol 3350 17 17 g PO DAILY #510 grams 12/16/23 gram/dose oral powder (Miralax) carbidopa 25 mg-levodopa 100 mg See Rx Instructions .Route 02/03/24 tablet .COMPLEX #180 tabs naloxone 4 mg/actuation nasal 4 mg intranasal Q2M PRN opioid 07/19/24 spray (Rextovy) overdose #2 ea soft cervical collar #1 ea 10/31/24 cefdinir 300 mg capsule 300 mg PO BID 10 days #20 caps 11/25/24 Allergies Allergy/AdvReac Type Severity Reaction Status Date / Time naproxen Allergy Unknown Verified 11/25/24 16:33 Review of Systems General: Reports: 10 or more systems reviewed and unremarkable except in HPI and below Const: Denies: fever(s), chills, change in appetite, change in weight or diaphoresis ENMT: Denies: throat pain or hoarseness Card: Denies: chest pain, palpitations or lightheadedness Resp: Denies: dyspnea, productive cough or wheezing GI: Denies: abdominal pain, nausea, vomiting, diarrhea, constipation, bloating, change in stool character or hematochezia : Reports: dysuria and urinary incontinence; Denies: flank pain, difficulty voiding, urinary frequency, urinary urgency or hematuria Musc: Denies: neck pain or back pain Skin/Breast: Denies: rash or new lesions Neuro: Denies: headache(s) or dizziness PFSH ED PFSH: Medical History Restless leg Subcapital fracture of right hip Fibromyositis Central deafness Anemia GERD (gastroesophageal reflux disease) Parkinson's Disease Surgical History Status post right hip replacement History of cataract surgery History of knee replacement Hx of LASIK Family History Sister COPD (chronic obstructive pulmonary disease) Mother Congestive heart failure (CHF) Social History Smoking and tobacco/nicotine status: never used tobacco/nicotine Alcohol intake: never Substance/Drug Use: never Adopted: No Caregiver/support person: No Lives independently: Yes Marital status: / Current occupational status: retired Physical Exam Const: COMMON NORMALS: no acute distress, average body habitus, patient oriented x3, no limitations, healthy appearing, alert and well nourished GENERAL APPEARANCE: cooperative and comfortable ORIENTATION/CONSCIOUSNESS: Yes awake Eye: COMMON NORMALS: Equal, round and reactive pupils present, EOMs intact bilaterally, conjunctivae normal and normal visual handy by confrontation CONJUNCTIVA: Yes conjunctivae normal PUPIL: Yes Equal, round and reactive pupils present Neck/C-Spine: OTHER: Soft cervical collar present, full range of motion Resp: COMMON NORMALS: normal respiratory effort, No retractions, No use of accessory muscles and clear to auscultation bilaterally AUSCULTATION: clear to auscultation bilaterally, no crackles, no rales, no rhonchi and no wheezes Cardio: COMMON NORMALS: regular rate, regular rhythm, S1 normal heart sound present, S2 normal heart sound present, No gallops present (Cardio), No clicks present (Cardio), No murmurs present (Cardio), No rub (Cardio) and Peripheral pulses 2+ throughout RATE: regular rate RHYTHM: regular rhythm HEART SOUNDS: S1 normal heart sound present and S2 normal heart sound present PERIPHERAL PULSES: Peripheral pulses 2+ throughout GI: COMMON NORMALS: Normal to inspection, nondistended, normoactive bowel sounds present, Soft to palpation, non-tender, No hepatosplenomegaly present and no masses AUSCULTATION: Yes normoactive bowel sounds PALPATION: Yes Soft to palpation, No Guarding due to palpation present (GI), No Rigid due to palpation and Yes No hepatosplenomegaly present RECTAL EXAM: deferred : COMMON NORMALS: Yes no CVA tenderness BLADDER/KIDNEY EXAM: Yes no CVA tenderness Back/Pelvis: COMMON NORMALS: no CVA tenderness Extremity: COMMON NORMALS: normal to inspection and full ROM Neuro: COMMON NORMALS: patient oriented x3, moves all extremities, no focal motor deficits and no sensory deficits noted SENSORIUM/ORIENTATION: Yes alert Psych: COMMON NORMALS: mental status grossly normal, cooperative and speech normal SPEECH: Yes normal speech Skin: COMMON NORMALS: no rashes or lesions noted GENERAL SKIN EXAM: no rashes or lesions noted Course Vital Signs: Vital signs: Vital Signs Temperature 98.1 F 11/25/24 16:28 Pulse Rate 88 11/25/24 17:53 Respiratory Rate 14 11/25/24 16:28 Blood Pressure 148/75 11/25/24 17:53 Pulse Oximetry 97 11/25/24 17:53 Oxygen Delivery Me thod Room Air 11/25/24 16:28 MDM - Female Medical Decision Making Patient presented for symptoms of dysuria and incontinence. She was seen here in the emergency department stay had a full workup, there was issues of homelessness and Adult Protective Services have been contacted and patient had been staying in the waiting room waiting for ride prior to her checking back in for these urinary symptoms. UTI evidence on the UA, no need to repeat any labs or imaging as she had this for workup yesterday. Vital stable, no symptoms of back pain or fevers. Discharged on cefdinir. She states that she is still currently awaiting her ride to come pick her up. Lab Data Laboratory Results Urine Color Yellow (Yellow) 11/25/24 16:42 Urine Appearance Cloudy (CLEAR) A 11/25/24 16:42 Urine pH 6.0 (5-7) 11/25/24 16:42 Ur Specific [place] 1.019 (1.005-1.030) 11/25/24 16:42 Urine Protein 1+ (Negative) A 11/25/24 16:42 Urine Glucose (UA) Negative (Normal) 11/25/24 16:42 Urine Ketones 1+ (Negative) H 11/25/24 16:42 Urine Blood Negative (Negative) 11/25/24 16:42 Urine Nitrate Negative (Negative) 11/25/24 16:42 Urine Bilirubin Negative (Negative) 11/25/24 16:42 Urine Urobilinogen 1.0 mg/dL (Negative) 11/25/24 16:42 Ur Leukocyte Esterase 2+ (Negative) A 11/25/24 16:42 Urine RBC 0-2 /hpf (0-2) 11/25/24 16:42 Urine WBC >100 /hpf (0-5) H 11/25/24 16:42 Ur Squamous Epith Cells 6-10 /hpf (0-5) 11/25/24 16:42 Amorphous Sediment Not Reportable 11/25/24 16:42 Urine Bacteria None seen /hpf (NONE) 11/25/24 16:42 Hyaline Casts 4.95 /lpf 11/25/24 16:42 No radiology studies performed this visit Discharge Plan Discharge Patient Disposition: Home Clinical Impression: Urinary tract infection Condition: Stable Prescriptions: New cefdinir 300 mg capsule 300 mg PO BID 10 Days Qty: 20 0RF No Action hydrocodone-acetaminophen 5-325 mg tablet 1 tab PO Q4H PRN (DME) fast form See Rx Instructions .Route .MEDSUPPLY Qty: 1 0RF Rx Instructions: As directed (DME) cockup splint See Rx Instructions .Route .MEDSUPPLY Qty: 1 0RF Rx Instructions: As directed (DME) soft cervical collar See Rx Instructions .Route .MEDSUPPLY Qty: 1 0RF Rx Instructions: As directed carbidopa-levodopa 25-100 mg tablet See Rx Instructions .ROUTE .COMPLEX Qty: 180 11RF Dose Instruction: TAKE 1/2 TABLET BY MOUTH ON WAKING, 1 & 1/2 TABLETS AT 9AM AND 1:00PM, AND 1/2 TABLET AT BEDTIME Rx Instructions: TAKE 1 TABLET BY MOUTH ON WAKING, 2 TABLETS AT 9AM AND 1:00PM, AND 1/2 TABLET AT BEDTIME sennosides-docusate sodium [Stool Softener-Laxative] 8.6-50 mg Tablet 2 tab PO BID Qty: 180 0RF bisacodyl 5 mg Tablet,Delayed Release (Dr/Ec) 10 mg PO DAILY PRN (Reason: Constipation (see protocol)) Qty: 30 3RF pantoprazole 20 mg tablet,delayed release (DR/EC) 40 mg PO DAILY lorazepam 1 mg tablet 1 mg PO QID PRN (Reason: Anxiety) escitalopram oxalate 10 mg tablet 20 mg PO DAILY metoprolol tartrate 25 mg tablet 25 mg PO BID hydrochlorothiazide 12.5 mg tablet 12.5 mg PO DAILY biotin 5,000 mcg Tablet, Sublingual 10,000 mcg SUBLINGUAL DAILY polyethylene glycol 3350 [Miralax] 17 gram/dose powder 17 g PO DAILY Qty: 510 0RF Rx Instructions: Take 1 scoop daily while taking pain medications. atorvastatin 20 mg tablet 20 mg PO BEDTIME lisinopril 5 mg tablet 5 mg PO DAILY mupirocin 2 % ointment See Rx Instructions .ROUTE .COMPLEX Rx Instructions: APPLY TO OPEN AREAS ON LEFT ARM TWICE DAILY UNTIL HEALED. furosemide 20 mg tablet 20 mg PO DAILY ondansetron 4 mg tablet,disintegrating 4 mg PO Q8H PRN (Reason: Nausea) Eliquis 2.5 mg tablet 1.25 mg PO BID naloxone [Rextovy] 4 mg/actuation spray,non-aerosol 4 mg intranasal Q2M PRN (Reason: opioid overdose) Qty: 2 0RF Rx Instructions: spray 1 dose into ONE nostril; alternate nostrils w each dose until help arrives Discharge Orders: Discharge ED (Routine); Ordered 11/25/24 Ordered By: [facility] Referrals: Trev Severino MD [Primary Care Provider, Family Practice] Patient Instructions: Patient Portal & Lisa Instructions Activity Restrictions/Additional Instructions: UTI Discharge Instructions Diagnosis: Urinary tract infection (UTI) Medication: Cefdinir Medication Instructions: - Take cefdinir exactly as prescribed. Do not skip doses and complete the full course, even if symptoms improve early. Stopping early or missing doses can reduce treatment effectiveness and increase the risk of antibiotic resistance. - Usual adult dosing is 300 mg every 12 hours or 600 mg once daily, with a total daily dose of 600 mg, for 5?10 days. Dose adjustment is only necessary if there is significant renal impairment (creatinine clearance <30 mL/min). - If you have known kidney problems, ensure your dose has been adjusted appropriately. Drug Interactions: - Do not take antacids containing magnesium or aluminum within 2 hours before or after taking cefdinir, as these can reduce absorption. - Iron supplements (including multivitamins with iron) should also be from cefdinir by at least 2 hours before or after each dose. - Iron-fortified foods do not significantly interfere with cefdinir absorption. Side Effects and When to Seek Help: - Diarrhea is a common side effect and usually resolves after stopping the antibiotic. However, if you develop severe, watery, or bloody diarrhea (with or without stomach cramps and fever), even up to two months after finishing cefdinir, contact your healthcare provider immediately, as this may indicate a serious intestinal infection. - Report any signs of allergic reaction (rash, itching, swelling, difficulty breathing) or other unexpected symptoms promptly. General Advice: - Cefdinir is only effective against bacterial infections and will not treat viral illnesses such as the common cold. - Monitor for any new or worsening symptoms, and follow up as directed. - If you have a history of colitis or develop persistent gastrointestinal symptoms, notify your healthcare provider, as cefdinir and other broad-spectrum antibiotics should be used with caution in these cases. Geriatric Considerations: - Clinical studies show cefdinir is well-tolerated in elderly patients, with a lower rate of adverse events compared to younger adults. No dose adjustment is needed solely due to age unless there is significant renal impairment. Follow-Up: - Schedule and attend all recommended follow-up appointments to ensure resolution of infection and monitor for complications. Contact your healthcare provider if you experience: - Persistent or worsening symptoms of UTI (fever, chills, back pain, confusion) - Severe diarrhea, especially if bloody or associated with abdominal pain - Signs of an allergic reaction - Any other concerning symptoms Summary of [place] Points: - Take cefdinir as prescribed and finish the full course - Separate cefdinir from antacids and iron supplements by at least 2 hours - Watch for and report severe diarrhea or allergic reactions - No dose adjustment is needed for age alone, but adjust for renal impairment if present For any questions or concerns, contact your healthcare provider. Print Language: Pashto Coding Level of Care Code ED [employer] for [employer]
--- NOTE | 2024-11-25 17:35 | PC.NURSE ---
pt had incontinent urinary episode, was provided with bath wipes and depends.
[2024-11-25 17:53] VITALS: BP 148/75; PULSE 88; O2SAT 97
== END 2024-11-25 17:56 | disposition home or self-care (01) ==
PROVIDERS: Emergency Medicine; Emergency Provider Physician Assistant; PCP Family Medicine
DX: N39.0 Urinary tract infection, site not specified (principal); Z79.01 Long term (current) use of anticoagulants
CPT/HCPCS: 81001; 87086; 99283; J9999

== ENCOUNTER 2024-12-22 17:00 | Emergency (ER) | payer OTHER, MEDICAID, SELFPAY ==
[2024-12-22 17:07] VITALS: BP 177/71; PULSE 74; TEMP 37; O2SAT 97
--- NOTE | 2024-12-22 17:08 | CTR_ITS ---
PROCEDURE INFORMATION: Exam: CT Head Without Contrast Exam date and time: 12/22/2024 5:23 PM Age: 89 years old Clinical indication: Injury or trauma; Fall; Blunt trauma (contusions or hematomas); Additional info: Fall/hit head/on eliquis TECHNIQUE: Imaging protocol: Computed tomography of the head without contrast. Radiation optimization: All CT scans at this facility use at least one of these dose optimization techniques: automated exposure control; mA and/or kV adjustment per patient size (includes targeted exams where dose is matched to clinical indication); or iterative reconstruction. COMPARISON: CT head wo con* [id number] 07/16/2024 9:58 PM RADIATION DOSE METRICS: Total DLP (mGy-cm): 1299.9 FINDINGS: Brain: [id number] diffuse parenchymal volume loss. Chronic microangiopathic white matter changes. No masses or midline shift. No intracranial hemorrhage. Cerebral ventricles: No ventriculomegaly. Paranasal sinuses: Visualized sinuses are unremarkable. No fluid levels. Mastoid air cells: Visualized mastoid air cells are well aerated. Bones: Stable alignment of the chronic type II odontoid fracture of C2. Soft tissues: Unremarkable. Vasculature: Atherosclerotic calcifications of the cavernous segments of the internal carotid arteries bilaterally. Other findings: No hemorrhage. No mass effect. CT/CT head wo con* [id number] IMPRESSION: 1. No acute intracranial abnormality. 2. Iiwi-dz-jrdabrof diffuse parenchymal volume loss. 3. Chronic microangiopathic white matter changes. 4. Stable alignment of the chronic type II odontoid fracture of C2.
--- NOTE | 2024-12-22 17:08 | CTR_ITS ---
PROCEDURE INFORMATION: Exam: CT Chest Without Contrast; Diagnostic Exam date and time: 12/22/2024 5:33 PM Age: 89 years old Clinical indication: Injury or trauma; Fall; Blunt trauma (contusions or hematomas); Additional info: Fall/left rib pain TECHNIQUE: Imaging protocol: Diagnostic computed tomography of the chest without contrast. Radiation optimization: All CT scans at this facility use at least one of these dose optimization techniques: automated exposure control; mA and/or kV adjustment per patient size (includes targeted exams where dose is matched to clinical indication); or iterative reconstruction. COMPARISON: CT angio chest PE protcl [id number] 01/08/2023 1:20 PM RADIATION DOSE METRICS: Total DLP (mGy-cm): 484.82 FINDINGS: Lungs: Scattered calcified granulomas. Subsegmental atelectasis in the bilateral lung bases. Scattered areas of subsegmental atelectasis/scarring. Pleural spaces: Unremarkable. No pneumothorax. No pleural effusion. Heart: Mitral valve calcifications. Mild cardiomegaly. No pericardial effusion. Lymph nodes: Unremarkable. No enlarged lymph nodes. Vasculature: The main pulmonary artery is enlarged. No aortic aneurysm. Atherosclerosis. Bones/joints: Diffuse osseous demineralization. No acute fracture. Soft tissues: Unremarkable. CT/CT chest [facility] [id number] IMPRESSION: No acute traumatic injury in the chest.
--- NOTE | 2024-12-22 17:08 | CTR_ITS ---
PROCEDURE INFORMATION: Exam: CT Maxillofacial Without Contrast Exam date and time: 12/22/2024 5:23 PM Age: 89 years old Clinical indication: Injury or trauma; Fall; Blunt trauma (contusions or hematomas); Forehead; Additional info: Fall/hit face TECHNIQUE: Imaging protocol: Computed tomography of the face without contrast. Radiation optimization: All CT scans at this facility use at least one of these dose optimization techniques: automated exposure control; mA and/or kV adjustment per patient size (includes targeted exams where dose is matched to clinical indication); or iterative reconstruction. COMPARISON: CT facial bones wo con* [id number] 07/16/2024 10:02 PM RADIATION DOSE METRICS: Total DLP (mGy-cm): 617.4 FINDINGS: Paranasal sinuses: No air-fluid levels. Orbital cavities: Orbits are normal. Globes are unremarkable. Teeth: Edentulous patient. Bones: No acute facial or mandibular fractures. Stable alignment chronic displaced type II odontoid fracture of C2. Soft tissues: Unremarkable. CT/CT facial bones wo con* [id number] IMPRESSION: 1. No acute facial or mandibular fractures. 2. Stable alignment chronic displaced type II odontoid fracture of C2.
--- NOTE | 2024-12-22 17:08 | CTR_ITS ---
PROCEDURE INFORMATION: Exam: CT Cervical Spine Without Contrast Exam date and time: 12/22/2024 5:23 PM Age: 89 years old Clinical indication: Injury or trauma; Fall; Blunt trauma; Additional info: Fall/hit head, HX of cervical FX TECHNIQUE: Imaging protocol: Computed tomography of the cervical spine without contrast. Radiation optimization: All CT scans at this facility use at least one of these dose optimization techniques: automated exposure control; mA and/or kV adjustment per patient size (includes targeted exams where dose is matched to clinical indication); or iterative reconstruction. COMPARISON: CT cervical spin wo con* [id number] 11/24/2024 6:37 PM RADIATION DOSE METRICS: Total DLP (mGy-cm): 162.2 FINDINGS: Bones: No acute fractures of the cervical spine. 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 Stable mild spinal canal stenosis at C1-C2. Stable chronic anterior translation at the right C1-C2 facet joint measuring 7 mm. Chronic healed fractures of the anterior and posterior arches of C1. Moderate to advanced degenerative disc changes at C4-C5, C5-C6, and C6-C7. Advanced multilevel left-sided facet joint. Lungs: Lung apices are normal. Soft tissues: No significant prevertebral soft tissue swelling. Atherosclerotic calcifications of the carotid bulbs bilaterally. CT/CT cervical spin wo con* [id number] IMPRESSION: 1. No acute fractures of the cervical spine. 2. 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 3. Stable mild spinal canal stenosis at C1-C2. 4. Stable chronic anterior translation at the right C1-C2 facet joint measuring 7 mm. 5. Chronic healed fractures of the anterior and posterior arches of C1. 6. Multilevel degenerative changes as above.
--- NOTE | 2024-12-22 17:13 | W.ED.FALL ---
HPI - Fall General: Chief Complaint: Neck Pain/Injury Stated Complaint: fall - neck & rib pain Source: patient Mode of arrival: ambulatory Limitations: no limitations History of Present Illness: This patient is an 89-year-old female who has been seen here few times within the last month, for fall that occurred 2 days ago. She was initially seen in urgent care, referred to the emergency department due to concerns for a neck injury with history of recent cervical fractures. She also complains of multiple falls recently, and with her prior ED visit I did personally see the patient where she had numerous times denied transfer to fpc or placement in fpc, and adult protective services had been contacted by family due to her status of homelessness. She states that she has been living with her son, and has continued to have falls. She did have evidence of a urinary tract infection at that time as well, she states that the symptoms have since subsided. She has been wearing a soft padded collar due to her history of cervical fracture, which she was diagnosed with in June. This patient also has a history of Parkinson's, restless leg, and fibromyositis. She did hit her head with her most recent fall 2 days ago, and is on Eliquis. She also has a skin tear to her left arm from the fall. She does state however that she has been ambulatory since the fall. Also reporting pain in her face and striking her nose, she thinks she may have broken it. Pain to her left lateral ribs as well, denies any shortness of breath. No other injuries reported. She is alert and oriented, neurologically intact. MD complaint: fall Onset (ago): day(s) (2) Fall from: standing Fall witnessed: yes, by family Place fall occurred: home Loss of consciousness: None Prolonged down time: no Symptoms prior to fall: none Context: tripped/slipped Associated symptoms-after fall: Reports headache(s) and neck pain; Denies abdominal pain, chest pain or lightheadedness Related Data Home Medications ?Medication ?Instructions ?Recorded ?Confirmed biotin 5,000 mcg sublingual tablet 10,000 mcg sublingual DAILY 08/05/23 12/22/24 escitalopram oxalate 10 mg tablet 20 mg PO DAILY 08/05/23 12/22/24 hydrochlorothiazide 12.5 mg tablet 12.5 mg PO DAILY 08/05/23 12/22/24 lorazepam 1 mg tablet 1 mg PO QID PRN Anxiety 08/05/23 12/22/24 metoprolol tartrate 25 mg tablet 25 mg PO BID 08/05/23 12/22/24 pantoprazole 20 mg tablet,delayed 40 mg PO DAILY 08/05/23 12/22/24 release atorvastatin 20 mg tablet 20 mg PO BEDTIME 07/17/24 12/22/24 apixaban 2.5 mg tablet (Eliquis) 1.25 mg PO BID 07/18/24 12/22/24 Held on 07/19/24. Instructions: Resume on 07/26/24. furosemide 20 mg tablet 20 mg PO DAILY 07/18/24 12/22/24 lisinopril 5 mg tablet 5 mg PO DAILY 07/18/24 12/22/24 mupirocin 2 % topical ointment See Rx Instructions .Route .COMPLEX 07/18/24 12/22/24 ondansetron 4 mg disintegrating 4 mg PO Q8H PRN Nausea 07/18/24 12/22/24 tablet hydrocodone 5 mg-acetaminophen 325 1 tab PO Q4H PRN 09/07/24 12/22/24 mg tablet Previous Rx's ?Medication ?Instructions ?Recorded bisacodyl 5 mg tablet,delayed 10 mg (2 x 5 mg) PO DAILY PRN 03/17/23 release Constipation (see protocol) #30 tabs sennosides 8.6 mg-docusate sodium 2 tab PO BID #180 tabs 03/17/23 50 mg tablet (Stool Softener-Laxative) fast form #1 ea 07/08/23 cockup splint #1 ea 08/10/23 polyethylene glycol 3350 17 17 g PO DAILY #510 grams 12/16/23 gram/dose oral powder (Miralax) carbidopa 25 mg-levodopa 100 mg See Rx Instructions .Route 02/03/24 tablet .COMPLEX #180 tabs naloxone 4 mg/actuation nasal 4 mg intranasal Q2M PRN opioid 07/19/24 spray (Rextovy) overdose #2 ea soft cervical collar #1 ea 10/31/24 cephalexin 500 mg capsule 500 mg PO TID 5 days #15 caps 12/22/24 mupirocin 2 % topical ointment 1 applic topical DAILY #15 grams 08/29/25 Allergies Allergy/AdvReac Type Severity Reaction Status Date / Time naproxen Allergy Unknown Verified 12/22/24 17:13 Review of Systems General: Reports: 10 or more systems reviewed and unremarkable except in HPI and below Const: Reports: other (Reports fall); Denies: fever(s), chills or fatigue Eyes: Denies: change in vision ENMT: Reports: sinus pain; Denies: throat pain, ear or mastoid pain or nasal discharge Card: Denies: chest pain, palpitations, swelling of feet/ankles or lightheadedness Resp: Denies: dyspnea, productive cough or wheezing GI: Denies: abdominal pain, nausea, vomiting, diarrhea or constipation : Denies: flank pain, difficulty voiding, dysuria or urinary frequency Musc: Reports: neck pain and other (Left rib pain); Denies: back pain or joint pain Skin/Breast: Denies: rash Neuro: Reports: headache(s); Denies: numbness in extremities or weakness in extremities PFSH ED PFSH: Medical History Restless leg Subcapital fracture of right hip Fibromyositis Central deafness Anemia GERD (gastroesophageal reflux disease) Parkinson's Disease Surgical History Status post right hip replacement History of cataract surgery History of knee replacement Hx of LASIK Family History Sister COPD (chronic obstructive pulmonary disease) Mother Congestive heart failure (CHF) Social History Smoking and tobacco/nicotine status: never used tobacco/nicotine Alcohol intake: never Substance/Drug Use: never Adopted: No Caregiver/support person: No Lives independently: Yes Marital status: / Current occupational status: retired Physical Exam Const: COMMON NORMALS: no acute distress, patient oriented x3 and no limitations GENERAL APPEARANCE: cooperative, comfortable and well developed ORIENTATION/CONSCIOUSNESS: Yes awake, Yes oriented to person, Yes oriented to place and Yes oriented to time HENMT: COMMON NORMALS: normocephalic, atraumatic and hearing grossly normal bilaterally HEAD & SCALP: normocephalic and atraumatic OTHER: Small amount of bruising to patient's forehead and nasal bone. Negative Cm sign. No raccoon eyes. Eye: COMMON NORMALS: Equal, round and reactive pupils present, EOMs intact bilaterally and conjunctivae normal CONJUNCTIVA: Yes conjunctivae normal PUPIL: Yes Equal, round and reactive pupils present Neck/C-Spine: OTHER: C-collar in place, however there is no cervical spine tenderness to palpation. Chest: OTHER: Tender to palpation over left anterolateral rib cage Resp: COMMON NORMALS: normal respiratory effort, No retractions, No use of accessory muscles and clear to auscultation bilaterally AUSCULTATION: clear to auscultation bilaterally Cardio: COMMON NORMALS: regular rate, regular rhythm, No clicks present (Cardio), No murmurs present (Cardio) and No rub (Cardio) RATE: regular rate RHYTHM: regular rhythm GI: COMMON NORMALS: Normal to inspection, nondistended, normoactive bowel sounds present, Soft to palpation and non-tender AUSCULTATION: Yes normoactive bowel sounds PALPATION: Yes Soft to palpation RECTAL EXAM: deferred Back/Pelvis: COMMON NORMALS: thoracic and lumbar spine normal to inspection, no thoracic nor lumbar tenderness and thoraco-lumbar ROM normal Extremity: COMMON NORMALS: normal to inspection, full ROM and capillary refill normal NARRATIVE EXTREMITY EXAM: All joints and extremities palpated and nontender. No tenderness to palpation of the hips, no shortening or internal/external rotation of the lower extremities Neuro: COMMON NORMALS: patient oriented x3, CN's II-XII intact bilaterally, moves all extremities, no focal motor deficits and no sensory deficits noted SENSORIUM/ORIENTATION: Yes oriented to person, Yes oriented to place and Yes oriented to time Psych: COMMON NORMALS: mental status grossly normal and Normal thought process present THOUGHT PROCESS: Normal thought process present Skin: NARRATIVE SKIN EXAM: Skin tear left forearm Course Vital Signs: Vital signs: Vital Signs Temperature 98.6 F 12/22/24 17:07 Pulse Rate 83 12/22/24 19:19 Blood Pressure 172/79 12/22/24 19:19 Pulse Oximetry 97 12/22/24 19:19 Oxygen Delivery Me thod Room Air 12/22/24 18:56 MDM - Fall Medical Decision Making Patient was transferred by EMS from urgent care due to fall and neck pain. History of cervical fractures that she sees orthopedics for. She arrives in a c-collar, there is no midline tenderness to her C-spine on palpation and CT of the cervical spine does not show any acute fracture so the collar is removed. She is neurologically intact, did hit her head it is on blood thinners but head CT was negative for any intracranial findings. Though there was a bruise to bridge of her nose and forehead, facial CT also negative. And finally she had pain to her left lateral ribs from the fall, tender to palpation on exam though there is no step-off deformity or other abnormalities and CT chest negative for any acute fractures. This was discussed with the last visit, ultimately she denies wanting to go to any fpc and states she wants to go home with her son who will come and pick her up. She did have a skin tear on her left arm that showed some questionable signs of early cellulitis and we will go ahead and prophylactically treat with Keflex. She is stable for discharge home at this time. Lab Data Radiology Impressions Cervical Spine CT 12/22/24 17:08 IMPRESSION: 1. No acute fractures of the cervical spine. 2. 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 3. Stable mild spinal canal stenosis at C1-C2. 4. Stable chronic anterior translation at the right C1-C2 facet joint measuring 7 mm. 5. Chronic healed fractures of the anterior and posterior arches of C1. 6. Multilevel degenerative changes as above. Chest CT 12/22/24 17:08 IMPRESSION: No acute traumatic injury in the chest. Face CT 12/22/24 17:08 IMPRESSION: 1. No acute facial or mandibular fractures. 2. Stable alignment chronic displaced type II odontoid fracture of C2. Head CT 12/22/24 17:08 IMPRESSION: 1. No acute intracranial abnormality. 2. [id number] diffuse parenchymal volume loss. 3. Chronic microangiopathic white matter changes. 4. Stable alignment of the chronic type II odontoid fracture of C2. All radiology interpretation(s) finalized by discharge Discharge Plan Discharge Patient Disposition: Home Clinical Impression: Chronic neck pain Fall Qualifiers: Encounter type: initial encounter Qualified Code(s): W19.XXXA - Unspecified fall, initial encounter Skin tear of forearm without complication Qualifiers: Encounter type: initial encounter Laterality: left Qualified Code(s): S51.812A - Laceration without foreign body of left forearm, initial encounter Abrasion of face Qualifiers: Encounter type: initial encounter Qualified Code(s): S00.81XA - Abrasion of other part of head, initial encounter Chest wall contusion Qualifiers: Encounter type: initial encounter Laterality: left Qualified Code(s): S20.212A - Contusion of left front wall of thorax, initial encounter Condition: Stable Prescriptions: New cephalexin 500 mg capsule 500 mg PO TID 5 Days Qty: 15 0RF mupirocin 2 % ointment 1 applic topical DAILY Qty: 15 0RF No Action hydrocodone-acetaminophen 5-325 mg tablet 1 tab PO Q4H PRN (DME) fast form See Rx Instructions .Route .MEDSUPPLY Qty: 1 0RF Rx Instructions: As directed (DME) cockup splint See Rx Instructions .Route .MEDSUPPLY Qty: 1 0RF Rx Instructions: As directed (DME) soft cervical collar See Rx Instructions .Route .MEDSUPPLY Qty: 1 0RF Rx Instructions: As directed carbidopa-levodopa 25-100 mg tablet See Rx Instructions .ROUTE .COMPLEX Qty: 180 11RF Dose Instruction: TAKE 1/2 TABLET BY MOUTH ON WAKING, 1 & 1/2 TABLETS AT 9AM AND 1:00PM, AND 1/2 TABLET AT BEDTIME Rx Instructions: TAKE 1 TABLET BY MOUTH ON WAKING, 2 TABLETS AT 9AM AND 1:00PM, AND 1/2 TABLET AT BEDTIME sennosides-docusate sodium [Stool Softener-Laxative] 8.6-50 mg Tablet 2 tab PO BID Qty: 180 0RF bisacodyl 5 mg Tablet,Delayed Release (Dr/Ec) 10 mg PO DAILY PRN (Reason: Constipation (see protocol)) Qty: 30 3RF pantoprazole 20 mg tablet,delayed release (DR/EC) 40 mg PO DAILY lorazepam 1 mg tablet 1 mg PO QID PRN (Reason: Anxiety) escitalopram oxalate 10 mg tablet 20 mg PO DAILY metoprolol tartrate 25 mg tablet 25 mg PO BID hydrochlorothiazide 12.5 mg tablet 12.5 mg PO DAILY biotin 5,000 mcg Tablet, Sublingual 10,000 mcg SUBLINGUAL DAILY polyethylene glycol 3350 [Miralax] 17 gram/dose powder 17 g PO DAILY Qty: 510 0RF Rx Instructions: Take 1 scoop daily while taking pain medications. atorvastatin 20 mg tablet 20 mg PO BEDTIME lisinopril 5 mg tablet 5 mg PO DAILY mupirocin 2 % ointment See Rx Instructions .ROUTE .COMPLEX Rx Instructions: APPLY TO OPEN AREAS ON LEFT ARM TWICE DAILY UNTIL HEALED. furosemide 20 mg tablet 20 mg PO DAILY ondansetron 4 mg tablet,disintegrating 4 mg PO Q8H PRN (Reason: Nausea) Eliquis 2.5 mg tablet 1.25 mg PO BID naloxone [Rextovy] 4 mg/actuation spray,non-aerosol 4 mg intranasal Q2M PRN (Reason: opioid overdose) Qty: 2 0RF Rx Instructions: spray 1 dose into ONE nostril; alternate nostrils w each dose until help arrives Discharge Orders: Discharge ED (Routine); Ordered 12/22/24 Ordered By: Prince Lockhart Referrals: Trev Severino MD [Primary Care Provider, Family Practice] Patient Instructions: Patient Portal & Lisa Instructions Activity Restrictions/Additional Instructions: Please wear the soft collar as instructed by primary care and orthopedics. Your images today were clear of any acute fracture. Please apply the topical bacitracin to the wound on your left arm that is showing mild signs of infection, and take the Keflex as prescribed. Please make sure that the wound is nice and dry before covering. Follow-up with your primary care provider routinely. Print Language: Telugu Coding Level of Care Code ED Automatic Maintainer for Ute Shields
--- OUTSIDE RECORDS SUMMARY | 2024-12-22 17:16 | XMS_ITS | Encounter Summary ---
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 <<<<<<<< TRIAGE NOTE >>>>>>>> Triage Note: Needle Grinder Bella Lopez added this note on Aug [...]
--- OUTSIDE RECORDS SUMMARY | 2024-12-22 17:16 | XMS_ITS | Encounter Summary ---
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
--- OUTSIDE RECORDS SUMMARY | 2024-12-22 17:16 | XMS_ITS | Clinical Summary ---
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
[2024-12-22] MEDS: HYDROcodone-acetaminophen 5-325 mg Tablet 1 TAB PO (18:54)
[2024-12-22 18:56] VITALS: BP 172/79; PULSE 82; O2SAT 96
--- NOTE | 2024-12-22 19:17 | PC.NURSE ---
While this nurse was changing pt's laceration to left arm, pt stated Oh I just peed myself Pt was then changed into a brief. Pt Soft collar placed back on pt. Pt assisted into w.c, handed dc paperwork and pt in waiting room waiting on son bobby who was called and on the way to pick pt up.
[2024-12-22 19:19] VITALS: BP 172/79; PULSE 83; O2SAT 97
== END 2024-12-22 19:20 | disposition home or self-care (01) ==
PROVIDERS: Emergency Provider Physician Assistant; PCP Family Medicine
DX: S51.812A Laceration without foreign body of left forearm, initial encounter (principal); S00.81XA Abrasion of other part of head, initial encounter; S20.212A Contusion of left front wall of thorax, initial encounter; Z79.01 Long term (current) use of anticoagulants; W19.XXXA Unspecified fall, initial encounter
CPT/HCPCS: 70450; 70486; 71250; 72125; 99284; J9999

== ENCOUNTER → 2025-01-02 13:24 | Outpatient (BNVA) | payer OTHER, MEDICAID, SELFPAY | PROVIDERS: PCP Family Medicine; Visit Provider Student in an Organized Health Care Education/Training Program | DX: Z98.890 Other specified postprocedural states (principal); M25.332 Other instability, left wrist; M19.132 Post-traumatic osteoarthritis, left wrist; M25.832 Other specified joint disorders, left wrist | CPT/HCPCS: 99213 ==

== ENCOUNTER → 2025-01-04 15:14 | Outpatient (BNVA) | payer OTHER, MEDICAID, SELFPAY | PROVIDERS: PCP Family Medicine; Visit Provider Orthopaedic Surgery | DX: S12.000G Unspecified displaced fracture of first cervical vertebra, subsequent encounter for fracture with delayed healing (principal); X58.XXXD Exposure to other specified factors, subsequent encounter | CPT/HCPCS: 72040; 99213 ==

== ENCOUNTER 2025-01-15 14:19 | Inpatient (IN) | payer OTHER, MEDICAID, SELFPAY ==
[2025-01-15] VITALS (10 sets, daily range): BP systolic 145–188; BP diastolic 60–93; PULSE 68–93; RESP 16–17; TEMP 36.6–36.9; O2SAT 93–97; BMI 29.0
--- OUTSIDE RECORDS SUMMARY | 2025-01-15 14:27 | XMS_ITS | Clinical Summary ---
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
--- OUTSIDE RECORDS SUMMARY | 2025-01-15 14:27 | XMS_ITS | Encounter Summary ---
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 <<<<<<<< TRIAGE NOTE >>>>>>>> Triage Note: Cut Out And Marking Machine Operator Bella Lopez added this note on [...]
--- OUTSIDE RECORDS SUMMARY | 2025-01-15 14:27 | XMS_ITS | Patient Health Record ---
Author Organization [facility] Address [address] [place] [address] Care Team Providers Care Sap Plant Maintenance Consultant Name Role Phone Adri Chaudhary Primary Care Provider [phone] Allergies Allergen (clinical drug ingredient) Drug/Non [...] Status W/U Status Risk Notes Problem Hypercalcemia (02476604) Hypercalcemia (E83.52) Active confirmed Problem Slow transit constipation (81754828) Slow transit constipation (K59.01) Active confirmed Problem Essential hypertension (32618452) Essential hypertension (I10) Active confirmed Problem Anxiety (54174909) Anxiety (F41.9) Active confirmed Problem Urge incontinence of urine (36825270) Urge incontinence of urine (N39.41) Active confirmed Problem Parkinsons disease (47248804) Parkinsons disease (G20) Active confirmed Problem Hyperlipidemia (85819180) Hyperlipidemia (E78.5) Active confirmed Problem Constipation (44516102) Constipation (564.0) 02/28/20 Active confirmed [id number] 911- Problem Anxiety depression (493129415) Anxiety with 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) 10/26/19 Active confirmed [id number] 911- Problem Essential hypertension (90692247) Essential hypertension (401.1) 10/20/19 Active confirmed [id number] 911- Problem Benign essential hypertension (8956035) Essential hypertension, benign (401.1) 10/26/19 Problem resolved confirmed [id number] 911- Problem Dysuria (05489341) Dysuria (788.1) 11/05/19 Problem resolved confirmed [id number] 911- Problem Rash (361758349) Rash (782.1) 11/05/19 Problem resolved confirmed [id number] 911- Problem Dizziness (514533665) Dizziness (780.4) 12/29/19 Problem resolved confirmed [id number] 911- Problem Shortness of breath (804378228) Shortness of breath (786.09) 01/26/20 Problem resolved confirmed [id number] 911- Problem 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) 10/26/19 Problem resolved confirmed [id number] 911- Problem Benign paroxysmal positional vertigo (966034853) BPPV (386.11) 01/10/20 Problem resolved confirmed [id number] 911- Problem Abnormal laboratory test findings without diagnosis (796.4) 02/02/20 Problem resolved confirmed [id number] 911- Problem Insect bite (272194640) Insect bite (919.4) 10/26/19 Problem resolved confirmed [id number] 911- Problem Low back pain (844154860) Lower back pain (724.2) 12/29/19 Problem resolved confirmed [id number] 911- Problem Cataract (361419348) Cataract, unsepcified (366.9) 01/26/20 Problem resolved confirmed [id number] 911- Plan Of Treatment No Information Insurance Providers Payer Name Payer Address Payer Phone Subscriber Number Group Number Insured Name Patient Relationship to Insured Coverage Start Date Coverage End Date [facility] [address] [address] [place] [address] [phone] [id number] Latoya Flaherty Self - patient is the insured [place] Medicaid [address] [place] [address] [id number] Latoya Wells Self - patient is the [...] all vaccines 08/25/21 Surgical History Surgery Date(Month/Year) Joint replacement; bilateral knees Cataract removal; bilaterally Hospitalization History Reason Date(Month/Year) Childbirth UTI; Sepsis Knee replacement
--- OUTSIDE RECORDS SUMMARY | 2025-01-15 14:27 | XMS_ITS | Encounter Summary ---
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
--- NOTE | 2025-01-15 14:45 | XRR_ITS ---
PROCEDURE INFORMATION: Exam: XR Chest Exam date and time: 01/15/2025 3:02 PM Age: 89 years old Clinical indication: Cough and dyspnea; Weakness; Additional info: Dyspnea/cough TECHNIQUE: Imaging protocol: Radiologic exam of the chest. Views: 1 view. COMPARISON: 1. CT chest wo con [id number] 12/22/2024 5:33 PM 2. CR XR chest 1V portable [id number] 07/16/2024 11:19 PM 3. CR XR chest 1V portable [id number] 03/13/2023 5:23 PM FINDINGS: Lungs: Minimal patchy ground-glass airspace opacity is present within the left upper lobe and at the right lung base. Findings do not appear significantly changed. No new airspace consolidation suspicious for pneumonia. No CHF. Small calcified nodules within the left lower lobe are unchanged and are benign. Pleural spaces: No large pleural effusion. No pneumothorax. Heart/Mediastinum: Cardiomegaly. Mediastinal contours are smooth. Dense calcifications are present along the mitral valve annulus. Vasculature: Mild central vascular fullness. Heavy atherosclerotic plaque at the aortic arch and along the descending thoracic aorta. Bones/joints: Moderate dextroscoliosis centered near the thoracolumbar junction. Levoscoliosis centered within the mid lumbar spine. Multilevel advanced degenerative changes are present throughout the spine. XR/XR chest 1V portable [id number] IMPRESSION: Cardiomegaly. No new airspace consolidation suspicious for pneumonia. No pleural effusion or pneumothorax. No CHF.
--- NOTE | 2025-01-15 14:56 | ED_ITS ---
HPI - Weakness 2 General: Chief complaint: Weakness Stated complaint: low bp - weakness History of Present Illness: 89-year-old female presents to the [facility] ency room complaining of generalized weakness. She has a history of Parkinson disease when she stands she is very weak she has never been able to walk with her walker. Few months ago she fell and broke her neck she is still wearing a soft cervical collar for that. She notes her blood pressure is fine but whenever she stands up she gets very lightheaded and dizzy. She is on hydrochlorothiazide Lasix and carbidopa levodopa as well as metoprolol. She denies any chest pain or abdominal pain no fever sweats chills or recent illness Associated symptoms: Denies chest pain, chills, dysuria or fever(s) Related Data Home Medications ?Medication ?Instructions ?Recorded ?Confirmed biotin 5,000 mcg sublingual tablet 10,000 mcg sublingu al DAILY 08/05/23 01/04/25 escitalopram oxalate 10 mg tablet 20 mg PO DAILY 08/0401/04/25 hydrochlorothiazide 12.5 mg tablet 12.5 mg PO DAILY 01/04/25 lorazepam 1 mg tablet 1 mg PO QID PRN Anxiety 07/2501/04/25 metoprolol tartrate 25 mg tablet 25 mg PO BID 08/05/23 01/04/25 pantoprazole 20 mg tablet,delayed 40 mg PO DAILY 08/0401/04/25 release atorvastatin 20 mg tablet 20 mg PO BEDTIME 07/17/24 apixaban 2.5 mg tablet (Eliquis) 1.25 mg PO BID 01/04/25 Held on 07/19/24. Instructions: Resume on 07/26/24. furosemide 20 mg tablet 20 mg PO DAILY 07/18/2412/25 lisinopril 5 mg tablet 5 mg PO DAILY 07/18/2401/04 mupirocin 2 % topical ointment See Rx Instructions .Ro [place] .COMPLEX 07/18/24 01/04/25 ondansetron 4 mg disintegrating 4 mg PO Q8H PRN Nausea 07/18/24 01/04/25 tablet hydrocodone 5 mg-acetaminophen 325 1 tab PO Q4H PRN 01/04/25 mg tablet Previous Rx's ?Medication ?Instructions ?Recorded bisacodyl 5 mg tablet,delayed 10 mg (2 x 5 mg) PO RONALDO Y PRN 03/17/23 release Constipation (see protocol) #30 tabs sennosides 8.6 mg-docusate sodium 2 tab PO BID #180 ta bs 03/17/23 50 mg tablet (Stool Softener-Laxative) fast form #1 ea 07/08/23 cockup splint #1 ea 08/10/23 polyethylene glycol 3350 17 17 g PO DAILY #510 grams 0 12/16/23 gram/dose oral powder (Miralax) carbidopa 25 mg-levodopa 100 mg See Rx Instructions .R oute 02/03/24 tablet .COMPLEX #180 tabs naloxone 4 mg/actuation nasal 4 mg intranasal Q2M PRN opioid 07/19/24 spray (Rextovy) overdose #2 ea soft cervical collar #1 ea 10/31/24 mupirocin 2 % topical ointment 1 applic topical DAILY #15 grams 12/22/24 Allergies Allergy/AdvReac Type Severity Reaction Status Date / Time naproxen Allergy Unknown Verified 01/04/25 08:12 Review of Systems 2 Const: Denies: fever(s) or chills Card: Denies: chest pain Resp: Denies: dyspnea GI: Denies: abdominal pain : Denies: dysuria, urinary frequency or urinary urgency Musc: Denies: neck pain or back pain Skin/Breast: Denies: rash PFSH ED 2 PFSH: Medical History Restless leg Subcapital fracture of right hip Fibromyositis Central deafness Anemia GERD (gastroesophageal reflux disease) Parkinson's Disease Surgical History Status post right hip replacement History of cataract surgery History of knee replacement Hx of LASIK Family History Sister COPD (chronic obstructive pulmonary disease) Mother Congestive heart failure (CHF) Social History Smoking and tobacco/nicotine status: never used tobacco/nicotine Alcohol intake: never Substance/Drug Use: never Adopted: No Caregiver/support person: No Lives independently: Yes Marital status: / Current occupational status: retired Physical Exam 2 Const: COMMON NORMALS: no acute distress GENERAL APPEARANCE: cooperative and comfortable ORIENTATION/CONSCIOUSNESS: Yes awake, Yes oriented to person, Yes oriented to place and Yes oriented to time HENMT: COMMON NORMALS: normocephalic, atraumatic and hearing grossly normal bilaterally HEAD & SCALP: normocephalic and atraumatic Resp: COMMON NORMALS: normal respiratory effort, No retractions, No use of accessory muscles and clear to auscultation bilaterally AUSCULTATION: clear to auscultation bilaterally Cardio: COMMON NORMALS: regular rate, regular rhythm and No murmurs present (Cardio) RATE: regular rate RHYTHM: regular rhythm GI: COMMON NORMALS: Soft to palpation and No hepatosplenomegaly present A USCULTATION: Yes normoactive bowel sounds PALPATION: Yes Soft to palpation, No Tenderness to palpation present (GI), No Guarding due to palpation present (GI) and Yes No hepatosplenomegaly present Extremity: COMMON NORMALS: normal to inspection, capillary refill normal, no clubbing, cyanosis or edema, no calf tenderness and no pedal edema Neuro: SENSORIUM/ORIENTATION: Yes oriented to person, Yes oriented to place and Yes oriented to time Skin: COMMON NORMALS: no rashes or lesions noted GENERAL SKIN EXAM: no rashes or lesions noted Course 2 Vital Signs: Vital signs: Vital Signs Temperature 98.3 F 01/16/25 04:00 Pulse Rate 61 01/16/25 05:36 Respiratory Rate 16 01/16/25 04:00 Blood Pressure 148/70 01/16/25 04:00 Pulse Oximetry 97 01/16/25 04:00 Oxygen Delivery Me thod Room Air 01/16/25 00:00 MDM - Weakness Medical Decision Making Patient denies any pain falls or trauma she states she has been she gets up she gets weak and cannot stand. Initially EMS reported that her blood pressure dropped when she stood. We given her some fluids her blood pressure actually increased to the point she was hypertensive. We attempted to do orthostatics however she could not stand at all nearly fell required the assistance of 2 nurses to get back into bed. She has diminished reflexes in her lower extremities and is generally weak but can still move and we can support her weight. She denies any falls she denies any worsening pain in her neck or her back. She is still able to move all of her upper extremities. Discussed with Dr. Qureshi he will see the patient will get CT of the cervical spine and of the lumbar spine. Neurologically she is otherwise intact there is no lateralizing deficits. Pending the results of the CT may need more advanced imaging Dr. Qureshi advised obtaining CT first. Lab Data 01/16/25 04:39 01/16/25 04:39 Radiology Impressions Chest X-Ray 01/15/25 14:45 IMPRESSION: Cardiomegaly. No new airspace consolidation suspicious for pneumonia. No pleural effusion or pneumothorax. No CHF. Cervical Spine CT 01/15/25 16:39 IMPRESSION: 1. Interval increase in anterior displacement of previously seen type 2 odontoid fracture. Anterior displacement of the superior fragment has increased by 2-3 mm. Interval increase in anterior translation and rotation of the right lateral mass at the right C1-C2 facet joint. There does appear to be resultant mild increase in spinal canal stenosis at the C1-C2 level. Given patient's reported symptoms of increasing weakness, MRI of the cervical spine is recommended for further evaluation. 2. No acute fracture identified. Stable appearance of additional healed fractures involving the anterior and posterior arch of C1. 3. Multilevel degenerative changes are present throughout the cervical spine. COMMENTS: THIS REPORT CONTAINS FINDINGS THAT MAY BE CRITICAL TO PATIENT CARE. The exam findings were verbally communicated by me to Dr. Soto via telephone conference at 5:56 PM CDT on 01/15/2025. The findings were acknowledged and understood. Lumbar Spine CT 01/15/25 16:39 IMPRESSION: No definite acute fracture . Chronic degenerative changes as above. Head CT 01/15/25 16:51 IMPRESSION: No acute findings within the brain. No interval change in appearance of the brain on today's exam as compared to the prior examination. No CT evidence of a new territorial infarct. No intraparenchymal hemorrhage. No subdural or epidural hematoma or fluid collection. If there remains clinical concern for an area of ischemia, follow-up MRI of the brain could be considered. Laboratory Results WBC 6.09 10^3/uL (3.29-11.43) 01/15/25 15:34 RBC 3.91 10^6/uL (3.85-5.65) 01/15/25 15:34 Hgb 10.40 g/dL (11.27-16.99) L 01/15/25 15:34 Hct 34.0 % (36-47) L 01/15/25 15:34 MCV 87.0 fl (85-98) 01/15/25 15:34 MCH 26.6 pg (27-33) L 01/15/25 15:34 MCHC 30.6 g/dL (30-55) 01/15/25 15:34 RDW 15.1 % (12.1-15.1) 01/15/25 15:34 Plt Count 246 10^3/cmm (157-399) 01/15/25 15:34 MPV 11.0 fL (7.4-10.4) H 01/15/25 15:34 Neut % (Auto) 61.9 % 01/15/25 15:34 Lymph % (Auto) 26.4 % 01/15/25 15:34 Iron % (Auto) 9.4 % 01/15/25 15:34 Eos % (Auto) 1.3 % 01/15/25 15:34 Baso % (Auto) 0.8 % 01/15/25 15:34 Neut # (Auto) 3.77 10^3/uL (1.8-7.7) 01/15/25 15:34 Lymph # (Auto) 1.6 10^3/uL (0.8-4.8) 01/15/25 15:34 Iron # (Auto) 0.6 10^3/uL (0.2-0.9) 01/15/25 15:34 Eos # (Auto) 0.1 10^3/uL (0.0-0.8) 01/15/25 15:34 Baso # (Auto) 0.1 10^3/uL (0.0-0.1) 01/15/25 15:34 Nucleated RBC % (auto) 0 % 01/15/25 15:34 Nucleated RBCs # 0.0 /100WBC 01/15/25 15:34 ESR 3 mm/hr (0-15) 01/15/25 15:34 Sodium 140 mmol/L (136-145) 01/15/25 15:34 Potassium 3.7 mmol/L (3.5-5.1) 01/15/25 15:34 Chloride 96 mmol/L (98-107) L 01/15/25 15:34 Carbon Dioxide 29 mmol/L (22-29) 01/15/25 15:34 Anion Gap 18.7 (5-19) 01/15/25 15:34 BUN 24 mg/dL (8-23) H 01/15/25 15:34 Creatinine 1.1 mg/dL (0.5-0.9) H 01/15/25 15:34 GFR Calculation Not Reportable 01/15/25 15:34 Glucose 108 mg/dL (65-115) 01/15/25 15:34 Estimat Average Glucose 117 01/15/25 15:34 Hemoglobin A1c 5.7 % (4.0-6.0) 01/15/25 15:34 Calculated Osmolality 295 mOsm/kg (285-295) 01/15/25 15:34 Calcium 9.8 mg/dL (8.5-10.5) 01/15/25 15:34 Total Bilirubin 0.6 mg/dL (0.15-1.2) 01/15/25 15:34 AST 14 U/L (0-32) 01/15/25 15:34 ALT < 5 U/L (0-33) 01/15/25 15:34 Alkaline Phosphatase 69 U/L (35-105) 01/15/25 15:34 Troponin T Baseline 18 ng/L (0-10) H 01/15/25 15:34 Troponin T 120 Minute 17.92 ng/L (0-10) H 01/15/25 17:54 Delta Troponin T -0.08 ABS# (0-10) L 01/15/25 17:54 C-Reactive Protein 3.0 mg/L (0.0-4.9) 01/15/25 15:34 NT-Pro-B Natriuret Pep 1712 pg/mL (0-450) H 01/15/25 15:34 Total Protein 6.6 g/dL (6.6-8.7) 01/15/25 15:34 Albumin 4.6 g/dL (3.5-5.2) 01/15/25 15:34 Globulin 2.0 g/dL (1.3-4.6) 01/15/25 15:34 Triglycerides 83 mg/dL (0-150) 01/15/25 15:34 Cholesterol 146 mg/dL (0-200) 01/15/25 15:34 LDL Cholesterol, Calc 77 mg/dL (50-129) 01/15/25 15:34 HDL Cholesterol 52 mg/dL (60-100) L 01/15/25 15:34 LDL/HDL Ratio 1.48 RATIO (0.00-3.22) 01/15/25 15:34 Cholesterol/HDL Ratio 2.81 mg/dL (0.0-4.40) 01/15/25 15:34 Procalcitonin 0.03 ng/mL (0-0.5) 01/15/25 15:34 TSH 2.01 uIU/mL (0.27-4.20) 01/15/25 15:34 Urine Color Yellow (Yellow) 01/15/25 15:20 Urine Appearance Clear (CLEAR) 01/15/25 15:20 Urine pH 7.5 (5-7) 01/15/25 15:20 Ur Specific [place] 1.006 (1.005-1.030) 01/15/25 15:20 Urine Protein Negative (Negative) 01/15/25 15:20 Urine Glucose (UA) Negative (Normal) 01/15/25 15:20 Urine Ketones Negative (Negative) 01/15/25 15:20 Urine Blood Negative (Negative) 01/15/25 15:20 Urine Nitrate Negative (Negative) 01/15/25 15:20 Urine Bilirubin Negative (Negative) 01/15/25 15:20 Urine Urobilinogen 0.2 mg/dL (Negative) 01/15/25 15:20 Ur Leukocyte Esterase Negative (Negative) 01/15/25 15:20 Urine RBC 0-2 /hpf (0-2) 01/15/25 15:20 Urine WBC 0-5 /hpf (0-5) 01/15/25 15:20 Ur Squamous Epith Cells 0-5 /hpf (0-5) 01/15/25 15:20 Amorphous Sediment Not Reportable 01/15/25 15:20 Urine Bacteria None seen /hpf (NONE) 01/15/25 15:20 Hyaline Casts 2.05 /lpf 01/15/25 15:20 All radiology interpretation(s) finalized by discharge Discharge Plan Discharge Patient Disposition: Admitted As Inpatient Admit Provider: Art Soto Clinical Impression: Bilateral leg weakness, Cervical spine fracture Condition: Stable Coding Level of Care Code ED Director Funds Development for Ute Shields
--- NOTE | 2025-01-15 15:03 | ECG_ITS ---
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 Measurements Intervals [place] Rate: 73 P: 50 [place]: 165 QRS: -22 QRSD: 109 T: 27 QT: 426 QTc: 472 Interpretive Statements SINUS RHYTHM WITH OCCASIONAL SUPRAVENTRICULAR PREMATURE COMPLEXES POSSIBLE LEFT ATRIAL ENLARGEMENT [-0.1mV P-WAVE IN V1/V2] BORDERLINE LEFT AXIS DEVIATION [QRS AXIS < -20] INCOMPLETE RIGHT BUNDLE BRANCH BLOCK [90+ ms QRS DURATION, TERMINAL R IN V1/V2, 40+ ms S IN I/aVL/V4/V5/V6] MODERATE ST DEPRESSION [0.05+ mV ST DEPRESSION] Compared to ECG 11/24/2024 18:31:01 ST (T wave) deviation now present Myocardial infarct finding no longer present Electronically Signed On 01-15-2025 20:17:54 CDT by Suzy Brumfield M.D. [id number]
[2025-01-15 15:29] LABS: Glucose Urine UA Negative (Normal); Nitrate Urine Negative (Negative); Specific Gravity, Urine 1.006 (1.005-1.030)
[2025-01-15 15:34] LABS: Add Urine Microscopic? YES
[2025-01-15 15:47] LABS: Hematocrit 34.0 % (36-47); Hemoglobin 10.40 g/dL (11.27-16.99); Mean Corpuscular HGB Conc 30.6 g/dL (30-55); Mean Corpuscular Hemoglobin 26.6 pg (27-33); Mean Corpuscular Volume 87.0 fl (85-98); Nucleated Red Blood Cells % 0 %; Platelet Count 246 10^3/cmm (157-399); Red Blood Count 3.91 10^6/uL (3.85-5.65); White Blood Count 6.09 10^3/uL (3.29-11.43)
[2025-01-15 16:00] LABS: Troponin(5th) Baseline 18 ng/L (0-10)
[2025-01-15 16:02] LABS: Alanine Aminotransferase < 5 U/L (0-33); Albumin Level 4.6 g/dL (3.5-5.2); Alkaline Phosphatase 69 U/L (35-105); Anion Gap 18.7 (5-19); Aspartate Amino Transferase 14 U/L (0-32); Blood Urea Nitrogen 24 mg/dL (8-23); Calcium 9.8 mg/dL (8.5-10.5); Carbon Dioxide 29 mmol/L (22-29); Chloride 96 mmol/L (98-107); Globulin 2.0 g/dL (1.3-4.6); Glucose 108 mg/dL (65-115); Osmolality Calculated 295 mOsm/kg (285-295); Potassium 3.7 mmol/L (3.5-5.1); Sodium 140 mmol/L (136-145); Total Protein 6.6 g/dL (6.6-8.7)
--- NOTE | 2025-01-15 16:39 | CTR_ITS ---
PROCEDURE INFORMATION: Exam: CT Cervical Spine Without Contrast Exam date and time: 01/15/2025 5:05 PM Age: 89 years old Clinical indication: Weakness; Additional info: Unable to stand or walk, previous neck fracture TECHNIQUE: Imaging protocol: Computed tomography of the cervical spine without contrast. Radiation optimization: All CT scans at this facility use at least one of these dose optimization techniques: automated exposure control; mA and/or kV adjustment per patient size (includes targeted exams where dose is matched to clinical indication); or iterative reconstruction. COMPARISON: CT cervical spin wo con* [id number] 12/22/2024 5:23 PM RADIATION DOSE METRICS: Total DLP (mGy-cm): 208.5 FINDINGS: Bones: Again seen is a displaced type 2 odontoid fracture of C2. No evidence of interval healing or callus formation. Degree of anterior displacement appears slightly increased on today's exam as compared to the prior examinations. Anterior displacement of the superior fracture fragment has increased by 2-3 mm. Old healed fracture deformity involving the anterior arch of the ring of C1. Old healed fracture deformity involving the anterior left aspect of the posterior arch of C1. Partial healing of the previously seen fracture involving the anterior aspect of the posterior arch of C1 to the right. There is interval increase in anterior translation at the right C1-C2 facet joint with slight increase in rotation of the C1 vertebral body anteriorly to the right. Old healed fracture deformity involving the margin of the right transverse foramina at C2 appears similar. No new fracture involving the cervical vertebral bodies. Remainder of the facets align normally. Spinous processes are intact. Alignment of the ring of C1 and occipital condyles remains normal. Advanced disc space narrowing and degenerative endplate changes present at C4-C5, C5-C6 and C6-C7. Multilevel degenerative facet change and uncovertebral hypertrophy resulting in multilevel neural foraminal narrowing. This is most pronounced at the C4-C5, C5-C6 and C6-C7 levels. There does appear to be increase in spinal canal stenosis within the upper cervical spinal canal at the C1-C2 level Lungs: 3 mm nodule of the right lung apex is unchanged. Thyroid: Multiple thyroid nodules appear unchanged. Lymph nodes: No suspicious mass or lymphadenopathy within the neck. Vasculature: Dense atherosclerotic plaque is present at the right and left carotid bulb and involving the proximal aspect of the right and left internal carotid artery. Soft tissues: Unremarkable. CT/CT cervical spin wo con* [id number] IMPRESSION: 1. Interval increase in anterior displacement of previously seen type 2 odontoid fracture. Anterior displacement of the superior fragment has increased by 2-3 mm. Interval increase in anterior translation and rotation of the right lateral mass at the right C1-C2 facet joint. There does appear to be resultant mild increase in spinal canal stenosis at the C1-C2 level. Given patient's reported symptoms of increasing weakness, MRI of the cervical spine is recommended for further evaluation. 2. No acute fracture identified. Stable appearance of additional healed fractures involving the anterior and posterior arch of C1. 3. Multilevel degenerative changes are present throughout the cervical spine. COMMENTS: THIS REPORT CONTAINS FINDINGS THAT MAY BE CRITICAL TO PATIENT CARE. The exam findings were verbally communicated by me to Dr. Soto via telephone conference at 5:56 PM CDT on 01/15/2025. The findings were acknowledged and understood.
--- NOTE | 2025-01-15 16:39 | CTR_ITS ---
PROCEDURE INFORMATION: Exam: CT Lumbar Spine Without Contrast Exam date and time: 01/15/2025 5:10 PM Age: 89 years old Clinical indication: Weakness; Additional info: Unable to stand or walk TECHNIQUE: Imaging protocol: Computed tomography of the lumbar spine without contrast. Radiation optimization: All CT scans at this facility use at least one of these dose optimization techniques: automated exposure control; mA and/or kV adjustment per patient size (includes targeted exams where dose is matched to clinical indication); or iterative reconstruction. COMPARISON: CT lumbar spine wo con* [id number] 01/07/2023 2:29 PM RADIATION DOSE METRICS: Total DLP (mGy-cm): 938.12 FINDINGS: Bones/joints: [id number] degenerative changes of lumbar spine with multilevel endplate spurring and disc space narrowing. Broad-based disc bulges at L3-L4, L4-L5, and L5-S1 resulting in mild anterior thecal sac effacement. Mild levoconvex curvature of the lumbar spine. Moderate to severe facet arthropathy. Gallbladder and biliary ducts: Query gallstones. Spleen: Old granulomatous disease of the spleen. Vasculature: Aortic atherosclerosis. Soft tissues: Unremarkable. CT/CT lumbar spine wo con* [id number] IMPRESSION: No definite acute fracture . Chronic degenerative changes as above.
--- NOTE | 2025-01-15 16:51 | CTR_ITS ---
PROCEDURE INFORMATION: Exam: CT Head Without Contrast Exam date and time: 01/15/2025 5:05 PM Age: 89 years old Clinical indication: Walking, difficulty; Additional info: Unable to stand TECHNIQUE: Imaging protocol: Computed tomography of the head without contrast. Radiation optimization: All CT scans at this facility use at least one of these dose optimization techniques: automated exposure control; mA and/or kV adjustment per patient size (includes targeted exams where dose is matched to clinical indication); or iterative reconstruction. COMPARISON: CT head wo con* [id number] 12/22/2024 5:23 PM RADIATION DOSE METRICS: Total DLP (mGy-cm): 1197.8 FINDINGS: Brain: No intraparenchymal hemorrhage. No subdural or epidural hematoma or fluid collection. No evidence of a new territorial infarct. Area of mild decreased density within the subinsular deep white matter on the left appears similar. Findings are nonspecific and more in keeping with areas of chronic microvascular ischemic change. Additional mild decreased density within the periventricular deep white matter on the right and left. These changes are nonspecific and more in keeping with areas of chronic microvascular ischemic change. No large mass or mass effect. Cerebral ventricles: Asymmetric prominence of the left lateral ventricle appears unchanged. Ventricular and sulcal pattern is otherwise within normal limits. No new mass effect or midline shift. Paranasal sinuses: Visualized portion of the paranasal sinuses are essentially clear. Mastoid air cells: Visualized portions of the mastoid air cells are clear. Bones: The calvarium is intact. No depressed or displaced skull fracture. Soft tissues: The overlying soft tissues appear unremarkable. Globes appear symmetric. Vasculature: Peripheral atherosclerotic plaque along the intracranial segment of the right and left internal carotid artery. Peripheral atherosclerotic plaque along the intracranial segment of the right and left vertebral artery. No hyperdense MCA sign. CT/CT head wo con* [id number] IMPRESSION: No acute findings within the brain. No interval change in appearance of the brain on today's exam as compared to the prior examination. No CT evidence of a new territorial infarct. No intraparenchymal hemorrhage. No subdural or epidural hematoma or fluid collection. If there remains clinical concern for an area of ischemia, follow-up MRI of the brain could be considered.
--- NOTE | 2025-01-15 17:30 | ECG_ITS ---
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 Measurements Intervals [place] Rate: 92 P: 63 [place]: 183 QRS: -18 QRSD: 102 T: 88 QT: 397 QTc: 491 Interpretive Statements SINUS RHYTHM POSSIBLE LEFT ATRIAL ENLARGEMENT [-0.1mV P-WAVE IN V1/V2] INCOMPLETE RIGHT BUNDLE BRANCH BLOCK [90+ ms QRS DURATION, TERMINAL R IN V1/V2, 40+ ms S IN I/aVL/V4/V5/V6] MODERATE ST DEPRESSION [0.05+ mV ST DEPRESSION] Compared to ECG 01/15/2025 15:03:17 No significant changes Electronically Signed On 01-15-2025 20:25:03 CDT by Suzy Brumfield M.D. [id number]
[2025-01-15] MEDS: hyDRALAzine 20 mg/mL INJ 1 mL 10 MG IVP (17:51)
[2025-01-15] MEDS: HYDROmorphone 0.5 MG/0.5 ML INJ 1 MG IVP (18:05)
[2025-01-15 18:20] LABS: Troponin 5 2HR 17.92 ng/L (0-10)
[2025-01-15 18:22] LABS: Troponin 5 2HR Delta -0.08 ABS# (0-10)
--- NOTE | 2025-01-15 18:22 | P.HP_ITS ---
Providers/Chief Complaint 2 Primary Care Provider: Trev Severino MD Chief Complaint: low bp - weakness History of Present Illness Latoya Flaherty is a 89 year old female with a past medical history of Parkinson's disease, fluid overload, recent history of cervical neck fracture status post mechanical fall, followed up by Dr. Qureshi, diastolic CHF, who presents to [facility] for bilateral lower extremity weakness. Currently patient is alert oriented x 3, following all commands, she tells me that at home she is ambulating with a wheeled walker, she requires assistance with her activities of daily living such as transfers, her family cooks for her, but she can at times get in and out of bed, she can use the bathroom but at times she does need assistance. She tells me over the last 3 days she started developing bilateral lower extremity weakness, she tells me at the same time she was sick to her stomach, she does not know exactly what it was but no fevers, no chills, no cough, no diarrhea. She comes to the emergency room today as she is not able to get up on her own, she has no strength in her legs, she does have sensation in her legs she tells me, no diminish sensation reported, no urinary incontinence, bowel incontinence, saddle or perianal anesthesia, no upper extremity weakness, no facial droop, slurring words, no focal weakness no falls, no injuries she does been at her neck is always hurting her, it constantly pops, but no lower back pain or falls or injuries or recent neck injuries. In the emergency room nursing staff tried to get up to the side of bed to have her stand but she was unable to, it took 3 nurses to get her back into bed, denies any dysuria, hematuria, no fevers, no cough, no chest pain. Head CT reviewed no acute findings. Cervical CT scan reviewed with [facility], reported CT/CT cervical spin wo con* [id number] IMPRESSION: 1. Interval increase in anterior displacement of previously seen type 2 odontoid fracture. Anterior displacement of the superior fragment has increased by 2-3 mm. Interval increase in anterior translation and rotation of the right lateral mass at the right C1-C2 facet joint. There does appear to be resultant mild increase in spinal canal stenosis at the C1-C2 level. Given patient's reported symptoms of increasing weakness, MRI of the cervical spine is recommended for further evaluation. - Case was discussed with Dr. Qureshi -Dr. Qureshi recommends MRI cervical spine which I have ordered in addition to lumbar spine -On examination she does report acute on chronic shortness of breath -Bilateral ankle jerk reflex, knee jerk reflexes are absent but she does have bilateral knee replacement -Reflexes in upper extremity including elbow and thumb also are diminished -Discussed with her the possibility of Guillain-Crawford? syndrome or CIDP, her cervical CT scan does favor nerve impingement as an etiology but it is strange that she really does not have any upper extremity weakness or paresthesias radiating down her neck, but she does have diminished reflexes in the arms -Discussed obtaining cervical MRI and lumbar MRI -If cervical MRI and lumbar MRI are within normal limits, discussed the possibility of Guillain-Crawford? syndrome we would likely pursue lumbar puncture, and start her on IVIG -She is in agreement to try steroids for now, follow-up with MRIs, will see her clinical status progresses -Will ordered nebs every 6 hours discussed with her if she has sudden onset weakness, shortness of breath immediately call nursing staff as this can be a life-threatening symptom of Guillain-Crawford? syndrome Review of Systems 2 Const: Reports: fatigue; Denies: fever(s) or chills Card: Denies: chest pain Resp: Reports: dyspnea Neuro: Reports: weakness in extremities; Denies: headache(s), numbness in extremities, frequent falls, dizziness, Slurred speech present, difficulty communicating thoughts or seizure-like activity Psych: Denies: anxiety Medications/Allergies Home Medications ?Medication ?Instructions ?Recorded ?Confirmed ?Last Taken ?Type bisacodyl 5 mg tablet,delayed 10 mg (2 x 5 mg) PO RONALDO Y PRN 03/17/23 01/04/25 Unknown Rx release Constipation (see protocol) #30 tabs sennosides 8.6 mg-docusate sodium 2 tab PO BID #180 ta bs 03/17/23 01/04/25 03/29/24 Rx 50 mg tablet (Stool Softener-Laxative) fast form #1 ea 07/08/23 01/04/25 Unkn own Rx biotin 5,000 mcg sublingual tablet 10,000 mcg sublingu al DAILY 08/05/23 01/04/25 03/29/24 History escitalopram oxalate 10 mg tablet 20 mg PO DAILY 08/0401/04/25 03/29/24 History hydrochlorothiazide 12.5 mg tablet 12.5 mg PO DAILY 01/04/25 03/29/24 History lorazepam 1 mg tablet 1 mg PO QID PRN Anxiety 07/2501/04/25 Unknown History metoprolol tartrate 25 mg tablet 25 mg PO BID 08/05/23 01/04/25 03/29/24 History pantoprazole 20 mg tablet,delayed 40 mg PO DAILY 08/0401/04/25 03/29/24 History release cockup splint #1 ea 08/10/23 01/04/25 Unkn own Rx polyethylene glycol 3350 17 17 g PO DAILY #510 grams 0 12/16/23 01/04/25 03/29/24 Rx gram/dose oral powder (Miralax) carbidopa 25 mg-levodopa 100 mg See Rx Instructions .R oute 02/03/24 01/04/25 03/30/24 Rx tablet .COMPLEX #180 tabs atorvastatin 20 mg tablet 20 mg PO BEDTIME 07/17/24 Unknown History apixaban 2.5 mg tablet (Eliquis) 1.25 mg PO BID 01/04/25 Unknown History Held on 07/19/24. Instructions: Resume on 07/26/24. furosemide 20 mg tablet 20 mg PO DAILY 07/18/2412/25 Unknown History lisinopril 5 mg tablet 5 mg PO DAILY 07/18/2401/04 Unknown History mupirocin 2 % topical ointment See Rx Instructions .Ro [place] .COMPLEX 07/18/24 01/04/25 Unknown History ondansetron 4 mg disintegrating 4 mg PO Q8H PRN Nausea 07/18/24 01/04/25 Unknown History tablet naloxone 4 mg/actuation nasal 4 mg intranasal Q2M PRN opioid 07/19/24 01/04/25 Unknown Rx spray (Rextovy) overdose #2 ea hydrocodone 5 mg-acetaminophen 325 1 tab PO Q4H PRN 01/04/25 Unknown History mg tablet soft cervical collar #1 ea 10/31/24 01/04/25 Unkn own Rx mupirocin 2 % topical ointment 1 applic topical DAILY #15 grams 12/22/24 01/04/25 Unknown Rx Allergies Allergy/AdvReac Type Severity Reaction Status Date / Time naproxen Allergy Unknown Verified 01/04/25 08:12 PFSH Acute 2 PFSH: Medical History Restless leg Subcapital fracture of right hip Fibromyositis Central deafness Anemia GERD (gastroesophageal reflux disease) Parkinson's Disease Surgical History Status post right hip replacement History of cataract surgery History of knee replacement Hx of LASIK Family History Sister COPD (chronic obstructive pulmonary disease) Mother Congestive heart failure (CHF) Social History Smoking and tobacco/nicotine status: never used tobacco/nicotine Alcohol intake: never Substance/Drug Use: never Adopted: No Caregiver/support person: No Lives independently: Yes Marital status: / Current occupational status: retired Vitals/I&O/Wt Last Vital Signs Temp 97.9 F 01/15/25 14:39 Pulse 80 01/15/25 16:03 Resp 16 01/15/25 14:39 BP 188/93 01/15/25 16:00 Pulse Ox 95 01/15/25 16:00 Physical Exam 2 Const: COMMON NORMALS: no acute distress and patient oriented x3 HENMT: COMMON NORMALS: normocephalic HEAD & SCALP: normocephalic Eye: COMMON NORMALS: Equal, round and reactive pupils present Neck/C-Spine: COMMON NORMALS: no JVD OTHER: Currently in his cervical soft collar Resp: COMMON NORMALS: normal respiratory effort, No retractions, No use of accessory muscles and clear to auscultation bilaterally AUSCULTATION: clear to auscultation bilaterally Cardio: COMMON NORMALS: regular rate, regular rhythm, S1 normal heart sound present and S2 normal heart sound present RATE: regular rate RHYTHM: r egular rhythm HEART SOUNDS: S1 normal heart sound present and S2 normal heart sound present GI: COMMON NORMALS: Normal to inspection, nondistended, normoactive bowel sounds present, Soft to palpation and non-tender Extremity: COMMON NORMALS: no calf tenderness Neuro: COMMON NORMALS: patient oriented x3, CN's II-XII intact bilaterally, moves all extremities and no focal motor deficits OTHER: - Bilateral extremity ankle jerk reflexe s absent - Bilateral knee replacements, knee jerk reflexes absent - She is able to drawl bilateral feet to wards her, equal strength - Bilateral lower extremity sensations i ntact - Upper extremity good strength bilatera lly equal - Upper extremity reflexes diminished - Sensation is intact Psych: COMMON NORMALS: mental status grossly normal Skin: NARRATIVE SKIN EXAM: 2+ pitting edema Data 01/15/25 15:34 01/15/25 15:34 A&P Assessment and plan 1. Bilateral leg weakness: 2. Parkinson's Disease: 3. Cervical spine fracture: Plan: Bilateral lower extremity weakness - With absent reflexes bilateral lower extremity - Diminished reflexes upper extremity - No saddle or perianal anesthesia, no urinary continence no bowel incontinence - Sensation intact bilateral extremity - She is able to draw bilateral feet towards her, but bilateral lower extremities are weak, equal bilaterally - History of cervical neck fracture - CT cervical spine CT/CT cervical spin wo con* [id number] IMPRESSION: 1. Interval increase in anterior displacement of previously seen type 2 odontoid fracture. Anterior displacement of the superior fragment has increased by 2-3 mm. Interval increase in anterior translation and rotation of the right lateral mass at the right C1-C2 facet joint. There does appear to be resultant mild increase in spinal canal stenosis at the C1-C2 level. Given patient's reported symptoms of increasing weakness, MRI of the cervical spine is recommended for further evaluation. Head MRI CT/CT head wo con* [id number] IMPRESSION: No acute findings within the brain. No interval change in appearance of the brain on today's exam as compared to the prior examination. No CT evidence of a new territorial infarct. No intraparenchymal hemorrhage. No subdural or epidural hematoma or fluid collection. If there remains clinical concern for an area of ischemia, follow-up MRI of the brain could be considered. Lumbar MRI FINDINGS: Bones/joints: [id number] degenerative changes of lumbar spine with multilevel endplate spurring and disc space narrowing. Broad-based disc bulges at L3-L4, L4-L5, and L5-S1 resulting in mild anterior thecal sac effacement. Mild levoconvex curvature of the lumbar spine. Moderate to severe facet arthropathy. Gallbladder and biliary ducts: Query gallstones. Spleen: Old granulomatous disease of the spleen. Vasculature: Aortic atherosclerosis. Soft tissues: Unremarkable. CT/CT lumbar spine wo con* [id number] IMPRESSION: No definite acute fracture . Chronic degenerative changes as above. -Differential includes cervical neck fracture, with cord impingement - Other possibilities include Guillain-Crawford? syndrome Plan -Placed in cervical collar, cervical precautions -Stat CT MRI cervical spine -MRI cervical spine - Start Decadron 10 mg IV push every 6 hours -IV Dilaudid for pain control - Monitor bilateral extremity weakness, reflexes, reflexes upper extremity - Monitor respiratory status, and NIF 6 hours - Su catheter in place - Will hold Eliquis therapy, and plans of possible lumbar puncture tomorrow - Based on the workup as above will consider IVIG - Dr. Qureshi consulted - DNR/DNI, confirmed with patient multiple times - Lovenox for DVT prophylaxis Fluid overload, bilateral extremity 2+ pitting edema, 1 dose IV Lasix PDMP PDMP Reviewed: Last Reviewed 01/15/25 18:02 by Art Soto MD Attestations 2 Medical Necessity Statement*: Patient requires hospitalization, inpatient, greater than 2 midnights, for bilateral extremity weakness Diagnoses Bilateral leg weakness R29.898 Parkinson's Disease G20.A1 Cervical spine fracture S12.9XXA
[2025-01-15 19:32] LABS: NT Pro B Type Natriuretic Pept 1712 pg/mL (0-450); Procalcitonin 0.03 ng/mL (0-0.5)
--- NOTE | 2025-01-15 20:44 | ECG_ITS ---
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 Measurements Intervals [place] Rate: 93 P: 66 AK: 173 QRS: -17 QRSD: 101 T: 81 QT: 391 QTc: 487 Interpretive Statements SINUS RHYTHM LOW QRS VOLTAGE IN PRECORDIAL LEADS [QRS DEFLECTION < 1.0 mV IN CHEST LEADS] INCOMPLETE RIGHT BUNDLE BRANCH BLOCK [90+ ms QRS DURATION, TERMINAL R IN V1/V2, 40+ ms S IN I/aVL/V4/V5/V6] POSSIBLE ANTERIOR MYOCARDIAL INFARCTION , PROBABLY OLD [30 ms Q WAVE IN V3/V4, OR R < 0.2 mV IN V4] MILD ST DEPRESSION Compared to ECG 01/15/2025 17:30:32 Low QRS voltage now present NO SIGNIFICANT CHANGE Electronically Signed On 01-17-2025 21:57:16 CDT by Tremaine Lau M.D. [email or web address]
[2025-01-15] MEDS: sennosides-docusate Tablet 2 TAB PO (21:30)
[2025-01-15] MEDS: carbidopa-levodopa 25-100mg Tablet 0.5 EACH PO (21:31)
[2025-01-15 21:39] LABS: Cholesterol 146 mg/dL (0-200); HDL Cholesterol 52 mg/dL (60-100); Thyroid Stimulating Hormone 2.01 uIU/mL (0.27-4.20); Triglycerides 83 mg/dL (0-150)
[2025-01-15] MEDS: FUROsemide 10 mg/mL SDV 4mL 40 MG IVP (22:05)
[2025-01-15 22:42] LABS: Troponin 5 6HR 26.51 ng/L (0-10); Troponin 5 6HR Delta 8.51 ng/L (0-12)
--- OUTSIDE RECORDS SUMMARY | 2025-01-15 22:43 | XMS_ITS | Encounter Summary ---
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
--- OUTSIDE RECORDS SUMMARY | 2025-01-15 22:43 | XMS_ITS | Clinical Summary ---
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
--- OUTSIDE RECORDS SUMMARY | 2025-01-15 22:43 | XMS_ITS | Encounter Summary ---
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 <<<<<<<< TRIAGE NOTE >>>>>>>> Triage Note: Clay Maker Bella Lopez added this note on Aug [...]
--- NOTE | 2025-01-15 23:13 | PC.SOCIAL ---
Patient uses [facility]. PCP Lloyd and uses [facility]. Currently lives with son. Needs help with ADL's and is sometimes incontinent at home. Patient currently does not have any oxygen, but does have a wheeled walker at home.
[2025-01-16] VITALS (12 sets, daily range): BP systolic 110–160; BP diastolic 51–72; PULSE 61–90; RESP 16–18; TEMP 36.5–37.2; O2SAT 93–97
[2025-01-16 00:35] LABS: Estmated Average Glucose 117; Hemoglobin A1C 5.7 % (4.0-6.0)
[2025-01-16 04:52] LABS: Hematocrit 36.9 % (36-47); Hemoglobin 11.40 g/dL (11.27-16.99); Mean Corpuscular HGB Conc 30.9 g/dL (30-55); Mean Corpuscular Hemoglobin 26.9 pg (27-33); Mean Corpuscular Volume 87.0 fl (85-98); Nucleated Red Blood Cells % 0 %; Platelet Count 252 10^3/cmm (157-399); Red Blood Count 4.24 10^6/uL (3.85-5.65); White Blood Count 4.70 10^3/uL (3.29-11.43)
[2025-01-16 05:16] LABS: Alanine Aminotransferase < 5 U/L (0-33); Albumin Level 4.6 g/dL (3.5-5.2); Alkaline Phosphatase 67 U/L (35-105); Anion Gap 18.3 (5-19); Aspartate Amino Transferase 15 U/L (0-32); Blood Urea Nitrogen 23 mg/dL (8-23); Calcium 9.8 mg/dL (8.5-10.5); Carbon Dioxide 29 mmol/L (22-29); Chloride 99 mmol/L (98-107); Creatinine Clr Calc Pharmacy 41.1802; Globulin 2.4 g/dL (1.3-4.6); Glucose 142 mg/dL (65-115); Osmolality Calculated 302 mOsm/kg (285-295); Potassium 3.3 mmol/L (3.5-5.1); Sodium 143 mmol/L (136-145); Total Protein 7.0 g/dL (6.6-8.7)
[2025-01-16 05:35] LABS: NT Pro B Type Natriuretic Pept 2835 pg/mL (0-450)
[2025-01-16] MEDS: carbidopa-levodopa 25-100mg Tablet 1 EACH PO (06:07)
--- NOTE | 2025-01-16 09:30 | MR_ITS ---
WS: [id number] MRI CERVICAL SPINE NONCONTRAST HISTORY: bilateral leg weakness COMPARISON: 07/17/2024 Technique: Multiplanar, multisequence noncontrast imaging of the cervical spine. Straightening of the normal cervical lordosis. Patient has a known fracture involving the base of the odontoid process with no callus formation. There is new edema along the fracture line at the odontoid process. Mild anterior displacement of the odontoid process by 7 mm. Anterolisthesis has progressed since 07/17/2024. Very minimal narrowing of the cervical canal at the level of the fracture. Signal within the cervical cord is normal. Visualized posterior fossa is unremarkable. C2-C3: Mild LEFT foraminal narrowing. Similar to the prior studies. C3-C4: Mild facet arthritis. No stenosis. C4-C5: Marked osteophytic ridging with annular disc bulging. Severe central and bilateral foraminal stenosis. C5-C6: Osteophytic ridging and facet arthritis. Disc bulging. Moderate to severe central and bilateral foraminal stenosis. C6-C7: Mild annular disc bulging and facet arthritis. Mild central and foraminal stenosis. C7-T1: Minimal foraminal narrowing. Paraspinal soft tissue are normal. MR/MR cervical spin wo con* [id number] IMPRESSION: 1. Patient has a known fracture involving the base of the odontoid process. Th ere is anterior translation of the odontoid process with respect to the body of the odontoid by 7 mm which has progressed since the prior CT of 07/17/2024. 2. Marrow edema is now present along the fracture line of the odontoid process suggesting there may be some instability. 3. Very minimal stenosis now present at the C2 level. 4. Cord edema previously described at C4-5 has improved. 5. No prevertebral hematoma identified. 6. Significant central and foraminal stenosis from C4-5 through C6-7 is stable .
--- NOTE | 2025-01-16 09:30 | MR_ITS ---
WS: [id number] MRI LUMBAR SPINE NONCONTRAST HISTORY: bilateral weakness COMPARISON: CT lumbar spine 01/13/2025. TECHNIQUE: Sagittal and axial multisequence imaging is submitted. T1 hemangioma. Mild increase in thoracic kyphosis. Moderate LEFT curvature lumbar spine. No acute fractures or marrow edema. Disc spaces are mildly narrowed and desiccated. L4 anterolisthesis by 4.7 mm. Conus terminates normally at L1-2 disc level. L1-L2: Mild retrolisthesis of L1 by 3 mm. Annular disc bulging and facet arthritis. Mild bilateral foraminal stenosis. L2-L3: Mild annular disc bulging with osteophytic ridging, bilateral facet joint arthritis. Mild RIGHT subarticular recess and LEFT foraminal stenosis. L3-L4: Mild annular disc bulge with a central disc protrusion. Mild osteophytic ridging and facet arthritis. Moderate central and bilateral subarticular recess stenosis. Greater contact on the traversing RIGHT L4 nerve root. Mild to moderate RIGHT and mild LEFT foraminal stenosis. L4-L5: Diffuse disc bulging with ligamentum flavum and facet arthritis. Mild disc contact on the traversing L5 nerve roots. Moderate central, bilateral subarticular recess and mild foraminal stenosis, RIGHT greater than LEFT. L5-S1: Diffuse disc bulging with a small central disc protrusion. Mild disc contact on the S1 nerve roots. Moderate to severe LEFT and mild to moderate RIGHT foraminal stenosis. Paravertebral soft tissues are negative. MR/MR lumbar spine wo con* [id number] IMPRESSION: 1. No acute lumbar spine fractures. 2. Levoscoliosis lumbar spine. 3. 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 4. Moderate central, bilateral subarticular recess and mild foraminal stenosis , RIGHT greater than LEFT at L4-5. 5. Moderate to severe LEFT and mild to moderate RIGHT foraminal stenosis at L5 -S1. Minimal disc contact on the S1 nerve roots. 6. Moderate central, bilateral subarticular recess stenosis with mild to moder ate RIGHT and mild LEFT foraminal stenosis at L3-4. 7. Very mild RIGHT subarticular recess and LEFT foraminal stenosis at L2-3.
[2025-01-16] MEDS: sennosides-docusate Tablet 2 TAB PO ×2 (09:40→18:33)
[2025-01-16] MEDS: carbidopa-levodopa 25-100mg Tablet 2 EACH PO ×2 (09:54→13:52)
[2025-01-16] MEDS: HYDROmorphone 0.5 MG/0.5 ML INJ 1 MG IVP (10:46)
--- NOTE | 2025-01-16 11:01 | PC.CHAP ---
Pastoral Care Encounter/Spiritual Assessment Type of Contact [] Declined import coordination and production head visit [] Patient/Family/Request visit [] Outpatient visit [] Follow-up visit [] Physician referral [] Code/Alert [] Routine visit [] Staff referral [] Actively dying [] Patient sleeping [] Family support [] [] Out of room [] Palliative care [] [x] Receiving care in room [] Pre-surgical visit [] Trauma [] Long length of stay [] ICU visit [] Other: Relational/Emotional Strength [] Patient feels connected with others/family/visitors/staff [] Distress [] Loneliness/isolation [] Abandonment Spirituality of Patient [] Person of Mabel [] Attends Church of their Mabel [] Believes in Prayer [] Reads Bible or Jewish materials [] There are Spiritual issues to be addressed Change Coordinator Interventions [] Prayer [] Active listening [] Non-anxious presence [] Spiritual/emotional support [] Crisis/trauma care [] Spiritual counseling [] Bereavement support [] Provided bereavement packet [] Provided Bible/devotional materials [] Provided toy/stuffed animal, coloring book to patient or family member [] Provided Communion [] Anointing/Zanoni [] Salvation [] Completed spiritual assessment [] Other: Impact on Illness or Injury [] Angry [] Fearful [] Anxious [] Often cries [] Exhaustion [] Unable to work [] Unable to attend jewish [] Unable to walk/stand [] Unable to read [] Unable to drive [] Unable to eat/drink [] Unable to sleep [] Unable to be with family [] Patient intubated [] Other: Summary Time spent with patient
--- OUTSIDE RECORDS SUMMARY | 2025-01-16 12:14 | XMS_ITS | Clinical Summary ---
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
--- OUTSIDE RECORDS SUMMARY | 2025-01-16 12:14 | XMS_ITS | Encounter Summary ---
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
--- OUTSIDE RECORDS SUMMARY | 2025-01-16 12:14 | XMS_ITS | Patient Health Record ---
Author Organization [facility] Address [address] [place] [address] Care Team Providers Care Registry Rn Name Role Phone Adri Chaudhary Primary Care [...] Status W/U Status Risk Notes Problem Hypercalcemia (29325931) Hypercalcemia (E83.52) Active confirmed Problem Slow transit constipation (42841825) Slow transit constipation (K59.01) Active confirmed Problem Essential hypertension (21395991) Essential hypertension (I10) Active confirmed Problem Anxiety (94402883) Anxiety (F41.9) Active confirmed Problem Urge incontinence of urine (30176507) Urge incontinence of urine (N39.41) Active confirmed Problem Parkinsons disease (68036564) Parkinsons disease (G20) Active confirmed Problem Hyperlipidemia (73181098) Hyperlipidemia (E78.5) Active confirmed Problem Constipation (01368190) Constipation (564.0) 02/28/20 Active confirmed [id number] 911- Problem Anxiety depression (664447825) Anxiety with 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) 10/26/19 Active confirmed [id number] 911- Problem Essential hypertension (86149450) Essential hypertension (401.1) 10/20/19 Active confirmed [id number] 911- Problem Benign essential hypertension (0225199) Essential hypertension, benign (401.1) 10/26/19 Problem resolved confirmed [id number] 911- Problem Dysuria (42548089) Dysuria (788.1) 11/05/19 Problem resolved confirmed [id number] 911- Problem Rash (689005998) Rash (782.1) 11/05/19 Problem resolved confirmed [id number] 911- Problem Dizziness (212009073) Dizziness (780.4) 12/29/19 Problem resolved confirmed [id number] 911- Problem Shortness of breath (647939831) Shortness of breath (786.09) 01/26/20 Problem resolved confirmed [id number] 911- Problem Postmenopausal osteoporosis (103902377) Postmenopausal osteoporosis (733.01) 10/26/19 Problem resolved confirmed [id number] 911- Problem Benign paroxysmal positional vertigo (198467459) BPPV (386.11) 01/10/20 Problem resolved confirmed [id number] 911- Problem Abnormal laboratory test findings without diagnosis (796.4) 02/02/20 Problem resolved confirmed [id number] 911- Problem Insect bite (002172370) Insect bite (919.4) 10/26/19 Problem resolved confirmed [id number] 911- Problem Low back pain (916401226) Lower back pain (724.2) 12/29/19 Problem resolved confirmed [id number] 911- Problem Cataract (846670008) Cataract, unsepcified (366.9) 01/26/20 Problem resolved confirmed [id number] 911- Plan Of Treatment No Information Insurance Providers Payer Name Payer Address Payer Phone Subscriber Number Group Number Insured Name Patient Relationship to Insured Coverage Start Date Coverage End Date [employer] [address] [address] [place] [address] [phone] [id number] Latoya Flaherty Self - patient is the insured [place] Medicaid [address] [place] [address] [id number] Latoya Wells Self - patient is the [...]
--- OUTSIDE RECORDS SUMMARY | 2025-01-16 12:14 | XMS_ITS | Encounter Summary ---
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 <<<<<<<< TRIAGE NOTE >>>>>>>> Triage Note: Boot And Saddle Repair Person Bella Lopez added this note on Aug [...]
--- NOTE | 2025-01-16 13:00 | FL_ITS ---
WS: [id number] LUMBAR PUNCTURE UNDER FLUOROSCOPY: OBTAIN CSF FOR ANALYSIS HISTORY: guillan barre COMPARISON: Prior MRI lumbar spine and CT head reviewed. FLUOROSCOPY TIME: 3min [id number] # of spot films: 1 Procedure, complications, and risk and benefits explained to the patient. Consent was obtained. Recent laboratory work and medication are reviewed prior to procedure. Skin over the lumbar is cleansed with ChloraPrep and anesthetized with 1% buffered lidocaine. Access into the thecal sac is achieved. CSF is removed in a sterile manner and placed in the sterile tubes. Approximately 12 ml is removed without difficulty. CSF is clear. Intracranial pressure was not recorded but the pressure was very low. No complications are encountered. CSF sent to the laboratory for analysis as requested. FL/FL guided lumbarpunc dx* [id number] IMPRESSION: Uncomplicated lumbar puncture for CSF.
--- NOTE | 2025-01-16 13:59 | PC.NURSE ---
0442 Dr. Soto ask me to hold the Dexamethasone and he will retime it.
[2025-01-16] MEDS: oxyCODONE 5 mg IR Tab/Cap PO ×2 (14:13→20:20)
--- NOTE | 2025-01-16 14:35 | PM.CONSULT ---
Providers/Reason For Consult Consulting Physician/Specialty*: Hospitalist Reason for Consult*: History of cervical fracture Attending Physician: Art Soto MD Primary Care Provider: Trev Severino MD History of Present Illness History of Present Illness Latoya Flaherty is a 89 year old female who woke up with weakness yesterday. 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 At this point I been trying to treat nonoperatively. MRI was taken which shows that there is still plenty of room for the spinal cord. There is no increased myelomalacia or any myelomalacia at the C2 level. She does have a stenosis at the C4-5 C5-6 level but actually improved myelomalacia from the initial incident. MRI of her lumbar spine was also reviewed which does show stenosis as well. But not to the degree that it would cause the symptoms she is having. Review of Systems Const: Reports: fatigue; Denies: fever(s) or chills Card: Denies: chest pain Resp: Reports: dyspnea Neuro: Reports: weakness in extremities; Denies: headache(s), numbness in extremities, frequent falls, dizziness, Slurred speech present, difficulty communicating thoughts or seizure-like activity Psych: Denies: anxiety Medications/Allergies Home Medications ?Medication ?Instructions ?Recorded ?Confirmed ?Last Taken ?Type bisacodyl 5 mg tablet,delayed 10 mg (2 x 5 mg) PO DAILY PRN 03/17/23 01/16/25 Unknown Rx release Constipation (see protocol) #30 tabs fast form #1 ea 07/08/23 01/16/25 Unknown Rx biotin 5,000 mcg sublingual tablet 10,000 mcg sublingual DAILY 08/05/23 01/16/25 01/15/25 History hydrochlorothiazide 12.5 mg tablet 12.5 mg PO DAILY 08/05/23 01/16/25 01/15/25 History metoprolol tartrate 25 mg tablet 25 mg PO BID 08/05/23 01/16/25 01/15/25 08:00 History pantoprazole 20 mg tablet,delayed 40 mg PO DAILY 08/05/23 01/16/25 01/15/25 History release cockup splint #1 ea 08/10/23 01/16/25 Unknown Rx polyethylene glycol 3350 17 17 g PO DAILY #510 grams 12/16/23 01/16/25 03/29/24 Rx gram/dose oral powder (Miralax) carbidopa 25 mg-levodopa 100 mg See Rx Instructions .Route 02/03/24 01/16/25 01/15/25 13:00 Rx tablet .COMPLEX #180 tabs atorvastatin 20 mg tablet 20 mg PO BEDTIME 07/17/24 01/16/25 01/14/25 19:00 History lisinopril 5 mg tablet 5 mg PO DAILY 07/18/24 01/16/25 Unknown History ondansetron 4 mg disintegrating 4 mg PO Q8H PRN Nausea 07/18/24 01/16/25 Unknown History tablet naloxone 4 mg/actuation nasal 4 mg intranasal Q2M PRN opioid 07/19/24 01/16/25 Unknown Rx spray (Rextovy) overdose #2 ea soft cervical collar #1 ea 10/31/24 01/16/25 Unknown Rx apixaban 2.5 mg tablet (Eliquis) 1.25 mg PO BID 01/16/25 01/16/25 01/15/25 08:00 History coQ10 (ubiquinol) 200 mg capsule 200 mg PO DAILY 01/16/25 01/16/25 01/15/25 History escitalopram oxalate 20 mg tablet 20 mg PO DAILY 01/16/25 01/16/25 01/15/25 History furosemide 40 mg tablet 40 mg PO DAILY 01/16/25 01/16/25 01/15/25 08:00 History galantamine 4 mg tablet 4 mg PO BID 01/16/25 01/16/25 01/15/25 09:00 History hydrocodone 5 mg-acetaminophen 325 1 - 2 tab PO Q6H PRN Pain 01/16/25 01/16/25 01/15/25 History mg tablet lorazepam 0.5 mg tablet See Rx Instructions .Route .COMPLEX 01/16/25 01/16/25 Unknown History meloxicam 7.5 mg tablet 7.5 mg PO DAILY 01/16/25 01/16/25 01/15/25 History potassium chloride 10 mEq 10 meq PO DAILY 01/16/25 01/16/25 01/15/25 08:00 History tablet,extended release ropinirole 0.5 mg tablet 0.5 mg PO TID 01/16/25 01/16/25 01/15/25 14:00 History sennosides 8.6 mg-docusate sodium 2 tab-cap PO BID PRN Constipation 01/16/25 01/16/25 01/16/25 08:00 History 50 mg tablet (Senna-S) Allergies Allergy/AdvReac Type Severity Reaction Status Date / Time naproxen Allergy Unknown Verified 01/04/25 08:12 Current Medications Generic Name Dose Route Start Last Admin Trade Name Freq PRN Reason Stop Dose Admin Atorvastatin Calcium 20 mg 01/15/25 21:00 01/15/25 21:30 Atorvastatin 40 Mg Tablet PO 20 mg BEDTIME CHRIS Administration Carbidopa/Levodopa 1 each 01/16/25 06:00 01/16/25 06:07 Carbidopa-Levodopa 25-100mg Tablet PO 1 each QAM CHRIS Administration Carbidopa/Levodopa 2 each 01/16/25 09:00 01/16/25 13:52 Carbidopa-Levodopa 25-100mg Tablet PO 2 each 0900,1300 CHRIS Administration Carbidopa/Levodopa 0.5 each 01/15/25 21:00 01/15/25 21:31 Carbidopa-Levodopa 25-100mg Tablet PO 0.5 each BEDTIME CHRIS Administration Dexamethasone 10 mg 01/15/25 18:55 01/16/25 13:58 Dexamethasone 10 Mg/Ml Inj IVP Not Given Q6H CHRIS Enoxaparin Sodium 40 mg 01/15/25 21:30 01/15/25 21:30 Enoxaparin 40 Mg/0.4 Ml Syringe SUBCUT 40 mg Q24H CHRIS Administration Escitalopram Oxalate 20 mg 01/16/25 09:00 01/16/25 09:40 Escitalopram 10 Mg Tablet PO 20 mg DAILY CHRIS Administration Lorazepam 0.5 mg 01/15/25 20:49 01/16/25 09:47 Lorazepam 1 Mg Tablet PO 0.5 mg QID PRN Administration ANXIETY Oxycodone HCl 5 mg 01/16/25 13:51 01/16/25 14:13 Oxycodone 5 Mg Ir Tab/Cap PO 5 mg Q4H PRN Administration MODERATE PAIN Pantoprazole Sodium 40 mg 01/16/25 09:00 01/16/25 09:[address] 40 Mg Tablet PO 40 mg DAILY CHRIS Administration Polyethylene Glycol 17 gm 01/16/25 09:00 01/16/25 09:55 Polyethylene Glycol 3350 Pkt 17 Gm PO Not Given DAILY CHRIS PFSH Acute PFSH: Medical History (Updated 01/16/25 @ 07:14 by Rodger Fortune DO) Restless leg Subcapital fracture of right hip Fibromyositis Central deafness Anemia GERD (gastroesophageal reflux disease) Parkinson's Disease Surgical History Status post right hip replacement History of cataract surgery History of knee replacement Hx of LASIK Family History Sister COPD (chronic obstructive pulmonary disease) Mother Congestive heart failure (CHF) Social History Smoking and tobacco/nicotine status: never used tobacco/nicotine Alcohol intake: never Substance/Drug Use: never Adopted: No Caregiver/support person: No Lives independently: Yes Marital status: / Current occupational status: retired Vitals/I&O/Wt Last Vital Signs Temp 98.9 F 01/16/25 12:00 Pulse 65 01/16/25 12:00 Resp 18 01/16/25 14:13 BP 148/66 01/16/25 12:00 Pulse Ox 94 01/16/25 12:00 O2 Del Method Room Air 01/16/25 12:00 01/15/25 01/16/25 01/16/25 22:59 06:59 14:59 Intake Total 1000 / 1000 Output Total 1125 / 1125 500 / 1625 Balance -125 / -125 -500 / -625 Weight last 48 hrs Weight 176 lb 6.4 oz Weight 174 lb 4 oz Physical Exam Narrative: Alert and oriented x 3 Head is normocephalic atraumatic Respirations are intact No evidence of any rashes or infection 5/5 strength in bilateral upper and lower extremities Sensation intact in all extremities Data 01/16/25 04:39 01/16/25 04:39 A&P Assessment and plan 1. Bilateral leg weakness: At this point we will continue to monitor her progress. Did not feel like this is a spine related issue but she definitely has stenosis in both the cervical and lumbar spine. PDMP PDMP Reviewed: Not Reviewed Coding Level of Care Code Acute Code for Chg Fwd Diagnoses Bilateral leg weakness R29.898
--- NOTE | 2025-01-16 15:46 | PC.NURSE ---
1545 Back to room after lumbar puncture in radiology for extended time, difficulty getting access. IV fluids of NS would not run at 999/hr, so got it to run at 500ml/hr.
[2025-01-16] MEDS: [UNRECOGNIZED DRUG - OTHER] IV (16:00)
[2025-01-16] MEDS: IMMUNE GLOBULIN IV ×2 (16:00→16:34)
[2025-01-16 16:31] LABS: CSF Mononuclear # 0.003 10^3/uL (50-90); Mononuclear WBC CSF % 100 % (50-90); Polynuclear Cells ,CSF # 0.000 10^3/uL (0-10); Polynuclear WBC CSF % 0 % (0-10); Red Blood Cell CSF 0 10^3/uL (0-0); White Blood Cell CSF 3 /uL (0-5)
[2025-01-16] MEDS: [UNRECOGNIZED DRUG - OTHER] IV (16:34)
[2025-01-16 16:38] LABS: CSF Specific Gravity 1.006
[2025-01-16 16:39] LABS: Cyto Order Verification No Order; Pathology Referral Yes
--- NOTE | 2025-01-16 17:18 | P.PN_ITS ---
Subjective 2 Subjective: - Patient was seen this morning, current ly alert oriented x 3, follow commands, denies any shortness of breath, does report bilateral extremity weakness, on examination continues to have no reflexes present, has good upper extremity strength, equal bilaterally, upper extremity reflexes are diminished -Continues to have complaints of bilater al extremity weakness, which is progressive in nature, she is adamant that 3 days ago she was ambulatory, she is able to take care of herself -Currently reports that her neck pain is minimal, she has sensation in bilateral lower extremity extremities, bilateral arms, no bowel incontinence no saddle or perianal anesthesia, no shortness of breath - Discussed doing MRI cervical spine, MR I lumbar spine - Will discuss with Dr. Qureshi - MRIs performed, discussed MRI cervical spine and lumbar spine with Dr. Qureshi, Dr. Qureshi does not feel the spine is related to this issue, - Discussed with patient that given her progressive weakness, her absent reflexes my suspicion for Guillain-Crawford? syndrome is high - She tells me that it has been over 48 hours since she has taken her Eliquis - Discussed starting on IVIG - Discussed risks and benefits of lumbar puncture, she voiced understanding, all questions answered, agreed to proceed - Plan on lumbar puncture, start IVIG Vitals/I&O/Wt Last Vital Signs Temp 98.9 F 01/16/25 12:00 Pulse 65 01/16/25 12:00 Resp 18 01/16/25 16:00 BP 148/66 01/16/25 12:00 Pulse Ox 94 01/16/25 12:00 O2 Del Method Room Air 01/16/25 12:00 01/16/25 01/16/25 01/16/25 06:59 14:59 22:59 Output Total 500 / 1625 Balance -500 / -625 Weight last 48 hrs Weight 80.014 kg Weight 79.038 kg Physical Exam 2 Const: COMMON NORMALS: no acute distress and patient oriented x3 Resp: COMMON NORMALS: normal respiratory effort, No retractions, No use of accessory muscles and clear to auscultation bilaterally AUSCULTATION: clear to auscultation bilaterally Cardio: COMMON NORMALS: regular rate, regular rhythm, S1 normal heart sound present and S2 normal heart sound present RATE: regular rate RHYTHM: r egular rhythm HEART SOUNDS: S1 normal heart sound present and S2 normal heart sound present GI: COMMON NORMALS: Normal to inspection, nondistended, normoactive bowel sounds present and non-tender Extremity: COMMON NORMALS: no calf tenderness and no pedal edema NARRATIVE EXTREMITY EXAM: Bilateral extremity, symmetric weakness - Plantar and dorsiflexion diminished bi laterally - Extension in the flexion of the calves is present, she is able to drawl her feet towards her but significantly diminished She reports walking 3 days ago, able to bear her weight, able to carry a function Her strength in terms of flexion extension in the quads muscle is significantly diminished - DP PT pulses palpable - No mottling - Ankle jerk reflex absent - Knee jerk reflex absent - Upper extremity reflexes at the thumb, elbow, significantly reduced - No shortness of breath Neuro: COMMON NORMALS: patient oriented x3 Psych: COMMON NORMALS: mental status grossly normal Data 01/16/25 04:39 01/16/25 04:39 A&P Assessment and plan 1. Bilateral leg weakness: 2. Parkinson's Disease: 3. Cervical spine fracture: Plan: Bilateral lower extremity weakness - With absent reflexes bilateral lower extremity - Diminished reflexes upper extremity - No saddle or perianal anesthesia, no urinary continence no bowel incontinence - Sensation intact bilateral extremity - She is able to draw bilateral feet towards her, but bilateral lower extremities are weak, equal bilaterally - History of cervical neck fracture Head CT CT/CT head wo con* [id number] IMPRESSION: No acute findings within the brain. No interval change in appearance of the brain on today's exam as compared to the prior examination. No CT evidence of a new territorial infarct. No intraparenchymal hemorrhage. No subdural or epidural hematoma or fluid collection. If there remains clinical concern for an area of ischemia, follow-up MRI of the brain could be considered. Cervical MRI MR/MR cervical spin wo con* [id number] IMPRESSION: 1. Patient has a known fracture involving the base of the odontoid process. There is anterior translation of the odontoid process with respect to the body of the odontoid by 7 mm which has progressed since the prior CT of 07/17/2024. 2. Marrow edema is now present along the fracture line of the odontoid process suggesting there may be some instability. 3. Very minimal stenosis now present at the C2 level. 4. Cord edema previously described at C4-5 has improved. 5. No prevertebral hematoma identified. 6. Significant central and foraminal stenosis from C4-5 through C6-7 is stable. Lumbar MRI MR/MR lumbar spine wo con* [id number] IMPRESSION: 1. No acute lumbar spine fractures. 2. Levoscoliosis lumbar spine. 3. 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 4. Moderate central, bilateral subarticular recess and mild foraminal stenosis, RIGHT greater than LEFT at L4-5. 5. Moderate to severe LEFT and mild to moderate RIGHT foraminal stenosis at L5- S1. Minimal disc contact on the S1 nerve roots. 6. Moderate central, bilateral subarticular recess stenosis with mild to moderate RIGHT and mild LEFT foraminal stenosis at L3-4. 7. Very mild RIGHT subarticular recess and LEFT foraminal stenosis at L2-3. -Spoke to Dr. Qureshi, he does not feel that the spine is the etiology behind her progressive weakness -Given her progressive weakness, lack of lower extremity reflexes, diminished upper extremity weakness, high suspicion for Guillain-Crawford? Plan -Placed in cervical collar, cervical precautions -De-escalate IV Decadron -IV Dilaudid for pain control - Monitor bilateral extremity weakness, reflexes, reflexes upper extremity - Monitor respiratory status, and NIF 6 hours - Su catheter in place - Will hold Eliquis therapy, and plans of possible lumbar puncture tomorrow - Started on IVIG, IVIG protocol with Benadryl/albumin/IV fluid -Lumbar puncture ordered - Dr. Qureshi consulted - DNR/DNI, confirmed with patient multiple times - Lovenox for DVT prophylaxis Fluid overload, bilateral extremity symptoms pitting edema, 1 dose IV Lasix PDMP PDMP Reviewed: Last Reviewed 01/15/25 18:02 by Art Soto MD Attestations 2 Medical Necessity Statement*: Patient requires hospitalization for Guillain-Crawford? syndrome, requiring lumbar puncture, IVIG Diagnoses Bilateral leg weakness R29.898 Parkinson's Disease G20.A1 Cervical spine fracture S12.9XXA
[2025-01-16] MEDS: FUROsemide 10 mg/mL SDV 4mL 40 MG IVP (18:36)
[2025-01-16] MEDS: lidocaine 1% 5 ML in potassium chloride premix 100 ML 26.25 ML IV (18:38)
--- NOTE | 2025-01-16 19:06 | PC.NURSE ---
0 Patient complaining with potassium burning where she cant take it, so decreased rate to 18ml/hr.
[2025-01-16] MEDS: carbidopa-levodopa 25-100mg Tablet 0.5 EACH PO (21:44)
[2025-01-17] VITALS (9 sets, daily range): BP systolic 91–173; BP diastolic 49–66; PULSE 51–72; RESP 16–19; TEMP 36.5–36.9; O2SAT 91–95
[2025-01-17 04:22] LABS: Hematocrit 32.5 % (36-47); Hemoglobin 10.00 g/dL (11.27-16.99); Mean Corpuscular HGB Conc 30.8 g/dL (30-55); Mean Corpuscular Hemoglobin 26.5 pg (27-33); Mean Corpuscular Volume 86.0 fl (85-98); Nucleated Red Blood Cells % 0 %; Platelet Count 238 10^3/cmm (157-399); Red Blood Count 3.78 10^6/uL (3.85-5.65); White Blood Count 9.39 10^3/uL (3.29-11.43)
[2025-01-17 04:48] LABS: Alanine Aminotransferase < 5 U/L (0-33); Albumin Level 3.9 g/dL (3.5-5.2); Alkaline Phosphatase 53 U/L (35-105); Anion Gap 17.2 (5-19); Aspartate Amino Transferase 12 U/L (0-32); Blood Urea Nitrogen 37 mg/dL (8-23); Calcium 8.8 mg/dL (8.5-10.5); Carbon Dioxide 28 mmol/L (22-29); Chloride 100 mmol/L (98-107); Creatinine Clr Calc Pharmacy 37.6586; Globulin 2.8 g/dL (1.3-4.6); Glucose 119 mg/dL (65-115); Osmolality Calculated 304 mOsm/kg (285-295); Potassium 3.2 mmol/L (3.5-5.1); Sodium 142 mmol/L (136-145); Total Protein 6.7 g/dL (6.6-8.7)
[2025-01-17] MEDS: oxyCODONE 5 mg IR Tab/Cap PO ×2 (05:08→09:26)
[2025-01-17] MEDS: carbidopa-levodopa 25-100mg Tablet 1 EACH PO (05:08)
[2025-01-17] MEDS: sennosides-docusate Tablet 2 TAB PO ×2 (05:09→17:23)
--- NOTE | 2025-01-17 06:59 | PC.SOCIAL ---
IMM Update pg 2 of IMM Updated and reviewed w/ patient. Copy provided and copy dated, initialed and placed in chart.
[2025-01-17] MEDS: carbidopa-levodopa 25-100mg Tablet 2 EACH PO ×2 (09:22→11:54)
--- NOTE | 2025-01-17 09:51 | PC.CHAP ---
Pastoral Care Encounter/Spiritual Assessment Type of Contact [] Declined anatomical embalmer visit [] Patient/Family/Request visit [] Outpatient visit [] Follow-up visit [] Physician referral [] Code/Alert [x] Routine visit [] Staff referral [] Actively dying [] Patient sleeping [x] Family support [] [] Out of room [] Palliative care [] [] Receiving care in room [] Pre-surgical visit [] Trauma [] Long length of stay [] ICU visit [] Other: Relational/Emotional Strength [x] Patient feels connected with others/family/visitors/staff [] Distress [] Loneliness/isolation [] Abandonment Spirituality of Patient [x] Person of Mabel [] Attends Orthodoxy of their Mabel [x] Believes in Prayer [] Reads Bible or Yazidi materials [] There are Spiritual issues to be addressed Steam Drier Tender Interventions [x] Prayer [xx] Active listening [] Non-anxious presence [x] Spiritual/emotional support [] Crisis/trauma care [] Spiritual counseling [] Bereavement support [] Provided bereavement packet [] Provided Bible/devotional materials [] Provided toy/stuffed animal, coloring book to patient or family member [] Provided Communion [] Anointing/[place] [] Salvation [x] Completed spiritual assessment [] Other: Impact on Illness or Injury [] Angry [] Fearful [] Anxious [] Often cries [] Exhaustion [] Unable to work [] Unable to attend pentecostalism [] Unable to walk/stand [] Unable to read [] Unable to drive [] Unable to eat/drink [] Unable to sleep [] Unable to be with family [] Patient intubated [] Other: Summary Time spent with patient 5 min
--- NOTE | 2025-01-17 11:15 | P.PN_ITS ---
Subjective 2 Subjective: Patient was seen this morning, currently sitting up in a chair, alert oriented x 3, following all commands, denies any fevers, no chills, no nausea, no vomiting, does having her strength has improved a bit compared to yesterday, pain is more under control, no abdominal pain, no diarrhea, no lightheadedness, dizziness, status post lumbar puncture yesterday, no lower back pain, no headache Vitals/I&O/Wt Last Vital Signs Temp 98.5 F 01/17/25 07:26 Pulse 56 L 01/17/25 07:26 Resp 18 01/17/25 07:26 BP 137/54 01/17/25 07:26 Pulse Ox 95 01/17/25 07:26 O2 Del Method Room Air 01/17/25 07:26 01/16/25 01/17/25 01/17/25 22:59 06:59 14:59 Intake Total 512.25 / 512.25 92.75 / 605.00 120 / 120 Output Total 750 / 750 800 / 1550 Balance -237.75 / -237.75 -707.25 / -945.00 120 / 120 Weight last 48 hrs Weight 83.506 kg Weight 80.014 kg Weight 79.038 kg Physical Exam 2 Const: COMMON NORMALS: no acute distress and patient oriented x3 Resp: COMMON NORMALS: normal respiratory effort, No retractions, No use of accessory muscles and clear to auscultation bilaterally AUSCULTATION: clear to auscultation bilaterally Cardio: COMMON NORMALS: regular rate, regular rhythm, S1 normal heart sound present and S2 normal heart sound present RATE: regular rate RHYTHM: r egular rhythm HEART SOUNDS: S1 normal heart sound present and S2 normal heart sound present GI: COMMON NORMALS: Normal to inspection, nondistended, normoactive bowel sounds present and non-tender Extremity: COMMON NORMALS: no calf tenderness and no pedal edema NARRATIVE EXTREMITY EXAM: Bilateral extremity weakness, improving, strength 3 out of 5 bilaterally, no focal weakness, no sensation losses, - Knee jerk reflex diminished but presen t - Ankle jerk reflex diminished but prese nt Neuro: COMMON NORMALS: patient oriented x3 Psych: COMMON NORMALS: mental status grossly normal Data 01/17/25 03:47 01/17/25 03:47 Micro: Microbiology 01/16/25 15:19 Gram Stain - Final Cerebrospinal Fluid A&P Assessment and plan 1. Bilateral leg weakness: 2. Parkinson's Disease: 3. 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 No interval change in appearance of the brain on today's exam as compared to the prior examination. No CT evidence of a new territorial infarct. No intraparenchymal hemorrhage. No subdural or epidural hematoma or fluid collection. If there remains clinical concern for an area of ischemia, follow-up MRI of the brain could be considered. Cervical MRI MR/MR cervical spin wo con* [id number] IMPRESSION: 1. Patient has a known fracture involving the base of the odontoid process. There is anterior translation of the odontoid process with respect to the body of the odontoid by 7 mm which has progressed since the prior CT of 07/17/2024. 2. Marrow edema is now present along the fracture line of the odontoid process suggesting there may be some instability. 3. Very minimal stenosis now present at the C2 level. 4. Cord edema previously described at C4-5 has improved. 5. No prevertebral hematoma identified. 6. Significant central and foraminal stenosis from C4-5 through C6-7 is stable. Lumbar MRI MR/MR lumbar spine wo con* [id number] IMPRESSION: 1. No acute lumbar spine fractures. 2. Levoscoliosis lumbar spine. 3. 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 4. Moderate central, bilateral subarticular recess and mild foraminal stenosis, RIGHT greater than LEFT at L4-5. 5. Moderate to severe LEFT and mild to moderate RIGHT foraminal stenosis at L5- S1. Minimal disc contact on the S1 nerve roots. 6. Moderate central, bilateral subarticular recess stenosis with mild to moderate RIGHT and mild LEFT foraminal stenosis at L3-4. 7. Very mild RIGHT subarticular recess and LEFT foraminal stenosis at L2-3. -Spoke to Dr. Qureshi, he does not feel that the spine is the etiology behind her progressive weakness -Given her progressive weakness, lack of lower extremity reflexes, diminished upper extremity weakness, secondary to Guillain-Crawford? -Lumbar puncture shows clear, colorless, 3 WBCs, 83 glucose, total protein 42, Gram stain no organism Plan -Placed in cervical collar, cervical precautions -De-escalate IV Decadron - Oxycodone for pain control -Gabapentin 300 mg twice daily - Monitor bilateral extremity weakness, reflexes, reflexes upper extremity - Monitor respiratory status, and NIF 6 hours - Su catheter in place - Patient is on Eliquis for DVT prophylaxis, switch to Lovenox for now - Continue on IVIG, IVIG protocol with Benadryl/albumin/IV fluid, day 2 - Dr. 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
[2025-01-17] MEDS: IMMUNE GLOBULIN IV (11:54)
[2025-01-17] MEDS: [UNRECOGNIZED DRUG - OTHER] IV (11:54)
[2025-01-17] MEDS: carbidopa-levodopa 25-100mg Tablet 0.5 EACH PO (20:58)
[2025-01-18] VITALS (7 sets, daily range): BP systolic 109–183; BP diastolic 62–76; PULSE 54–70; RESP 17–18; TEMP 36.4–36.9; O2SAT 93–99
[2025-01-18 05:08] LABS: Hematocrit 30.6 % (36-47); Hemoglobin 9.40 g/dL (11.27-16.99); Mean Corpuscular HGB Conc 30.7 g/dL (30-55); Mean Corpuscular Hemoglobin 26.3 pg (27-33); Mean Corpuscular Volume 85.7 fl (85-98); Nucleated Red Blood Cells % 0 %; Platelet Count 190 10^3/cmm (157-399); Red Blood Count 3.57 10^6/uL (3.85-5.65); White Blood Count 4.23 10^3/uL (3.29-11.43)
[2025-01-18 05:31] LABS: Alanine Aminotransferase < 5 U/L (0-33); Albumin Level 3.6 g/dL (3.5-5.2); Alkaline Phosphatase 48 U/L (35-105); Anion Gap 13.7 (5-19); Aspartate Amino Transferase 9 U/L (0-32); Blood Urea Nitrogen 37 mg/dL (8-23); Calcium 8.5 mg/dL (8.5-10.5); Carbon Dioxide 27 mmol/L (22-29); Chloride 103 mmol/L (98-107); Creatinine Clr Calc Pharmacy 41.8557; Globulin 3.1 g/dL (1.3-4.6); Glucose 135 mg/dL (65-115); Osmolality Calculated 301 mOsm/kg (285-295); Potassium 3.7 mmol/L (3.5-5.1); Sodium 140 mmol/L (136-145); Total Protein 6.7 g/dL (6.6-8.7)
[2025-01-18] MEDS: carbidopa-levodopa 25-100mg Tablet 1 EACH PO (06:22)
[2025-01-18] MEDS: carbidopa-levodopa 25-100mg Tablet 2 EACH PO ×2 (08:23→13:55)
[2025-01-18] MEDS: polyethylene glycol 3350 Pkt 17 gm PO (08:24)
[2025-01-18] MEDS: IMMUNE GLOBULIN IV (11:37)
[2025-01-18] MEDS: [UNRECOGNIZED DRUG - OTHER] IV (11:37)
--- NOTE | 2025-01-18 14:57 | PM.PN ---
Subjective Subjective: Patient was seen this morning, she feels her strength is getting better, no fevers, no chills, no cough, no lightheadedness, no dizziness, her strength of her lower extremities are improving, Vitals/I&O/Wt Last Vital Signs Temp 98.3 F 01/18/25 13:13 Pulse 54 L 01/18/25 13:13 Resp 17 01/18/25 13:13 BP 144/63 01/18/25 13:13 Pulse Ox 97 01/18/25 13:13 O2 Del Method Room Air 01/18/25 00:00 O2 Flow Rate 98 01/17/25 11:33 01/17/25 01/18/25 01/18/25 22:59 06:59 14:59 Intake Total 980 / 1340 600 / 600 Output Total 650 / 650 350 / 1000 700 / 700 Balance 330 / 690 -350 / 340 -100 / -100 Weight last 48 hrs Weight 81.737 kg Weight 83.506 kg Physical Exam Const: COMMON NORMALS: no acute distress and patient oriented x3 Resp: COMMON NORMALS: normal respiratory effort, No retractions, No use of accessory muscles and clear to auscultation bilaterally AUSCULTATION: clear to auscultation bilaterally Cardio: COMMON NORMALS: regular rate, regular rhythm, S1 normal heart sound present and S2 normal heart sound present RATE: regular rate RHYTHM: regular rhythm HEART SOUNDS: S1 normal heart sound present and S2 normal heart sound present GI: COMMON NORMALS: Normal to inspection, nondistended, normoactive bowel sounds present and non-tender Extremity: COMMON NORMALS: no pedal edema Neuro: COMMON NORMALS: patient oriented x3 Psych: COMMON NORMALS: mental status grossly normal Data 01/18/25 04:56 01/18/25 04:56 Micro: Microbiology 01/16/25 15:19 Gram Stain - Final Cerebrospinal Fluid CSF Culture - Preliminary A&P Assessment and plan 1. Bilateral leg weakness: 2. Parkinson's Disease: 3. 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 No interval change in appearance of the brain on today's exam as compared to the prior examination. No CT evidence of a new territorial infarct. No intraparenchymal hemorrhage. No subdural or epidural hematoma or fluid collection. If there remains clinical concern for an area of ischemia, follow-up MRI of the brain could be considered. Cervical MRI MR/MR cervical spin wo con* [id number] IMPRESSION: 1. Patient has a known fracture involving the base of the odontoid process. There is anterior translation of the odontoid process with respect to the body of the odontoid by 7 mm which has progressed since the prior CT of 07/17/2024. 2. Marrow edema is now present along the fracture line of the odontoid process suggesting there may be some instability. 3. Very minimal stenosis now present at the C2 level. 4. Cord edema previously described at C4-5 has improved. 5. No prevertebral hematoma identified. 6. Significant central and foraminal stenosis from C4-5 through C6-7 is stable. Lumbar MRI MR/MR lumbar spine wo con* [id number] IMPRESSION: 1. No acute lumbar spine fractures. 2. Levoscoliosis lumbar spine. 3. 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 4. Moderate central, bilateral subarticular recess and mild foraminal stenosis, RIGHT greater than LEFT at L4-5. 5. Moderate to severe LEFT and mild to moderate RIGHT foraminal stenosis at L5-S1. Minimal disc contact on the S1 nerve roots. 6. Moderate central, bilateral subarticular recess stenosis with mild to moderate RIGHT and mild LEFT foraminal stenosis at L3-4. 7. Very mild RIGHT subarticular recess and LEFT foraminal stenosis at L2-3. -Spoke to Dr. Qureshi, he does not feel that the spine is the etiology behind her progressive weakness -Given her progressive weakness, lack of lower extremity reflexes, diminished upper extremity weakness, secondary to Guillain-Crawford? -Lumbar puncture shows clear, colorless, 3 WBCs, 83 glucose, total protein 42, Gram stain no organism Plan -Placed in cervical collar, cervical precautions -De-escalate to p.o. Decadron - Oxycodone for pain control -Gabapentin 300 mg twice daily - Monitor bilateral extremity weakness, reflexes, reflexes upper extremity - Monitor respiratory status, and NIF 6 hours - Su catheter in place - Patient is on Eliquis for DVT prophylaxis, switch to Lovenox for now - Continue on IVIG, IVIG protocol with Benadryl/albumin/IV fluid, day 2 - Dr. 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 with ENT, gabapentin Fluid overload, pitted edema resolved, hold Lasix Plan physical therapy, IVIG, pain control, gabapentin Social situation, patient lives at home with her son, she signed over the deed to her home to her son a few years ago, she does not want her son to be her guardian, alert oriented x 3, following all commands, I feel that she has capacity to make decisions for herself currently, she tells me her son is trying to get guardianship over her but she does not want this, she wants to be her own guardian, she denies any physical/sexual/social/psychological/financial abuse perpetrated by her son, she tells me that she has 7 kids that are feuding over her attention and her wealth. She does tell me that her plan is to return back to her home her ultimate wishes to be at home with her dogs. She denies any suicidal ideation, no homicidal ideation. She does report that she has a boyfriend, who is in his 40s, she met him while in [facility], they were gambling together, she has given him about $2-$3000 for what it sounds like gambling debt, this boyfriend is in 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
--- NOTE | 2025-01-18 15:27 | PC.OT ---
OT TREATMENT ATTEMPTED. PATIENT IN BED AND STATES THAT SHE HAS BEEN UP ALL DAY AND IS TIRED AND WOULD LIKE TO REST. REQUESTS MORE ICE WATER.
[2025-01-18] MEDS: sennosides-docusate Tablet 2 TAB PO (17:46)
[2025-01-18] MEDS: carbidopa-levodopa 25-100mg Tablet 0.5 EACH PO (21:15)
[2025-01-19] VITALS (12 sets, daily range): BP systolic 126–199; BP diastolic 41–82; PULSE 50–59; RESP 16–18; TEMP 36.4–37; O2SAT 95–99
[2025-01-19] MEDS: oxyCODONE 5 mg IR Tab/Cap PO ×4 (04:06→20:32)
[2025-01-19 04:41] LABS: Hematocrit 30.5 % (36-47); Hemoglobin 9.40 g/dL (11.27-16.99); Mean Corpuscular HGB Conc 30.8 g/dL (30-55); Mean Corpuscular Hemoglobin 26.7 pg (27-33); Mean Corpuscular Volume 86.6 fl (85-98); Nucleated Red Blood Cells % 0 %; Platelet Count 180 10^3/cmm (157-399); Red Blood Count 3.52 10^6/uL (3.85-5.65); White Blood Count 4.61 10^3/uL (3.29-11.43)
[2025-01-19 05:04] LABS: Anion Gap 11.7 (5-19); Blood Urea Nitrogen 26 mg/dL (8-23); Calcium 8.3 mg/dL (8.5-10.5); Carbon Dioxide 28 mmol/L (22-29); Chloride 105 mmol/L (98-107); Creatinine Clr Calc Pharmacy 46.5063; Glucose 120 mg/dL (65-115); Osmolality Calculated 298 mOsm/kg (285-295); Potassium 3.7 mmol/L (3.5-5.1); Sodium 141 mmol/L (136-145)
[2025-01-19] MEDS: sennosides-docusate Tablet 2 TAB PO (06:02)
[2025-01-19] MEDS: carbidopa-levodopa 25-100mg Tablet 1 EACH PO (06:02)
[2025-01-19] MEDS: carbidopa-levodopa 25-100mg Tablet 2 EACH PO ×2 (08:33→12:18)
--- NOTE | 2025-01-19 09:51 | PC.SOCIAL ---
IMM Update pg 2 of IMM Updated and reviewed w/ patient. Copy provided and copy dated, initialed and placed in chart.
[2025-01-19] MEDS: [UNRECOGNIZED DRUG - OTHER] IV (12:20)
[2025-01-19] MEDS: IMMUNE GLOBULIN IV (12:20)
--- NOTE | 2025-01-19 14:05 | PM.PN ---
Subjective Subjective: Patient was seen this morning, denies any fevers, chills, no cough, no nausea, no vomiting, no abdominal pain, reports that bilateral extremity strength is improving Vitals/I&O/Wt Last Vital Signs Temp 97.5 F L 01/19/25 11:51 Pulse 50 L 01/19/25 11:51 Resp 16 01/19/25 11:51 BP 139/68 01/19/25 11:51 Pulse Ox 95 01/19/25 11:51 O2 Del Method Room Air 01/19/25 03:38 O2 Flow Rate 98 01/17/25 11:33 01/18/25 01/19/25 01/19/25 22:59 06:59 14:59 Intake Total 740 / 1340 1340 / 1340 Output Total 1000 / 1700 750 / 2450 Balance -260 / -360 -750 / -1110 1340 / 1340 Weight last 48 hrs Weight 84.935 kg Weight 81.737 kg Physical Exam Const: COMMON NORMALS: no acute distress and patient oriented x3 Resp: COMMON NORMALS: normal respiratory effort, No retractions, No use of accessory muscles and clear to auscultation bilaterally AUSCULTATION: clear to auscultation bilaterally Cardio: COMMON NORMALS: regular rate, regular rhythm, S1 normal heart sound present and S2 normal heart sound present RATE: regular rate RHYTHM: regular rhythm HEART SOUNDS: S1 normal heart sound present and S2 normal heart sound present GI: COMMON NORMALS: Normal to inspection, nondistended, normoactive bowel sounds present and non-tender Extremity: COMMON NORMALS: no pedal edema NARRATIVE EXTREMITY EXAM: Bilateral lower extremity strength improving, - Reflexes still diminished bilateral extremity, but improving Neuro: COMMON NORMALS: patient oriented x3, CN's II-XII intact bilaterally and moves all extremities Psych: COMMON NORMALS: mental status grossly normal Data 01/19/25 03:50 01/19/25 03:50 Micro: Microbiology 01/16/25 15:19 Gram Stain - Final Cerebrospinal Fluid CSF Culture - Final A&P Assessment and plan 1. Bilateral leg weakness: 2. Parkinson's Disease: 3. 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 No interval change in appearance of the brain on today's exam as compared to the prior examination. No CT evidence of a new territorial infarct. No intraparenchymal hemorrhage. No subdural or epidural hematoma or fluid collection. If there remains clinical concern for an area of ischemia, follow-up MRI of the brain could be considered. Cervical MRI MR/MR cervical spin wo con* [id number] IMPRESSION: 1. Patient has a known fracture involving the base of the odontoid process. There is anterior translation of the odontoid process with respect to the body of the odontoid by 7 mm which has progressed since the prior CT of 07/17/2024. 2. Marrow edema is now present along the fracture line of the odontoid process suggesting there may be some instability. 3. Very minimal stenosis now present at the C2 level. 4. Cord edema previously described at C4-5 has improved. 5. No prevertebral hematoma identified. 6. Significant central and foraminal stenosis from C4-5 through C6-7 is stable. Lumbar MRI MR/MR lumbar spine wo con* [id number] IMPRESSION: 1. No acute lumbar spine fractures. 2. Levoscoliosis lumbar spine. 3. 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 4. Moderate central, bilateral subarticular recess and mild foraminal stenosis, RIGHT greater than LEFT at L4-5. 5. Moderate to severe LEFT and mild to moderate RIGHT foraminal stenosis at L5-S1. Minimal disc contact on the S1 nerve roots. 6. Moderate central, bilateral subarticular recess stenosis with mild to moderate RIGHT and mild LEFT foraminal stenosis at L3-4. 7. Very mild RIGHT subarticular recess and LEFT foraminal stenosis at L2-3. -Spoke to Dr. Qureshi, he does not feel that the spine is the etiology behind her progressive weakness -Given her progressive weakness, lack of lower extremity reflexes, diminished upper extremity weakness, secondary to Guillain-Crawford? -Lumbar puncture shows clear, colorless, 3 WBCs, 83 glucose, total protein 42, Gram stain no organism Plan -Placed in cervical collar, cervical precautions -De-escalate to p.o. Decadron - Oxycodone for pain control -Gabapentin 300 mg twice daily - Monitor bilateral extremity weakness, reflexes, reflexes upper extremity - Monitor respiratory status, and NIF 6 hours - Su catheter in place - Patient is on Eliquis for DVT prophylaxis, switch to Lovenox for now - Continue on IVIG, IVIG protocol with Benadryl/albumin/IV fluid, day 2 - Dr. 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 with ENT, gabapentin Fluid overload, pitted edema resolved, hold Lasix Plan physical therapy, IVIG, pain control, gabapentin Social situation, patient lives at home with her son, she signed over the deed to her home to her son a few years ago, she does not want her son to be her guardian, alert oriented x 3, following all commands, I feel that she has capacity to make decisions for herself currently, she tells me her son is trying to get guardianship over her but she does not want this, she wants to be her own guardian, she denies any physical/sexual/social/psychological/financial abuse perpetrated by her son, she tells me that she has 7 kids that are feuding over her attention and her wealth. She does tell me that her plan is to return back to her home her ultimate wishes to be at home with her dogs. She denies any suicidal ideation, no homicidal ideation. She does report that she has a boyfriend, who is in his 40s, she met him while in [facility], they were gambling together, she has given him about $2-$3000 for what it sounds like gambling debt, this boyfriend is in 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
[2025-01-19] MEDS: carbidopa-levodopa 25-100mg Tablet 0.5 EACH PO (20:33)
[2025-01-19] MEDS: blistex lip oint 7 gm Tube 1 APPLIC TOPICAL (20:34)
[2025-01-20] VITALS (12 sets, daily range): BP systolic 118–191; BP diastolic 57–84; PULSE 49–78; RESP 16–19; TEMP 36.4–37.1; O2SAT 96–100
[2025-01-20 05:12] LABS: Hematocrit 30.1 % (36-47); Hemoglobin 9.20 g/dL (11.27-16.99); Mean Corpuscular HGB Conc 30.6 g/dL (30-55); Mean Corpuscular Hemoglobin 27.0 pg (27-33); Mean Corpuscular Volume 88.3 fl (85-98); Nucleated Red Blood Cells % 0 %; Platelet Count 138 10^3/cmm (157-399); Red Blood Count 3.41 10^6/uL (3.85-5.65); White Blood Count 3.87 10^3/uL (3.29-11.43)
[2025-01-20] MEDS: sennosides-docusate Tablet 2 TAB PO ×2 (05:21→17:23)
[2025-01-20] MEDS: carbidopa-levodopa 25-100mg Tablet 1 EACH PO (05:22)
[2025-01-20] MEDS: oxyCODONE 5 mg IR Tab/Cap PO ×3 (05:24→18:07)
[2025-01-20 07:40] LABS: Anion Gap 14.1 (5-19); Blood Urea Nitrogen 23 mg/dL (8-23); Calcium 8.5 mg/dL (8.5-10.5); Carbon Dioxide 25 mmol/L (22-29); Chloride 105 mmol/L (98-107); Creatinine Clr Calc Pharmacy 53.2848; Glucose 94 mg/dL (65-115); Osmolality Calculated 293 mOsm/kg (285-295); Potassium 4.1 mmol/L (3.5-5.1); Sodium 140 mmol/L (136-145)
[2025-01-20] MEDS: carbidopa-levodopa 25-100mg Tablet 2 EACH PO ×2 (08:47→13:23)
[2025-01-20] MEDS: cefTRIAXone 1,000 mg SDV 1000 MG IVP (09:54)
[2025-01-20] MEDS: FUROsemide 10 mg/mL SDV 4mL 40 MG IVP (09:55)
--- NOTE | 2025-01-20 11:00 | P.PN_ITS ---
Subjective 2 Subjective: Patient was seen this morning, alert oriented x 3, follow commands tells me that her strength in her lower extremities significantly improved, she does complain of persistent right TMT joint tenderness, clicking and popping, she does report dysuria, she is worried about a urinary tract infection, no fevers, no chills, no abdominal pain, no flank pain Vitals/I&O/Wt Last Vital Signs Temp 97.5 F L 01/20/25 07:43 Pulse 58 L 01/20/25 07:43 Resp 16 01/20/25 07:43 BP 157/72 01/20/25 07:43 Pulse Ox 100 01/20/25 07:43 O2 Del Method Room Air 01/20/25 07:43 O2 Flow Rate 98 01/17/25 11:33 01/19/25 01/20/25 01/20/25 22:59 06:59 14:59 Intake Total 60 / 1400 240 / 1640 680 / 680 Balance 60 / 800 240 / 1040 680 / 680 Weight last 48 hrs Weight 84.822 kg Weight 84.935 kg Physical Exam 2 Const: COMMON NORMALS: no acute distress and patient oriented x3 Resp: COMMON NORMALS: normal respiratory effort, No retractions, No use of accessory muscles and clear to auscultation bilaterally AUSCULTATION: clear to auscultation bilaterally Cardio: COMMON NORMALS: regular rate, regular rhythm, S1 normal heart sound present and S2 normal heart sound present RATE: regular rate RHYTHM: r egular rhythm HEART SOUNDS: S1 normal heart sound present and S2 normal heart sound present GI: COMMON NORMALS: Normal to inspection, nondistended, normoactive bowel sounds present and non-tender Extremity: COMMON NORMALS: no pedal edema Neuro: COMMON NORMALS: patient oriented x3 Psych: COMMON NORMALS: mental status grossly normal Data 01/20/25 04:46 01/20/25 04:46 Micro: Microbiology 01/16/25 15:19 Gram Stain - Final Cerebrospinal Fluid CSF Culture - Final A&P Assessment and plan 1. Bilateral leg weakness: 2. Parkinson's Disease: 3. 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 No interval change in appearance of the brain on today's exam as compared to the prior examination. No CT evidence of a new territorial infarct. No intraparenchymal hemorrhage. No subdural or epidural hematoma or fluid collection. If there remains clinical concern for an area of ischemia, follow-up MRI of the brain could be considered. Cervical MRI MR/MR cervical spin wo con* [id number] IMPRESSION: 1. Patient has a known fracture involving the base of the odontoid process. There is anterior translation of the odontoid process with respect to the body of the odontoid by 7 mm which has progressed since the prior CT of 07/17/2024. 2. Marrow edema is now present along the fracture line of the odontoid process suggesting there may be some instability. 3. Very minimal stenosis now present at the C2 level. 4. Cord edema previously described at C4-5 has improved. 5. No prevertebral hematoma identified. 6. Significant central and foraminal stenosis from C4-5 through C6-7 is stable. Lumbar MRI MR/MR lumbar spine wo con* [id number] IMPRESSION: 1. No acute lumbar spine fractures. 2. Levoscoliosis lumbar spine. 3. 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 4. Moderate central, bilateral subarticular recess and mild foraminal stenosis, RIGHT greater than LEFT at L4-5. 5. Moderate to severe LEFT and mild to moderate RIGHT foraminal stenosis at L5- S1. Minimal disc contact on the S1 nerve roots. 6. Moderate central, bilateral subarticular recess stenosis with mild to moderate RIGHT and mild LEFT foraminal stenosis at L3-4. 7. Very mild RIGHT subarticular recess and LEFT foraminal stenosis at L2-3. -Spoke to Dr. Qureshi, he does not feel that the spine is the etiology behind her progressive weakness -Given her progressive weakness, lack of lower extremity reflexes, diminished upper extremity weakness, secondary to Guillain-Crawford? -Lumbar puncture shows clear, colorless, 3 WBCs, 83 glucose, total protein 42, Gram stain no organism Plan -Placed in cervical collar, cervical precautions -De-escalate to p.o. Decadron - Oxycodone for pain control -Gabapentin 300 mg twice daily - Monitor bilateral extremity weakness, reflexes, reflexes upper extremity - Monitor respiratory status, and NIF 6 hours - Su catheter in place - Patient is on Eliquis for DVT prophylaxis, switch to Lovenox for now - Continue on IVIG, IVIG protocol with Benadryl/albumin/IV fluid, day 2 - Dr. Qureshi consulted -PT OT - DNR/DNI, confirmed with patient multiple times - Lovenox for DVT prophylaxis - Patient was on Eliquis for DVT prophylaxis after her fall, will continue with DVT prophylaxis Lovenox as above Bilateral cerumen impaction, will need to follow-up with ENT as outpatient Right TMJ dysfunction/pain, will need to follow-up with ENT, gabapentin Fluid overload, pitted edema resolved, 1 dose IV Lasix today Plan physical therapy, IVIG, pain control, gabapentin Social situation, patient lives at home with her son, she signed over the deed to her home to her son a few years ago, she does not want her son to be her guardian, alert oriented x 3, following all commands, I feel that she has capacity to make decisions for herself currently, she tells me her son is trying to get guardianship over her but she does not want this, she wants to be her own guardian, she denies any physical/sexual/social/psychological/financial abuse perpetrated by her son, she tells me that she has 7 kids that are feuding over her attention and her wealth. She does tell me that her plan is to return back to her home her ultimate wishes to be at home with her dogs. She denies any suicidal ideation, no homicidal ideation. She does report that she has a boyfriend, who is in his 40s, she met him while in [facility], they were gambling together, she has given him about $2-$3000 for what it sounds like gambling debt, this boyfriend is in [facility], has a family of his own, and will be visiting [place] according to her soon Plan for today, concern for UTI, IV Rocephin, 1 dose IV Lasix, IVIG, PT OT, de- escalate steroids PDMP PDMP Reviewed: Last Reviewed 01/15/25 18:02 by Art Soto MD Attestations 2 Medical Necessity Statement*: Patient requires hospitalization for 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
[2025-01-20 12:08] LABS: Glucose Urine UA Negative (Normal); Nitrate Urine Negative (Negative); Specific Gravity, Urine 1.007 (1.005-1.030)
[2025-01-20 12:13] LABS: Add Urine Microscopic? YES
[2025-01-20] MEDS: [UNRECOGNIZED DRUG - OTHER] IV (13:21)
[2025-01-20] MEDS: IMMUNE GLOBULIN IV (13:21)
[2025-01-20] MEDS: carbidopa-levodopa 25-100mg Tablet 0.5 EACH PO (21:37)
[2025-01-21] VITALS: BP 163/80; PULSE 52; RESP 13; TEMP 37; O2SAT 92
[2025-01-21 04:00] VITALS: BP 184/76; PULSE 51; RESP 15; TEMP 36.9; O2SAT 97
[2025-01-21] MEDS: carbidopa-levodopa 25-100mg Tablet 1 EACH PO (05:02)
[2025-01-21] MEDS: sennosides-docusate Tablet 2 TAB PO (05:03)
[2025-01-21 05:56] VITALS: PULSE 51
[2025-01-21 06:09] LABS: Hematocrit 31.1 % (36-47); Hemoglobin 9.40 g/dL (11.27-16.99); Mean Corpuscular HGB Conc 30.2 g/dL (30-55); Mean Corpuscular Hemoglobin 26.2 pg (27-33); Mean Corpuscular Volume 86.6 fl (85-98); Nucleated Red Blood Cells % 0 %; Platelet Count 165 10^3/cmm (157-399); Red Blood Count 3.59 10^6/uL (3.85-5.65); White Blood Count 4.70 10^3/uL (3.29-11.43)
[2025-01-21 06:36] LABS: Anion Gap 9.0 (5-19); Blood Urea Nitrogen 21 mg/dL (8-23); Calcium 8.5 mg/dL (8.5-10.5); Carbon Dioxide 27 mmol/L (22-29); Chloride 102 mmol/L (98-107); Creatinine Clr Calc Pharmacy 53.2848; Glucose 95 mg/dL (65-115); Osmolality Calculated 281 mOsm/kg (285-295); Potassium 4.0 mmol/L (3.5-5.1); Sodium 134 mmol/L (136-145)
[2025-01-21 07:17] VITALS: BP 170/68; PULSE 58; RESP 16; TEMP 36.8; O2SAT 97
[2025-01-21] MEDS: carbidopa-levodopa 25-100mg Tablet 2 EACH PO ×2 (08:56→11:33)
[2025-01-21 11:15] VITALS: BP 107/59; PULSE 47; RESP 16; TEMP 36.7; O2SAT 97
[2025-01-21] MEDS: cefTRIAXone 1,000 mg SDV 1000 MG IVP (11:24)
[2025-01-21] MEDS: FUROsemide 10 mg/mL SDV 4mL 40 MG IVP (11:26)
--- NOTE | 2025-01-21 11:33 | PM.DCS ---
Discharge Providers Date of Admission: 01/15/25 18:49 Date of Discharge: January 21, 2025 Attending Provider at Admission: Art Soto MD Attending Provider at Discharge: Art Soto MD Primary Care Provider: Trev Severino MD Diagnoses at Discharge Discharge Diagnosis 1. Bilateral leg weakness: 2. Parkinson's disease without dyskinesia, with fluctuating manifestations: 3. 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 Qureshi, [facility], who presents to [facility] for bilateral lower extremity weakness. Currently patient is alert oriented x 3, following all commands, she tells me that at home she is ambulating with a wheeled walker, she requires assistance with her activities of daily living such as transfers, her family cooks for her, but she can at times get in and out of bed, she can use the bathroom but at times she does need assistance. She tells me over the last 3 days she started developing bilateral lower extremity weakness, she tells me at the same time she was sick to her stomach, she does not know exactly what it was but no fevers, no chills, no cough, no diarrhea. She comes to the emergency room today as she is not able to get up on her own, she has no strength in her legs, she does have sensation in her legs she tells me, no diminish sensation reported, no urinary incontinence, bowel incontinence, saddle or perianal anesthesia, no upper extremity weakness, no facial droop, slurring words, no focal weakness no falls, no injuries she does been at her neck is always hurting her, it constantly pops, but no lower back pain or falls or injuries or recent neck injuries. In the emergency room nursing staff tried to get up to the side of bed to have her stand but she was unable to, it took 3 nurses to get her back into bed, denies any dysuria, hematuria, no fevers, no cough, no chest pain. Head CT reviewed no acute findings. Cervical CT scan reviewed with Kevanads, reported CT/CT cervical spin wo con* [id number] IMPRESSION: 1. Interval increase in anterior displacement of previously seen type 2 odontoid fracture. Anterior displacement of the superior fragment has increased by 2-3 mm. Interval increase in anterior translation and rotation of the right lateral mass at the right C1-C2 facet joint. There does appear to be resultant mild increase in spinal canal stenosis at the C1-C2 level. Given patient's reported symptoms of increasing weakness, MRI of the cervical spine is recommended for further evaluation. - Case was discussed with Dr. Qureshi -Dr. Qureshi recommends MRI cervical spine which I have ordered in addition to lumbar spine -On examination she does report acute on chronic shortness of breath -Bilateral ankle jerk reflex, knee jerk reflexes are absent but she does have bilateral knee replacement -Reflexes in upper extremity including elbow and thumb also are diminished -Discussed with her the possibility of Guillain-Crawford? syndrome or CIDP, her cervical CT scan does favor nerve impingement as an etiology but it is strange that she really does not have any upper extremity weakness or paresthesias radiating down her neck, but she does have diminished reflexes in the arms -Discussed obtaining cervical MRI and lumbar MRI -If cervical MRI and lumbar MRI are within normal limits, discussed the possibility of Guillain-Crawford? syndrome we would likely pursue lumbar puncture, and start her on IVIG -She is in agreement to try steroids for now, follow-up with MRIs, will see her clinical status progresses -Will ordered nebs every 6 hours discussed with her if she has sudden onset weakness, shortness of breath immediately call nursing staff as this can be a life-threatening symptom of Guillain-Crawford? 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 No interval change in appearance of the brain on today's exam as compared to the prior examination. No CT evidence of a new territorial infarct. No intraparenchymal hemorrhage. No subdural or epidural hematoma or fluid collection. If there remains clinical concern for an area of ischemia, follow-up MRI of the brain could be considered. Cervical MRI MR/MR cervical spin wo con* [id number] IMPRESSION: 1. Patient has a known fracture involving the base of the odontoid process. There is anterior translation of the odontoid process with respect to the body of the odontoid by 7 mm which has progressed since the prior CT of 07/17/2024. 2. Marrow edema is now present along the fracture line of the odontoid process suggesting there may be some instability. 3. Very minimal stenosis now present at the C2 level. 4. Cord edema previously described at C4-5 has improved. 5. No prevertebral hematoma identified. 6. Significant central and foraminal stenosis from C4-5 through C6-7 is stable. Lumbar MRI MR/MR lumbar spine wo con* [id number] IMPRESSION: 1. No acute lumbar spine fractures. 2. Levoscoliosis lumbar spine. 3. 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 4. Moderate central, bilateral subarticular recess and mild foraminal stenosis, RIGHT greater than LEFT at L4-5. 5. Moderate to severe LEFT and mild to moderate RIGHT foraminal stenosis at L5-S1. Minimal disc contact on the S1 nerve roots. 6. Moderate central, bilateral subarticular recess stenosis with mild to moderate RIGHT and mild LEFT foraminal stenosis at L3-4. 7. Very mild RIGHT subarticular recess and LEFT foraminal stenosis at L2-3. -Spoke to Dr. Qureshi, he does not feel that the spine is the etiology behind her progressive weakness -Given her progressive weakness, lack of lower extremity reflexes, diminished upper extremity weakness, secondary to Guillain-Crawford? -Lumbar puncture shows clear, colorless, 3 WBCs, 83 glucose, total protein 42, Gram stain no organism -Patient was started on IVIG protocol for 5 days, received PT OT, inpatient monitoring -Overall patient's clinical condition significantly improved, ambulatory status improved, strength improved, reflexes improving - Patient was discharged home, declined usp placement, For right TMJ dysfunction, pain, follow-up with ENT as outpatient for consideration of intervention For cervical neck pain, -Discharged on Decadron burst -Discharged on gabapentin -Discharged on oxycodone to be used sparingly for pain UTI, discharged on cefdinir In terms of DVT prophylaxis, patient reports that she was on Eliquis 1.25 mg twice daily to prevent DVTs since June, denies a history of DVTs, denies a history of pulmonary embolism. Patient is ambulatory, but does have some degree of bilateral lower extremity weakness, discussed risk benefits of anticoagulant therapy, will continue for now, on discharge, but would discuss with primary care provider if her ambulatory status improves to discontinue Eliquis Physical Exam Const: COMMON NORMALS: no acute distress and patient oriented x3 Resp: COMMON NORMALS: normal respiratory effort, No retractions, No use of accessory muscles and clear to auscultation bilaterally AUSCULTATION: clear to auscultation bilaterally Cardio: COMMON NORMALS: regular rate, regular rhythm, S1 normal heart sound present and S2 normal heart sound present RATE: regular rate RHYTHM: regular rhythm HEART SOUNDS: S1 normal heart sound present and S2 normal heart sound present GI: COMMON NORMALS: Normal to inspection, nondistended, normoactive bowel sounds present and non-tender Extremity: COMMON NORMALS: no calf tenderness and no pedal edema NARRATIVE EXTREMITY EXAM: Bilateral extremity strength significantly improving, reflexes improving, able to ambulate, equal strength bilaterally Neuro: COMMON NORMALS: patient oriented x3, CN's II-XII intact bilaterally and moves all extremities Psych: COMMON NORMALS: mental status grossly normal Discharge Data Studies Completed and Pending Completed Studies During Hospitalization Category Date Time Status CT cervical spin wo con* [id number] Stat Cat Scan 01/15/25 16:[address] head wo con* [id number] Stat Cat Scan 01/15/25 16:[address] lumbar spine wo con* [id number] Stat Cat Scan 01/15/25 16:39 Completed FL guided lumbarpunc dx* [id number] Routine Exams 01/16/25 13:00 Completed XR chest 1V portable [id number] Stat Exams 01/15/25 14:45 Completed MR cervical spin wo con* [id number] Stat MRI 01/16/25 09:30 Completed MR lumbar spine wo con* [id number] Stat MRI 01/16/25 09:30 Completed Pending at discharge Category Date Time Status Urine Culture Routine Lab 01/20/25 11:25 Received Radiology Impressions Chest X-Ray 01/15/25 14:45 IMPRESSION: Cardiomegaly. No new airspace consolidation suspicious for pneumonia. No pleural effusion or pneumothorax. No CHF. Cervical Spine CT 01/15/25 16:39 IMPRESSION: 1. Interval increase in anterior displacement of previously seen type 2 odontoid fracture. Anterior displacement of the superior fragment has increased by 2-3 mm. Interval increase in anterior translation and rotation of the right lateral mass at the right C1-C2 facet joint. There does appear to be resultant mild increase in spinal canal stenosis at the C1-C2 level. Given patient's reported symptoms of increasing weakness, MRI of the cervical spine is recommended for further evaluation. 2. No acute fracture identified. Stable appearance of additional healed fractures involving the anterior and posterior arch of C1. 3. Multilevel degenerative changes are present throughout the cervical spine. COMMENTS: THIS REPORT CONTAINS FINDINGS THAT MAY BE CRITICAL TO PATIENT CARE. The exam findings were verbally communicated by me to Dr. Soto via telephone conference at 5:56 PM CDT on 01/15/2025. The findings were acknowledged and understood. Lumbar Spine CT 01/15/25 16:39 IMPRESSION: No definite acute fracture . Chronic degenerative changes as above. Head CT 01/15/25 16:51 IMPRESSION: No acute findings within the brain. No interval change in appearance of the brain on today's exam as compared to the prior examination. No CT evidence of a new territorial infarct. No intraparenchymal hemorrhage. No subdural or epidural hematoma or fluid collection. If there remains clinical concern for an area of ischemia, follow-up MRI of the brain could be considered. Cervical Spine MRI 01/16/25 09:30 IMPRESSION: 1. Patient has a known fracture involving the base of the odontoid process. There is anterior translation of the odontoid process with respect to the body of the odontoid by 7 mm which has progressed since the prior CT of 07/17/2024. 2. Marrow edema is now present along the fracture line of the odontoid process suggesting there may be some instability. 3. Very minimal stenosis now present at the C2 level. 4. Cord edema previously described at C4-5 has improved. 5. No prevertebral hematoma identified. 6. Significant central and foraminal stenosis from C4-5 through C6-7 is stable. Lumbar Spine MRI 01/16/25 09:30 IMPRESSION: 1. No acute lumbar spine fractures. 2. Levoscoliosis lumbar spine. 3. 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 4. Moderate central, bilateral subarticular recess and mild foraminal stenosis, RIGHT greater than LEFT at L4-5. 5. Moderate to severe LEFT and mild to moderate RIGHT foraminal stenosis at L5-S1. Minimal disc contact on the S1 nerve roots. 6. Moderate central, bilateral subarticular recess stenosis with mild to moderate RIGHT and mild LEFT foraminal stenosis at L3-4. 7. Very mild RIGHT subarticular recess and LEFT foraminal stenosis at L2-3. Lumbar Puncture Fluoroscopy 01/16/25 13:00 IMPRESSION: Uncomplicated lumbar puncture for CSF. Laboratory Results WBC 4.70 10^3/uL (3.29-11.43) 01/21/25 04:59 RBC 3.59 10^6/uL (3.85-5.65) L 01/21/25 04:59 Hgb 9.40 g/dL (11.27-16.99) L 01/21/25 04:59 Hct 31.1 % (36-47) L 01/21/25 04:59 MCV 86.6 fl (85-98) 01/21/25 04:59 MCH 26.2 pg (27-33) L 01/21/25 04:59 MCHC 30.2 g/dL (30-55) 01/21/25 04:59 RDW 15.0 % (12.1-15.1) 01/21/25 04:59 Plt Count 165 10^3/cmm (157-399) 01/21/25 04:59 MPV 12.5 fL (7.4-10.4) H 01/21/25 04:59 Neut % (Auto) 53.8 % 01/21/25 04:59 Lymph % (Auto) 34.7 % 01/21/25 04:59 [place] % (Auto) 10.2 % 01/21/25 04:59 Eos % (Auto) 0.9 % 01/21/25 04:59 Baso % (Auto) 0.2 % 01/21/25 04:59 Neut # (Auto) 2.53 10^3/uL (1.8-7.7) 01/21/25 04:59 Lymph # (Auto) 1.6 10^3/uL (0.8-4.8) 01/21/25 04:59 [place] # (Auto) 0.5 10^3/uL (0.2-0.9) 01/21/25 04:59 Eos # (Auto) 0.0 10^3/uL (0.0-0.8) 01/21/25 04:59 Baso # (Auto) 0.0 10^3/uL (0.0-0.1) 01/21/25 04:59 Nucleated RBC % (auto) 0 % 01/21/25 04:59 Nucleated RBCs # 0.0 /100WBC 01/21/25 04:59 ESR 3 mm/hr (0-15) 01/15/25 15:34 Sodium 134 mmol/L (136-145) L 01/21/25 04:59 Potassium 4.0 mmol/L (3.5-5.1) 01/21/25 04:59 Chloride 102 mmol/L (98-107) 01/21/25 04:59 Carbon Dioxide 27 mmol/L (22-29) 01/21/25 04:59 Anion Gap 9.0 (5-19) 01/21/25 04:59 BUN 21 mg/dL (8-23) 01/21/25 04:59 Creatinine 0.7 mg/dL (0.5-0.9) 01/21/25 04:59 GFR Calculation Not Reportable 01/21/25 04:59 Glucose 95 mg/dL (65-115) 01/21/25 04:59 POC Glucose 97 mg/dL (70-110) 01/21/25 06:30 Estimat Average Glucose 117 01/15/25 15:34 Hemoglobin A1c 5.7 % (4.0-6.0) 01/15/25 15:34 Calculated Osmolality 281 mOsm/kg (285-295) L 01/21/25 04:59 Calcium 8.5 mg/dL (8.5-10.5) 01/21/25 04:59 Total Bilirubin 0.4 mg/dL (0.15-1.2) 01/18/25 04:56 AST 9 U/L (0-32) 01/18/25 04:56 ALT < 5 U/L (0-33) 01/18/25 04:56 Alkaline Phosphatase 48 U/L (35-105) 01/18/25 04:56 Troponin T Baseline 18 ng/L (0-10) H 01/15/25 15:34 Troponin T 120 Minute 17.92 ng/L (0-10) H 01/15/25 17:54 Delta Troponin T -0.08 ABS# (0-10) L 01/15/25 17:54 Troponin T Hi Sens 6Hr 26.51 ng/L (0-10) H 01/15/25 21:49 Troponin T Hi Sens 6Hr Delta 8.51 ng/L (0-12) 01/15/25 21:49 C-Reactive Protein 3.0 mg/L (0.0-4.9) 01/15/25 15:34 NT-Pro-B Natriuret Pep 2835 pg/mL (0-450) H 01/16/25 04:39 Total Protein 6.7 g/dL (6.6-8.7) 01/18/25 04:56 Albumin 3.6 g/dL (3.5-5.2) 01/18/25 04:56 Globulin 3.1 g/dL (1.3-4.6) 01/18/25 04:56 Triglycerides 83 mg/dL (0-150) 01/15/25 15:34 Cholesterol 146 mg/dL (0-200) 01/15/25 15:34 LDL Cholesterol, Calc 77 mg/dL (50-129) 01/15/25 15:34 HDL Cholesterol 52 mg/dL (60-100) L 01/15/25 15:34 LDL/HDL Ratio 1.48 RATIO (0.00-3.22) 01/15/25 15:34 Cholesterol/HDL Ratio 2.81 mg/dL (0.0-4.40) 01/15/25 15:34 Procalcitonin 0.03 ng/mL (0-0.5) 01/15/25 15:34 TSH 2.01 uIU/mL (0.27-4.20) 01/15/25 15:34 Urine Color Yellow (Yellow) 01/20/25 11:25 Urine Appearance Clear (CLEAR) 01/20/25 11:25 Urine pH 7.0 (5-7) 01/20/25 11:25 Ur Specific [place] 1.007 (1.005-1.030) 01/20/25 11:25 Urine Protein Negative (Negative) 01/20/25 11:25 Urine Glucose (UA) Negative (Normal) 01/20/25 11:25 Urine Ketones Negative (Negative) 01/20/25 11:25 Urine Blood Negative (Negative) 01/20/25 11:25 Urine Nitrate Negative (Negative) 01/20/25 11:25 Urine Bilirubin Negative (Negative) 01/20/25 11:25 Urine Urobilinogen 0.2 mg/dL (Negative) 01/20/25 11:25 Ur Leukocyte Esterase 2+ (Negative) A 01/20/25 11:25 Urine RBC 0-2 /hpf (0-2) 01/20/25 11:25 Urine WBC 11-20 /hpf (0-5) H 01/20/25 11:25 Ur Squamous Epith Cells 0-5 /hpf (0-5) 01/20/25 11:25 Amorphous Sediment Not Reportable 01/20/25 11:25 Urine Bacteria None seen /hpf (NONE) 01/20/25 11:25 Hyaline Casts 1.62 /lpf 01/20/25 11:25 CSF Appearance Clear (CLEAR) 01/16/25 15:19 CSF Color Colorless (COLORLESS) 01/16/25 15:19 CSF Specific [place] 1.006 01/16/25 15:19 CSF WBC 3 /uL (0-5) 01/16/25 15:19 CSF RBC 0 10^3/uL (0-0) 01/16/25 15:19 CSF Mononuclear # Auto 0.003 10^3/uL (50-90) L 01/16/25 15:19 CSF Mononuclear WBCs % 100 % (50-90) H 01/16/25 15:19 CSF Polynuclear WBCs # 0.000 10^3/uL (0-10) 01/16/25 15:19 CSF Polynuclear WBCs % 0 % (0-10) 01/16/25 15:19 CSF Diff Comment Yes 01/16/25 15:19 CSF Glucose 83 mg/dL (40-70) H 01/16/25 15:19 CSF Total Protein 42 mg/dL (15-45) 01/16/25 15:19 Vitals Last Vital Signs Temp 98.1 F 01/21/25 11:15 Pulse 47 L 01/21/25 11:15 Resp 16 01/21/25 11:15 BP 107/59 01/21/25 11:15 Pulse Ox 97 01/21/25 11:15 O2 Del Method Room Air 01/21/25 11:15 O2 Flow Rate 98 01/17/25 11:33 Discharge Plan Discharge Patient Disposition: Home Health Service Condition: Stable Prescriptions: New amlodipine 10 mg Tablet 10 mg PO DAILY 30 Days Qty: 30 0RF gabapentin 300 mg Capsule 300 mg PO TID 30 Days Qty: 90 0RF oxycodone 5 mg Tablet 5 mg PO Q6H PRN (Reason: Moderate Pain) 5 Days Qty: 20 0RF cefdinir 300 mg capsule 300 mg PO BID 5 Days Qty: 10 0RF dexamethasone 4 mg tablet 4 mg PO DAILY 5 Days Qty: 5 0RF Eliquis 2.5 mg tablet 1.25 mg PO BID 30 Days Qty: 30 0RF Continued carbidopa-levodopa 25-100 mg tablet See Rx Instructions .ROUTE .COMPLEX Qty: 180 11RF Dose Instruction: TAKE 1/2 TABLET BY MOUTH ON WAKING, 1 & 1/2 TABLETS AT 9AM AND 1:00PM, AND 1/2 TABLET AT BEDTIME Rx Instructions: TAKE 1 TABLET BY MOUTH ON WAKING, 2 TABLETS AT 9AM AND 1:00PM, AND 1/2 TABLET AT BEDTIME bisacodyl 5 mg Tablet,Delayed Release (Dr/Ec) 10 mg PO DAILY PRN (Reason: Constipation (see protocol)) Qty: 30 3RF pantoprazole 20 mg tablet,delayed release (DR/EC) 40 mg PO DAILY metoprolol tartrate 25 mg tablet 25 mg PO BID hydrochlorothiazide 12.5 mg tablet 12.5 mg PO DAILY biotin 5,000 mcg Tablet, Sublingual 10,000 mcg SUBLINGUAL DAILY polyethylene glycol 3350 [Miralax] 17 gram/dose powder 17 g PO DAILY Qty: 510 0RF Rx Instructions: Take 1 scoop daily while taking pain medications. atorvastatin 20 mg tablet 20 mg PO BEDTIME lisinopril 5 mg tablet 5 mg PO DAILY ondansetron 4 mg tablet,disintegrating 4 mg PO Q8H PRN (Reason: Nausea) naloxone [Rextovy] 4 mg/actuation spray,non-aerosol 4 mg intranasal Q2M PRN (Reason: opioid overdose) Qty: 2 0RF Rx Instructions: spray 1 dose into ONE nostril; alternate nostrils w each dose until help arrives sennosides-docusate sodium [Senna-S] 8.6-50 mg Tablet 2 tab-cap PO BID PRN (Reason: Constipation) coQ10 (ubiquinol) 200 mg Capsule 200 mg PO DAILY furosemide 40 mg tablet 40 mg PO DAILY galantamine 4 mg tablet 4 mg PO BID escitalopram oxalate 20 mg tablet 20 mg PO DAILY potassium chloride 10 mEq tablet extended release 10 meq PO DAILY lorazepam 0.5 mg tablet See Rx Instructions .ROUTE .COMPLEX Rx Instructions: TAKE 1 TABLET BY MOUTH EVERY 6 HOURS NEEDED. MAY titrate UP TO TWO tablets (1Mg) NEEDED FOR patient comfort ropinirole 0.5 mg tablet 0.5 mg PO TID meloxicam 7.5 mg tablet 7.5 mg PO DAILY Discontinued Eliquis 2.5 mg tablet 1.25 mg PO BID hydrocodone-acetaminophen 5-325 mg tablet 1 - 2 tab PO Q6H PRN (Reason: Pain) No Action (DME) fast form See Rx Instructions .Route .MEDSUPPLY Qty: 1 0RF Rx Instructions: As directed (DME) cockup splint See Rx Instructions .Route .MEDSUPPLY Qty: 1 0RF Rx Instructions: As directed (DME) soft cervical collar See Rx Instructions .Route .MEDSUPPLY Qty: 1 0RF Rx Instructions: As directed Discharge Order = DC NOW: Discharge Order (Routine); Ordered 01/21/25 Ordered By: Art Soto Referrals: [facility] [Outside] Nella López MD [Physician, Neurology] - 1-3 days Referral Note: We have notified your physician's clinic of the need for a follow-up appointment to be scheduled. If you have not heard from them within the next 2 business days, please call them directly. Trev Severino MD [Primary Care Provider, Family Practice] - 4-7 days Referral Note: You will need to call your primary care provider Wednesday to get a hospital discharge follow up in 4-7 days. Dom Chaudhry MD [Physician, Ear, Nose, Throat] - 4-7 days Referral Note: We have faxed your information to Dr. Chaudhry's office to get an appointment. They will be calling you in the next 2 business days and if you do not hear from them give them a call. Discharge Diet: Cardiac Discharge Activity: Resume usual activity Patient Instructions: Prednisone (By mouth), Cefdinir (By mouth), Oxycodone, Slow Release (By mouth), Guillain-[place] Syndrome (GEN), Opioid Safety, Patient Portal & Lisa Instructions Activity Restrictions/Additional Instructions: - Please use oxycodone sparingly for pain, do not drive or operate heavy machinery or drink while taking medication - Please take gabapentin 300 mg 3 times daily - Please take steroids as prescribed - Please follow-up with Dr. Chaudhry Discharge Attestations Time Spent in Discharge Care*: greater than 30 min Quality Metrics Clinical Quality Measures [ No reported AMI, CVA or VTE this stay] Coding Level of Care Code 49939 Total time (in minutes) for Discharge: 45 Diagnoses Bilateral leg weakness R29.898 Parkinson's disease without dyskinesia, with fluctuating manifestations G20.A2 Dyskinesia presence: without dyskinesia Fluctuating manifestations: with fluctuating manifestations Closed displaced fracture of first cervical vertebra, unspecified fracture morphology, initial encounter S12.000A Cervical vertebra fracture level: C1 Encounter type: initial encounter Fracture alignment: displaced Fracture morphology: unspecified fracture morphology Fracture type: closed 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
== END 2025-01-21 15:57 | disposition home health service (06) | DRG 95 ==
LOC: ER 18:20 → MEDSURG 22:44 → ER IP 01-16 12:14
PROVIDERS: Admitting Provider Family Medicine; Emergency Provider Family Medicine; PCP Family Medicine; Visit Provider Family Medicine
DX: G61.0 Guillain-Barre syndrome (principal); I50.30 Unspecified diastolic (congestive) heart failure; N39.0 Urinary tract infection, site not specified; G20.A2 Parkinson's disease without dyskinesia, with fluctuations; S12.000D Unspecified displaced fracture of first cervical vertebra, subsequent encounter for fracture with routine healing; W19.XXXD Unspecified fall, subsequent encounter; M26.601 Right temporomandibular joint disorder, unspecified; K21.9 Gastro-esophageal reflux disease without esophagitis; Z79.01 Long term (current) use of anticoagulants
CPT/HCPCS: 36415; 36416; 62328; 70450; 71045; 72125; 72131; 72141; 72148; 80048; 80053; 80061; 80503; 81001; 82945; 82962; 83036; 83880; 84145; 84157; 84315; 84443; 84484; 85025; 85651; 86140; 87070; 87075; 87086; 87205; 89050; 93005; 96372; 96374; 97110; 97116; 97163; 97167; 97530; 97535; 99285; J0360; J0696; J1100; J1171; J1561; J1650; J1938; J3480; J7030; J7040; J9999

== ENCOUNTER → 2025-03-28 15:01 | Outpatient (BNVA) | payer MEDICARE, MEDICAID, SELFPAY | PROVIDERS: PCP Family Medicine; Referring Provider Family Medicine; Visit Provider Specialist | DX: G20.A2 Parkinson's disease without dyskinesia, with fluctuations (principal); R03.0 Elevated blood-pressure reading, without diagnosis of hypertension | CPT/HCPCS: 99214 ==